=== PATIENT | male | born 1940 | race Caucasian/White ===

== ENCOUNTER 2017-04-07 23:09 | Inpatient (IN) ==
[2017-04-07 23:37] LABS: Basophils % 0.1 %; Eosinophils % 0.1 %; Hematocrit 33.8 % (37.5-50.1); Hemoglobin 11.1 g/dL (12.9-16.9); Immature Granulocytes % 0.4 % (0-4); Lymphocytes # 0.5 K/mcL (0.6-4.6); Lymphocytes % 7.5 %; Mean Corpuscular HGB Conc 32.8 g/dL (31.6-35.5); Mean Corpuscular Hemoglobin 31.5 pg (28.0-33.3); Mean Platelet Volume 9.8 fL (9.4-12.4); Monocytes # 0.3 K/mcL (0.0-1.3); Monocytes % 4.3 %; Neutrophils # 6.3 K/mcL (1.6-8.9); Platelet Count 115 K/mcL (140-400); Red Blood Count 3.52 M/mcL (4.19-5.50); Red Cell Distribution Width 14.1 % (11.5-14.5); Segmented Neutrophils % 87.6 %
[2017-04-07] MEDS: 0.9 % Sodium Chloride 1,000 ML IVC SCH ×2 (23:39→23:40)
[2017-04-07 23:40] LABS: Bilirubin,Urine Negative (Negative); Blood,Urine Negative (Negative); Clarity,Urine Cloudy (Clear); Color,Urine Yellow (Yellow); Glucose,Urine (UA) Normal (Normal); Ketones,Urine Negative (Negative); Leukocyte Esterase,Urine Negative (Negative); Nitrite,Urine Negative (Negative); PH,Urine 5.5 pH Units (5.0-8.0); Protein,Urine Negative (Neg-Trace); Specific Gravity,Urine 1.013 (1.010-1.025); Urobilinogen,Urine Normal (Normal)
[2017-04-07 23:41] LABS: INR 2.6; Prothrombin Time 28.5 Seconds (9.4-12.1)
[2017-04-07 23:42] LABS: Hyaline Casts,Urine None Seen per lpf (None-Few); RBC,Urine 0-3 per hpf (0-3); Squamous Epithelial Cell,Urine Many per lpf (None-Few); WBC,Urine 0-3 per hpf (0-3)
[2017-04-07 23:44] LABS: Activated Partial Thrombo Time 39.2 Seconds (26.0-36.0)
[2017-04-07 23:51] LABS: Albumin 3.4 g/dL (3.5-5.0); Albumin/Globulin Ratio 0.8 (1.1-2.2); Bilirubin,Direct 1.4 mg/dL (0.0-0.5); Bilirubin,Indirect 1.5 mg/dL (0.0-1.2); Bilirubin,Total 2.9 mg/dL (0.2-1.2); Calcium 9.4 mg/dL (8.6-10.8); Globulin 4.1 g/dL (2.4-3.5); Magnesium 2.2 mg/dL (1.6-2.6); Phosphorous 4.3 mg/dL (2.3-4.7); Potassium 5.6 mEq/L (3.5-4.5); Total Protein 7.5 g/dL (6.0-8.3)
[2017-04-07 23:54] LABS: Bacteria,Urine Few per hpf (None-Few)
[2017-04-08] MEDS: 0.9 % Sodium Chloride 1,000 ML IVC SCH (00:42)
--- NOTE | 2017-04-08 01:07 | Emergency Department Note ---
Disposition Clinical Impression: Delirium due to general medical condition, Sepsis Cellulitis Qualifiers: Site of cellulitis: extremity Site of cellulitis of extremity: lower extremity Laterality: left Qualified Code(s): L03.116 - Cellulitis of left lower limb Disposition: Admitted As Inpatient Condition: Fair Time of Disposition: 03:52 General Adult HPI - General Chief complaint: ED Altered Mental Status Stated complaint: AMS/fever Time Seen by Provider: 04/07/17 23:11 Source: patient, EMS Limitations: no limitations Nursing Notes Reviewed: Yes Vital Signs Reviewed: Yes - History of Present Illness HPI Narrative: Patient brought to the emergency department by EMS for altered level of consciousness. Report from was normal up until around 8:00 tonight when he became having to have Rigor's and chilling and then started having an altered level of consciousness. Pain Scale: 0 - Related Data Home Medications Medication Instructions Recorded Confirmed Ergocalciferol (VITAMIN D2) 2,000 unit PO DAILY 02/05/17 02/05/17 [Vitamin D2] Furosemide [Lasix] 40 mg PO BID 02/05/17 02/05/17 Levothyroxine [Synthroid] 88 mcg PO DAILY 02/05/17 02/05/17 Lisinopril [Zestril] 20 mg PO DAILY 02/05/17 02/05/17 Multivit-Min/FA/Lycopen/Lutein 1 each PO DAILY 02/05/17 02/05/17 [Centrum Silver Men Tablet] Warfarin [Coumadin] 1.5 tab PO DAILY 02/05/17 02/05/17 Allergies Allergy/AdvReac Type Severity Reaction Status Date / Time No Known Allergies Allergy Verified 01/03/17 12:25 Limitations: ROS unobtainable due to patients medical condition Past Medical History - Past Medical History Attestation: Yes The following information was validated with the patient. Medical history: Reports: hypertension, other Surgical history: Reports: other (cardiac ablasion) Psychiatric history: Reports: no psych history - Social History Smoking Status: Never smoker Smokeless Tobacco Status: No Alcohol use: Reports: none Drug use: Reports: none Physical Exam - General Limitations: no limitations General appearance: alert, other (Confused) - Head Head exam: atraumatic, normocephalic - Eye Eye exam: Present: normal appearance, PERRL, EOMI. Absent: scleral icterus - ENT ENT exam: normal exam, normal oropharynx, mucous membranes moist - Neck Neck exam: Present: normal inspection, full ROM, trachea midline. Absent: tenderness, meningismus, lymphadenopathy - Chest Chest inspection: Present: normal inspection, symmetric chest wall rise. Absent : tenderness - Respiratory Respiratory exam: Present: normal lung sounds bilaterally. Absent: respiratory distress - Cardiovascular Cardiovascular exam: Present: normal rhythm, tachycardia, normal heart sounds - Abdominal Exam Abdominal exam: Present: soft, Non-Tender, normal bowel sounds. Absent: tenderness, distention, guarding, rebound, rigidity, organomegaly - Extremities Exam Extremities exam: Present: other (Left lower extremity indurated from hip to foot also erythematous and warm. Right lower extremity also has some skin changes and is slightly edematous but not erythematous or warm.) - Expanded Upper Extremity Exam Shoulder exam: Present: normal inspection, full ROM Arm exam: Present: normal inspection, full ROM Elbow exam: Present: normal inspection, full ROM Forearm/Wrist exam: Present: normal inspection, full ROM Hand exam: Present: normal inspection, full ROM Vascular exam: Normal: capillary refill, radial pulse - Back Exam Back exam: Present: normal inspection - Neurological Exam Neurological exam: Present: alert, other (Very confused) - Skin Skin exam: Present: warm, dry, normal color Course Course Narrative: Male patient brought into the emergency department by EMS. called for an altered mental status. Advised that he is febrile. He is febrile at 105 here. Have an altered mental status. He ishis name and that he is at the hospital he is chilling in bed. He has several blankets on him. He denies any pain at this time. He does have erythematous lower extremities that EMS states the said were chronic. appears at bedside and states that he does have a history of amyloidosis. He is currently being treated for. There are no rashes I can appreciate on his body. Do not appreciate any outwardly signs of trauma. states that this happened last weekend one time but he did not have an altered mental status at that time. She states he started feeling better so then he was seen this week for his amyloidosis. She states today he was acting appropriately they went for ride a dinner and then went home. She states that after they were home for a while he became altered. She states he started having chills. She called 911. Patient meets sepsis criteria. He is tachycardic while here. We will give patient fluid boluses as well as begin a workup with lab work head CT a chest x-ray and urinalysis. We will treat patient's fever with Tylenol. - Reevaluation(s) Reevaluation #1: Patient's fever is coming down. He is down to 103 now. is stating that his left leg does look worse than it normally does. There is erythema and warmth and induration from his left foot up to his left thigh. It appears cellulitic. He is Complaining of left knee pain. He does not appear meningitic. He has full range of motion of his neck. He is more alert now. He is still tachycardic and almost in with his fluid bolus. I believe the tachycardia is from his fever and infection. We will begin patient on vancomycin and Rocephin and admit to the hospital. Time: 01:47 - Consultations Consultation #1: Dr Akers accepted Pt in stable condition. he was made aware that the Pt blood pressure has been in the 80-90 systolic after a fluid bolus, however the Pt mentation is normal. Time: 03:10 Vital Signs Temperature 104.5 F H 04/07/17 23:12 Pulse Rate 129 04/07/17 23:12 Respiratory Rate 21 04/07/17 23:12 Blood Pressure 130/89 04/07/17 23:12 O2 Sat by Pulse Oximetry 91 04/07/17 23:12 Temperature 0 F L 04/08/17 03:52 Pulse Rate 112 04/08/17 03:41 Respiratory Rate 0 04/08/17 03:52 Blood Pressure 0/0 04/08/17 03:52 O2 Sat by Pulse Oximetry 96 04/08/17 03:41 Oxygen Delivery Oxygen Delivery Room Air Medical Decision Making - Medical Records Medical records reviewed: Yes I reviewed the patient's medical records. - Lab Data Lab results reviewed: Yes I reviewed the patient's lab results. Result diagrams: 04/07/17 23:26 04/07/17 23:26 Lab Results 04/07/17 04/07/17 04/07/17 Range/Units 23:26 23:26 23:26 WBC 7.2 (4.3-11.1) K/mcL RBC 3.52 L (4.19-5.50) M/mcL Hgb 11.1 L (12.9-16.9) g/dL Hct 33.8 L (37.5-50.1) % MCV 96.0 (83.0-100.0) fL MCH 31.5 (28.0-33.3) pg MCHC 32.8 (31.6-35.5) g/dL RDW 14.1 (11.5-14.5) % Plt Count 115 L (140-400) K/mcL MPV 9.8 (9.4-12.4) fL Immature Gran % 0.4 (0-4) % Seg Neutrophils % 87.6 % Lymphocytes % 7.5 % Monocytes % 4.3 % Eosinophils % 0.1 % Basophils % 0.1 % Neutrophils # 6.3 (1.6-8.9) K/mcL Lymphocytes # 0.5 L (0.6-4.6) K/mcL Monocytes # 0.3 (0.0-1.3) K/mcL Eosinophils # 0.0 (0.0-0.6) K/mcL Basophils # 0.0 (0.0-0.2) K/mcL PT 28.5 H (9.4-12.1) Seconds INR 2.6 APTT 39.2 H (26.0-36.0) Seconds Sodium 135 L (136-145) mEq/L Potassium 5.6 H (3.5-4.5) mEq/L Chloride 100 (98-109) mEq/L Carbon Dioxide 21 (19-29) mEq/L BUN 91 H (8-26) mg/dL Creatinine 3.19 H (0.72-1.25) mg/dL Est GFR ( Amer) 23 L (> 60) Est GFR (Non-Af Amer) 19 L (> 60) BUN/Creatinine Ratio 29 H (6-26) Glucose 111 H (70-99) mg/dL Calculated Osmolality 309 H (280-300) Lactic Acid (0.5-2.2) mmol/L Calcium 9.4 (8.6-10.8) mg/dL Phosphorus 4.3 (2.3-4.7) mg/dL Magnesium 2.2 (1.6-2.6) mg/dL Total Bilirubin 2.9 H (0.2-1.2) mg/dL Direct Bilirubin 1.4 H (0.0-0.5) mg/dL Indirect Bilirubin 1.5 H (0.0-1.2) mg/dL AST 33 (5-34) Units/L ALT 8 (0-55) Units/L Alkaline Phosphatase 116 (38-126) Units/L Troponin I (0-0.03) ng/mL Serum Total Protein 7.5 (6.0-8.3) g/dL Albumin 3.4 L (3.5-5.0) g/dL Globulin 4.1 H (2.4-3.5) g/dL Albumin/Globulin Ratio 0.8 L (1.1-2.2) Urine Color (Yellow) Urine Clarity (Clear) Urine pH (5.0-8.0) pH Units Ur Specific [place] (1.010-1.025) Urine Protein (Neg-Trace) mg/dL Urine Glucose (UA) (Normal) mg/dL Urine Ketones (Negative) mg/dL Urine Blood (Negative) Urine Nitrite (Negative) Urine Bilirubin (Negative) Urine Urobilinogen (Normal) mg/dL Ur Leukocyte Esterase (Negative) Urine Microscopic RBC (0-3) per hpf Urine Microscopic WBC (0-3) per hpf Ur Squamous Epith Cells (None-Few) per lpf Urine Bacteria (None-Few) per hpf Hyaline Casts (None-Few) per lpf Ur Culture Indicated? (NO) 04/07/17 04/07/17 04/07/17 Range/Units 23:26 23:26 23:32 WBC (4.3-11.1) K/mcL RBC (4.19-5.50) M/mcL Hgb (12.9-16.9) g/dL Hct (37.5-50.1) % MCV (83.0-100.0) fL MCH (28.0-33.3) pg MCHC (31.6-35.5) g/dL RDW (11.5-14.5) % Plt Count (140-400) K/mcL MPV (9.4-12.4) fL Immature Gran % (0-4) % Seg Neutrophils % % Lymphocytes % % Monocytes % % Eosinophils % % Basophils % % Neutrophils # (1.6-8.9) K/mcL Lymphocytes # (0.6-4.6) K/mcL Monocytes # (0.0-1.3) K/mcL Eosinophils # (0.0-0.6) K/mcL Basophils # (0.0-0.2) K/mcL PT (9.4-12.1) Seconds INR APTT (26.0-36.0) Seconds Sodium (136-145) mEq/L Potassium (3.5-4.5) mEq/L Chloride (98-109) mEq/L Carbon Dioxide (19-29) mEq/L BUN (8-26) mg/dL Creatinine (0.72-1.25) mg/dL Est GFR ( Amer) (> 60) Est GFR (Non-Af Amer) (> 60) BUN/Creatinine Ratio (6-26) Glucose (70-99) mg/dL Calculated Osmolality (280-300) Lactic Acid 2.6 H (0.5-2.2) mmol/L Calcium (8.6-10.8) mg/dL Phosphorus (2.3-4.7) mg/dL Magnesium (1.6-2.6) mg/dL Total Bilirubin (0.2-1.2) mg/dL Direct Bilirubin (0.0-0.5) mg/dL Indirect Bilirubin (0.0-1.2) mg/dL AST (5-34) Units/L ALT (0-55) Units/L Alkaline Phosphatase (38-126) Units/L Troponin I 0.28 H* (0-0.03) ng/mL Serum Total Protein (6.0-8.3) g/dL Albumin (3.5-5.0) g/dL Globulin (2.4-3.5) g/dL Albumin/Globulin Ratio (1.1-2.2) Urine Color Yellow (Yellow) Urine Clarity Cloudy A (Clear) Urine pH 5.5 (5.0-8.0) pH Units Ur Specific [place] 1.013 (1.010-1.025) Urine Protein Negative (Neg-Trace) mg/dL Urine Glucose (UA) Normal (Normal) mg/dL Urine Ketones Negative (Negative) mg/dL Urine Blood Negative (Negative) Urine Nitrite Negative (Negative) Urine Bilirubin Negative (Negative) Urine Urobilinogen Normal (Normal) mg/dL Ur Leukocyte Esterase Negative (Negative) Urine Microscopic RBC 0-3 (0-3) per hpf Urine Microscopic WBC 0-3 (0-3) per hpf Ur Squamous Epith Cells Many H (None-Few) per lpf Urine Bacteria Few (None-Few) per hpf Hyaline Casts None Seen (None-Few) per lpf Ur Culture Indicated? NO (NO) 04/08/17 Range/Units 01:14 WBC (4.3-11.1) K/mcL RBC (4.19-5.50) M/mcL Hgb (12.9-16.9) g/dL Hct (37.5-50.1) % MCV (83.0-100.0) fL MCH (28.0-33.3) pg MCHC (31.6-35.5) g/dL RDW (11.5-14.5) % Plt Count (140-400) K/mcL MPV (9.4-12.4) fL Immature Gran % (0-4) % Seg Neutrophils % % Lymphocytes % % Monocytes % % Eosinophils % % Basophils % % Neutrophils # (1.6-8.9) K/mcL Lymphocytes # (0.6-4.6) K/mcL Monocytes # (0.0-1.3) K/mcL Eosinophils # (0.0-0.6) K/mcL Basophils # (0.0-0.2) K/mcL PT (9.4-12.1) Seconds INR APTT (26.0-36.0) Seconds Sodium (136-145) mEq/L Potassium (3.5-4.5) mEq/L Chloride (98-109) mEq/L Carbon Dioxide (19-29) mEq/L BUN (8-26) mg/dL Creatinine (0.72-1.25) mg/dL Est GFR ( Amer) (> 60) Est GFR (Non-Af Amer) (> 60) BUN/Creatinine Ratio (6-26) Glucose (70-99) mg/dL Calculated Osmolality (280-300) Lactic Acid 1.6 (0.5-2.2) mmol/L Calcium (8.6-10.8) mg/dL Phosphorus (2.3-4.7) mg/dL Magnesium (1.6-2.6) mg/dL Total Bilirubin (0.2-1.2) mg/dL Direct Bilirubin (0.0-0.5) mg/dL Indirect Bilirubin (0.0-1.2) mg/dL AST (5-34) Units/L ALT (0-55) Units/L Alkaline Phosphatase (38-126) Units/L Troponin I (0-0.03) ng/mL Serum Total Protein (6.0-8.3) g/dL Albumin (3.5-5.0) g/dL Globulin (2.4-3.5) g/dL Albumin/Globulin Ratio (1.1-2.2) Urine Color (Yellow) Urine Clarity (Clear) Urine pH (5.0-8.0) pH Units Ur Specific [place] (1.010-1.025) Urine Protein (Neg-Trace) mg/dL Urine Glucose (UA) (Normal) mg/dL Urine Ketones (Negative) mg/dL Urine Blood (Negative) Urine Nitrite (Negative) Urine Bilirubin (Negative) Urine Urobilinogen (Normal) mg/dL Ur Leukocyte Esterase (Negative) Urine Microscopic RBC (0-3) per hpf Urine Microscopic WBC (0-3) per hpf Ur Squamous Epith Cells (None-Few) per lpf Urine Bacteria (None-Few) per hpf Hyaline Casts (None-Few) per lpf Ur Culture Indicated? (NO) - Radiology Data Radiology results reviewed: Yes I reviewed the patient's radiology results. - EKG Data EKG #1 EKG attestation: Yes I reviewed and interpreted this EKG. EKG results narrative: Regular rhythm with no discernible P waves. At a rate of 122. QRS duration is 88. QT is 260. QTC is 333. No ST elevation or depression noted. Several rhythm changes from previous EKG dated 11/14/2011. Lead 1 and is now biphasic was upward deflecting lead to his now downward deflecting was upward deflecting. Lead 3 is now downward deflecting was upward deflecting. R-wave progression has become more poor from previous EKG. Critical Care Time Critical Care Time: Yes Total Critical Care Time: 50 Attestation: Critical care performed: Time is exclusive of separately billable procedures. Time includes: direct patient care, patient reassessment, coordination of patient care, interpretation of data (laboratory data, radiology data, and respiratory data), review of patient's medical records, medical consultation and documentation of patient care. Procedures included in critical care time: Procedures excluded from critical care time: Attestation Statement - Attestation Attestation: I, Antony Crocker MD, personally evaluated this patient and discussed their management with the resident physician. I reviewed the resident's note and agree with the documented findings, medical decision making, and plan of care. 77-year-old male presents to the emergency department by ambulance for fever and altered mental status. Patient was fine until about 8 PM this evening and when he had acute onset of chills and a rigor and high fever. He became confused and disoriented. He complained of some generalized body aches and especially lower back pain. Temperature was 105. On arrival here he was initially confused and disoriented. At time of my examination he was alert and answered questions appropriately. He was oriented to person and place. He denies any headache or neck pain. No cough or chest pain or shortness breath. No abdominal pain. No vomiting or diarrhea. No dysuria. Does complain of some pain in his left knee that started yesterday and got progressively worse throughout the day today. He denies any injury. On examination patient is a well-developed well-nourished elderly male in no acute distress. He is alert and oriented to person and place. There is no cyanosis or diaphoresis. Neck is supple and nontender with full range of motion. Chest is nontender to palpation. Breath sounds are clear and equal bilaterally. Heart regular rate and rhythm. Abdomen is soft and nontender with normal bowel sounds. The left lower extremity is red and warm to touch and tender up to the mid thigh. There is especially tenderness around the left knee with some swelling. Labs reviewed. Chest x-ray negative. Head CT showed no acute intracranial abnormality. EKG shows sinus tachycardia. The hospitalist, Dr. Akers, was consulted and accepted admission of the patient.
[2017-04-08] MEDS ORDERED: Vancomycin 1,250 MG in D5% in Water 250 ML IVPB ONE (01:36)
[2017-04-08] MEDS ORDERED: 0.9 % Sodium Chloride 1,000 ML IVC ONE (02:06)
[2017-04-08] MEDS ORDERED: Ondansetron 4 MG/2 ML VIAL IVP PRN ×2 (03:58→20:32)
[2017-04-08] MEDS ORDERED: Acetaminophen 325 MG TABLET PO PRN ×2 (03:58→20:32)
[2017-04-08] MEDS ORDERED: Naloxone 0.4 MG/ML INJ IVP PRN ×2 (03:58→20:32)
[2017-04-08] MEDS ORDERED: 0.9 % Sodium Chloride 1,000 ML IVC SCH ×2 (04:00→09:33)
--- NOTE | 2017-04-08 04:28 | Internal Med History&Physical ---
Date of Encounter: 04/08/17 Time of Encounter: 03:30 Assessment and Plan (1) Sepsis Current visit: Yes Status: Acute Patient has tachycardia, fever, elevated lactate, his WBC is also elevated from his baseline (baseline 3.4, now 7.2), patient has altered mental status and BP is at the lower side. His creatinine level is elevated compared with his baseline. Consider severe sepsis. - Patient was given 4 L IV fluid in emergency room. Lactate level getting down after resuscitation. - We will continue IV fluid at 150 ml/hr - Continue antibiotic treatment with Vanco and Rocephin. - CT lower extremity to rule out abscess and arthritis. - Close to monitor vital signs, renal function, and tachycardic. - Follow up blood culture. Patient is at high risk because he has altered mental status, severe sepsis, and he is on vancomycin, need close monitoring. Qualifiers: Sepsis type: sepsis due to unspecified organism Qualified Code(s): A41.9 - Sepsis, unspecified organism (2) Acute metabolic encephalopathy Current visit: Yes Status: Acute Is due to sepsis. Improved after treatment. (3) A-fib Current visit: Yes Status: Acute Tachycardia is due to sepsis and fever. Patient is on Coumadin for anticoagulation. Qualifiers: Atrial fibrillation type: chronic Qualified Code(s): I48.2 - Chronic atrial fibrillation (4) Hypertension Current visit: Yes Status: Acute Hold hypertension medication because patient's blood pressure at lower side. Qualifiers: Hypertension type: essential hypertension Qualified Code(s): I10 - Essential (primary) hypertension (5) DVT prophylaxis Current visit: Yes Status: Acute Pt is on Coumadin (6) Amyloidosis Current visit: Yes Status: Acute Patient is following up with oncology and [facility] specialist as outpatient. Qualifiers: Amyloidosis type: unspecified amyloidosis Qualified Code(s): E85.9 - Amyloidosis, unspecified (7) Cellulitis Current visit: Yes Status: Acute Continue antibiotic treatment. CT lower extremity to rule out abscess or arthritis. Qualifiers: Site of cellulitis: extremity Site of cellulitis of extremity: lower extremity Laterality: left Qualified Code(s): L03.116 - Cellulitis of left lower limb Internal Medicine - H&P: HPI Chief complaint: Altered mental status, left leg pain Admitted From: Home Plans for Post Hospital Care: Home History of present illness: Mr. Rubio is a 77 year old male with history of amyloidosis present to ER for altered mental status. Patient said since last night at 8 PM he feel confused and shivering. Patient complain left leg pain. He denies nausea, vomiting, sore throat, cough, shortness of breath, chest pain, abdominal pain, urinary symptoms. Patient was sent to ER, and was found a temperature height 105. His left leg is swelling with redness and warmth. He was also found elevated lactate and tachycardia. He was given 4 L IV fluid the emergency room and his blood pressure is still at the lower side. He was admitted as sepsis and cellulitis. He was given antibiotic in the emergency room. After treatment to his mental status has significantly improved. I discussed the CODE STATUS with the patient, he is a full code. Past Med Surg Social Fam HX - Past Medical History Medical history: hypertension, other Psychiatric history: no psych history - Past Surgical History Surgical History: other (cardiac ablasion) - Social History Smoking Status: Never smoker Smokeless Tobacco Status: No Alcohol use: none Drug use: none Internal Medicine - H&P: Meds Ergocalciferol (VITAMIN D2) [Vitamin D2] 2,000 unit PO DAILY 02/05/17 [History] Furosemide [Lasix] 40 mg PO BID 02/05/17 [History] Levothyroxine [Synthroid] 88 mcg PO DAILY 02/05/17 [History] Lisinopril [Zestril] 20 mg PO DAILY 02/05/17 [History] Multivit-Min/FA/Lycopen/Lutein [Centrum Silver Men Tablet] 1 each PO DAILY 02/05 [History] Warfarin [Coumadin] 1.5 tab PO DAILY 02/05/17 [History] Allergies No Known Allergies Allergy (Verified 01/03/17 12:25) All Systems PM: A 10-system review of systems was performed and is negative for pertinent findings except as documented above in the HPI. - Constitutional Vitals: Temp Pulse Resp BP Pulse Ox 0 F L 112 0 0/0 96 04/08/17 03:52 04/08/17 03:41 04/08/17 03:52 04/08/17 03:52 04/08/17 03:41 General appearance: Present: A&O X 3, no acute distress, answers questions appropriately - Head Head exam: Present: atraumatic, normocephalic - Eye Eye exam: Present: PERRL, conjuntiva pink, sclera anicteric Pupils: Present: PERRL - Neck Neck exam general surgery: Present: supple, trachea midline. Absent: lymphadenopathy - Respiratory Respiratory exam: Present: CTAB. Absent: accessory muscle use, rales, rhonchi, wheezes - Cardiovascular Cardiovascular exam: Present: irregular rhythm, +S1, +S2, tachycardia. Absent: diastolic murmur, gallop, rubs, systolic murmur - GI/Abdominal GI/Abdominal exam: Present: hepatomegaly, normal bowel sounds, soft, no peritoneal signs. Absent: distended, tenderness - Extremities Exam Extremities exam: Present: warm, radial pulses palpable and symetrical. Absent : calf tenderness, cyanotic, pedal edema Additional comments: Left lower extremity swelling, warmth, redness, with tenderness. Right lower extremity has mild redness. - Neurological Exam Neurological exam: Present: CN II-XII intact, oriented X3, no focal deficits. Absent: pronater drift, facial droop, speech deficit - Skin Skin exam: Present: dry, intact Internal Med - H&P Results - Labs CBC & Chem 7: 04/07/17 23:26 04/07/17 23:26
[2017-04-08 04:38] LABS: Basophils % 0.1 %; Hematocrit 27.9 % (37.5-50.1); Immature Granulocytes % 3.5 % (0-4); Lymphocytes # 0.6 K/mcL (0.6-4.6); Lymphocytes % 6.4 %; Mean Corpuscular HGB Conc 33.7 g/dL (31.6-35.5); Mean Corpuscular Hemoglobin 32.5 pg (28.0-33.3); Mean Corpuscular Volume 96.5 fL (83.0-100.0); Mean Platelet Volume 10.4 fL (9.4-12.4); Monocytes # 0.9 K/mcL (0.0-1.3); Monocytes % 8.8 %; Platelet Count 100 K/mcL (140-400); Red Blood Count 2.89 M/mcL (4.19-5.50); Red Cell Distribution Width 14.1 % (11.5-14.5); Segmented Neutrophils % 81.2 %
[2017-04-08 04:49] LABS: Hemoglobin 9.4 g/dL (12.9-16.9)
[2017-04-08 04:54] LABS: Calcium 8.4 mg/dL (8.6-10.8); Potassium 4.4 mEq/L (3.5-4.5)
[2017-04-08 05:15] LABS: Platelet Estimate Decreased (Normal); Reactive Lymphocytes Present (Not Present)
[2017-04-08] MEDS ORDERED: 0.9 % Sodium Chloride 500 ML IVC ONE (06:08)
[2017-04-08] MEDS ORDERED: Piperacillin/Tazobactam 3.375 GM in D5% in Water (Mini-Bag+) 100 ML IVPB SCH ×2 (06:19→08:00)
[2017-04-08] MEDS ORDERED: Norepinephrine 4 MG in D5% in Water 250 ML IVC SCH (07:30)
--- NOTE | 2017-04-08 08:13 | Pulmonology Consult Note ---
<SanaIrvin W - Last Filed: 04/08/17 13:01> Date of Encounter: 04/08/17 Medications and Allergies Ergocalciferol (VITAMIN D2) [Vitamin D2] 2,000 unit PO DAILY 02/05/17 [History] Levothyroxine [Synthroid] 88 mcg PO DAILY 02/05/17 [History] Lisinopril [Zestril] 10 mg PO DAILY 02/05/17 [History] Multivit-Min/FA/Lycopen/Lutein [Centrum Silver Men Tablet] 1 each PO DAILY 02/05 [History] Warfarin [Coumadin] 7.5 tab PO [id number] 02/05/17 [History] Diflunisal 250 mg PO DAILY 04/08/17 [History] Doxycycline Monohydrate [Mondoxyne Nl] 100 mg PO DAILY 04/08/17 [History] Famotidine [Pepcid] 40 mg PO DAILY 04/08/17 [History] Ursodiol [Ursodiol] 300 mg PO Q12H 04/08/17 [History] Warfarin [Coumadin] 10 mg PO ANGELES 04/08/17 [History] Allergies No Known Allergies Allergy (Verified 04/08/17 10:20) All Systems: A 10-system review of systems was performed and is negative for pertinent findings except as documented above in the HPI. Physical Examination Vital Signs: Vital Signs, Last 4 Hours Pulse Resp BP Pulse Ox 04/08/17 09:03 97 04/08/17 09:00 97 18 78/52 97 04/08/17 08:17 99 04/08/17 08:14 105 20 80/54 99 Results - Laboratory Findings CBC and BMP: 04/08/17 04:20 04/08/17 04:20 PT/INR, D-dimer PT 28.5 Seconds (9.4-12.1) H 04/07/17 23:26 Abnormal lab findings: Abnormal lab results RBC 2.89 M/mcL (4.19-5.50) L 04/08/17 04:20 Hgb 9.4 g/dL (12.9-16.9) L D 04/08/17 04:20 Hct 27.9 % (37.5-50.1) L 04/08/17 04:20 Plt Count 100 K/mcL (140-400) L 04/08/17 04:20 Reactive Lymphocytes Present (Not Present) A 04/08/17 04:20 Platelet Estimate Decreased (Normal) L 04/08/17 04:20 PT 28.5 Seconds (9.4-12.1) H 04/07/17 23:26 APTT 39.2 Seconds (26.0-36.0) H 04/07/17 23:26 Sodium 133 mEq/L (136-145) L 04/08/17 04:20 BUN 88 mg/dL (8-26) H 04/08/17 04:20 Creatinine 3.04 mg/dL (0.72-1.25) H 04/08/17 04:20 Est GFR ( Amer) 24 (> 60) L 04/08/17 04:20 Est GFR (Non-Af Amer) 20 (> 60) L 04/08/17 04:20 BUN/Creatinine Ratio 29 (6-26) H 04/08/17 04:20 Glucose 118 mg/dL (70-99) H 04/08/17 04:20 POC Glucose 101 (58-89) H 04/08/17 06:45 Calculated Osmolality 304 (280-300) H 04/08/17 04:20 Calcium 8.4 mg/dL (8.6-10.8) L 04/08/17 04:20 Total Bilirubin 2.9 mg/dL (0.2-1.2) H 04/07/17 23:26 Direct Bilirubin 1.4 mg/dL (0.0-0.5) H 04/07/17 23:26 Indirect Bilirubin 1.5 mg/dL (0.0-1.2) H 04/07/17 23:26 Troponin I 0.40 ng/mL (0-0.03) H* 04/08/17 04:20 Albumin 3.4 g/dL (3.5-5.0) L 04/07/17 23:26 Globulin 4.1 g/dL (2.4-3.5) H 04/07/17 23:26 Albumin/Globulin Ratio 0.8 (1.1-2.2) L 04/07/17 23:26 Ur Squamous Epith Cells Many per lpf (None-Few) H 04/07/17 23:32 - Clinical Findings Intake & Output: Intake & Output 04/07/17 04/08/17 04/08/17 23:59 07:59 15:59 Output Total 50 / 50 200 / 200 Balance - 1950 -200 / -200 Weight 95.3 kg Consult Discharge Plan - Plan Referrals: Daniel Garcia MD [Primary Care Provider] - - Attending Attestation I examined this patient and my medical decision-making was reviewed with the REAL ESTATE DIRECTOR/PA/Advanced Practice Nurse/Resident Physician. I agree with the documented findings, disposition and treatment plan as described except to the extent set forth below. Patient seen and examined at bedside Labs, radiology, chart personally reviewed. All lines examined without evidence of infection. Neuropsych: awake and alert now. presented with AMS likely s/t to sepsis now improved. Pulm: acceptable oxygenation on room air. cont to monitor. Cards: Distributive shock d/t Sepsis. Fluid resuscitated/ starting vaospressor to keep MAP >60. trend lactate, ECG without STEMI Trop elevated suspect type 2 MS. ECHO pending. cardiology consult based upon clinical course/results of ECHO FEN-GI:NPO for now. Renal: LURDES which is likely s/t prerenal azotemia along with use of ACEi; all meds dosed for GFR. BID renal panel with electrolyte replacement as needed ID: Sepsis suspect soft tissue infection of LLE concern for nec fasc, d/w ortho possiblility of septic joint with pirior hardrward placment. CT scan of LE performed. General surgical consult based on results. Covered with Vanc/ Ceftriaxone and also given dose of Clinday for possible Nec Fasc deescalate based upon cultures Heme/Onc: elevated INR on warfarin (therapeutic), we will reverse for high index for possible surgical procedure on urgernt/emergent basis. Endo: glucose monitored Integ/MSK: LLE swelling/erythema with w/u as above. History of hardware placement. ortho to follow, Will also provide skin care per routine ICU proocol. CODE: Full family updated at bedside. <Karyn Peterson - Last Filed: 04/08/17 15:30> Date of Encounter: 04/08/17 Time of Encounter: 08:07 Assessment and Plan (1) Septic shock Current Visit: Yes Status: Acute Patient had Tmax of 104.5, pulse 129, R 21, source of infection likely secondary to left lower leg cellulitis. Patient had altered mental status that has since resolved after receiving 3.5L fluid boluses. urinalysis showed no signs of infection. lactate now 1.6 (initially 2.6) CT head showed no acute intracranial abnormality. Plan: NPO except medications. blood cultures x2 pending continue vancomycin day 2, ceftriaxone day 2 clindamycin day 1 appreciate orthopedic surgery recommendations. 2 units FFP given in case patient needs surgery. trend lactate Q6, BMP, CBC, INR, troponin will consult general surgery if needed. (2) Cellulitis Current Visit: Yes Status: Acute left lower leg erythematous, edematous from ankle to mid thigh. no crepitus appreciated on exam. CT LLE showed diffuse subcutaneous eema along skin thickening to the visualized left lower extremity, may reflect stasis, cellulitis, or lymphedema. no focal fluid collections to suggest abscess formation. no evidence of soft tissue gas, no bony abnormalities, no evidence of osteomyelitis. Left knee prosthesis is smoothly marginated lucency, infection unlikely, small nonspecific knee joint effusion, mild to moderate degenerative changes in ankle/fot, most significant to the midfoot at level of talonaicular joint. fluid culture sent for analysis, showed few gram positive rods and many white blood cells. Plan: fluid removed from left knee, sent for analysis. continue vancomycin day 2, ceftriaxone day 2 clindamycin day 1 appreciate orthopedic surgery recommendations, they will take patient to surgery today to remove hardware. 2 units FFP given in case patient needs surgery. will consult general surgery if warranted. will consult cardiology for surgery clearance. Qualifiers: Site of cellulitis: extremity Site of cellulitis of extremity: lower extremity Laterality: left Qualified Code(s): L03.116 - Cellulitis of left lower limb (3) A-fib Current Visit: Yes Status: Acute currently HR runs 90s-105 continue to monitor. pharmacy dosing warfarin, which is currently being held for possible surgery of let lower extremity. Qualifiers: Atrial fibrillation type: chronic Qualified Code(s): I48.2 - Chronic atrial fibrillation (4) Acute kidney injury superimposed on CKD Current Visit: Yes Status: Acute LURDES on CKD, stage IIIa Cr today 3.04, baseline around 1.3 FEna: .5%: Pre-renal cause. Urine urea: 521 Plan: avoid nephrotoxins. hold lisinopril will monitor with repeat BMP. (5) CHF (congestive heart failure) Current Visit: Yes Status: Acute last echo from 01/18/17 showed LVEF 55%, sever concentric LVH, indeterminate diastolic function, Interventricular septum appeared flat throughout, abnormal appearing myocardial texture mildly dilated RV, mild RV hypokinesis, severely dilated left atrium, severely dilated RA, mild ashanti regurg, mild pulmonary HTN , RSVT 3-44, severe tricuspid regurg, peural effusion. Plan: repeat echo pending will give fluids with caution continue to monitor. does not appear to be in exacerbation. Qualifiers: Congestive heart failure type: diastolic Congestive heart failure chronicity: chronic Qualified Code(s): I50.32 - Chronic diastolic (congestive ) heart failure (6) Elevated troponin Current Visit: Yes Status: Acute tropes .28, .4, .48 will trend q6h EKG showed Afib without signs of ischemia. Echo pending (7) Hypothyroidism Current Visit: Yes Status: Acute continue home med levothyroxine Qualifiers: Hypothyroidism type: unspecified Qualified Code(s): E03.9 - Hypothyroidism , unspecified (8) Amyloidosis Current Visit: Yes Status: Acute will resume home meds once home med list is verified. Qualifiers: Amyloidosis type: unspecified amyloidosis Qualified Code(s): E85.9 - Amyloidosis, unspecified (9) DVT prophylaxis Current Visit: Yes Status: Acute foot pumps Neuro/sedation: Patient had altered mental status that had since resolved after administration of fluids. Currently A&Ox3, mentating well. Pulm: CXR showed mild cardiomegaly with no acute process. Cardiac: Hx of CHF with preserved EF. Hx of Afib on warfarin, which is being held. patient is mildly tachycardic. will monitor at this time. elevated troponin with peak troponin .48, will trend. Echo pending. Hold lisinopril due to septic shock. Have discontinued maintenance fluids. Titrate levophed to MAP above 60. Gi/Fluids: patient received about 4 fluid boluses in the ED. will monitor Renal: LURDES on CKD (IIIa). Avoid nephrotoxins. urine Cr, urine sodium, urine urea levels pending. ID: septic shock likely secondary to LLE cellulitis. blood cultures x2 pending. CT leg pending. continue vanc, clindamycin, ceftriaxone. urinalysis showed no signs of infection. Consult to orthopedic surgery Heme/onc: Hg down from baseline, chronically thrombocytopenic. will get stool occult blood. INR 2.6, hold for possible surgery. 2 units FFP given. Foot pumps for DVT prophylaxis. Endocrine: continue blood glucose measurements. Continue synthroid for hypothyroidism. Skin: routine skincare per ICU protocol. Lines: right IJ, right peripheral, Cook catheter History of Present Illness Consult date: 04/08/17 Requesting physician: Alayna Akers Reason for consult: other (septic shock) Chief complaint: altered mental status History of present illness: 77 year old male with PMHx of Amyoidosis, HTN, Afib (on coumadin), hypothyroidism. Patient initially presented to ED with CC of altered mental status. He was confused, and had chills. He also complained of severe left leg pain, had temp of 105. He received 4L fluids from ED, and his altered mental status has since resolved. Patient's left knee is very inflammed and erythematous. Patient states that had his left knee replaced about 5 years ago at [facility] with Dr. Puentes. He does not recall what kind of hardware he had placed. Patient Was initally admitted to 2N, however, he remained hypotensive and was subsequently transferred to ICU this morning. Patient remains alert and oriented x3. Past Med Surg Social Fam HX - Past Medical History Medical history: atrial fibrillation, hypertension, other Psychiatric history: no psych history - Past Surgical History Surgical History: other - Social History Smoking Status: Never smoker Smokeless Tobacco Status: No Alcohol use: none Drug use: none - Family History Father History Unknown: Yes Adopted: Yes Age: 66 Living Status: Hx Family Cardiac Disorders: Yes Mother Living Status: Age at : 95 Hx Family Cardiac Disorders: Yes (heart disease) All Systems: A 10-system review of systems was performed and is negative for pertinent findings except as documented above in the HPI. - Constitutional Constitutional: chills, fatigue, no headache(s) - EENT Eyes: no loss of vision Nose, mouth and throat: no dizziness, no headache(s) - Cardiovascular Cardiovascular: no chest pain, no palpitations, no syncope - Respiratory Respiratory: no cough, no hemoptysis - Gastrointestinal Gastrointestinal: no abdominal pain - Neurological Neurological: no dizziness, no headache(s) - Psychiatric Psychiatric: anxiety Physical Examination Vital Signs: Vital Signs, Last 4 Hours Temp Pulse Resp BP Pulse Ox 04/08/17 05:13 100 96 04/08/17 04:34 98.4 F 100 16 74/53 97 General appearance: no acute distress, alert Eyes: nonicteric ENT: oropharynx moist Neck: supple, no lymphadenopathy Effort: normal Auscultation: bilateral: clear Cardiovascular: other (tachycardia) Gastrointestinal: hypoactive bowel sounds, soft, non-tender Integumentary: cellulitis (on left lower etremity) Extremities: other (left lower leg cellulitis, erythematous, edematous from ankle to mid thigh. ) Musculoskeletal: joint inflammation (left lower extremity) normal mental status, motor strength normal and symmetric mood appropriate, affect normal Results - Laboratory Findings CBC and BMP: 04/08/17 04:20 04/08/17 04:20 PT/INR, D-dimer PT 28.5 Seconds (9.4-12.1) H 04/07/17 23:26 Abnormal lab findings: Abnormal lab results RBC 2.89 M/mcL (4.19-5.50) L 04/08/17 04:20 Hgb 9.4 g/dL (12.9-16.9) L D 04/08/17 04:20 Hct 27.9 % (37.5-50.1) L 04/08/17 04:20 Plt Count 100 K/mcL (140-400) L 04/08/17 04:20 Reactive Lymphocytes Present (Not Present) A 04/08/17 04:20 Platelet Estimate Decreased (Normal) L 04/08/17 04:20 PT 28.5 Seconds (9.4-12.1) H 04/07/17 23:26 APTT 39.2 Seconds (26.0-36.0) H 04/07/17 23:26 Sodium 133 mEq/L (136-145) L 04/08/17 04:20 BUN 88 mg/dL (8-26) H 04/08/17 04:20 Creatinine 3.04 mg/dL (0.72-1.25) H 04/08/17 04:20 Est GFR ( Amer) 24 (> 60) L 04/08/17 04:20 Est GFR (Non-Af Amer) 20 (> 60) L 04/08/17 04:20 BUN/Creatinine Ratio 29 (6-26) H 04/08/17 04:20 Glucose 118 mg/dL (70-99) H 04/08/17 04:20 POC Glucose 101 (58-89) H 04/08/17 06:45 Calculated Osmolality 304 (280-300) H 04/08/17 04:20 Calcium 8.4 mg/dL (8.6-10.8) L 04/08/17 04:20 Total Bilirubin 2.9 mg/dL (0.2-1.2) H 04/07/17 23:26 Direct Bilirubin 1.4 mg/dL (0.0-0.5) H 04/07/17 23:26 Indirect Bilirubin 1.5 mg/dL (0.0-1.2) H 04/07/17 23:26 Troponin I 0.40 ng/mL (0-0.03) H* 04/08/17 04:20 Albumin 3.4 g/dL (3.5-5.0) L 04/07/17 23:26 Globulin 4.1 g/dL (2.4-3.5) H 04/07/17 23:26 Albumin/Globulin Ratio 0.8 (1.1-2.2) L 04/07/17 23:26 Urine Clarity Cloudy (Clear) A 04/07/17 23:32 Ur Squamous Epith Cells Many per lpf (None-Few) H 04/07/17 23:32 - Clinical Findings Intake & Output: Intake & Output 04/07/17 04/08/17 04/08/17 23:59 07:59 15:59 Output Total 50 / 50 Balance -50 / 1950
--- NOTE | 2017-04-08 08:44 | Event Note ---
<Tavares Farah - Last Filed: 04/08/17 08:15> Date of Encounter: 04/08/17 Time of Encounter: 08:16 Procedure Note: Right internal jugular Central Venous Catheter Insertion Indication: Hypotension, septic shock. Attending Physician: Irvin Hood M.D. Inspector Government Property: Tavares Farah D.O. PGY 3 IM Indication: This is a 77 year-old male with septic shock. Consent: Detailed explanation of the procedure, treatment options, risks including but not limited to infection and bleeding, and benefits were explained to the patient. A written informed consent was obtained. Technique: A time out was preformed identifying the correct procedure, the correct location with the nursing staff. The right neck was prepped with 2% chlorhexidine and draped with a full length sterile sheet in the usual fashion. The right internal jugular vein was accessed under ultrasound guidance with an 18 gauge thin wall needle. A triple lumen was inserted via the seldinger technique. Placement was confirmed by visualizing the guidewire in the vein with ultrasound prior to inserting the triple-lumen catheter. Blood was withdrawn from all lumens and flushed with normal saline. The catheter was sutured in place and a sterile dressing was applied over the site prior to removal of drapes. The patient tolerated the procedure well and there were no complications. Chest x ray: I reviewed the chest x-ray. I have viewed the image myself. The right central venous catheter appears to be in the SVC. No Pneumothorax. I will follow up with the oficial report. EBL: [20 mL] Complication: None <Irvin Hood W - Last Filed: 04/08/17 17:56> Date of Encounter: 04/08/17 I am the attending physician I was present for the gage and critical portions of this procedure.
[2017-04-08 09:26] LABS: Bilirubin,Urine Negative (Negative); Blood,Urine Negative (Negative); Clarity,Urine Clear (Clear); Color,Urine Yellow (Yellow); Glucose,Urine (UA) Normal (Normal); Ketones,Urine Negative (Negative); Leukocyte Esterase,Urine Negative (Negative); Nitrite,Urine Negative (Negative); Protein,Urine Negative (Neg-Trace); Specific Gravity,Urine 1.015 (1.010-1.025); Urobilinogen,Urine Normal (Normal)
[2017-04-08] MEDS ORDERED: 0.9 % Sodium Chloride 250 ML ONE ×3 (09:59→21:11)
[2017-04-08] MEDS: Clindamycin 900 MG/50 ML 900 MG/50 ML IV.SOLN IVPB SCH ×3 (10:24→23:05)
--- NOTE | 2017-04-08 11:18 | Orthopedic Consult Note ---
Date of Encounter: 04/08/17 Time of Encounter: 08:00 Assessment and Plan (1) Infection of total right knee replacement Current Visit: Yes Status: Acute Based off patients history of knee infection, duration of pain and new onset of AMS, lactic acidosis and fever - concerned for septic left total knee joint. CT scan revealed lucency to medial component; xrays show no abnormality. After consent was obtained, left knee was aspirated using 18 gauge needle with 30 cc syringe. Approx 20 cc of purulent, turbid fluid was aspirated. Gram stain , cultures and cell count sent for STAT read. Gram stain revealed Gram + Cocci. Awaiting cell count and cultures Surgical intervention recommended. Discussed and reviewed the case with Because of patients history of infection, and suspicion this has been an ongoing issue, recommendation is to do a Left knee Removal of hardware and placement with cement spacer, with prolonged IV antibiotic treatment. Consent reviewed and discussed with family. Consent signed. Plan for surgery today. NPO, continue pain control, BP management. Cardio consult and pulmonology consult requested. Qualifiers: Encounter type: initial encounter Qualified Code(s): T84.53XA - Infection and inflammatory reaction due to internal right knee prosthesis, initial encounter; Z96.651 - Presence of right artificial knee joint (2) Sepsis Current Visit: Yes Status: Acute Qualifiers: Sepsis type: sepsis due to unspecified organism Qualified Code(s): A41.9 - Sepsis, unspecified organism (3) Cellulitis Current Visit: Yes Status: Acute Qualifiers: Site of cellulitis: extremity Site of cellulitis of extremity: lower extremity Laterality: left Qualified Code(s): L03.116 - Cellulitis of left lower limb (4) A-fib Current Visit: Yes Status: Acute Qualifiers: Atrial fibrillation type: chronic Qualified Code(s): I48.2 - Chronic atrial fibrillation (5) Hypertension Current Visit: Yes Status: Acute Qualifiers: Hypertension type: essential hypertension Qualified Code(s): I10 - Essential (primary) hypertension (6) Amyloidosis Current Visit: Yes Status: Acute Qualifiers: Amyloidosis type: unspecified amyloidosis Qualified Code(s): E85.9 - Amyloidosis, unspecified History of Present Illness Chief complaint: Left Knee Pain, AMS HPI: Mr. Rubio is a 77 year old male, presented to the ED last night due to AMS and lower leg pain. He reports he's had an increase in left knee pain for 2-3 days, progressively getting worse. His pain is diffuse in the knee, worsens with any type of motion, and he is unable to weightbear secondary to the pain. Denies N/T. Denies radiation of pain into lower leg or calf. Admits to having an increase in his lower leg erythema and swelling. He has chronic lower leg edema, history of Total knee replacement in 2010 with . During this recovery in 2010, he does report wound dehiscence and previous infection requiring IV antibiotic therapy. Prior to his total knee, he has a history of arthroscopic cyst debridement, that also resulted in an infection, requiring further irritation and debridement. He denies any new trauma, falls or injury. He reports he has been doing fairly well with the knee over the past few years, with the only complaint being lack of full motion. He does ambulate with a cane for balance and stability. He denies cough, CP or SOB. He has a history of amyloidosis, which has most recently required close monitoring due to his lower extremity edema and 3rd spacing fluid accumulation. He was recently placed on Doxycycline a few weeks ago. XRAYS reviewed. CT scan reviewed. This morning, he has improved from the hemodynamic standpoint, still has hypotension and elevated CK along with lactic acid. Past Med Surg Social Fam HX - Past Medical History Medical history: atrial fibrillation, hypertension, other Psychiatric history: no psych history - Past Surgical History Surgical History: other - Social History Smoking Status: Never smoker Smokeless Tobacco Status: No Alcohol use: none Drug use: none - Family History Father History Unknown: Yes Adopted: Yes Age: 68 Living Status: Hx Family Cardiac Disorders: Yes Mother Living Status: Age at : 95 Hx Family Cardiac Disorders: Yes (heart disease) Medications and Allergies Ergocalciferol (VITAMIN D2) [Vitamin D2] 2,000 unit PO DAILY 02/05/17 [History] Levothyroxine [Synthroid] 88 mcg PO DAILY 02/05/17 [History] Lisinopril [Zestril] 10 mg PO DAILY 02/05/17 [History] Multivit-Min/FA/Lycopen/Lutein [Centrum Silver Men Tablet] 1 each PO DAILY 02/05 [History] Warfarin [Coumadin] 7.5 tab PO MOTUWETHFRSA 02/05/17 [History] Diflunisal 250 mg PO DAILY 04/08/17 [History] Doxycycline Monohydrate [Mondoxyne Nl] 100 mg PO DAILY 04/08/17 [History] Famotidine [Pepcid] 40 mg PO DAILY 04/08/17 [History] Ursodiol [Ursodiol] 300 mg PO Q12H 04/08/17 [History] Warfarin [Coumadin] 10 mg PO ANGELES 04/08/17 [History] Allergies No Known Allergies Allergy (Verified 04/08/17 10:20) All Systems Reviewed: A 10-system review of systems was performed and is negative for pertinent findings except as documented above in the HPI. - Constitutional Constitutional: as per HPI, fever(s), weakness, no frequent falls, no weight loss - Cardiovascular Cardiovascular: edema, no chest pain, no dyspnea, no leg ulcers, no syncope - Respiratory Respiratory: no cough, no dyspnea, no dyspnea on exertion - Musculoskeletal Musculoskeletal: as per HPI Physical Exam - Constitutional Vitals: Temp Pulse Resp BP Pulse Ox 98.6 F 73 18 102/71 96 04/08/17 10:15 04/08/17 10:15 04/08/17 10:15 04/08/17 10:15 04/08/17 10:15 - Knee left Appearance: effusion Effusion grade: grade 2 Varus alignment in stance: No Valgus alignment in stance: No Tenderness with palpation knee: anterior, posterior, medial, lateral Pain: with flexion, throughout ROM, other (painful PROM with flexion and extension; ROM severely limited) Gait: other (unable to ambulate secondary to pain) ROM: extension knee: Limited ROM: flexion knee: Limited Strength: flexion: Limited Results - Labs Result Diagrams: 04/08/17 04:20 04/08/17 04:20 Labs: Abnormal lab results RBC 2.89 M/mcL (4.19-5.50) L 04/08/17 04:20 Hgb 9.4 g/dL (12.9-16.9) L D 04/08/17 04:20 Hct 27.9 % (37.5-50.1) L 04/08/17 04:20 Plt Count 100 K/mcL (140-400) L 04/08/17 04:20 Reactive Lymphocytes Present (Not Present) A 04/08/17 04:20 Platelet Estimate Decreased (Normal) L 04/08/17 04:20 PT 28.5 Seconds (9.4-12.1) H 04/07/17 23:26 APTT 39.2 Seconds (26.0-36.0) H 04/07/17 23:26 Sodium 133 mEq/L (136-145) L 04/08/17 04:20 BUN 88 mg/dL (8-26) H 04/08/17 04:20 Creatinine 3.04 mg/dL (0.72-1.25) H 04/08/17 04:20 Est GFR ( Amer) 24 (> 60) L 04/08/17 04:20 Est GFR (Non-Af Amer) 20 (> 60) L 04/08/17 04:20 BUN/Creatinine Ratio 29 (6-26) H 04/08/17 04:20 Glucose 118 mg/dL (70-99) H 04/08/17 04:20 POC Glucose 101 (58-89) H 04/08/17 06:45 Calculated Osmolality 304 (280-300) H 04/08/17 04:20 Calcium 8.4 mg/dL (8.6-10.8) L 04/08/17 04:20 Total Bilirubin 2.9 mg/dL (0.2-1.2) H 04/07/17 23:26 Direct Bilirubin 1.4 mg/dL (0.0-0.5) H 04/07/17 23:26 Indirect Bilirubin 1.5 mg/dL (0.0-1.2) H 04/07/17 23:26 Creatine Kinase 217 Units/L (30-200) H 04/08/17 10:15 Troponin I 0.48 ng/mL (0-0.03) H* 04/08/17 10:15 Albumin 3.4 g/dL (3.5-5.0) L 04/07/17 23:26 Globulin 4.1 g/dL (2.4-3.5) H 04/07/17 23:26 Albumin/Globulin Ratio 0.8 (1.1-2.2) L 04/07/17 23:26 Ur Squamous Epith Cells Many per lpf (None-Few) H 04/07/17 23:32 H & H 04/08/17 Range/Units 04:20 Hgb 9.4 L D (12.9-16.9) g/dL Hct 27.9 L (37.5-50.1) % All other labs normal. CT/CT LE LT wo con IMPRESSION: Diffuse subcutaneous edema along with skin thickening to the visualized left lower extremity may reflect cellulitis, venous stasis or lymphedema. No focal fluid collections to suggest abscess formation. No evidence for soft tissue gas. No acute bony abnormalities. No CT evidence for osteomyelitis. Left knee prosthesis. Smoothly marginated lucency with sclerotic rim at cement bone interface involving cement underlying medial flange of tibial component measuring up to 3 mm in caliber. No remote priors to assess for change. Loosening not excluded. Infection felt unlikely. Small nonspecific knee joint effusion. [id number] degenerative changes to the ankle/foot, most significant to the midfoot at the level of the talonavicular joint. D/ / 04/08/2017 11:12:51 Eduar Toney MD / [facility] [place] Interpreting Provider: Eduar Toney MD XRAY FINDINGS: There is a total knee arthroplasty with cemented components. No acute fracture or dislocation. No acute hardware failure or loosening. Grossly normal alignment. There is a joint effusion. XR/XR knee LT limited 1-2V IMPRESSION: Total knee arthropasty without acute hardware complication. CXR XR/XR chest 1V portable IMPRESSION: Cardiomegaly without acute process. - Diagnostic results Knee x-ray: report reviewed, image reviewed Knee CT: report reviewed, image reviewed Consult Discharge Plan - Plan Referrals: Daniel Garcia MD [Primary Care Provider] -
--- NOTE | 2017-04-08 11:36 | Electrocardiograph Report ---
[address] [place], [place] [address] Test Date: 2017-04-07 Pat Name: [facility] Department: 105 Room: 02 Gender: M Order Picker: GREGORY : 1940 Requested By: Candace Walden Order Number: [id number] Reading MD: Viktoria Nicole Measurements Intervals [place] Rate: 122 P: TX: 0 QRS: 268 QRSD: 88 T: 72 QT: 260 QTc: 333 Interpretive Statements ATRIAL FIBRILLATION WITH RAPID VENTRICULAR RESPONSE WITH ABERRANT CONDUCTION OR VENTRICULAR PREMATURE COMPLEXES POSSIBLE ANTERIOR MYOCARDIAL INFARCTION OF INDETERMINATE AGE Electronically Signed On 04-08-2017 11:35:26 EDT by Viktoria Nicole
--- NOTE | 2017-04-08 11:38 | Electrocardiograph Report ---
[address] [place], [place] [address] Test Date: 2017-04-08 Pat Name: [facility] Department: 105 Room: 02 Gender: M Front Office Representative: GREGORY : 1940 Requested By: Alayna Akers Order Number: [id number] Reading MD: Viktoria Nicole Measurements Intervals [place] Rate: 143 P: ND: 0 QRS: -84 QRSD: 97 T: 61 QT: 280 QTc: 363 Interpretive Statements CONSIDER ATRIAL FIBRILLATION LEFT AXIS DEVIATION POSSIBLE OLD ANTERIOR CO, AGE INDETERMINATE Electronically Signed On 04-08-2017 11:36:40 EDT by Viktoria Nicole
--- NOTE | 2017-04-08 12:51 | Cardiology Consult Note ---
Date of Encounter: 04/08/17 Time of Encounter: 12:30 Assessment and Plan (1) Pre-operative cardiovascular examination Current Visit: Yes Status: Acute Plan for removal of left artificial knee hardware/joint under general anesthesia. Presented with septic shock--patient hypotensive and has required pressors; acute kidney injury SCr 3.19 upon presentation, baseline 1.2-1.6. T max 105. Troponin 0.28, 0.40, 0.48--no ischemic ECG changes, no chest pain. No hx of CAD. Most recent ischemic eval 2010 (non-exercise nuclear stress): negative for ischemia, positive for prior infarct. He is fairly sedentary d/t chronic issues with knee. Given acute illness as described above in addition to recent diagnosis of cardiac amyloidosis, he is at least a moderate to high risk for intermediate risk surgery--will further discuss with Dr. Lao Echocardiogram pending. (2) A-fib Current Visit: Yes Status: Acute Hx of atrial fib/flutter--follows with Dr. Quinn as outpatient. Avg HR=94 afib--80's at bedside. Has been rate controlled in the outpatient setting without AV magaly blocking agents. . Qualifiers: Atrial fibrillation type: chronic Qualified Code(s): I48.2 - Chronic atrial fibrillation Discussion w patient/family: The assessment and plan as outlined above was discussed with the patient and/or family members who expressed understanding and agreement. All questions were answered. Thank you for involving us in the care of your patient. Please call with any questions. The patient will be discussed and reviewed with Dr. Lao; changes to be made accordingly. History of Present Illness Consult date: 04/08/17 Requesting physician: Karyn Peterson Consult reason: Cardiovascular pre-operative risk stratification Chief complaint: Fever, LLE cellulitis History of present illness: Mr. Rubio is a 77 year old male with PMH significant for HTN, CKD, Afib ( coumadin), valvular heart disease, and OA s/p left total knee replacement (5 years ago) who presented to the ED with sudden onset of weakness, fever, and chills. EMS was called and oral temp was reportedly 105 degrees Fahrenheit. He states he did not have an appetite on Saturday; otherwise was in normal state of health. Patient and state he has had issues with left knee since replacement 4-5 years ago including non-healing wounds. He as recently diagnosed with cardiac amylodisis (senile), confirmed with endometrial biopsy at [facility]. Upon arrival to ED, exam was significant for LLE cellulitis/large left knee effusion with concern for septic shock. LURDES on CKD noted Patient was transferred to ICU this AM due to hypotension--he temporarily required pressers (levophed). Remains hypotensive upon exam. Suspected septic joint (left artificial knee). Plan for surgical removal of joint later this afternoon--Cardiology consulted for Pre-operative risk stratification. Prior CV testing: L.TTE ([facility]) 02/25/17: EF normal with thickened LV pollack, RV enlarged with moderate reduction in function, bi atrial enlargement, moderate to severe TR, trivial pericardial effusion Endometrial biopsy 02/25/17: amyloid deposits; findings suggestive of transthyretin-related amyloidosis Cardiac MRI 02/12/17: classic findings for cardiac amyloidosis with preserved LV systolic dysfunction with moderate RV dysfunction TTE 01/18/17: LVEF 55%, severe concentric left ventricular hypertrophy, interventricular septum appeared flat throughout much of the cardiac cycle, abnormal appearing myocardial texture. Amyloidosis should be considered, mildly dilated and hypokinetic right ventricle, severely dilated left atrium, severely dilated right atrium, mild mitral regurgitation, severe tricuspid regurgitation, mild pulmonary hypertension, estimated RVSP is 39-44 mmHg, all wall segments showed normal motion. Past Med Surg Social Fam HX - Past Medical History Attestation: Yes The following information was validated with the patient. Source: patient, old records reviewed Medical history: arthritis, atrial fibrillation, hypertension, renal disease, valvular heart disease, other (cardiac amyloidosis) Psychiatric history: no psych history - Past Surgical History Surgical History: other - Social History Smoking Status: Never smoker Smokeless Tobacco Status: No Alcohol use: none Drug use: none - Family History Father History Unknown: Yes Adopted: Yes Age: 68 Living Status: Hx Family Cardiac Disorders: Yes (heart disease) Mother Living Status: Age at : 95 Hx Family Cardiac Disorders: Yes (heart disease) Medications and Allergies Ergocalciferol (VITAMIN D2) [Vitamin D2] 2,000 unit PO DAILY 02/05/17 [History] Levothyroxine [Synthroid] 88 mcg PO DAILY 02/05/17 [History] Lisinopril [Zestril] 10 mg PO DAILY 02/05/17 [History] Multivit-Min/FA/Lycopen/Lutein [Centrum Silver Men Tablet] 1 each PO DAILY 02/05 [History] Warfarin [Coumadin] 7.5 tab PO MOTUWETHFRSA 02/05/17 [History] Diflunisal 250 mg PO DAILY 04/08/17 [History] Doxycycline Monohydrate [Mondoxyne Nl] 100 mg PO DAILY 04/08/17 [History] Famotidine [Pepcid] 40 mg PO DAILY 04/08/17 [History] Ursodiol [Ursodiol] 300 mg PO Q12H 04/08/17 [History] Warfarin [Coumadin] 10 mg PO ANGELES 04/08/17 [History] Allergies No Known Allergies Allergy (Verified 04/08/17 10:20) All Systems Review: A 10-system review of systems was performed and is negative for pertinent findings except as documented above in the HPI. - Cardiovascular Cardiovascular: as per HPI Physical Examination Vital Signs, Last 4 Hours Temp Pulse Resp BP Pulse Ox 04/08/17 12:11 99 18 84/61 96 04/08/17 11:30 102 04/08/17 11:19 98.1 F 102 20 86/59 99 04/08/17 10:15 98.6 F 73 18 102/71 96 04/08/17 09:03 97 04/08/17 09:00 97 18 78/52 97 General: Conversant HEENT: Atraumatic, Normocephaly Cardiac: Other (irregularly irregular) Lungs: Normal Breath Sounds Neuro: Alert and responsive Abdomen: Soft Extremities: Other (significant BLE edema/redness. Large effusion noted to left knee with erythema. +1 DP/PT pulses bilaterally. ) Other: + Results 04/08/17 04:20 04/08/17 04:20 Lab Results 04/08/17 04/08/17 04/08/17 04:20 04:20 04:20 WBC 9.9 Hgb 9.4 L D Hct 27.9 L Plt Count 100 L Sodium 133 L Potassium 4.4 D Chloride 104 Carbon Dioxide 19 BUN 88 H Creatinine 3.04 H Glucose 118 H Calcium 8.4 L Troponin I 0.40 H* 04/08/17 10:15 WBC Hgb Hct Plt Count Sodium Potassium Chloride Carbon Dioxide BUN Creatinine Glucose Calcium Troponin I 0.48 H* Active Medications Acetaminophen (Tylenol) 650 mg PO Q6HR PRN PRN Reason: Mild Pain (1-3) Stop: 10/08/17 03:59 Clindamycin Phosphate/Dextrose (Cleocin Premix 900 Mg/50 Ml) 900 mg in 50 mls @ 50 mls/hr IVPB Q8HR JOEY Stop: 10/08/17 08:01 Last Infusion: 04/08/17 11:20 Dose: Infused Norepinephrine Bitartrate 4 mg (/ Dextrose) 250 mls @ 1.87 mls/hr IVC CONT JOEY ; 0.5 MCG/MIN PRN Reason: Protocol Stop: 10/08/17 07:31 Ceftriaxone Sodium 1,000 mg/ (Dextrose) 100 mls @ 200 mls/hr IVPB Q24H JOEY Stop: 10/08/17 10:01 Last Infusion: 04/08/17 10:55 Dose: Infused Lactated Ringer's (Lactated Ringers) 500 mls @ 1,000 mls/hr IVC .Q30M ONE Stop: 04/08/17 13:22 Last Admin: 04/08/17 13:08 Dose: 1,000 mls/hr Levothyroxine Sodium (Synthroid) 88 mcg PO DAILY [facility] Stop: 10/08/17 09:01 Last Admin: 04/08/17 10:20 Dose: Not Given Naloxone HCl (Narcan) 0.4 mg IVP Q2MIN PRN PRN Reason: Opioid Reversal Stop: 10/08/17 03:59 Ondansetron HCl (Zofran) 4 mg IVP Q8HR PRN PRN Reason: Nausea And Vomiting Stop: 10/08/17 03:59 Vancomycin HCl (Vancocin) 0 each IVPB RPHPROT PRN PRN Reason: PULSE DOSE Stop: 10/08/17 04:26 Warfarin Sodium (Coumadin Perpt) 1 each PO DAILY@1800 PRN PRN Reason: SEE COMMENTS Stop: 10/08/17 18:01 Warfarin Sodium (Coumadin) 5 mg PO MoWeFr@1800 [facility] Stop: 10/08/17 18:01 Warfarin Sodium (Coumadin) 7.5 mg PO SuTuThSa@1800 JOEY Stop: 10/09/17 18:01 Impressions Chest X-Ray 04/07/17 23:27 IMPRESSION: Cardiomegaly without acute process. D/ / 04/08/2017 06:59:33 Gurpreet Chavez MD / [facility] Head CT 04/07/17 23:34 IMPRESSION: 1. Motion degraded examination. 2. No acute intracranial abnormality. 3. Mild chronic microvascular white matter ischemic disease. D/ / 04/08/2017 07:41:22 Jacky Turner MD / [facility] Knee X-Ray 04/08/17 06:28 IMPRESSION: Total knee arthropasty without acute hardware complication. D/ / Hernan Carr MD / [facility] Carr MD Tibia/Fibula X-Ray 04/08/17 06:28 IMPRESSION: Subcutaneous induration of the fat and suspected skin thickening suggest cellulitis. No obvious subcutaneous emphysema is noted. If there is a high clinical suspicion for a necrotizing fasciitis CT or MRI could be considered to further evaluate. D/ / 04/08/2017 08:23:29 John Paul Zaragoza MD / [facility] Lower Extremity CT 04/08/17 07:30 IMPRESSION: Diffuse subcutaneous edema along with skin thickening to the visualized left lower extremity may reflect cellulitis, venous stasis or lymphedema. No focal fluid collections to suggest abscess formation. No evidence for soft tissue gas. No acute bony abnormalities. No CT evidence for osteomyelitis. Left knee prosthesis. Smoothly marginated lucency with sclerotic rim at cement bone interface involving cement underlying medial flange of tibial component measuring up to 3 mm in caliber. No remote priors to assess for change. Loosening not excluded. Infection felt unlikely. Small nonspecific knee joint effusion. Kldm-ir-lgspderc degenerative changes to the ankle/foot, most significant to the midfoot at the level of the talonavicular joint. D/ / 04/08/2017 11:12:51 Eduar Toney MD / [facility] Lower Extremity CT 04/08/17 07:30 IMPRESSION: Diffuse nonspecific subcutaneous edema and skin thickening to the right lower extremity may relate to cellulitis, lymphedema or venous stasis. No focal fluid collections to suggest abscess formation. No soft tissue gas. No acute bony abnormalities. No CT evidence for osteomyelitis. Degenerative changes to the right knee, ankle and foot. There is also chondrocalcinosis to some of these joints as above, raising the possibility for calcium pyrophosphate deposition (CPPD) disease. Superimposed small to moderate right knee joint effusion. D/ / 04/08/2017 11:14:04 Eduar Toney MD / [facility] - [facility] Cardiology Echo: report reviewed Other Results: 12 hour tele: avg HR=94 afib. - EKG Interpretation EKG results cardiology: personally reviewed Consult Discharge Plan - Plan Referrals: Daniel Garcia MD [Primary Care Provider] -
[2017-04-08] MEDS ORDERED: Ringers Solution, Lactated 500 ML IVC ONE (12:53)
[2017-04-08 13:14] LABS: INR 2.5; Prothrombin Time 27.2 Seconds (9.4-12.1)
[2017-04-08 14:16] LABS: INR 2.5; Prothrombin Time 27.7 Seconds (9.4-12.1)
--- NOTE | 2017-04-08 15:33 | ECHO - Doppler Report ---
Echocardiogram Name: Daniel Peña [facility] Date of Study: 04/08/2017 Date: 1940 Ht: 75.0 in Medical Record#: [id number] Age: 77 Wt: 210.0 lb Gender: Male BSA: 2.24 Order #: [id number] Location: [facility] Room #: ICU02 Reading Physician: Viktoria Nicole DO Geospatial Extractor Analysis: Krystian Mcdonnell RN Ordering Physician: Eduar Prieto DO Primary Physician: Daniel Garcia MD Indications: Elevated Troponin, Preoperative Examination Impressions: LVEF 50-55%. Not all LV myocardial segments were well visualized. Consider repeat Limited study with Definity. Severe concentric hypertrophy of the left ventricle. Indeterminate left ventricular diastolic function RV is mild to moderately dilated with moderate reduction in function. Flattened IVS during the cardiac cycle suggests volume overload. Mild to moderate mitral regurgitation. Severe tricuspid regurgitation. RVSP may be underestimated due to suboptimal TR doppler signal. IVC is dilated and lacks respiratory collapse, estimating elevated RA pressures. Left Ventricular Wall Motion: Rest Echo Findings The apical inferior, mid inferior and basal inferior pollack were hypokinetic. The apical septal, mid inferior septal, basal inferior septal, mid anterior septal and basal anterior septal pollack were dyskinetic. The apical anterior, mid anterior and basal anterior pollack were not visualized. All other wall segments showed normal motion. Findings: Study Quality * Technically adequate exam. ECG Findings * Normal sinus rhythm. Left Ventricle * LVEF 50-55%. * Severe concentric left ventricular hypertrophy. * D shaped IVS during systole and diastole. * Indeterminate diastolic function. Left Atrium * Severely dilated left atrium. Mitral Valve * Normal mitral valve structure. * No mitral stenosis. * Mild-moderate mitral regurgitation. Aortic Valve * No aortic regurgitation. * Trileaflet aortic valve. * Normal aortic valve structure. * No aortic stenosis. Tricuspid Valve * Poor coaptation of TV leaflets. * Severe tricuspid regurgitation. * Estimated RA pressure is 15 mmHg. * Estimated RVSP is 37 mmHg. * Mild pulmonary hypertension. Pulmonic Valve * Pulmonic valve is not well visualized. * No pulmonic stenosis. * Trace pulmonic regurgitation. Pulmonary Artery * Pulmonary artery not well visualized. Right Ventricle * Prominent moderator band. * Mild to moderately dilated with moderate reduction in function. Right Atrium * Severely dilated right atrium. Interatrial Septum * No evidence of PFO by color Doppler. Pericardium * There is no pericardial effusion present. IVC * The IVC is dilated. * < 50% respiratory change. Aorta * Normally sized aortic root. History Hypertension Family History of CAD Congential Heart Disease 01/18/2017 a Previous Echo was performed. Measurements: BP: 84/ 58 2D Normal Values RVIDd: 3.70 cm <2.7 cm IVSd: 1.80 cm 0.6 - 1.0 cm LVIDd: 4.00 cm 3.7 - 5.6 cm LVPWd: 1.80 cm 0.6 - 1.1 cm LVIDs: 3.60 cm 1.5 - 3.6 cm LA: 4.80 cm 2.0 - 4.0cm %FS: 10.00 cm >25 % LVOT Diam: 2.00 cm LA volume: 85 Mitral Valve Peak E:.53 m/sec Peak A:.40 m/sec E/A Ratio:1.3 Peak E' Lat Tomas:6.53 cm/s Peak E' Med Tomas:5.46 cm/s E/E' Lat Ratio:8 E/E' Med Ratio:9.6 Tricuspid Valve TV Regurg Peak Grad: 22.00mmHg TV Regurg Peak Tomas: 2.32m/sec Updated by Viktoria Nicole on 04/08/2017 3:26:39 PM electronically signed on 04/08/2017 3:29:09 PM with status of Final Wall Motion Vargas: 1=Normal, 2=Hypokinesis, 3=Akinesis, 4=Dyskinesis, 5=Aneurysmal, 6=Hyperkinetic, X=Not Visualized (Blank)=Missing
[2017-04-08] MEDS ORDERED: Vancomycin 1,000 MG in D5% in Water 250 ML IVPB ONE (16:00)
[2017-04-08 16:54] LABS: Calcium 8.8 mg/dL (8.6-10.8); Magnesium 1.9 mg/dL (1.6-2.6); Potassium 4.7 mEq/L (3.5-4.5)
[2017-04-08 16:57] LABS: Source,Synovial Fluid LEFT KNEE
[2017-04-08] MEDS ORDERED: Vancomycin 1,250 MG in D5% in Water 250 ML IVPB SCH (17:00)
--- NOTE | 2017-04-08 17:09 | Anesthesia Evaluation PreOp ---
Date of Encounter: 04/08/17 Time of Encounter: 17:06 - Past History Planned Operation: Left Knee Removal Hardware Cardiac History: CHF, HTN, Arrhythmia (A-Fib), Other (elevated troponin-no ischemic ECG changes) Pulmonary History: Denies Any Significant HX CODING AND REIMBURSEMENT SPECIALIST History: Denies Any Significant HX Other Medical History: Renal (acute kidney injury on CKD stage 3), Thyroid, GERD , Other (sepsis-on levophed, amyloidosis) Anesthesia History: No Prior Anesthetic Complications, Past Anesthesia Alcohol Use: none Drug use: none Medications and Allergies Ergocalciferol (VITAMIN D2) [Vitamin D2] 2,000 unit PO DAILY 02/05/17 [History] Levothyroxine [Synthroid] 88 mcg PO DAILY 02/05/17 [History] Lisinopril [Zestril] 10 mg PO DAILY 02/05/17 [History] Multivit-Min/FA/Lycopen/Lutein [Centrum Silver Men Tablet] 1 each PO DAILY 02/05 [History] Warfarin [Coumadin] 7.5 tab PO [id number] 02/05/17 [History] Diflunisal 250 mg PO DAILY 04/08/17 [History] Doxycycline Monohydrate [Mondoxyne Nl] 100 mg PO DAILY 04/08/17 [History] Famotidine [Pepcid] 40 mg PO DAILY 04/08/17 [History] Ursodiol [Ursodiol] 300 mg PO Q12H 04/08/17 [History] Warfarin [Coumadin] 10 mg PO ANGELES 04/08/17 [History] Allergies No Known Allergies Allergy (Verified 04/08/17 10:20) - Meds/Allergy Pre-op Review Medications Reviewed: Yes Allergies Reviewed: Yes Beta Blockers on Current Med List: No Anesthesia Results - Labs 04/08/17 04:20 04/08/17 16:30 - Imaging EKG: report reviewed (04/08/2017 A-Fib, LAD possible old anterior infarct) Additional studies: 04/08/2017 Echo LVEF 50-55% not all LV myocardial segments well visualized severe concentric LVH indeterminate LV diastolic function RV mild-moderately dilated with moderate reduction in function flattened IVS during cardiac cycle suggests volume overload mild-moderate MR severe TR RVSP may be underestimated due to sub-optimal TR doppler signal IVC is dilated and lacks respiratory collapse, estimating elevated RA pressures 02/25/2017 TTE ([facility]) EF normal with thickened LV pollack RV enlarged with moderate reduction in function bi-atrial enlargement moderate-severe TR trivial pericardial effusion Anesthesia Exam Vital Signs/O2 Sat, Most Current Temp Pulse Resp BP Pulse Ox 98.1 F 85 16 82/59 97 04/08/17 11:19 04/08/17 16:00 04/08/17 16:00 04/08/17 16:00 04/08/17 16:00 Height: 6'3''/1.91 m Weight: 210 lbs/95.3 kg NPO (# of Hours): 8 Pain Scale: 0 Pain Scale Used: Numeric (1 - 10) - HEENT Pupil (Motor): EOMI Mallampati: II Teeth: Normal Denture Type: Upper: Complete Oral Opening: Greater than 3 - CODING AND REIMBURSEMENT SPECIALIST LOC: Oriented CODING AND REIMBURSEMENT SPECIALIST Motor: Normal RUE, Normal LUE, Normal RLE, Normal LLE, Normal Face CODING AND REIMBURSEMENT SPECIALIST Sensory: Normal: RUE, LUE, RLE, LLE, Face - Cardiac Rhythm: Irregular Murmur: None - Pulmonary Breath Sounds: bilateral Clear Anesthesia Assess/Plan ASA Score: 4 Modified [place] Scale for Level of Consciousness: Cooperative, oriented, and tranquil Anesthetic Plan: General, Precautions ( Patient and family understand that he is at increased risk for perioperative complications including myocardial infarct, arrhythmias, CVA, post op vent support/ICU stay, and . Patient and family wish to proceed) Monitoring Plan: Standard Monitors Recovery Plan: ICU
[2017-04-08 17:36] LABS: Hemoglobin 9.9 g/dL (12.9-16.9)
[2017-04-08 17:38] LABS: Hematocrit 29.8 % (37.5-50.1); Immature Platelets 5.4 % (1.1-6.1); Mean Corpuscular HGB Conc 33.2 g/dL (31.6-35.5); Mean Corpuscular Hemoglobin 31.9 pg (28.0-33.3); Mean Corpuscular Volume 96.1 fL (83.0-100.0); Mean Platelet Volume 10.5 fL (9.4-12.4); Platelet Count 104 K/mcL (140-400); Red Cell Distribution Width 14.4 % (11.5-14.5)
[2017-04-08] MEDS ORDERED: Warfarin perPT PO PRN ×2 (18:00→20:32)
[2017-04-08] MEDS ORDERED: *HR* Warfarin 5 MG TABLET PO SCH (18:00)
[2017-04-08 18:19] LABS: Basophils # 0.2 K/mcL (0.0-0.2); Lymphocytes # 1.6 K/mcL (0.6-4.6); Monocytes # 0.7 K/mcL (0.0-1.3); Neutrophils # 8.9 K/mcL (1.6-8.9)
[2017-04-08 18:20] LABS: Platelet Estimate Decreased (Normal)
[2017-04-08] MEDS ORDERED: Lidocaine -MPF 2% 2 ML VIAL ONE (18:30)
[2017-04-08] MEDS ORDERED: *HR* Etomidate 40 MG/20 ML VIAL IVP ONE (18:30)
[2017-04-08] MEDS ORDERED: *HR* Succinylcholine 200 MG/10 ML VIAL IVP ONE (18:30)
[2017-04-08] MEDS ORDERED: Heparin 1,000 UNITS/500 mL NS 500 ML ONE (18:32)
[2017-04-08] MEDS ORDERED: *HR* FentaNYL (PF) 100 MCG/2 ML VIAL ONE ×2 (18:33→19:27)
[2017-04-08 18:36] LABS: Appearance,Synovial Fluid Cloudy (Clear-Hazy); Color,Synovial Fluid Straw (Straw)
[2017-04-08 19:57] LABS: ABG Base Excess -6.5 mEq/L (-2.0 to 3.0); ABG HCO3 17.9 mEQ/L (21-27); ABG Oxygen Saturation 100 % (95-98); ABG PCO2 31 mmHg (35-45); ABG PH 7.37 pH Units (7.32-7.45); ABG PO2 374 mmHg (85-104); ABG TCO2 18.9 mEq/L (20-26)
[2017-04-08 19:59] LABS: Blood Gas FiO2 100 %
--- NOTE | 2017-04-08 20:01 | Orthopedic Operative Note ---
Date of procedure: 04/08/17 Pre-op diagnosis: Infected left total knee Post-op diagnosis: same Procedure: Procedure: Removal of infected total knee placement of articulating spacer, patellectomy Estimated blood loss: 500 mL Hardware: Metal and polyethylene articulating spacer Arthrex size 7 femur left and a 7+20 PS Carol Indications: Patient with a long history of problems with the left leg. History of previous infections history of wound healing problems. Patient had an aspiration which was positive for gram-positive cocci was in the ICU and sepsis. Patient was indicated for surgical intervention. Discussed resection arthroplasty and placement of articulating spacer with the family also discussed the possibility of a 1 time procedure with a above-knee amputation. This is not a procedure I performed but has any indication in this situation. Family was not interested in this option. Exam under anesthesia poor quality tense skin 10 degrees loss. Flexion to 30 degrees. Dictation of surgery: Patient brought to the operating placed on the operative table. After general anesthesia was administered by the anesthesia team left leg was examined The patient significant loss of motion or quality skin swelling and no erythema. The left lower extremity was prepped and draped in sterile surgical fashion patient received IV antibiotics prior skin incision. A midline incision was made through the old incision through the skin and subcutaneous tissue, hemostasis was obtained Bovie cautery. Soft tissue envelopes were developed both medially and laterally a poor quality and the need for extra excursion for closure. A medial parapatellar approach was performed upon performing the arthrotomy pus was identified and cultured and evacuated. Once extensive synovectomy was performed. This did not help improve the patient's flexion. It was decided at this point that the only way flexion would be achieved if the patella was removed. This was discussed with the family prior to the surgery to also help with closure at the end of the case. A subperiosteal removal of the patella was performed. The extensor mechanism even prior to this was of poor quality. The knee was then brought into flexion the Carol was removed, osteotomes were used to disrupt the interface between the patient's distal femur femoral component. Patient had a lot of excess cement which was used of his previous surgery to make a full loss bone. The femoral component was removed the bone loss appear to be related to his previous surgery and was significant. Patient had a medial wedge on the tibial component the bone was transected below the interface between the patient's tibial component and the patient's host bone. Tibial component was removed without bone loss. An extensive debridement was performed. The patient's knee sat for 2 minutes with a Betadine saline solution this was then irrigated out with 2 L of pulse irrigation. This was repeated 2 more times. The distal femur sized to 7 as well as the tibia. A 7 Arthrex femur was cemented to the distal femur was articulated to a cemented all Carol +20 PS Carol. This allowed the patient to achieve full extension. The extensor mechanism was then closed with running #2 PDS suture. Subcutaneous tissues closed with an antibiotic 1 PDS suture. The superficial subcutaneous tissue was closed with a 0 antibiotic Monocryl suture. The skin was closed with skin jewel. The patient was placed in a well-padded dressing and a postoperative brace locked in extension. The patient will be extubated and transferred back to the ICU. Anesthesia: [place] Surgeon: Fredi Casper Event Decorator: Bel Rodríguez Condition: other (gaurded) Disposition: ICU
[2017-04-08] MEDS ORDERED: *HR* HYDROmorphone (PF) 1 MG/ML SYRINGE IVP PRN (20:29)
[2017-04-08] MEDS ORDERED: Temazepam 15 MG CAPSULE PO PRN (20:32)
[2017-04-08] MEDS ORDERED: Sennosides 8.6 MG TABLET PO PRN (20:32)
[2017-04-08] MEDS ORDERED: MOM Conc 10 ML UD.LIQ PO PRN (20:32)
[2017-04-08] MEDS ORDERED: *HR* HYDROmorphone (PF) 1 MG/ML SYRINGE ONE (20:39)
[2017-04-08] MEDS: *HR* HYDROmorphone (PF) 1 MG/ML SYRINGE IVP PRN (20:42)
[2017-04-08] MEDS: Norepinephrine 4 MG in D5% in Water 250 ML IVC SCH (21:12)
[2017-04-08] MEDS: *HR* OxyCODONE Immed Rel 5 MG TABLET PO PRN (23:05)
[2017-04-09] MEDS: *HR* HYDROmorphone (PF) 1 MG/ML SYRINGE IVP PRN (03:30)
[2017-04-09 04:02] LABS: Basophils % 0.2 %; Eosinophils % 0.1 %; Hemoglobin 9.8 g/dL (12.9-16.9); Immature Granulocytes % 0.8 % (0-4); Lymphocytes # 1.1 K/mcL (0.6-4.6); Lymphocytes % 10.5 %; Mean Corpuscular HGB Conc 32.7 g/dL (31.6-35.5); Mean Corpuscular Hemoglobin 31.9 pg (28.0-33.3); Mean Corpuscular Volume 97.7 fL (83.0-100.0); Mean Platelet Volume 10.5 fL (9.4-12.4); Monocytes # 0.7 K/mcL (0.0-1.3); Monocytes % 6.9 %; Neutrophils # 8.6 K/mcL (1.6-8.9); Platelet Count 111 K/mcL (140-400); Red Blood Count 3.07 M/mcL (4.19-5.50); Red Cell Distribution Width 14.6 % (11.5-14.5); Segmented Neutrophils % 81.5 %
[2017-04-09 04:07] LABS: Prothrombin Time 33.7 Seconds (9.4-12.1)
[2017-04-09 04:09] LABS: Ionized Calcium 1.24 mmol/L (1.15-1.35)
[2017-04-09 04:13] LABS: Magnesium 1.8 mg/dL (1.6-2.6); Phosphorous 5.3 mg/dL (2.3-4.7)
[2017-04-09 04:30] LABS: Platelet Estimate Decreased (Normal)
[2017-04-09 05:14] LABS: Calcium 8.9 mg/dL (8.6-10.8); Potassium 4.8 mEq/L (3.5-4.5)
[2017-04-09 05:23] LABS: Vancomycin,Trough 17.7 mcg/mL (10-20)
--- NOTE | 2017-04-09 06:18 | Pulmonology Progress Note ---
<SanaIrvin W - Last Filed: 04/09/17 10:15> Date of Encounter: 04/09/17 Objective PUL Vital signs: Last Vital Signs Temp 99.3 F 04/09/17 08:10 Pulse 134 04/09/17 08:58 Resp 16 04/09/17 08:58 BP 92/65 04/09/17 08:58 Pulse Ox 96 04/09/17 08:58 Results - Laboratory Findings CBC and BMP: 04/09/17 03:37 04/09/17 03:37 ABG ABG pH 7.37 pH Units (7.32-7.45) 04/08/17 19:47 ABG pCO2 31 mmHg (35-45) L 04/08/17 19:47 ABG pO2 374 mmHg (85-104) H 04/08/17 19:47 ABG O2 Saturation 100 % (95-98) H 04/08/17 19:47 PT/INR, D-dimer PT 33.7 Seconds (9.4-12.1) H 04/09/17 03:37 Abnormal lab findings: Abnormal lab results RBC 3.07 M/mcL (4.19-5.50) L 04/09/17 03:37 Hgb 9.8 g/dL (12.9-16.9) L 04/09/17 03:37 Hct 30.0 % (37.5-50.1) L 04/09/17 03:37 RDW 14.6 % (11.5-14.5) H 04/09/17 03:37 Plt Count 111 K/mcL (140-400) L 04/09/17 03:37 Band Neutrophils % 6.0 % (0-4) H 04/08/17 16:30 Reactive Lymphocytes Present (Not Present) A 04/08/17 04:20 Platelet Estimate Decreased (Normal) L 04/09/17 03:37 PT 33.7 Seconds (9.4-12.1) H 04/09/17 03:37 APTT 39.2 Seconds (26.0-36.0) H 04/07/17 23:26 ABG pCO2 31 mmHg (35-45) L 04/08/17 19:47 ABG pO2 374 mmHg (85-104) H 04/08/17 19:47 ABG HCO3 17.9 mEQ/L (21-27) L 04/08/17 19:47 ABG Total CO2 18.9 mEq/L (20-26) L 04/08/17 19:47 ABG O2 Saturation 100 % (95-98) H 04/08/17 19:47 ABG Base Excess -6.5 mEq/L (-2.0 to 3.0) L 04/08/17 19:47 Sodium 133 mEq/L (136-145) L 04/09/17 03:37 Potassium 4.8 mEq/L (3.5-4.5) H 04/09/17 03:37 Carbon Dioxide 18 mEq/L (19-29) L 04/09/17 03:37 BUN 90 mg/dL (8-26) H 04/09/17 03:37 Creatinine 3.07 mg/dL (0.72-1.25) H 04/09/17 03:37 Est GFR ( Amer) 24 (> 60) L 04/09/17 03:37 Est GFR (Non-Af Amer) 20 (> 60) L 04/09/17 03:37 BUN/Creatinine Ratio 29 (6-26) H 04/09/17 03:37 POC Glucose 101 (58-89) H 04/08/17 06:45 Calculated Osmolality 303 (280-300) H 04/09/17 03:37 Phosphorus 5.3 mg/dL (2.3-4.7) H 04/09/17 03:37 Total Bilirubin 2.9 mg/dL (0.2-1.2) H 04/07/17 23:26 Direct Bilirubin 1.4 mg/dL (0.0-0.5) H 04/07/17 23:26 Indirect Bilirubin 1.5 mg/dL (0.0-1.2) H 04/07/17 23:26 Creatine Kinase 217 Units/L (30-200) H 04/08/17 10:15 Troponin I 0.37 ng/mL (0-0.03) H* 04/08/17 23:00 Albumin 3.4 g/dL (3.5-5.0) L 04/07/17 23:26 Globulin 4.1 g/dL (2.4-3.5) H 04/07/17 23:26 Albumin/Globulin Ratio 0.8 (1.1-2.2) L 04/07/17 23:26 Ur Squamous Epith Cells Many per lpf (None-Few) H 04/07/17 23:32 Synovial RBC 0.055 M/mcl (0.000-0.002) H 04/08/17 11:34 Synovial Tot Nuc Cell > 896111 TNC/mcL (0-200) H 04/08/17 11:34 - Microbiology Findings Microbiology Findings: Microbiology, Last 48 Hours 04/08/17 11:34 Body Fluid Culture - Preliminary Synovial Fluid - Clinical Findings Intake & Output: Intake & Output 04/08/17 04/09/17 04/09/17 23:59 07:59 15:59 Intake Total 460 / 460 498 / 498 30 / 30 Output Total 750 / 750 250 / 250 100 / 100 Balance -290 / -290 248 / 248 -70 / -70 Weight 97.704 kg Consult Discharge Plan - Plan Referrals: Daniel Garcia MD [Primary Care Provider] - - Attending Attestation I examined this patient and my medical decision-making was reviewed with the TUGGER OPERATOR/PA/Advanced Practice Nurse/Resident Physician. I agree with the documented findings, disposition and treatment plan as described except to the extent set forth below. Patient seen and examined at bedside Labs, radiology, chart personally reviewed. All lines examined without evidence of infection. Neuropsych: awake and alert focus on maint of sleep wake cycle Pulm: acceptable oxygenation on room air. cont to monitor. Cards: Distributive shock d/t Sepsis on low dose levophed.. Lactate has normalized. Appropirate UOP. Goal MAP 60.. Type 2 demand ischmia seen by Cards. ECHO notable for restrictive cardiomyopathy with Right heart pressure overload. Holding further fluid administration. FEN-GI ADAT. when off pressor. Renal: Non oliguric LURDES which is likely s/t prerenal azotemia along with use of ACEi; all meds dosed for GFR. BID renal panel with electrolyte replacement as needed ID: Left septic knee joint with shock. s/p hardware removal and washout. Cultures pending. Cont Vanc/Ceftriaxone deescalate based on cultures. Heme/Onc: elevated INR on warfarin holding presently no evidence of active bleeding. Endo: glucose monitored Integ/MSK: LLE swelling/erythema with w/u as above. History of hardware placement. ortho to follow, Will also provide skin care per routine ICU proocol. CODE: Full <Karyn Peterson - Last Filed: 04/09/17 14:49> Date of Encounter: 04/09/17 Time of Encounter: 09:00 Assessment and Plan (1) Septic shock Current Visit: Yes Status: Acute Patient had Tmax of 104.5, pulse 129, R 21, source of infection likely secondary to left lower leg cellulitis. Patient had altered mental status that has since resolved after receiving fluid boluses. urinalysis showed no signs of infection. lactate now .9, trending down CT head showed no acute intracranial abnormality. Plan: s/p removal of left knee hardware, cultures pending. prelim blood cultures showed no growth. synovial fluid culture showed strep agalectiae. continue vancomycin day 3, ceftriaxone day 3, discontinued clindamycin appreciate orthopedic surgery recommendations. trend lactate, BMP, CBC, INR, Patient still requiring Levophed. will get random cortisol. (2) Cellulitis Current Visit: Yes Status: Acute left lower leg erythematous, edematous from ankle to mid thigh. no crepitus appreciated on exam. CT LLE showed diffuse subcutaneous eema along skin thickening to the visualized left lower extremity, may reflect stasis, cellulitis, or lymphedema. no focal fluid collections to suggest abscess formation. no evidence of soft tissue gas, no bony abnormalities, no evidence of osteomyelitis. Left knee prosthesis is smoothly marginated lucency, infection unlikely, small nonspecific knee joint effusion, mild to moderate degenerative changes in ankle/fot, most significant to the midfoot at level of talonaicular joint. fluid culture sent for analysis, showed few gram positive rods and many white blood cells, grew step agalectiae. Plan: continue vancomycin, ceftriaxone appreciate orthopedic surgery recommendations Qualifiers: Site of cellulitis: extremity Site of cellulitis of extremity: lower extremity Laterality: left Qualified Code(s): L03.116 - Cellulitis of left lower limb (3) A-fib Current Visit: Yes Status: Acute currently HR runs 90s-105 continue to monitor. pharmacy dosing warfarin, which is currently being held for supratherapeutic INR Qualifiers: Atrial fibrillation type: chronic Qualified Code(s): I48.2 - Chronic atrial fibrillation (4) Acute kidney injury superimposed on CKD Current Visit: Yes Status: Acute LURDES on CKD, stage IIIa Cr today 3.07, baseline around 1.3 FEna: .5%: Pre-renal cause. Urine urea: 521 Plan: avoid nephrotoxins. hold lisinopril will monitor with repeat BMP. (5) CHF (congestive heart failure) Current Visit: Yes Status: Acute last echo from 04/09 showed LVEF 50-55%, not all myocardial segments were well visualized, severe concentric LV hypertrophy, indeterminate left ventricular diastolic function, RV mild to moderately dilated with moderate reduction in function. mild to moderate mitral regurg, severe tricuspid regurg, IVC dilated. Plan: continue to monitor. does not appear to be in exacerbation. Qualifiers: Congestive heart failure type: diastolic Congestive heart failure chronicity: chronic Qualified Code(s): I50.32 - Chronic diastolic (congestive ) heart failure (6) Elevated troponin Current Visit: Yes Status: Acute peak .48, trending down. EKG showed Afib without signs of ischemia (7) Hypothyroidism Current Visit: Yes Status: Acute continue home med synthroid. Qualifiers: Hypothyroidism type: unspecified Qualified Code(s): E03.9 - Hypothyroidism , unspecified (8) Amyloidosis Current Visit: Yes Status: Acute hold hoome meds for now. Qualifiers: Amyloidosis type: unspecified amyloidosis Qualified Code(s): E85.9 - Amyloidosis, unspecified (9) DVT prophylaxis Current Visit: Yes Status: Acute foot pumps Neuro/sedation: Currently A&Ox3, mentating well. Pulm: CXR showed mild cardiomegaly with no acute process. Cardiac: Hx of CHF with preserved EF. Hx of Afib on warfarin, which is being held. patient tachycardic with rate in 140s, non sustained. will monitor at this time. elevated troponin with peak troponin .48, trending down. repeat Echo did not show significant changes from prior echo. Hold lisinopril due to septic shock. Have discontinued maintenance fluids. Titrate levophed to MAP above 60. Gi/Fluids: patient received about 5.5 fluid boluses upon admission. will monitor. No further maintenance fluids. Renal: LURDES on CKD (IIIa). Avoid nephrotoxins. ID: septic shock likely secondary to LLE cellulitis. blood cultures x2 pending. CT leg showed significant subcutaneous edema, no gas. continue vanc, ceftriaxone. cultures from knee during surgery pending. will likely result tomorrow morning. urinalysis showed no signs of infection. Orthopedic surgery following. Heme/onc: Hg down from baseline but stable, chronically thrombocytopenic. will get stool occult blood. INR 3, continue to hold coumadin for today. 2 units FFP given. Foot pumps for DVT prophylaxis. Endocrine: continue blood glucose measurements. Continue synthroid for hypothyroidism. Skin: routine skincare per ICU protocol. Lines: right IJ, right peripheral, Cook catheter Subjective Principal diagnosis: septic shock Interval history: 77 year old male evaluated at bedside. Patient is alert and oriented x3, no acute distress. OVernight he had a Tmax of 100.8. He tolerated surgery well, and was successfully extubated. Objective PUL Vital signs: Last Vital Signs Temp 100.8 F H 04/09/17 04:45 Pulse 117 04/09/17 06:00 Resp 20 04/09/17 06:00 BP 82/54 04/09/17 06:00 Pulse Ox 98 04/09/17 06:00 General appearance: no acute distress, alert, lethargic Eyes: nonicteric ENT: oropharynx moist Neck: supple, no lymphadenopathy Effort: normal Auscultation: bilateral: clear Cardiovascular: other (tachycardia) Gastrointestinal: hypoactive bowel sounds, soft, non-tender (firm abdomen ) Extremities: no cyanosis (left lower extremity wrapped, s/p removal of knee hardware, mildly edematous) Musculoskeletal: joint inflammation, joint tenderness non-focal exam mood appropriate Results - Laboratory Findings CBC and BMP: 04/09/17 03:37 04/09/17 03:37 ABG ABG pH 7.37 pH Units (7.32-7.45) 04/08/17 19:47 ABG pCO2 31 mmHg (35-45) L 04/08/17 19:47 ABG pO2 374 mmHg (85-104) H 04/08/17 19:47 ABG O2 Saturation 100 % (95-98) H 04/08/17 19:47 PT/INR, D-dimer PT 33.7 Seconds (9.4-12.1) H 04/09/17 03:37 Abnormal lab findings: Abnormal lab results RBC 3.07 M/mcL (4.19-5.50) L 04/09/17 03:37 Hgb 9.8 g/dL (12.9-16.9) L 04/09/17 03:37 Hct 30.0 % (37.5-50.1) L 04/09/17 03:37 RDW 14.6 % (11.5-14.5) H 04/09/17 03:37 Plt Count 111 K/mcL (140-400) L 04/09/17 03:37 Band Neutrophils % 6.0 % (0-4) H 04/08/17 16:30 Reactive Lymphocytes Present (Not Present) A 04/08/17 04:20 Platelet Estimate Decreased (Normal) L 04/09/17 03:37 PT 33.7 Seconds (9.4-12.1) H 04/09/17 03:37 APTT 39.2 Seconds (26.0-36.0) H 04/07/17 23:26 ABG pCO2 31 mmHg (35-45) L 04/08/17 19:47 ABG pO2 374 mmHg (85-104) H 04/08/17 19:47 ABG HCO3 17.9 mEQ/L (21-27) L 04/08/17 19:47 ABG Total CO2 18.9 mEq/L (20-26) L 04/08/17 19:47 ABG O2 Saturation 100 % (95-98) H 04/08/17 19:47 ABG Base Excess -6.5 mEq/L (-2.0 to 3.0) L 04/08/17 19:47 Sodium 133 mEq/L (136-145) L 04/09/17 03:37 Potassium 4.8 mEq/L (3.5-4.5) H 04/09/17 03:37 Carbon Dioxide 18 mEq/L (19-29) L 04/09/17 03:37 BUN 90 mg/dL (8-26) H 04/09/17 03:37 Creatinine 3.07 mg/dL (0.72-1.25) H 04/09/17 03:37 Est GFR ( Amer) 24 (> 60) L 04/09/17 03:37 Est GFR (Non-Af Amer) 20 (> 60) L 04/09/17 03:37 BUN/Creatinine Ratio 29 (6-26) H 04/09/17 03:37 POC Glucose 101 (58-89) H 04/08/17 06:45 Calculated Osmolality 303 (280-300) H 04/09/17 03:37 Phosphorus 5.3 mg/dL (2.3-4.7) H 04/09/17 03:37 Total Bilirubin 2.9 mg/dL (0.2-1.2) H 04/07/17 23:26 Direct Bilirubin 1.4 mg/dL (0.0-0.5) H 04/07/17 23:26 Indirect Bilirubin 1.5 mg/dL (0.0-1.2) H 04/07/17 23:26 Creatine Kinase 217 Units/L (30-200) H 04/08/17 10:15 Troponin I 0.37 ng/mL (0-0.03) H* 04/08/17 23:00 Albumin 3.4 g/dL (3.5-5.0) L 04/07/17 23:26 Globulin 4.1 g/dL (2.4-3.5) H 04/07/17 23:26 Albumin/Globulin Ratio 0.8 (1.1-2.2) L 04/07/17 23:26 Ur Squamous Epith Cells Many per lpf (None-Few) H 04/07/17 23:32 Synovial RBC 0.055 M/mcl (0.000-0.002) H 04/08/17 11:34 Synovial Tot Nuc Cell > 515122 TNC/mcL (0-200) H 04/08/17 11:34 - Microbiology Findings Microbiology Findings: Microbiology, Last 48 Hours 04/08/17 11:34 Body Fluid Culture - Preliminary Synovial Fluid - Clinical Findings Intake & Output: Intake & Output 04/08/17 04/08/17 04/09/17 15:59 23:59 07:59 Intake Total 1800 / 1800 460 / 460 498 / 498 Output Total 500 / 500 750 / 750 250 / 250 Balance 1300 / 1300 -290 / -290 248 / 248 Weight 95.3 kg 97.704 kg - VTE Documentation of Mechanical Device: Venous foot pump, device
--- NOTE | 2017-04-09 06:50 | Orthopedics Progress Note ---
Date of Encounter: 04/09/17 Time of Encounter: 06:50 Subjective Interval history: Patient was seen this morning doing well without complaints. Afebrile vital signs stable. Operative extremity: Neurovascularly intact Dressing clean dry and intact Calves nontender Assessment and plan: Continue with postoperative care Gram stain positive for gram-positive cocci from the aspirate, we will require PICC line for IV antibiotics 6 weeks. Objective Vital signs: Vital Signs Temp Pulse Resp BP Pulse Ox 04/09/17 06:00 117 20 82/54 98 04/09/17 05:00 119 16 91/58 98 04/09/17 04:45 100.8 F H 04/09/17 04:00 119 16 88/54 93 04/09/17 03:00 119 16 88/5 93 04/09/17 02:00 117 14 108/65 92 04/09/17 01:00 106 14 96/61 94 04/09/17 00:34 98 F 102 15 99/62 92 04/09/17 00:13 99.4 F 04/09/17 00:00 89 16 85/54 90 04/08/17 23:00 89 22 104/60 96 04/08/17 22:00 88 15 86/50 96 04/08/17 21:36 98.7 F 99 18 85/50 98 04/08/17 21:21 98.5 F 93 14 83/50 97 04/08/17 21:08 93 14 85/51 97 04/08/17 21:00 109 15 84/49 99 04/08/17 20:56 113 04/08/17 20:53 109 15 82/58 99 04/08/17 20:38 106 14 86/52 100 04/08/17 20:23 100.4 F H 129 16 111/76 100 04/08/17 18:00 82 16 101/50 94 04/08/17 17:00 97 16 96/60 95 04/08/17 16:00 85 16 82/59 97 04/08/17 15:09 81 04/08/17 15:00 90 18 77/61 96 04/08/17 14:00 81 16 84/58 95 04/08/17 13:00 92 18 78/58 95 04/08/17 12:11 99 18 84/61 96 04/08/17 11:30 102 04/08/17 11:19 98.1 F 102 20 86/59 99 04/08/17 11:17 98.5 F 84 16 83/57 97 04/08/17 10:15 98.6 F 73 18 102/71 96 04/08/17 09:03 97 04/08/17 09:00 97 18 78/52 97 04/08/17 08:17 99 04/08/17 08:14 105 20 80/54 99 Intake and Output 04/08/17 04/08/17 04/09/17 15:59 23:59 07:59 Intake Total 1800 / 1800 460 / 460 498 / 498 Output Total 500 / 500 750 / 750 250 / 250 Balance 1300 / 1300 -290 / -290 248 / 248 Intake: IV Fluids 750 / 750 160 / 160 78 / 78 Levophed 4 MG In Dextrose 60 / 60 78 / 78 5% 250 ML @ 0.5 MCG/MIN 1.87 mls/hr IVC CONT JOEY Rx#:[id number] Lactated Ringers 500 ML @ 500 / 500 1000 mls/hr IVC .Q30M ONE Rx#:[id number] Cleocin Premix 900 MG/50 50 / 50 100 / 100 ML 900 mg In 50 ml @ 50 mls/hr IVPB Q8HR ON LICENSE OF [facility] Rx#: [id number] Zosyn 3.375 GM In 100 / 100 Dextrose 5% (Minibag+) 100 ML 100 ML @ 25 mls/hr IVPB Q12H JOEY Rx#: [id number] Rocephin 1,000 MG In 100 / 100 Dextrose 5% (Minibag+) 100 ML 100 ML @ 200 mls/ hr IVPB Q24H ON LICENSE OF [facility] Rx#: [id number] Oral 0 / 0 100 / 100 Blood Product 1050 / 1050 300 / 300 320 / 320 Plasma Unit 300 / 300 300 / 300 [id number] Plasma Unit 500 / 500 [id number] Plasma Unit 250 / 250 [id number] Plasma Unit 0 / 0 320 / 320 [id number] Output: Urine 200 / 200 Urethral (Cook) 200 / 200 Estimated Blood Loss 500 / 500 Urine Amount (Catheter) 50 / 50 Catheter 300 / 300 200 / 200 250 / 250 Other: Stool Size Moderate Moderate Smear Stool Consistency soft soft Stool Characteristics Normal for Patient Normal for Patient Stool Color Brown Brown Brown # Bowel Movements 1 1 Weight 95.3 kg 97.704 kg Patient Weight 04/09/17 23:59 Weight 97.704 kg - Labs CBC & BMP: 04/09/17 03:37 04/09/17 03:37 Labs: Abnormal lab results RBC 3.07 M/mcL (4.19-5.50) L 04/09/17 03:37 Hgb 9.8 g/dL (12.9-16.9) L 04/09/17 03:37 Hct 30.0 % (37.5-50.1) L 04/09/17 03:37 RDW 14.6 % (11.5-14.5) H 04/09/17 03:37 Plt Count 111 K/mcL (140-400) L 04/09/17 03:37 Band Neutrophils % 6.0 % (0-4) H 04/08/17 16:30 Reactive Lymphocytes Present (Not Present) A 04/08/17 04:20 Platelet Estimate Decreased (Normal) L 04/09/17 03:37 PT 33.7 Seconds (9.4-12.1) H 04/09/17 03:37 APTT 39.2 Seconds (26.0-36.0) H 04/07/17 23:26 ABG pCO2 31 mmHg (35-45) L 04/08/17 19:47 ABG pO2 374 mmHg (85-104) H 04/08/17 19:47 ABG HCO3 17.9 mEQ/L (21-27) L 04/08/17 19:47 ABG Total CO2 18.9 mEq/L (20-26) L 04/08/17 19:47 ABG O2 Saturation 100 % (95-98) H 04/08/17 19:47 ABG Base Excess -6.5 mEq/L (-2.0 to 3.0) L 04/08/17 19:47 Sodium 133 mEq/L (136-145) L 04/09/17 03:37 Potassium 4.8 mEq/L (3.5-4.5) H 04/09/17 03:37 Carbon Dioxide 18 mEq/L (19-29) L 04/09/17 03:37 BUN 90 mg/dL (8-26) H 04/09/17 03:37 Creatinine 3.07 mg/dL (0.72-1.25) H 04/09/17 03:37 Est GFR ( Amer) 24 (> 60) L 04/09/17 03:37 Est GFR (Non-Af Amer) 20 (> 60) L 04/09/17 03:37 BUN/Creatinine Ratio 29 (6-26) H 04/09/17 03:37 POC Glucose 101 (58-89) H 04/08/17 06:45 Calculated Osmolality 303 (280-300) H 04/09/17 03:37 Phosphorus 5.3 mg/dL (2.3-4.7) H 04/09/17 03:37 Total Bilirubin 2.9 mg/dL (0.2-1.2) H 04/07/17 23:26 Direct Bilirubin 1.4 mg/dL (0.0-0.5) H 04/07/17 23:26 Indirect Bilirubin 1.5 mg/dL (0.0-1.2) H 04/07/17 23:26 Creatine Kinase 217 Units/L (30-200) H 04/08/17 10:15 Troponin I 0.37 ng/mL (0-0.03) H* 04/08/17 23:00 Albumin 3.4 g/dL (3.5-5.0) L 04/07/17 23:26 Globulin 4.1 g/dL (2.4-3.5) H 04/07/17 23:26 Albumin/Globulin Ratio 0.8 (1.1-2.2) L 04/07/17 23:26 Ur Squamous Epith Cells Many per lpf (None-Few) H 04/07/17 23:32 Synovial RBC 0.055 M/mcl (0.000-0.002) H 04/08/17 11:34 Synovial Tot Nuc Cell > [id number] TNC/mcL (0-200) H 04/08/17 11:34 - VTE Documentation of Mechanical Device: Venous foot pump, device Consult Discharge Plan - Plan Referrals: Daniel Garcia MD [Primary Care Provider] -
[2017-04-09] MEDS ORDERED: Lidocaine -MPF 1% 5 ML AMPUL INFILT ONE (08:28)
[2017-04-09] MEDS: Clindamycin 900 MG/50 ML 900 MG/50 ML IV.SOLN IVPB SCH (08:35)
[2017-04-09] MEDS: Famotidine 20 MG TABLET PO SCH (08:35)
[2017-04-09] MEDS ORDERED: Famotidine 20 MG TABLET PO SCH (09:00)
[2017-04-09] MEDS: *HR* OxyCODONE Immed Rel 5 MG TABLET PO PRN (09:40)
[2017-04-09] MEDS ORDERED: 0.9 % Sodium Chloride 500 ML ONE (10:28)
[2017-04-09] MEDS ORDERED: Vancomycin 750 MG in D5% in Water 250 ML IVPB ONE (11:00)
[2017-04-09] MEDS: Norepinephrine 4 MG in D5% in Water 250 ML IVC SCH ×2 (12:41→21:35)
--- NOTE | 2017-04-09 13:13 | Electrocardiograph Report ---
[address] [place], [place] [address] Test Date: 2017-04-09 Pat Name: [facility] Department: 109 Room: 02 Gender: M Newspaper Deliverer: DARREL : 1940 Requested By: Karyn Peterson Order Number: [id number] Reading MD: Bill Varma MD Measurements Intervals [place] Rate: 132 P: 240 TX: 166 QRS: -68 QRSD: 103 T: 48 QT: 299 QTc: 377 Interpretive Statements ATRIAL FIBRILLATION WITH RAPID V-RATE MARKED LEFT AXIS DEVIATION LOW QRS VOLTAGE INCOMPLETE RIGHT BUNDLE BRANCH BLOCK Electronically Signed On 04-09-2017 13:12:03 EDT by Bill Varma MD
[2017-04-09 15:57] LABS: Hematocrit 27.7 % (37.5-50.1); Hemoglobin 9.3 g/dL (12.9-16.9)
[2017-04-09 16:04] LABS: Red Blood Count 2.94 M/mcL (4.19-5.50)
[2017-04-09 16:05] LABS: Mean Corpuscular Volume 95.9 fL (83.0-100.0)
[2017-04-09 16:06] LABS: Mean Corpuscular Hemoglobin 31.6 pg (28.0-33.3); Mean Platelet Volume 10.4 fL (9.4-12.4); Platelet Count 134 K/mcL (140-400); Red Cell Distribution Width 14.6 % (11.5-14.5)
[2017-04-09 16:17] LABS: Calcium 8.8 mg/dL (8.6-10.8); Potassium 4.8 mEq/L (3.5-4.5)
[2017-04-09] MEDS ORDERED: Perflutren Lipid Microsphere 1.3 ML in 0.9 % Sodium Chloride 8.7 ML IVP ONE (16:17)
[2017-04-09 16:20] LABS: Lymphocytes # 0.4 K/mcL (0.6-4.6); Monocytes # 0.2 K/mcL (0.0-1.3); Neutrophils # 10.1 K/mcL (1.6-8.9); Platelet Estimate Slight Decrease (Normal)
[2017-04-09] MEDS ORDERED: Furosemide 20 MG/2 ML VIAL IVP ONE (16:23)
[2017-04-09] MEDS ORDERED: *HR* Warfarin 7.5 MG TABLET PO SCH ×2 (18:00)
[2017-04-10] MEDS: *HR* OxyCODONE Immed Rel 5 MG TABLET PO PRN ×2 (00:02→22:11)
[2017-04-10 04:45] LABS: Eosinophils # 0.1 K/mcL (0.0-0.6); Hematocrit 27.3 % (37.5-50.1); Hemoglobin 9.2 g/dL (12.9-16.9); Mean Corpuscular HGB Conc 33.7 g/dL (31.6-35.5); Mean Corpuscular Hemoglobin 32.2 pg (28.0-33.3); Mean Corpuscular Volume 95.5 fL (83.0-100.0); Mean Platelet Volume 10.4 fL (9.4-12.4); Platelet Count 131 K/mcL (140-400); Red Blood Count 2.86 M/mcL (4.19-5.50); Red Cell Distribution Width 14.5 % (11.5-14.5)
[2017-04-10 04:52] LABS: INR 4.9; Prothrombin Time 55.9 Seconds (9.4-12.1)
[2017-04-10] MEDS ORDERED: 0.9 % Sodium Chloride 500 ML IVC ONE (04:56)
[2017-04-10 04:57] LABS: Magnesium 1.9 mg/dL (1.6-2.6); Phosphorous 5.5 mg/dL (2.3-4.7)
[2017-04-10 04:58] LABS: Ionized Calcium 1.19 mmol/L (1.15-1.35)
[2017-04-10 05:00] LABS: Calcium 8.7 mg/dL (8.6-10.8); Potassium 4.5 mEq/L (3.5-4.5)
[2017-04-10 05:12] LABS: INR 5.1
[2017-04-10 05:13] LABS: Prothrombin Time 57.5 Seconds (9.4-12.1)
[2017-04-10] MEDS ORDERED: *HR* Phytonadione 5 MG TABLET PO ONE ×3 (05:15→08:53)
[2017-04-10] MEDS: Norepinephrine 4 MG in D5% in Water 250 ML IVC SCH ×2 (05:15→13:55)
[2017-04-10 05:17] LABS: Lymphocytes # 0.9 K/mcL (0.6-4.6); Monocytes # 0.3 K/mcL (0.0-1.3); Neutrophils # 9.6 K/mcL (1.6-8.9)
[2017-04-10 05:18] LABS: Platelet Estimate Slight Decrease (Normal)
[2017-04-10 05:51] LABS: Albumin/Globulin Ratio 0.7 (1.1-2.2); Bilirubin,Direct 1.4 mg/dL (0.0-0.5); Bilirubin,Indirect 0.9 mg/dL (0.0-1.2); Bilirubin,Total 2.3 mg/dL (0.2-1.2); Globulin 3.6 g/dL (2.4-3.5); Total Protein 6.1 g/dL (6.0-8.3)
[2017-04-10 05:53] LABS: Albumin 2.5 g/dL (3.5-5.0)
--- NOTE | 2017-04-10 06:20 | Pulmonology Progress Note ---
<SanaIrvin W - Last Filed: 04/10/17 10:14> Date of Encounter: 04/10/17 Objective PUL Vital signs: Last Vital Signs Temp 98.5 F 04/10/17 07:21 Pulse 89 04/10/17 08:00 Resp 20 04/10/17 08:00 BP 91/58 04/10/17 08:00 Pulse Ox 98 04/10/17 08:00 Results - Laboratory Findings CBC and BMP: 04/10/17 04:24 04/10/17 04:24 ABG ABG pH 7.37 pH Units (7.32-7.45) 04/08/17 19:47 ABG pCO2 31 mmHg (35-45) L 04/08/17 19:47 ABG pO2 374 mmHg (85-104) H 04/08/17 19:47 ABG O2 Saturation 100 % (95-98) H 04/08/17 19:47 PT/INR, D-dimer PT 57.5 Seconds (9.4-12.1) H* 04/10/17 04:55 Abnormal lab findings: Abnormal lab results RBC 2.86 M/mcL (4.19-5.50) L 04/10/17 04:24 Hgb 9.2 g/dL (12.9-16.9) L 04/10/17 04:24 Hct 27.3 % (37.5-50.1) L 04/10/17 04:24 Plt Count 131 K/mcL (140-400) L 04/10/17 04:24 Band Neutrophils % 6.0 % (0-4) H 04/10/17 04:24 Neutrophils # 9.6 K/mcL (1.6-8.9) H 04/10/17 04:24 Reactive Lymphocytes Present (Not Present) A 04/08/17 04:20 Platelet Estimate Slight Decrease (Normal) L 04/10/17 04:24 PT 57.5 Seconds (9.4-12.1) H* 04/10/17 04:55 INR 5.1 H* 04/10/17 04:55 APTT 39.2 Seconds (26.0-36.0) H 04/07/17 23:26 ABG pCO2 31 mmHg (35-45) L 04/08/17 19:47 ABG pO2 374 mmHg (85-104) H 04/08/17 19:47 ABG HCO3 17.9 mEQ/L (21-27) L 04/08/17 19:47 ABG Total CO2 18.9 mEq/L (20-26) L 04/08/17 19:47 ABG O2 Saturation 100 % (95-98) H 04/08/17 19:47 ABG Base Excess -6.5 mEq/L (-2.0 to 3.0) L 04/08/17 19:47 Sodium 131 mEq/L (136-145) L 04/10/17 04:24 BUN 97 mg/dL (8-26) H 04/10/17 04:24 Creatinine 3.09 mg/dL (0.72-1.25) H 04/10/17 04:24 Est GFR ( Amer) 24 (> 60) L 04/10/17 04:24 Est GFR (Non-Af Amer) 20 (> 60) L 04/10/17 04:24 BUN/Creatinine Ratio 31 (6-26) H 04/10/17 04:24 POC Glucose 101 (58-89) H 04/08/17 06:45 Calculated Osmolality 302 (280-300) H 04/10/17 04:24 Phosphorus 5.5 mg/dL (2.3-4.7) H 04/10/17 04:24 Total Bilirubin 2.3 mg/dL (0.2-1.2) H 04/10/17 04:24 Direct Bilirubin 1.4 mg/dL (0.0-0.5) H 04/10/17 04:24 AST 39 Units/L (5-34) H 04/10/17 04:24 Creatine Kinase 217 Units/L (30-200) H 04/08/17 10:15 Troponin I 0.37 ng/mL (0-0.03) H* 04/08/17 23:00 Albumin 2.5 g/dL (3.5-5.0) L D 04/10/17 04:24 Globulin 3.6 g/dL (2.4-3.5) H 04/10/17 04:24 Albumin/Globulin Ratio 0.7 (1.1-2.2) L 04/10/17 04:24 Ur Squamous Epith Cells Many per lpf (None-Few) H 04/07/17 23:32 Synovial RBC 0.055 M/mcl (0.000-0.002) H 04/08/17 11:34 Synovial Tot Nuc Cell > [id number] TNC/mcL (0-200) H 04/08/17 11:34 - Microbiology Findings Microbiology Findings: Microbiology, Last 48 Hours 04/08/17 19:10 Wound Culture - Preliminary Left Knee Strep agalactiae - (Group B) 04/08/17 11:34 Body Fluid Culture - Final Synovial Fluid Strep agalactiae - (Group B) - Clinical Findings Intake & Output: Intake & Output 04/09/17 04/10/17 04/10/17 23:59 07:59 15:59 Intake Total 720 / 720 284 / 284 107 / 107 Output Total 300 / 300 650 / 650 Balance 420 / 420 -366 / -366 107 / 107 Weight 97.613 kg Consult Discharge Plan - Plan Referrals: Daniel Garcia MD [Primary Care Provider] - - Attending Attestation I examined this patient and my medical decision-making was reviewed with the [employer]/PA/Advanced Practice Nurse/Resident Physician. I agree with the documented findings, disposition and treatment plan as described except to the extent set forth below. Patient seen and examined at bedside Labs, radiology, chart personally reviewed. All lines examined without evidence of infection. Neuropsych: awake and alert focus on maint of sleep wake cycle Pulm: acceptable oxygenation 2LNC cont to monitor. Cards: Distributive shock d/t Sepsis on low dose levophed.. Lactate has normalized. borderline UOP. Goal MAP 60.. possible component of adrenal insuff. ECHO still c/w volume overload. trial of diuresis yesterday dropped MAP futher. FEN-GI ADAT. Renal: Non oliguric LURDES which is likely s/t prerenal azotemia along with use of ACEi; all meds dosed for GFR. BID renal panel with electrolyte replacement as needed ID: Left septic knee joint with shock. s/p hardware removal and washout. Cultures + GBS Cont Vanc/Ceftriaxone deescalate based on sensitivities Heme/Onc: elevated INR on warfarin holding presently no evidence of active bleeding.. Vitamin K given. Endo: glucose monitored/ suspect adrenal insuff cosyntropin stim test done yesterday. start stress dose hydrocortisone today Integ/MSK: POD# 2 for left knee hardware removal/washout for septic joint ortho to follow, Will also provide skin care per routine ICU protocol. CODE: Full <Karyn Peterson - Last Filed: 04/10/17 11:26> Date of Encounter: 04/10/17 Time of Encounter: 08:25 Assessment and Plan (1) Septic shock Current Visit: Yes Status: Acute Patient had Tmax of 104.5, pulse 129, R 21, source of infection likely secondary to left lower leg cellulitis. Patient had altered mental status that has since resolved after receiving fluid boluses. urinalysis showed no signs of infection. lactate now .7, trending down CT head showed no acute intracranial abnormality. Plan: s/p removal of left knee hardware, cultures grew strep agalectiae. prelim blood cultures showed no growth. synovial fluid culture showed strep agalectiae. continue vancomycin, ceftriaxone. appreciate orthopedic surgery recommendations. INR 5.1 today, gave 7.5mg vitamin K, will repeat INR. started solu cortef today for decreasing MAP titrate off levophed as tolerated, and start diet. will give lasix if tolerated by BP. (2) Cellulitis Current Visit: Yes Status: Acute left lower leg erythematous, edematous from ankle to mid thigh. no crepitus appreciated on exam. CT LLE showed diffuse subcutaneous eema along skin thickening to the visualized left lower extremity, may reflect stasis, cellulitis, or lymphedema. no focal fluid collections to suggest abscess formation. no evidence of soft tissue gas, no bony abnormalities, no evidence of osteomyelitis. Left knee prosthesis is smoothly marginated lucency, infection unlikely, small nonspecific knee joint effusion, mild to moderate degenerative changes in ankle/fot, most significant to the midfoot at level of talonaicular joint. fluid culture sent for analysis, grew strep agalectiae Plan: continue vancomycin, ceftriaxone appreciate orthopedic surgery recommendations Qualifiers: Site of cellulitis: extremity Site of cellulitis of extremity: lower extremity Laterality: left Qualified Code(s): L03.116 - Cellulitis of left lower limb (3) A-fib Current Visit: Yes Status: Acute currently HR runs 80s continue to monitor. pharmacy dosing warfarin, which is currently being held for supratherapeutic INR Qualifiers: Atrial fibrillation type: chronic Qualified Code(s): I48.2 - Chronic atrial fibrillation (4) Acute kidney injury superimposed on CKD Current Visit: Yes Status: Acute LURDES on CKD, stage IIIa FEna: .5%: Pre-renal cause. Urine urea: 521 Plan: Cr stable avoid nephrotoxins. hold lisinopril will monitor with repeat BMP. (5) CHF (congestive heart failure) Current Visit: Yes Status: Acute last echo from 04/09 showed LVEF 50-55%, not all myocardial segments were well visualized, severe concentric LV hypertrophy, indeterminate left ventricular diastolic function, RV mild to moderately dilated with moderate reduction in function. mild to moderate mitral regurg, severe tricuspid regurg, IVC dilated. repeat echo with definity from yesterday showed low-normal LV systolic function , LVEF 50%, small pericardial effusion present. Plan: continue to monitor. will give one time dose IV lasix if tolerated by blood pressure. Qualifiers: Congestive heart failure type: diastolic Congestive heart failure chronicity: chronic Qualified Code(s): I50.32 - Chronic diastolic (congestive ) heart failure (6) Elevated troponin Current Visit: Yes Status: Acute peak .48, trending down. EKG showed Afib without signs of ischemia (7) Hypothyroidism Current Visit: Yes Status: Acute continue home med synthroid. Qualifiers: Hypothyroidism type: unspecified Qualified Code(s): E03.9 - Hypothyroidism , unspecified (8) Amyloidosis Current Visit: Yes Status: Acute hold hoome meds for now. Qualifiers: Amyloidosis type: unspecified amyloidosis Qualified Code(s): E85.9 - Amyloidosis, unspecified (9) DVT prophylaxis Current Visit: Yes Status: Acute foot pumps Neuro/sedation: Currently A&Ox3, mentating well. Pulm: CXR showed mild cardiomegaly with no acute process. Cardiac: Hx of CHF with preserved EF. Hx of Afib on warfarin, which is being held. patient currently NSR. will monitor at this time. elevated troponin with peak troponin .48, trending down. repeat Echo with definity showed low-normal LV systolic function, LVEF 50%, small pericardial effusion. Hold lisinopril due to septic shock. Have discontinued maintenance fluids. Titrate levophed to MAP above 60. started solucortef. will wean off levophed. give lasix if BP can tolerate. Gi/Fluids: patient received about 5.5 fluid boluses upon admission. will monitor. No further maintenance fluids. started solu cortef today, will wean off levophed. Renal: LURDES on CKD (IIIa). Avoid nephrotoxins. ID: septic shock likely secondary to LLE cellulitis. prelim blood cultures showed no growth. CT leg showed significant subcutaneous edema, no gas. continue vanc, ceftriaxone. cultures from knee during surgery showed strep agalectiae, will wait for sensitivity and de-escalate antibiotics accordingly. urinalysis showed no signs of infection. Orthopedic surgery following. Heme/onc: Hg down from baseline but stable, chronically thrombocytopenic. will get stool occult blood. INR 5.1 today, continue to hold coumadin, total 7.5mg vitamin K given. Foot pumps for DVT prophylaxis. Endocrine: continue blood glucose measurements. Continue synthroid for hypothyroidism. Skin: routine skincare per ICU protocol. Lines: right IJ, right peripheral, Cook catheter Subjective Principal diagnosis: septic shock Interval history: 77 year old male evaluated at bedside. Patient is alert and oriented x3, no acute distress. OVernight he had a Tmax of 100.8. He tolerated surgery well, and was successfully extubated. Objective PUL Vital signs: Last Vital Signs Temp 98.9 F 04/10/17 04:37 Pulse 88 04/10/17 05:00 Resp 14 04/10/17 05:00 BP 93/60 04/10/17 05:00 Pulse Ox 98 04/10/17 05:00 General appearance: no acute distress, alert Eyes: nonicteric ENT: oropharynx moist Neck: supple Auscultation: bilateral: clear Cardiovascular: other (tachycardia) Gastrointestinal: normoactive bowel sounds Extremities: no clubbing, other (s/p removal of left knee hardware. left leg bandaged and in cast. appears mildly swollen. ) Gait: normal posture normal mental status anxious Results - Laboratory Findings CBC and BMP: 04/10/17 04:24 04/10/17 04:24 ABG ABG pH 7.37 pH Units (7.32-7.45) 04/08/17 19:47 ABG pCO2 31 mmHg (35-45) L 04/08/17 19:47 ABG pO2 374 mmHg (85-104) H 04/08/17 19:47 ABG O2 Saturation 100 % (95-98) H 04/08/17 19:47 PT/INR, D-dimer PT 57.5 Seconds (9.4-12.1) H* 04/10/17 04:55 Abnormal lab findings: Abnormal lab results RBC 2.86 M/mcL (4.19-5.50) L 04/10/17 04:24 Hgb 9.2 g/dL (12.9-16.9) L 04/10/17 04:24 Hct 27.3 % (37.5-50.1) L 04/10/17 04:24 Plt Count 131 K/mcL (140-400) L 04/10/17 04:24 Band Neutrophils % 6.0 % (0-4) H 04/10/17 04:24 Neutrophils # 9.6 K/mcL (1.6-8.9) H 04/10/17 04:24 Reactive Lymphocytes Present (Not Present) A 04/08/17 04:20 Platelet Estimate Slight Decrease (Normal) L 04/10/17 04:24 PT 57.5 Seconds (9.4-12.1) H* 04/10/17 04:55 INR 5.1 H* 04/10/17 04:55 APTT 39.2 Seconds (26.0-36.0) H 04/07/17 23:26 ABG pCO2 31 mmHg (35-45) L 04/08/17 19:47 ABG pO2 374 mmHg (85-104) H 04/08/17 19:47 ABG HCO3 17.9 mEQ/L (21-27) L 04/08/17 19:47 ABG Total CO2 18.9 mEq/L (20-26) L 04/08/17 19:47 ABG O2 Saturation 100 % (95-98) H 04/08/17 19:47 ABG Base Excess -6.5 mEq/L (-2.0 to 3.0) L 04/08/17 19:47 Sodium 131 mEq/L (136-145) L 04/10/17 04:24 BUN 97 mg/dL (8-26) H 04/10/17 04:24 Creatinine 3.09 mg/dL (0.72-1.25) H 04/10/17 04:24 Est GFR ( Amer) 24 (> 60) L 04/10/17 04:24 Est GFR (Non-Af Amer) 20 (> 60) L 04/10/17 04:24 BUN/Creatinine Ratio 31 (6-26) H 04/10/17 04:24 POC Glucose 101 (58-89) H 04/08/17 06:45 Calculated Osmolality 302 (280-300) H 04/10/17 04:24 Phosphorus 5.5 mg/dL (2.3-4.7) H 04/10/17 04:24 Total Bilirubin 2.3 mg/dL (0.2-1.2) H 04/10/17 04:24 Direct Bilirubin 1.4 mg/dL (0.0-0.5) H 04/10/17 04:24 AST 39 Units/L (5-34) H 04/10/17 04:24 Creatine Kinase 217 Units/L (30-200) H 04/08/17 10:15 Troponin I 0.37 ng/mL (0-0.03) H* 04/08/17 23:00 Albumin 2.5 g/dL (3.5-5.0) L D 04/10/17 04:24 Globulin 3.6 g/dL (2.4-3.5) H 04/10/17 04:24 Albumin/Globulin Ratio 0.7 (1.1-2.2) L 04/10/17 04:24 Ur Squamous Epith Cells Many per lpf (None-Few) H 04/07/17 23:32 Synovial RBC 0.055 M/mcl (0.000-0.002) H 04/08/17 11:34 Synovial Tot Nuc Cell > [id number] TNC/mcL (0-200) H 04/08/17 11:34 - Microbiology Findings Microbiology Findings: Microbiology, Last 48 Hours 04/08/17 19:10 Wound Culture - Preliminary Left Knee Strep agalactiae - (Group B) 04/08/17 11:34 Body Fluid Culture - Final Synovial Fluid Strep agalactiae - (Group B) - Clinical Findings Intake & Output: Intake & Output 04/09/17 04/09/17 04/10/17 15:59 23:59 07:59 Intake Total 765 / 765 720 / 720 284 / 284 Output Total 200 / 200 300 / 300 500 / 500 Balance 565 / 565 420 / 420 -216 / -216 Weight 97.613 kg - VTE Documentation of Mechanical Device: Venous foot pump, device
--- NOTE | 2017-04-10 07:53 | ECHO - Doppler Report ---
Limited Echo with Imaging Enhancement Agent Name: Daniel Peña [facility] Date of Study: 04/09/2017 Date: 1940 Ht: 75.0 in Medical Record#: [id number] Age: 77 Wt: 215.0 lb Gender: Male BSA: 2.26 Order #: [id number] Location: [facility] Room #: IC2 Reading Physician: Connor Kaur MD, [facility] Leadership Development Manager: Ysabel Archer Ordering Physician: Irvin Hood MD Primary Physician: Daniel Garcia MD Indications: Worsening shock Impressions: Limited echocardiogram performed with echo contrast. Complete echocardiogram was performed on 04/08/16. Low-normal LV systolic function, LVEF 50%. Severe concentric left ventricular hypertrophy. Dilated right ventricle with moderate-severe RV systolic dysfunction. There is flattening of the IV septum consistent with RV pressure/volume overload. There is a small pericardial effusion present. Valvular function was not assessed on this limited study. Findings: Study Quality * Limited echocardiogram performed with echo contrast. Complete echocardiogram was performed on 04/08/16. ECG Findings * Atrial fibrillation. Left Ventricle * Low-normal LV systolic function, LVEF 50%. * Severe concentric left ventricular hypertrophy. Right Ventricle * Dilated right ventricle with moderate-severe RV systolic dysfunction. * There is flattening of the IV septum consistent with RV pressure/volume overload. Aorta * Normally sized aortic root. Pericardium * There is a small pericardial effusion present. Interatrial Septum * Agitated saline contrast study was attempted, but was inadequate in quality. History Hypertension Family History of CAD Congestive Heart Failure Congential Heart Disease 04/08/2017 a Previous Echo was performed. Contrast: Definity 1.3 ml in 8.7 ml of saline 2 ml. Measurements: BP: 86/ 51 2D Normal Values RVIDd: 4.90 cm IVSd: 2.30 cm 0.6 - 1.0 cm LVIDd: 4.10 cm 3.7 - 5.6 cm LVPWd: 2.30 cm 0.6 - 1.1 cm LVIDs: 3.00 cm 1.5 - 3.6 cm AO: 3.40 cm < 4.0 cm Updated by Connor Kaur MD, [facility] on 04/10/2017 7:47:06 AM electronically signed on 04/10/2017 7:48:19 AM with status of Final
[2017-04-10] MEDS: Famotidine 20 MG TABLET PO SCH (08:54)
[2017-04-10] MEDS ORDERED: Vancomycin 500 MG in D5% in Water (Mini-Bag+) 100 ML IVPB ONE (09:00)
[2017-04-10] MEDS ORDERED: Aminoglycoside Consult 1 EACH MC ONE (10:50)
--- NOTE | 2017-04-10 12:51 | Orthopedics Progress Note ---
Date of Encounter: 04/10/17 Time of Encounter: 12:48 - Assessment and Plan (1) Infection of total right knee replacement Current Visit: Yes Status: Acute POD#2 - Dressings taken down; incision C/D/I. No calf tenderness INR 5 today Group B Streptococcus + on Culture from aspiration - Infectious disease consulted New dressings to be placed, 4x4, ABD, Kerlix with DONG wrap and brace specialist to adjust brace. Continue with DVT prophylaxis. Continue with foot and ankle ROM. WBAT. Keep leg locked in extension, no knee flexion. Qualifiers: Encounter type: initial encounter Qualified Code(s): T84.53XA - Infection and inflammatory reaction due to internal right knee prosthesis, initial encounter; Z96.651 - Presence of right artificial knee joint (2) Sepsis Current Visit: Yes Status: Acute Qualifiers: Sepsis type: sepsis due to unspecified organism Qualified Code(s): A41.9 - Sepsis, unspecified organism (3) Cellulitis Current Visit: Yes Status: Acute Qualifiers: Site of cellulitis: extremity Site of cellulitis of extremity: lower extremity Laterality: left Qualified Code(s): L03.116 - Cellulitis of left lower limb (4) A-fib Current Visit: Yes Status: Acute Qualifiers: Atrial fibrillation type: chronic Qualified Code(s): I48.2 - Chronic atrial fibrillation (5) Hypertension Current Visit: Yes Status: Acute Qualifiers: Hypertension type: essential hypertension Qualified Code(s): I10 - Essential (primary) hypertension (6) Amyloidosis Current Visit: Yes Status: Acute Qualifiers: Amyloidosis type: unspecified amyloidosis Qualified Code(s): E85.9 - Amyloidosis, unspecified Subjective Principal diagnosis: septic shock Interval history: POD#2 - Left Septic Total knee; removal of hardware with cement and total knee replacement. Patient A&O x 3, afebrile. BP improving. Vitals stable. INR increased today. LLE: Dressings were c/d/i; Dressings were removed; Opsite examined - c/d/i - 30% saturation - blood tinged serusanginous Erythematous, ecchymotic lower leg, swelling has minimized, less tense. No evidence of wound breakdown or skin breakdown. No calf tenderness. NV intact distally. Objective Vital signs: Vital Signs Temp Pulse Resp BP Pulse Ox 04/10/17 11:25 98.1 F 04/10/17 11:00 88 14 100/68 93 04/10/17 10:00 78 14 94/62 100 04/10/17 09:00 16 104/65 99 04/10/17 08:00 89 20 91/58 98 04/10/17 07:21 98.5 F 04/10/17 07:00 82 16 101/62 98 04/10/17 06:00 86 14 96/50 100 04/10/17 05:00 88 14 93/60 98 04/10/17 04:37 98.9 F 04/10/17 04:00 83 14 86/46 100 04/10/17 03:57 91 04/10/17 03:00 81 12 94/55 100 04/10/17 02:00 82 12 90/60 100 04/10/17 01:00 91 12 78/45 99 04/10/17 00:30 97.8 F 04/10/17 00:04 90 04/10/17 00:00 100 17 104/55 99 04/09/17 23:00 90 12 90/50 100 04/09/17 22:00 93 16 81/44 99 04/09/17 21:00 102 14 87/57 100 04/09/17 20:26 98.1 F 04/09/17 20:00 97 14 90/56 97 04/09/17 19:50 97 04/09/17 19:00 101 14 84/54 95 04/09/17 18:00 98 20 95/53 97 04/09/17 17:00 98.3 F 96 16 89/51 99 04/09/17 16:00 98.1 F 99 14 86/51 97 04/09/17 15:00 104 16 86/53 98 04/09/17 14:00 110 14 83/51 96 04/09/17 13:00 103 12 80/53 96 Intake and Output 04/09/17 04/10/17 04/10/17 23:59 07:59 15:59 Intake Total 720 / 720 284 / 284 327 / 327 Output Total 300 / 300 650 / 650 350 / 350 Balance 420 / 420 -366 / -366 -23 / -23 Intake: IV Fluids 240 / 240 284 / 284 207 / 207 Levophed 4 MG In Dextrose 237 / 237 284 / 284 107 / 107 5% 250 ML @ 0.5 MCG/MIN 1.87 mls/hr IVC CONT JOEY Rx#:[id number] Definity 1.3 ML In Normal 3 / 3 Saline Flush 8.7 ML @ 1200 mls/hr IVP ONCE ONE Rx#:[id number] Vancocin 500 MG In 100 / 100 Dextrose 5% (Minibag+) 100 ML 100 ML @ 100 mls/ hr IVPB ONCE ONE Rx#: [id number] Oral 480 / 480 120 / 120 Output: Catheter 300 / 300 650 / 650 350 / 350 Other: Weight 97.613 kg Patient Weight 04/10/17 23:59 Weight 97.613 kg Incision: clean and dry - Labs CBC & BMP: 04/10/17 04:24 04/10/17 04:24 Labs: Abnormal lab results RBC 2.86 M/mcL (4.19-5.50) L 04/10/17 04:24 Hgb 9.2 g/dL (12.9-16.9) L 04/10/17 04:24 Hct 27.3 % (37.5-50.1) L 04/10/17 04:24 Plt Count 131 K/mcL (140-400) L 04/10/17 04:24 Band Neutrophils % 6.0 % (0-4) H 04/10/17 04:24 Neutrophils # 9.6 K/mcL (1.6-8.9) H 04/10/17 04:24 Reactive Lymphocytes Present (Not Present) A 04/08/17 04:20 Platelet Estimate Slight Decrease (Normal) L 04/10/17 04:24 PT 57.5 Seconds (9.4-12.1) H* 04/10/17 04:55 INR 5.1 H* 04/10/17 04:55 APTT 39.2 Seconds (26.0-36.0) H 04/07/17 23:26 ABG pCO2 31 mmHg (35-45) L 04/08/17 19:47 ABG pO2 374 mmHg (85-104) H 04/08/17 19:47 ABG HCO3 17.9 mEQ/L (21-27) L 04/08/17 19:47 ABG Total CO2 18.9 mEq/L (20-26) L 04/08/17 19:47 ABG O2 Saturation 100 % (95-98) H 04/08/17 19:47 ABG Base Excess -6.5 mEq/L (-2.0 to 3.0) L 04/08/17 19:47 Sodium 131 mEq/L (136-145) L 04/10/17 04:24 BUN 97 mg/dL (8-26) H 04/10/17 04:24 Creatinine 3.09 mg/dL (0.72-1.25) H 04/10/17 04:24 Est GFR ( Amer) 24 (> 60) L 04/10/17 04:24 Est GFR (Non-Af Amer) 20 (> 60) L 04/10/17 04:24 BUN/Creatinine Ratio 31 (6-26) H 04/10/17 04:24 POC Glucose 101 (58-89) H 04/08/17 06:45 Calculated Osmolality 302 (280-300) H 04/10/17 04:24 Phosphorus 5.5 mg/dL (2.3-4.7) H 04/10/17 04:24 Total Bilirubin 2.3 mg/dL (0.2-1.2) H 04/10/17 04:24 Direct Bilirubin 1.4 mg/dL (0.0-0.5) H 04/10/17 04:24 AST 39 Units/L (5-34) H 04/10/17 04:24 Creatine Kinase 217 Units/L (30-200) H 04/08/17 10:15 Troponin I 0.37 ng/mL (0-0.03) H* 04/08/17 23:00 Albumin 2.5 g/dL (3.5-5.0) L D 04/10/17 04:24 Globulin 3.6 g/dL (2.4-3.5) H 04/10/17 04:24 Albumin/Globulin Ratio 0.7 (1.1-2.2) L 04/10/17 04:24 Ur Squamous Epith Cells Many per lpf (None-Few) H 04/07/17 23:32 Synovial RBC 0.055 M/mcl (0.000-0.002) H 04/08/17 11:34 Synovial Tot Nuc Cell > [id number] TNC/mcL (0-200) H 04/08/17 11:34 - VTE Documentation of Mechanical Device: Venous foot pump, device Consult Discharge Plan - Plan Referrals: Daniel Garcia MD [Primary Care Provider] -
[2017-04-10 13:27] LABS: INR 5.2; Prothrombin Time 59.6 Seconds (9.4-12.1)
--- NOTE | 2017-04-10 15:43 | Infectious Disease Consult ---
Date of Encounter: 04/10/17 Time of Encounter: 15:40 Assessment and Plan (1) Septic shock Status: Acute Assessment and plan: The patient had three SIRS criteria on admission plus altered mental status and lactic acidosis. He developed hypotension requiring vasopressors. Currently on 8mcg of levophed. Likely secondary to left total knee prosthetic joint infection. Improved. WBC remains normal, but he has 6% bands today. Lactic acidosis and AMS have resolved. Blood cultures drawn 04/07/17 x 1 and 04/08/17 x1 are NGTD. (2) Infection of prosthetic left knee joint Status: Acute Assessment and plan: Location: Left knee. Status post left total knee replacement [address] Puentes. Patient reports he had an infection requiring IV antibiotics after the surgery. Review of the medical record reveals the CO at that time was MSSA. Causative organism GBS per synovial fluid and intra-operative cultures. Orthopedics consulted and following. Joint aspiration 04/08/17 revealed 20cc of bridgette pus that grew GBS. Status post removal of infected total knee hardware with placement of articulating spacer and patellectomy 04/08/[address] Casper. Get baseline ESR and CRP now. Continue Rocephin, but increase dose to 2 grams IV daily. Given an additional 1 gram now to total 2 grams today and then start 2 gram dose in the AM. Discontinue Vancomycin. Duration of treatment depends on the clinical picture, but likely 6 weeks of IV antibiotics will be required. No dose-adjustment of the Rocephin required. Wound care and activity restrictions per the ortho team. Qualifiers: Encounter type: initial encounter Qualified Code(s): T84.54XA - Infection and inflammatory reaction due to internal left knee prosthesis, initial encounter (3) Acute metabolic encephalopathy Status: Resolved Assessment and plan: Likely secondary to sepsis. Resolved. (4) Acute kidney injury superimposed on CKD Status: Acute Assessment and plan: Serum creatinine up to 3.09 today, which appears above the patient's baseline. Likely secondary to sepsis, but would recommend consulting nephrology for their input. Discontinue Vancomycin in order to avoid nephrotoxins. Dose-adjust medications based on creatinine clearance. Strict I/s and Os. (5) Lactic acidosis Status: Acute Assessment and plan: Likely secondary to sepsis. Resolved. (6) Elevated troponin Status: Acute Assessment and plan: Likely secondary to demand ischemia. Management per the primary team. 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 Follows with Dr. Small at the [facility]. I have placed a call to her to discuss continuance of the patient's treatment while being treated for this acute infection. Qualifiers: Amyloidosis type: unspecified amyloidosis Qualified Code(s): E85.9 - Amyloidosis, unspecified (8) Hypothyroidism Status: Chronic Qualifiers: Hypothyroidism type: unspecified Qualified Code(s): E03.9 - Hypothyroidism , unspecified (9) CHF (congestive heart failure) Status: Chronic Qualifiers: Congestive heart failure type: diastolic Congestive heart failure chronicity: chronic Qualified Code(s): I50.32 - Chronic diastolic (congestive ) heart failure (10) A-fib Status: Chronic Qualifiers: Atrial fibrillation type: chronic Qualified Code(s): I48.2 - Chronic atrial fibrillation Infectious Disease HPI - Data of Consult Patient: new to practice Consult date: 04/10/17 Requesting Physician: Ami Martinez Primary Care Provider: Daniel Garcia MD - Consult Narrative Reason for consult: Left Knee PJI History of present illness: Mr. Rubio is a 77 year old male with a past medical history of hypertension , hypothyroidism, A. fib, cardiac amyloidosis, CHF, status post left total knee replacement in 2010 followed by wound dehiscence and infection requiring IV antibiotics. The patient was admitted to the hospital April 07 for sepsis, altered mental status, and cellulitis of the left lower extremity. We are consulted April 10 for further evaluation and treatment recommendations regarding left knee prosthetic joint infection. The patient is a 77-year-old male with past medical history as stated above. The patient had sudden onset of high fever, chills, and altered mental status on the day of presentation to the ER, upon arrival, the patient had a fever 104.5 and he was tachycardic. Her studies revealed a normal white blood cell count, but his platelets were 1:15 additionally, the patient was noted have an acute kidney injury and lactic acidosis. Chest x-ray was obtained that showed cardiomegaly, but no infectious process. CT of the head was negative. Blood cultures were obtained 1 set, which are currently no growth to date. The patient was admitted to the hospital underwent a left knee and left tib-fib x- rays that were essentially negative. A left lower extremity CT showed possible loosening of the left knee hardware and a small knee effusion. Orthopedics was consulted and performed a left knee aspiration that revealed 20 mL of purulent fluid that was positive for gram-positive cocci. Cell count revealed grossly infected synovial fluid. The patient was taken to the operating room and underwent removal of infected total knee with placement of articulating spacer and left patellectomies by Dr. Casper on April 08. Intraoperative cultures were positive for group B strep. Since surgery, the patient has remained hypotensive requiring vasopressors. His white blood cell count has remained normal, but he does have bandemia. His acute kidney injury has worsened slightly. He did have a fever with a MAXIMUM TEMPERATURE of 100.8 yesterday. Currently, the patient is on Rocephin 1 g IV every 24 hours and vancomycin. We've been asked to evaluate and make further recommendations. During my exam today, the patient endorses a history as stated above. He again reports sudden onset of fevers, chills, rigors, and altered mental status on the day of admission. He denies any headache or neck pain. He denies any congestion, earache, or sore throat. He denies any chest pain, shortness of breath, or cough. He denies any nausea, vomiting, diarrhea, or constipation. He states that up until admission, his appetite was okay and he denied any abdominal pain. He does report a 2-3 day history prior to admission of left knee pain localized to the knee. He denies any calf or thigh pain. He does report chronic venous stasis dermatitis and chronic bilateral lower extremity swelling. He denies any recent trauma to the knee. He denies any scrapes or cuts. He denies any oral thrush or any other new skin lesions. CC: Ami Martinez Past Med Surg Social Fam HX - Past Medical History Attestation: Yes The following information was validated with the patient. 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) Current living situation: Home - Independent Activity Level: Independent ambulation Recent Out of Country Travel Within the Last 8 Weeks: No Exposure or Possible Exposure to Illness During Travel: No - Family History Father History Unknown: Yes Adopted: Yes Age: 68 Living Status: Hx Family Cardiac Disorders: Yes Mother Living Status: Age at : 95 Hx Family Cardiac Disorders: Yes (heart disease) Infectious Disease-CN:Meds Ergocalciferol (VITAMIN D2) [Vitamin D2] 2,000 unit PO DAILY 02/05/17 [History] Levothyroxine [Synthroid] 88 mcg PO DAILY 02/05/17 [History] Lisinopril [Zestril] 10 mg PO DAILY 02/05/17 [History] Multivit-Min/FA/Lycopen/Lutein [Centrum Silver Men Tablet] 1 each PO DAILY 02/05 [History] Warfarin [Coumadin] 7.5 tab PO [id number] 02/05/17 [History] Diflunisal 250 mg PO DAILY 04/08/17 [History] Doxycycline Monohydrate [Mondoxyne Nl] 100 mg PO DAILY 04/08/17 [History] Famotidine [Pepcid] 40 mg PO DAILY 04/08/17 [History] Ursodiol [Ursodiol] 300 mg PO Q12H 04/08/17 [History] Warfarin [Coumadin] 10 mg PO ANGELES 04/08/17 [History] Allergies No Known Allergies Allergy (Verified 04/08/17 10:20) All systems: reviewed and no additional remarkable complaints except as stated Exam - Constitutional Vitals: Temp Pulse Resp BP Pulse Ox 98.1 F 83 12 105/62 100 04/10/17 11:25 04/10/17 14:00 04/10/17 14:00 04/10/17 14:00 04/10/17 14:00 General appearance: average body habitus, cooperative, no acute distress - Head Head exam: Present: atraumatic, normal inspection, normocephalic - Eye Eye exam: Present: EOMI, normal appearance, PERRL Pupils: Present: normal accommodation - ENT ENT exam: Present: mucous membranes moist - Neck Neck exam: Present: normal inspection Additional comments: Triple lumen CVC noted to the right neck with transparent dressing C/D/I. - Respiratory Respiratory exam: Present: CTAB. Absent: rales, respiratory distress, rhonchi, wheezes - Cardiovascular Cardiovascular exam: Present: irregular rhythm. Absent: tachycardia - GI/Abdominal GI/Abdominal exam: Present: normal bowel sounds, soft. Absent: distended, tenderness Additional comments: Cook catheter noted to be draining clear yellow urine. - Extremities Exam Additional comments: Post-op dressing noted to the left LE with hinge-brace noted to the left knee. Unable to assess the surgical site. Distal ankle with 1+ edema and venous stasis dermatitis noted to the BLE. + PMS to the distal extremity. - Neurological Exam Neurological exam: Present: alert, oriented X3, no focal deficits - Psychiatric Psychiatric exam: Present: normal affect, normal mood - Skin Skin exam: Present: dry, intact, normal color, warm Infectious Disease CN: Results - Labs CBC & Chem 7: 04/11/17 03:00 04/11/17 03:12 Cultures: Cultures 04/08/17 11:34 Body Fluid Culture - Preliminary Synovial Fluid Strep agalactiae - (Group B) 04/08/17 19:10 Wound Culture - Preliminary Left Knee Strep agalactiae - (Group B) Serology: Serology 04/08/17 04/08/17 04/08/17 Range/Units 11:34 09:11 09:11 Urine Color Yellow (Yellow) Urine Clarity Clear (Clear) Urine pH 5.0 (5.0-8.0) pH Units Ur Specific [place] 1.015 (1.010-1.025) Urine Protein Negative (Neg-Trace) mg/dL Urine Glucose (UA) Normal (Normal) mg/dL Urine Ketones Negative (Negative) mg/dL Urine Blood Negative (Negative) Urine Nitrite Negative (Negative) Urine Bilirubin Negative (Negative) Urine Urobilinogen Normal (Normal) mg/dL Ur Leukocyte Esterase Negative (Negative) Ur Culture Indicated? NO (NO) Urine Creatinine 96 mg/dL Urine Sodium 23.0 mEq/L Urine Urea Nitrogen 521 mg/dL Synovial Source LEFT KNEE Synovial Color Straw (Straw) Synovial Appearance Cloudy (Clear-Hazy) Synovial Volume Test Not Performed Synovial RBC 0.055 H (0.000 - 0.002) M/mcl Synovial Tot Nuc Cell > [id number] H (0-200) TNC/mcL Synovial Seg Neuts % 98.0 % Synovial Lymphocytes % 1.0 % Synovial Monocytes % 1.0 % - VTE Documentation of Mechanical Device: Venous foot pump, device Consult Discharge Plan - Plan Referrals: Daniel Garcia MD [Primary Care Provider] - - Attending Attestation I examined this patient and my medical decision-making was reviewed with the NON CATEGORICAL PRESCHOOL TEACHER/PA/Advanced Practice Nurse/Resident Physician. I agree with the documented findings, disposition and treatment plan as described except to the extent set forth below. Is an addendum to original report dictated by Britt Archer CNP. Please refer to Coral pereira for full detail. Patient is 77-year-old gentleman who underwent a left total knee arthroplasty [place] [address] Puentes. Apparently had complications and had an infection with MSSA. Patient was treated appropriately. Patient came in with septic shocklike picture. Patient was noted to have prosthetic joint infection left knee. Patient was taken to surgery by Dr. Casper where he underwent a 2-stage exchange. Old prosthetic joint was removed and spacer was placed. Intra-Op cultures are growing group B strep. Patient has been on Rocephin and vancomycin. Patient also has been hypertensive and on pressors. Patient also has amyloidosis of the heart. That was diagnosed about a month ago at [facility] with a heart biopsy. Currently patient at [place] comfortable laying in bed At Bedside. No Acute Distress. Awake Alert Oriented Answers Questions. Recommend. At This Time We Will Continue with Rocephin but Will Increase the Dose to 2 G IV Every 24 Hours. DC Vancomycin Will Need a PICC Line Placement or Power [place] to Treat for 6 Weeks with IV Antibiotics. While on Rocephin Will Need to Monitor Labs and for Drug Toxicity. Patient Is to Follow-Up with Us in Clinic 2 Weeks from Now.
[2017-04-10] MEDS ORDERED: *HR* Warfarin 5 MG TABLET PO SCH (18:00)
[2017-04-10] MEDS: Hydrocortisone Sodium Succ 100 MG/2 ML VIAL IVP SCH ×2 (18:39→23:27)
[2017-04-10 19:11] LABS: Hematocrit 26.2 % (37.5-50.1); Hemoglobin 8.8 g/dL (12.9-16.9); Mean Corpuscular HGB Conc 33.6 g/dL (31.6-35.5); Mean Corpuscular Hemoglobin 31.8 pg (28.0-33.3); Mean Corpuscular Volume 94.6 fL (83.0-100.0); Mean Platelet Volume 10.1 fL (9.4-12.4); Platelet Count 104 K/mcL (140-400); Red Blood Count 2.77 M/mcL (4.19-5.50); Red Cell Distribution Width 14.4 % (11.5-14.5)
[2017-04-10 19:44] LABS: Lymphocytes # 0.8 K/mcL (0.6-4.6); Monocytes # 0.2 K/mcL (0.0-1.3); Neutrophils # 4.8 K/mcL (1.6-8.9)
[2017-04-10 19:46] LABS: Platelet Estimate Slight Decrease (Normal)
[2017-04-10] MEDS: *HR* HYDROmorphone (PF) 1 MG/ML SYRINGE IVP PRN (23:27)
[2017-04-11 03:22] LABS: Hematocrit 25.1 % (37.5-50.1); Hemoglobin 8.4 g/dL (12.9-16.9); Immature Granulocytes % 0.6 % (0-4); Immature Platelets 3.7 % (1.1-6.1); Lymphocytes # 0.4 K/mcL (0.6-4.6); Lymphocytes % 7.5 %; Mean Corpuscular HGB Conc 33.5 g/dL (31.6-35.5); Mean Corpuscular Hemoglobin 31.9 pg (28.0-33.3); Mean Corpuscular Volume 95.4 fL (83.0-100.0); Monocytes # 0.2 K/mcL (0.0-1.3); Monocytes % 3.4 %; Platelet Count 113 K/mcL (140-400); Red Blood Count 2.63 M/mcL (4.19-5.50); Red Cell Distribution Width 14.3 % (11.5-14.5); Segmented Neutrophils % 88.5 %
[2017-04-11 03:26] LABS: INR 3.3; Prothrombin Time 37.3 Seconds (9.4-12.1)
[2017-04-11 04:00] LABS: Neutrophils # 4.2 K/mcL (1.6-8.9)
[2017-04-11 05:30] LABS: Magnesium 1.9 mg/dL (1.6-2.6); Phosphorous 5.2 mg/dL (2.3-4.7)
[2017-04-11 05:32] LABS: Calcium 8.7 mg/dL (8.6-10.8); Potassium 4.7 mEq/L (3.5-4.5)
[2017-04-11 05:52] LABS: Platelet Estimate Normal (Normal)
[2017-04-11 06:30] LABS: Ionized Calcium 1.18 mmol/L (1.15-1.35)
--- NOTE | 2017-04-11 06:44 | Pulmonology Progress Note ---
<Karyn Peterson - Last Filed: 04/11/17 08:04> Date of Encounter: 04/11/17 Time of Encounter: 06:36 Assessment and Plan (1) Septic shock Current Visit: Yes Status: Acute Patient had Tmax of 104.5, pulse 129, R 21, source of infection likely secondary to left lower leg cellulitis. Patient had altered mental status that has since resolved after receiving fluid boluses. urinalysis showed no signs of infection. lactate now .7, trending down CT head showed no acute intracranial abnormality. Plan: s/p removal of left knee hardware, cultures grew strep agalectiae, POD#3 blood cultures showed no growth. synovial fluid culture showed strep agalectiae, sensitive to ceftraixone- will continue. appreciate orthopedic surgery recommendations. INR 3.3 today, continue to hold warfarin continue solu cortef discontinue levophed, start bowel regimen and diet. re start home meds doxycycline and ursodiol. (2) Cellulitis Current Visit: Yes Status: Acute left lower leg erythematous, edematous from ankle to mid thigh. no crepitus appreciated on exam. CT LLE showed diffuse subcutaneous edema along skin thickening to the visualized left lower extremity, may reflect stasis, cellulitis, or lymphedema. no focal fluid collections to suggest abscess formation. no evidence of soft tissue gas, no bony abnormalities, no evidence of osteomyelitis. Left knee prosthesis is smoothly marginated lucency, infection unlikely, small nonspecific knee joint effusion, mild to moderate degenerative changes in ankle/ fot, most significant to the midfoot at level of talonaicular joint. fluid culture sent for analysis, grew strep agalectiae Plan: continue ceftriaxone appreciate orthopedic surgery recommendations Qualifiers: Site of cellulitis: extremity Site of cellulitis of extremity: lower extremity Laterality: left Qualified Code(s): L03.116 - Cellulitis of left lower limb (3) A-fib Current Visit: Yes Status: Chronic currently rate controlled continue to monitor. pharmacy dosing warfarin, which is currently being held for supratherapeutic INR Qualifiers: Atrial fibrillation type: chronic Qualified Code(s): I48.2 - Chronic atrial fibrillation (4) Acute kidney injury superimposed on CKD Current Visit: Yes Status: Acute LURDES on CKD, stage IIIa FEna: .5%: Pre-renal cause. Urine urea: 521 Plan: Cr stable, trending down. avoid nephrotoxins. hold lisinopril (5) CHF (congestive heart failure) Current Visit: Yes Status: Chronic echo from 04/09 showed LVEF 50-55%, not all myocardial segments were well visualized, severe concentric LV hypertrophy, indeterminate left ventricular diastolic function, RV mild to moderately dilated with moderate reduction in function. mild to moderate mitral regurg, severe tricuspid regurg, IVC dilated. repeat echo with definity from yesterday showed low-normal LV systolic function , LVEF 50%, small pericardial effusion present. Plan: continue to monitor. Qualifiers: Congestive heart failure type: diastolic Congestive heart failure chronicity: chronic Qualified Code(s): I50.32 - Chronic diastolic (congestive ) heart failure (6) Elevated troponin Current Visit: Yes Status: Acute peak .48, trending down. EKG showed Afib without signs of ischemia (7) Hypothyroidism Current Visit: Yes Status: Chronic continue home med synthroid. check TSH Qualifiers: Hypothyroidism type: unspecified Qualified Code(s): E03.9 - Hypothyroidism , unspecified (8) Amyloidosis Current Visit: Yes Status: Chronic hold home meds for now. re started doxycycline and ursodiol. Qualifiers: Amyloidosis type: unspecified amyloidosis Qualified Code(s): E85.9 - Amyloidosis, unspecified (9) DVT prophylaxis Current Visit: Yes Status: Acute foot pumps Neuro/sedation: Currently A&Ox3, mentating well. Pulm: CXR showed mild cardiomegaly with no acute process. Cardiac: Hx of CHF with preserved EF. Hx of Afib on warfarin, which is being held. patient currently NSR. will monitor at this time. elevated troponin with peak troponin .48, trending down. repeat Echo with definity showed low-normal LV systolic function, LVEF 50%, small pericardial effusion. Hold lisinopril due to septic shock. will stop levophed and monitor. continue solucortef. Gi/Fluids: stop levophed, start bowel regimen, start cardiac diet today. Renal: LURDES on CKD (IIIa). Creatinine decreasing appropriately. Avoid nephrotoxins. ID: septic shock likely secondary to LLE cellulitis. prelim blood cultures showed no growth. CT leg showed significant subcutaneous edema, no gas. continue ceftriaxone, antibiotics de-escalated. cultures from knee during surgery showed strep agalectiae, will wait for sensitivity. urinalysis showed no signs of infection. Orthopedic surgery following. Heme/onc: Hg down from baseline but stable, chronically thrombocytopenic. will get stool occult blood. INR 3.3 today, continue to hold coumadin. Foot pumps for DVT prophylaxis. Endocrine: continue blood glucose measurements. Continue synthroid for hypothyroidism, check TSH Skin: routine skincare per ICU protocol. Lines: right IJ, right peripheral, Cook catheter. Subjective Principal diagnosis: septic shock Interval history: 77 year old male evaluated at bedside. per nursing staff, he had no acute events overnight. Patient denies nausea, vomiting. He states that his pain is well controlled at this time. He has no further complaints today. Objective PUL Vital signs: Last Vital Signs Temp 98.5 F 04/11/17 05:28 Pulse 65 04/11/17 06:00 Resp 14 04/11/17 06:00 BP 86/54 04/11/17 06:00 Pulse Ox 96 04/11/17 06:00 General appearance: no acute distress, alert, lethargic Eyes: nonicteric ENT: oropharynx moist Neck: no lymphadenopathy, no JVD Auscultation: bilateral: clear Cardiovascular: regular rate and rhythm Gastrointestinal: hypoactive bowel sounds (adomen firm), non-tender Extremities: no cyanosis, no edema, other (left lower extremity wrapped and in cast. ) Musculoskeletal: joint tenderness normal mental status, non-focal exam anxious Results - Laboratory Findings CBC and BMP: 04/11/17 03:00 04/11/17 03:12 ABG ABG pH 7.37 pH Units (7.32-7.45) 04/08/17 19:47 ABG pCO2 31 mmHg (35-45) L 04/08/17 19:47 ABG pO2 374 mmHg (85-104) H 04/08/17 19:47 ABG O2 Saturation 100 % (95-98) H 04/08/17 19:47 PT/INR, D-dimer PT 37.3 Seconds (9.4-12.1) H 04/11/17 03:12 Abnormal lab findings: Abnormal lab results RBC 2.63 M/mcL (4.19-5.50) L 04/11/17 03:00 Hgb 8.4 g/dL (12.9-16.9) L 04/11/17 03:00 Hct 25.1 % (37.5-50.1) L 04/11/17 03:00 Plt Count 113 K/mcL (140-400) L 04/11/17 03:00 Lymphocytes # 0.4 K/mcL (0.6-4.6) L 04/11/17 03:00 Reactive Lymphocytes Present (Not Present) A 04/08/17 04:20 PT 37.3 Seconds (9.4-12.1) H 04/11/17 03:12 APTT 39.2 Seconds (26.0-36.0) H 04/07/17 23:26 ABG pCO2 31 mmHg (35-45) L 04/08/17 19:47 ABG pO2 374 mmHg (85-104) H 04/08/17 19:47 ABG HCO3 17.9 mEQ/L (21-27) L 04/08/17 19:47 ABG Total CO2 18.9 mEq/L (20-26) L 04/08/17 19:47 ABG O2 Saturation 100 % (95-98) H 04/08/17 19:47 ABG Base Excess -6.5 mEq/L (-2.0 to 3.0) L 04/08/17 19:47 Sodium 132 mEq/L (136-145) L 04/11/17 03:12 Potassium 4.7 mEq/L (3.5-4.5) H 04/11/17 03:12 BUN 91 mg/dL (8-26) H 04/11/17 03:12 Creatinine 2.59 mg/dL (0.72-1.25) H 04/11/17 03:12 Est GFR ( Amer) 29 (> 60) L 04/11/17 03:12 Est GFR (Non-Af Amer) 24 (> 60) L 04/11/17 03:12 BUN/Creatinine Ratio 35 (6-26) H 04/11/17 03:12 Glucose 107 mg/dL (70-99) H 04/11/17 03:12 POC Glucose 101 (58-89) H 04/08/17 06:45 Calculated Osmolality 302 (280-300) H 04/11/17 03:12 Phosphorus 5.2 mg/dL (2.3-4.7) H 04/11/17 03:12 Total Bilirubin 2.3 mg/dL (0.2-1.2) H 04/10/17 04:24 Direct Bilirubin 1.4 mg/dL (0.0-0.5) H 04/10/17 04:24 AST 39 Units/L (5-34) H 04/10/17 04:24 Creatine Kinase 217 Units/L (30-200) H 04/08/17 10:15 Troponin I 0.37 ng/mL (0-0.03) H* 04/08/17 23:00 Albumin 2.5 g/dL (3.5-5.0) L D 04/10/17 04:24 Globulin 3.6 g/dL (2.4-3.5) H 04/10/17 04:24 Albumin/Globulin Ratio 0.7 (1.1-2.2) L 04/10/17 04:24 Ur Squamous Epith Cells Many per lpf (None-Few) H 04/07/17 23:32 Synovial RBC 0.055 M/mcl (0.000-0.002) H 04/08/17 11:34 Synovial Tot Nuc Cell > 428255 TNC/mcL (0-200) H 04/08/17 11:34 - Microbiology Findings Microbiology Findings: Microbiology, Last 48 Hours 04/08/17 11:34 Body Fluid Culture - Preliminary Synovial Fluid Strep agalactiae - (Group B) 04/08/17 19:10 Wound Culture - Preliminary Left Knee Strep agalactiae - (Group B) - Clinical Findings Intake & Output: Intake & Output 04/10/17 04/10/17 04/11/17 15:59 23:59 07:59 Intake Total 436 / 436 800 / 800 Output Total 350 / 350 900 / 900 250 / 250 Balance 86 / 86 -100 / -100 -250 / -250 Weight 100.5 kg - VTE Documentation of Mechanical Device: Venous foot pump, device Consult Discharge Plan - Plan Referrals: Daniel Garcia MD [Primary Care Provider] - <Irvin Hood - Last Filed: 04/11/17 11:00> Date of Encounter: 04/11/17 Objective PUL Vital signs: Last Vital Signs Temp 96.8 F L 04/11/17 07:51 Pulse 75 04/11/17 08:00 Resp 14 04/11/17 08:00 BP 88/60 04/11/17 08:00 Pulse Ox 97 04/11/17 08:00 Results - Laboratory Findings CBC and BMP: 04/11/17 03:00 04/11/17 03:12 ABG ABG pH 7.37 pH Units (7.32-7.45) 04/08/17 19:47 ABG pCO2 31 mmHg (35-45) L 04/08/17 19:47 ABG pO2 374 mmHg (85-104) H 04/08/17 19:47 ABG O2 Saturation 100 % (95-98) H 04/08/17 19:47 PT/INR, D-dimer PT 37.3 Seconds (9.4-12.1) H 04/11/17 03:12 Abnormal lab findings: Abnormal lab results RBC 2.63 M/mcL (4.19-5.50) L 04/11/17 03:00 Hgb 8.4 g/dL (12.9-16.9) L 04/11/17 03:00 Hct 25.1 % (37.5-50.1) L 04/11/17 03:00 Plt Count 113 K/mcL (140-400) L 04/11/17 03:00 Lymphocytes # 0.4 K/mcL (0.6-4.6) L 04/11/17 03:00 Reactive Lymphocytes Present (Not Present) A 04/08/17 04:20 PT 37.3 Seconds (9.4-12.1) H 04/11/17 03:12 APTT 39.2 Seconds (26.0-36.0) H 04/07/17 23:26 ABG pCO2 31 mmHg (35-45) L 04/08/17 19:47 ABG pO2 374 mmHg (85-104) H 04/08/17 19:47 ABG HCO3 17.9 mEQ/L (21-27) L 04/08/17 19:47 ABG Total CO2 18.9 mEq/L (20-26) L 04/08/17 19:47 ABG O2 Saturation 100 % (95-98) H 04/08/17 19:47 ABG Base Excess -6.5 mEq/L (-2.0 to 3.0) L 04/08/17 19:47 Sodium 132 mEq/L (136-145) L 04/11/17 03:12 Potassium 4.7 mEq/L (3.5-4.5) H 04/11/17 03:12 BUN 91 mg/dL (8-26) H 04/11/17 03:12 Creatinine 2.59 mg/dL (0.72-1.25) H 04/11/17 03:12 Est GFR ( Amer) 29 (> 60) L 04/11/17 03:12 Est GFR (Non-Af Amer) 24 (> 60) L 04/11/17 03:12 BUN/Creatinine Ratio 35 (6-26) H 04/11/17 03:12 Glucose 107 mg/dL (70-99) H 04/11/17 03:12 POC Glucose 101 (58-89) H 04/08/17 06:45 Calculated Osmolality 302 (280-300) H 04/11/17 03:12 Phosphorus 5.2 mg/dL (2.3-4.7) H 04/11/17 03:12 Total Bilirubin 2.3 mg/dL (0.2-1.2) H 04/10/17 04:24 Direct Bilirubin 1.4 mg/dL (0.0-0.5) H 04/10/17 04:24 AST 39 Units/L (5-34) H 04/10/17 04:24 Creatine Kinase 217 Units/L (30-200) H 04/08/17 10:15 Troponin I 0.37 ng/mL (0-0.03) H* 04/08/17 23:00 Albumin 2.5 g/dL (3.5-5.0) L D 04/10/17 04:24 Globulin 3.6 g/dL (2.4-3.5) H 04/10/17 04:24 Albumin/Globulin Ratio 0.7 (1.1-2.2) L 04/10/17 04:24 Ur Squamous Epith Cells Many per lpf (None-Few) H 04/07/17 23:32 Synovial RBC 0.055 M/mcl (0.000-0.002) H 04/08/17 11:34 Synovial Tot Nuc Cell > 275638 TNC/mcL (0-200) H 04/08/17 11:34 - Microbiology Findings Microbiology Findings: Microbiology, Last 48 Hours 04/08/17 11:34 Body Fluid Culture - Preliminary Synovial Fluid Strep agalactiae - (Group B) 04/08/17 19:10 Wound Culture - Final Left Knee Strep agalactiae - (Group B) 04/08/17 11:34 Anaerobic Culture - Preliminary Synovial Fluid At this time, no anaerobic growth is present. The culture will be finalized after 5 days of incubation. 04/08/17 19:10 Anaerobic Culture - Preliminary Left Knee At this time, no anaerobic growth is present. The culture will be finalized after 5 days of incubation. - Clinical Findings Intake & Output: Intake & Output 04/10/17 04/11/17 04/11/17 23:59 07:59 15:59 Intake Total 800 / 800 125 / 125 Output Total 900 / 900 400 / 400 Balance -100 / -100 -400 / -400 125 / 125 Weight 100.5 kg - Attending Attestation I examined this patient and my medical decision-making was reviewed with the ANIMAL CONTROL OFFICER/PA/Advanced Practice Nurse/Resident Physician. I agree with the documented findings, disposition and treatment plan as described except to the extent set forth below. Patient seen and examined at bedside Labs, radiology, chart personally reviewed. All lines examined without evidence of infection. Neuropsych: awake and alert focus on maint of sleep wake cycle Pulm: acceptable oxygenation 2LNC cont to monitor. Cards: Distributive shock d/t Sepsis complicated by adrenal insuff. Weaned off pressors. improved UOP. Goal MAP 60. FEN-GI ADAT. Renal: Non oliguric LURDES which is likely s/t prerenal azotemia along with use of ACEi; all meds dosed for GFR. daily electrolyte panel ID: Left septic knee joint with shock. s/p hardware removal and washout. Cultures + GBS Cont Ceftriaxone. Will need PICC line after removal of CVC Heme/Onc: elevated INR on warfarin holding presently no evidence of active bleeding.. Vitamin K given. H/H stable. Chronic stable thrombocytopenia Endo: glucose monitored; Stress dose hydrocortisone given for Adrenal Insuff. Will wean as tolerated Integ/MSK: POD# 3 for left knee hardware removal/washout for septic joint Ortho to follow, Will also provide skin care per routine ICU protocol. CODE: Full
[2017-04-11] MEDS ORDERED: Sennosides/Docusate Sodium TABLET PO PRN (08:40)
[2017-04-11] MEDS: Famotidine 20 MG TABLET PO SCH (08:57)
[2017-04-11] MEDS: Hydrocortisone Sodium Succ 100 MG/2 ML VIAL IVP SCH ×3 (08:58→23:48)
[2017-04-11] MEDS: Doxycycline 100 MG CAPSULE PO SCH (10:54)
[2017-04-11 11:08] LABS: Thyroid Stimulating Hormone 0.832 mcIU/mL (0.350-4.840)
--- NOTE | 2017-04-11 11:18 | Infectious Disease Progress No ---
Date of Encounter: 04/11/17 Time of Encounter: 11:16 - Assessment and Plan (1) Septic shock Current Visit: Yes Status: Acute The patient had three SIRS criteria on admission plus altered mental status and lactic acidosis. He developed hypotension requiring vasopressors. Levophed was turned off at 0800 this morning. Likely secondary to left total knee prosthetic joint infection. Improved. WBC remains normal. Bandemia has resolved. Lactic acidosis and AMS have resolved. Blood cultures drawn 04/07/17 x 1 and 04/08/17 x1 are NGTD. (2) Infection of prosthetic left knee joint Current Visit: Yes Status: Acute Location: Left knee. Status post left total knee replacement [address] Puentes. Patient reports he had an infection requiring IV antibiotics after the surgery. Review of the medical record reveals the CO at that time was MSSA. Causative organism GBS per synovial fluid and intra-operative cultures. Orthopedics consulted and following. Joint aspiration 04/08/17 revealed 20cc of bridgette pus that grew GBS. Status post removal of infected total knee hardware with placement of articulating spacer and patellectomy 04/08/[address] Casper. Get baseline ESR and CRP now --> pending. Continue Rocephin 2 grams IV daily. Duration of treatment depends on the clinical picture, but likely 6 weeks of IV antibiotics will be required. Okay to place long-term vascular access. It appears the patient has CKD, so will likely not be able to place PICC line and will have to do an EPIV. If this is the case, will plan on switching IV out at 4 weeks. No dose-adjustment of the Rocephin required for the patient's LURDES. Wound care and activity restrictions per the ortho team. Qualifiers: Encounter type: initial encounter Qualified Code(s): T84.54XA - Infection and inflammatory reaction due to internal left knee prosthesis, initial encounter (3) Acute metabolic encephalopathy Current Visit: Yes Status: Resolved Likely secondary to sepsis. Resolved. (4) Acute kidney injury superimposed on CKD Current Visit: Yes Status: Acute Serum creatinine improved to 2.59 today. Likely secondary to sepsis, but would recommend consulting nephrology for their input. Dose-adjust medications based on creatinine clearance. Strict I/s and Os. (5) Lactic acidosis Current Visit: Yes Status: Acute Likely secondary to sepsis. Resolved. (6) Elevated troponin Current Visit: Yes Status: Acute Likely secondary to demand ischemia. Management per the primary team. 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 Follows with Dr. Small at the [facility]. I have placed a call to her to discuss continuance of the patient's treatment while being treated for this acute infection. Qualifiers: Amyloidosis type: unspecified amyloidosis Qualified Code(s): E85.9 - Amyloidosis, unspecified (8) Hypothyroidism Current Visit: Yes Status: Chronic Qualifiers: Hypothyroidism type: unspecified Qualified Code(s): E03.9 - Hypothyroidism , unspecified (9) CHF (congestive heart failure) Current Visit: Yes Status: Chronic Qualifiers: Congestive heart failure type: diastolic Congestive heart failure chronicity: chronic Qualified Code(s): I50.32 - Chronic diastolic (congestive ) heart failure (10) A-fib Current Visit: Yes Status: Chronic Qualifiers: Atrial fibrillation type: chronic Qualified Code(s): I48.2 - Chronic atrial fibrillation - Subjective Interval history: Patient seen and examined. No acute events noted overnight. Patient resting in bed with nursing at the bedside. Denies complaints at this time. Denies chest pain, shortness of breath, or cough. Denies fevers or chills overnight. Denies nausea, vomiting, diarrhea, or constipation. States he has not had a BM since surgery, but he hasn't really had anything to eat since then. States he did eat breakfast and his appetite is good. He denies abdominal pain and schaeffer catheter remains in place, draining clear yellow urine. He denies pain at the surgical site or his other extremities. He denies oral thrush or new skin lesions. Infect Dis PN-Objective Data - Labs CBC & Chem 7: 04/11/17 03:00 04/11/17 03:12 Labs: Laboratory Results - last 24 hr 04/10/17 04/10/17 04/11/17 11:50 18:55 03:00 WBC 5.9 4.7 RBC 2.77 L 2.63 L Hgb 8.8 L 8.4 L Hct 26.2 L 25.1 L MCV 94.6 95.4 MCH 31.8 31.9 MCHC 33.6 33.5 RDW 14.4 14.3 Plt Count 104 L 113 L MPV 10.1 10.0 Immature Gran % 0.6 Seg Neutrophils % 80.0 88.5 Band Neutrophils % 2.0 Lymphocytes % 14.0 7.5 Monocytes % 4.0 3.4 Eosinophils % 0.0 Basophils % 0.0 Neutrophils # 4.8 4.2 Lymphocytes # 0.8 0.4 L Monocytes # 0.2 0.2 Eosinophils # 0.0 Basophils # 0.0 Platelet Estimate Slight Decrease L Normal Immature Plt Fraction 3.7 PT 59.6 H* INR 5.2 H* Sodium Potassium Chloride Carbon Dioxide BUN Creatinine Est GFR ( Amer) Est GFR (Non-Af Amer) BUN/Creatinine Ratio Glucose Calculated Osmolality Lactic Acid Calcium Ionized Calcium Phosphorus Magnesium TSH Vancomycin Trough 04/11/17 04/11/17 04/11/17 03:12 03:12 03:12 WBC RBC Hgb Hct MCV MCH MCHC RDW Plt Count MPV Immature Gran % Seg Neutrophils % Band Neutrophils % Lymphocytes % Monocytes % Eosinophils % Basophils % Neutrophils # Lymphocytes # Monocytes # Eosinophils # Basophils # Platelet Estimate Immature Plt Fraction PT 37.3 H INR 3.3 Sodium Potassium Chloride Carbon Dioxide BUN Creatinine Est GFR ( Amer) Est GFR (Non-Af Amer) BUN/Creatinine Ratio Glucose Calculated Osmolality Lactic Acid 0.7 Calcium Ionized Calcium 1.18 Phosphorus 5.2 H Magnesium 1.9 TSH Vancomycin Trough 04/11/17 04/11/17 04/11/17 03:12 03:12 08:29 WBC RBC Hgb Hct MCV MCH MCHC RDW Plt Count MPV Immature Gran % Seg Neutrophils % Band Neutrophils % Lymphocytes % Monocytes % Eosinophils % Basophils % Neutrophils # Lymphocytes # Monocytes # Eosinophils # Basophils # Platelet Estimate Immature Plt Fraction PT INR Sodium 132 L Potassium 4.7 H Chloride 101 Carbon Dioxide 19 BUN 91 H Creatinine 2.59 H Est GFR ( Amer) 29 L Est GFR (Non-Af Amer) 24 L BUN/Creatinine Ratio 35 H Glucose 107 H Calculated Osmolality 302 H Lactic Acid Calcium 8.7 Ionized Calcium Phosphorus Magnesium TSH 0.832 Vancomycin Trough 15.8 Cultures: Cultures 04/08/17 11:34 Body Fluid Culture - Preliminary Synovial Fluid Strep agalactiae - (Group B) 04/08/17 19:10 Wound Culture - Final Left Knee Strep agalactiae - (Group B) 04/08/17 11:34 Anaerobic Culture - Preliminary Synovial Fluid At this time, no anaerobic growth is present. The culture will be finalized after 5 days of incubation. 04/08/17 19:10 Anaerobic Culture - Preliminary Left Knee At this time, no anaerobic growth is present. The culture will be finalized after 5 days of incubation. Serology 04/08/17 04/08/17 04/08/17 Range/Units 11:34 09:11 09:11 Urine Color Yellow (Yellow) Urine Clarity Clear (Clear) Urine pH 5.0 (5.0-8.0) pH Units Ur Specific [place] 1.015 (1.010-1.025) Urine Protein Negative (Neg-Trace) mg/dL Urine Glucose (UA) Normal (Normal) mg/dL Urine Ketones Negative (Negative) mg/dL Urine Blood Negative (Negative) Urine Nitrite Negative (Negative) Urine Bilirubin Negative (Negative) Urine Urobilinogen Normal (Normal) mg/dL Ur Leukocyte Esterase Negative (Negative) Ur Culture Indicated? NO (NO) Urine Creatinine 96 mg/dL Urine Sodium 23.0 mEq/L Urine Urea Nitrogen 521 mg/dL Synovial Source LEFT KNEE Synovial Color Straw (Straw) Synovial Appearance Cloudy (Clear-Hazy) Synovial Volume Test Not Performed Synovial RBC 0.055 H (0.000 - 0.002) M/mcl Synovial Tot Nuc Cell > 937400 H (0-200) TNC/mcL Synovial Seg Neuts % 98.0 % Synovial Lymphocytes % 1.0 % Synovial Monocytes % 1.0 % Exam - Constitutional Vitals: Temp Pulse Resp BP Pulse Ox 96.8 F L 89 16 95/63 98 04/11/17 07:51 04/11/17 10:30 04/11/17 10:30 04/11/17 10:30 04/11/17 09:00 General appearance: average body habitus, cooperative, no acute distress - Head Head exam: Present: atraumatic, normal inspection, normocephalic - Eye Eye exam: Present: EOMI, normal appearance, PERRL Pupils: Present: normal accommodation - ENT ENT exam: Present: mucous membranes moist - Neck Neck exam: Present: normal inspection - Respiratory Respiratory exam: Present: CTAB. Absent: rales, respiratory distress, rhonchi, wheezes - Cardiovascular Cardiovascular exam: Present: irregular rhythm. Absent: tachycardia - GI/Abdominal GI/Abdominal exam: Present: normal bowel sounds, soft. Absent: distended, tenderness - Extremities Exam Extremities exam: Present: pedal edema (1+ BLE), tenderness (left knee). Absent : normal inspection (BLE venous stasis dermatitis noted.) Additional comments: Left knee dressing with hinge brace noted. Dressing remains C/D/I. Left DP 1+, PT 1+ Right DP 2+, PT 1+. +PMS to distal LE. - Neurological Exam Neurological exam: Present: alert, oriented X3, no focal deficits - Psychiatric Psychiatric exam: Present: normal affect, normal mood - Skin Skin exam: Present: dry, intact, normal color, warm - VTE Documentation of Mechanical Device: Venous foot pump, device Consult Discharge Plan - Plan Referrals: Daniel Garcia MD [Primary Care Provider] - - Attending Attestation I examined this patient and my medical decision-making was reviewed with the LEHR CUTTER/PA/Advanced Practice Nurse/Resident Physician. I agree with the documented findings, disposition and treatment plan as described except to the extent set forth below.
[2017-04-11] MEDS: Norepinephrine 4 MG in D5% in Water 250 ML IVC SCH (19:29)
[2017-04-11] MEDS: *HR* OxyCODONE Immed Rel 5 MG TABLET PO PRN (21:24)
[2017-04-12] MEDS: *HR* HYDROmorphone (PF) 1 MG/ML SYRINGE IVP PRN (00:44)
[2017-04-12 04:48] LABS: Prothrombin Time 33.8 Seconds (9.4-12.1)
[2017-04-12 04:54] LABS: Hematocrit 26.5 % (37.5-50.1); Hemoglobin 8.9 g/dL (12.9-16.9); Lymphocytes # 0.4 K/mcL (0.6-4.6); Lymphocytes % 7.8 %; Mean Corpuscular HGB Conc 33.6 g/dL (31.6-35.5); Mean Corpuscular Hemoglobin 31.8 pg (28.0-33.3); Mean Corpuscular Volume 94.6 fL (83.0-100.0); Mean Platelet Volume 10.3 fL (9.4-12.4); Monocytes # 0.2 K/mcL (0.0-1.3); Monocytes % 4.6 %; Neutrophils # 4.5 K/mcL (1.6-8.9); Platelet Count 124 K/mcL (140-400); Segmented Neutrophils % 86.6 %
[2017-04-12 05:03] LABS: Potassium 4.7 mEq/L (3.5-4.5)
[2017-04-12 05:43] LABS: Platelet Estimate Slight Decrease (Normal); Polychromasia 1+ (Not Present)
--- NOTE | 2017-04-12 08:16 | Pulmonology Progress Note ---
<MaryclaudeIrvin kang W - Last Filed: 04/12/17 10:10> Date of Encounter: 04/12/17 Objective PUL Vital signs: Last Vital Signs Temp 96.5 F L 04/12/17 08:44 Pulse 70 04/12/17 06:00 Resp 10 04/12/17 06:00 BP 100/64 04/12/17 06:00 Pulse Ox 98 04/12/17 06:00 Results - Laboratory Findings CBC and BMP: 04/12/17 04:15 04/12/17 04:15 ABG ABG pH 7.37 pH Units (7.32-7.45) 04/08/17 19:47 ABG pCO2 31 mmHg (35-45) L 04/08/17 19:47 ABG pO2 374 mmHg (85-104) H 04/08/17 19:47 ABG O2 Saturation 100 % (95-98) H 04/08/17 19:47 PT/INR, D-dimer PT 33.8 Seconds (9.4-12.1) H 04/12/17 04:15 Abnormal lab findings: Abnormal lab results RBC 2.80 M/mcL (4.19-5.50) L 04/12/17 04:15 Hgb 8.9 g/dL (12.9-16.9) L 04/12/17 04:15 Hct 26.5 % (37.5-50.1) L 04/12/17 04:15 Plt Count 124 K/mcL (140-400) L 04/12/17 04:15 Lymphocytes # 0.4 K/mcL (0.6-4.6) L 04/12/17 04:15 Reactive Lymphocytes Present (Not Present) A 04/08/17 04:20 Platelet Estimate Slight Decrease (Normal) L 04/12/17 04:15 Polychromasia 1+ (Not Present) A 04/12/17 04:15 ESR 89 mm/hr (0-10) H 04/11/17 03:12 PT 33.8 Seconds (9.4-12.1) H 04/12/17 04:15 APTT 39.2 Seconds (26.0-36.0) H 04/07/17 23:26 ABG pCO2 31 mmHg (35-45) L 04/08/17 19:47 ABG pO2 374 mmHg (85-104) H 04/08/17 19:47 ABG HCO3 17.9 mEQ/L (21-27) L 04/08/17 19:47 ABG Total CO2 18.9 mEq/L (20-26) L 04/08/17 19:47 ABG O2 Saturation 100 % (95-98) H 04/08/17 19:47 ABG Base Excess -6.5 mEq/L (-2.0 to 3.0) L 04/08/17 19:47 Sodium 133 mEq/L (136-145) L 04/12/17 04:15 Potassium 4.7 mEq/L (3.5-4.5) H 04/12/17 04:15 BUN 99 mg/dL (8-26) H 04/12/17 04:15 Creatinine 2.37 mg/dL (0.72-1.25) H 04/12/17 04:15 Est GFR ( Amer) 32 (> 60) L 04/12/17 04:15 Est GFR (Non-Af Amer) 27 (> 60) L 04/12/17 04:15 BUN/Creatinine Ratio 42 (6-26) H 04/12/17 04:15 Glucose 127 mg/dL (70-99) H 04/12/17 04:15 POC Glucose 101 (58-89) H 04/08/17 06:45 Calculated Osmolality 308 (280-300) H 04/12/17 04:15 Phosphorus 5.2 mg/dL (2.3-4.7) H 04/11/17 03:12 Total Bilirubin 2.3 mg/dL (0.2-1.2) H 04/10/17 04:24 Direct Bilirubin 1.4 mg/dL (0.0-0.5) H 04/10/17 04:24 AST 39 Units/L (5-34) H 04/10/17 04:24 Creatine Kinase 217 Units/L (30-200) H 04/08/17 10:15 Troponin I 0.37 ng/mL (0-0.03) H* 04/08/17 23:00 C-Reactive Protein 257 mg/L (Less than 5) H 04/11/17 08:29 Albumin 2.5 g/dL (3.5-5.0) L D 04/10/17 04:24 Globulin 3.6 g/dL (2.4-3.5) H 04/10/17 04:24 Albumin/Globulin Ratio 0.7 (1.1-2.2) L 04/10/17 04:24 Ur Squamous Epith Cells Many per lpf (None-Few) H 04/07/17 23:32 Synovial RBC 0.055 M/mcl (0.000-0.002) H 04/08/17 11:34 Synovial Tot Nuc Cell > [id number] TNC/mcL (0-200) H 04/08/17 11:34 - Microbiology Findings Microbiology Findings: Microbiology, Last 48 Hours 04/08/17 11:34 Body Fluid Culture - Preliminary Synovial Fluid Strep agalactiae - (Group B) 04/08/17 19:10 Wound Culture - Final Left Knee Strep agalactiae - (Group B) 04/08/17 11:34 Anaerobic Culture - Preliminary Synovial Fluid At this time, no anaerobic growth is present. The culture will be finalized after 5 days of incubation. 04/08/17 19:10 Anaerobic Culture - Preliminary Left Knee At this time, no anaerobic growth is present. The culture will be finalized after 5 days of incubation. - Clinical Findings Intake & Output: Intake & Output 04/11/17 04/12/17 04/12/17 23:59 07:59 15:59 Intake Total 240 / 240 Output Total 425 / 425 100 / 100 200 / 200 Balance -185 / -185 -100 / -100 -200 / -200 Weight 99.6 kg Consult Discharge Plan - Plan Referrals: Daniel Garcia MD [Primary Care Provider] - Prescriptions: cefTRIAXone [Rocephin] 2,000 mg IVPB DAILY 38 Days - Attending Attestation I examined this patient and my medical decision-making was reviewed with the SHELL COREMAKER/PA/Advanced Practice Nurse/Resident Physician. I agree with the documented findings, disposition and treatment plan as described except to the extent set forth below. Patient seen and examined at bedside Labs, radiology, chart personally reviewed. All lines examined without evidence of infection. Neuropsych: awake and alert focus on maint of sleep wake cycle Pulm: acceptable oxygenation 2LNC cont to monitor. Cards: Distributive shock d/t Sepsis complicated by adrenal insuff. Weaned off pressors. improved UOP. Goal MAP 60. restartoral diuretic. FEN-GI ADAT. Renal: Non oliguric LURDES which is likely resolving; all meds dosed for GFR. daily electrolyte panel ID: Left septic knee joint with shock. s/p hardware removal and washout. Cultures + GBS Cont Ceftriaxone. remove CVC place midline today for Heme/Onc: elevated INR on warfarin holding presently no evidence of active bleeding..3.0 today monitor. Chronic stable thrombocytopenia Endo: glucose monitored; Stress dose hydrocortisone given for Adrenal Insuff . Will wean as tolerated to day down to 50mg tid. Cont thyroxine. Integ/MSK: POD# 4 for left knee hardware removal/washout for septic joint Ortho to follow, Will also provide skin care per routine ICU protocol. CODE: Full Stable for transfer to med/tele for ongoing care. <Karyn Peterson - Last Filed: 04/12/17 11:29> Date of Encounter: 04/12/17 Time of Encounter: 09:30 Assessment and Plan (1) Septic shock Current Visit: Yes Status: Acute Patient had Tmax of 104.5, pulse 129, R 21, source of infection likely secondary to left lower leg cellulitis. Patient had altered mental status that has since resolved after receiving fluid boluses. urinalysis showed no signs of infection. lactate now .7, trending down CT head showed no acute intracranial abnormality. Plan: s/p removal of left knee hardware, cultures grew strep agalectiae, POD#4 blood cultures showed no growth. synovial fluid culture showed strep agalectiae, sensitive to ceftraixone- will continue. appreciate orthopedic surgery recommendations. INR 3 today, dosing per pharmacy solu cortef dose decreased to 50mg TID- this will need to be weaned down. Patient will get ceftriaxone for 4-6 weeks. He will have power glide placed today, and it will be replaced outpatient in ID Office. gave one time dose of lasix 20mg IV today. started PO lasix 20mg daily PRN. elevate scrotum on towels for scrotal swelling. (2) Cellulitis Current Visit: Yes Status: Acute left lower leg erythematous, edematous from ankle to mid thigh. no crepitus appreciated on exam. CT LLE showed diffuse subcutaneous edema along skin thickening to the visualized left lower extremity, may reflect stasis, cellulitis, or lymphedema. no focal fluid collections to suggest abscess formation. no evidence of soft tissue gas, no bony abnormalities, no evidence of osteomyelitis. Left knee prosthesis is smoothly marginated lucency, infection unlikely, small nonspecific knee joint effusion, mild to moderate degenerative changes in ankle/ fot, most significant to the midfoot at level of talonaicular joint. fluid culture sent for analysis, grew strep agalectiae Plan: continue ceftriaxone appreciate orthopedic surgery recommendations Qualifiers: Site of cellulitis: extremity Site of cellulitis of extremity: lower extremity Laterality: left Qualified Code(s): L03.116 - Cellulitis of left lower limb (3) A-fib Current Visit: Yes Status: Chronic currently rate controlled continue to monitor. pharmacy dosing warfarin, which is currently being held for supratherapeutic INR Qualifiers: Atrial fibrillation type: chronic Qualified Code(s): I48.2 - Chronic atrial fibrillation (4) Acute kidney injury superimposed on CKD Current Visit: Yes Status: Acute LURDES on CKD, stage IIIa FEna: .5%: Pre-renal cause. Urine urea: 521 Plan: Cr stable, trending down. avoid nephrotoxins. hold lisinopril (5) CHF (congestive heart failure) Current Visit: Yes Status: Chronic echo from 04/09 showed LVEF 50-55%, not all myocardial segments were well visualized, severe concentric LV hypertrophy, indeterminate left ventricular diastolic function, RV mild to moderately dilated with moderate reduction in function. mild to moderate mitral regurg, severe tricuspid regurg, IVC dilated. repeat echo with definity from showed low-normal LV systolic function, LVEF 50% , small pericardial effusion present. Plan: continue to monitor. Qualifiers: Congestive heart failure type: diastolic Congestive heart failure chronicity: chronic Qualified Code(s): I50.32 - Chronic diastolic (congestive ) heart failure (6) Elevated troponin Current Visit: Yes Status: Acute peak .48, trending down. EKG showed Afib without signs of ischemia (7) Hypothyroidism Current Visit: Yes Status: Chronic continue home med synthroid. TSH in normal range Qualifiers: Hypothyroidism type: unspecified Qualified Code(s): E03.9 - Hypothyroidism , unspecified (8) Amyloidosis Current Visit: Yes Status: Chronic hold home meds for now. re started doxycycline and ursodiol. Qualifiers: Amyloidosis type: unspecified amyloidosis Qualified Code(s): E85.9 - Amyloidosis, unspecified (9) DVT prophylaxis Current Visit: Yes Status: Acute foot pumps Neuro/sedation: Currently A&Ox3, mentating well. Pulm: CXR showed mild cardiomegaly with no acute process. Cardiac: Hx of CHF with preserved EF. Hx of Afib on warfarin, which is being held. patient currently NSR. will monitor at this time. elevated troponin with peak troponin .48, trending down. repeat Echo with definity showed low-normal LV systolic function, LVEF 50%, small pericardial effusion. Hold lisinopril due to septic shock. will stop levophed and monitor. continue solucortef. Gi/Fluids: patient continuing to do well off levophed. continue bowel regimen, continue cardiac diet. patient is edematous on exam and has scrotal swelling. one time dose 20mg IV lasix now. will do 20mg PO lasix daily PRN after that to help with fluid overload. Renal: LURDES on CKD (IIIa). Creatinine decreasing appropriately. Avoid nephrotoxins. ID: septic shock likely secondary to LLE cellulitis. prelim blood cultures showed no growth. CT leg showed significant subcutaneous edema, no gas. continue ceftriaxone, antibiotics de-escalated. cultures from knee during surgery showed strep agalectiae, sensitive to ceftriaxone. urinalysis showed no signs of infection. Orthopedic surgery following. will have power want placed today and continue antibiotics for 4-6 weeks. will have power wand switched out during outpatient visit with ID. Heme/onc: Hg down from baseline but stable, chronically thrombocytopenic. will get stool occult blood. INR 3 today, dosing per pharmacy. will have power wand placed today, and this will be switched out in 3-4 weeks at ID office. Foot pumps for DVT prophylaxis. Endocrine: continue blood glucose measurements. Continue synthroid for hypothyroidism Skin: routine skincare per ICU protocol. Subjective Principal diagnosis: septic shock Interval history: 77 year old male evaluated at bedside. per nursing staff, he had not acute events overnight. Patient continues to do well off levophed. His only complaint today is his scrotal swelling. Objective PUL Vital signs: Last Vital Signs Temp 97.4 F L 04/12/17 04:00 Pulse 70 04/12/17 06:00 Resp 10 04/12/17 06:00 BP 100/64 04/12/17 06:00 Pulse Ox 98 04/12/17 06:00 General appearance: no acute distress, alert Eyes: nonicteric ENT: oropharynx moist Neck: supple, no lymphadenopathy Auscultation: bilateral: clear Cardiovascular: regular rate and rhythm Gastrointestinal: normoactive bowel sounds, soft, non-tender Integumentary: normal Extremities: no cyanosis, other (mild lower extremity edema. left lower extremity wrapped and in cast. ) normal mental status, non-focal exam mood appropriate scrotum is severely swollen, edematous. Results - Laboratory Findings CBC and BMP: 04/12/17 04:15 04/12/17 04:15 ABG ABG pH 7.37 pH Units (7.32-7.45) 04/08/17 19:47 ABG pCO2 31 mmHg (35-45) L 04/08/17 19:47 ABG pO2 374 mmHg (85-104) H 04/08/17 19:47 ABG O2 Saturation 100 % (95-98) H 04/08/17 19:47 PT/INR, D-dimer PT 33.8 Seconds (9.4-12.1) H 04/12/17 04:15 Abnormal lab findings: Abnormal lab results RBC 2.80 M/mcL (4.19-5.50) L 04/12/17 04:15 Hgb 8.9 g/dL (12.9-16.9) L 04/12/17 04:15 Hct 26.5 % (37.5-50.1) L 04/12/17 04:15 Plt Count 124 K/mcL (140-400) L 04/12/17 04:15 Lymphocytes # 0.4 K/mcL (0.6-4.6) L 04/12/17 04:15 Reactive Lymphocytes Present (Not Present) A 04/08/17 04:20 Platelet Estimate Slight Decrease (Normal) L 04/12/17 04:15 Polychromasia 1+ (Not Present) A 04/12/17 04:15 ESR 89 mm/hr (0-10) H 04/11/17 03:12 PT 33.8 Seconds (9.4-12.1) H 04/12/17 04:15 APTT 39.2 Seconds (26.0-36.0) H 04/07/17 23:26 ABG pCO2 31 mmHg (35-45) L 04/08/17 19:47 ABG pO2 374 mmHg (85-104) H 04/08/17 19:47 ABG HCO3 17.9 mEQ/L (21-27) L 04/08/17 19:47 ABG Total CO2 18.9 mEq/L (20-26) L 04/08/17 19:47 ABG O2 Saturation 100 % (95-98) H 04/08/17 19:47 ABG Base Excess -6.5 mEq/L (-2.0 to 3.0) L 04/08/17 19:47 Sodium 133 mEq/L (136-145) L 04/12/17 04:15 Potassium 4.7 mEq/L (3.5-4.5) H 04/12/17 04:15 BUN 99 mg/dL (8-26) H 04/12/17 04:15 Creatinine 2.37 mg/dL (0.72-1.25) H 04/12/17 04:15 Est GFR ( Amer) 32 (> 60) L 04/12/17 04:15 Est GFR (Non-Af Amer) 27 (> 60) L 04/12/17 04:15 BUN/Creatinine Ratio 42 (6-26) H 04/12/17 04:15 Glucose 127 mg/dL (70-99) H 04/12/17 04:15 POC Glucose 101 (58-89) H 04/08/17 06:45 Calculated Osmolality 308 (280-300) H 04/12/17 04:15 Phosphorus 5.2 mg/dL (2.3-4.7) H 04/11/17 03:12 Total Bilirubin 2.3 mg/dL (0.2-1.2) H 04/10/17 04:24 Direct Bilirubin 1.4 mg/dL (0.0-0.5) H 04/10/17 04:24 AST 39 Units/L (5-34) H 04/10/17 04:24 Creatine Kinase 217 Units/L (30-200) H 04/08/17 10:15 Troponin I 0.37 ng/mL (0-0.03) H* 04/08/17 23:00 C-Reactive Protein 257 mg/L (Less than 5) H 04/11/17 08:29 Albumin 2.5 g/dL (3.5-5.0) L D 04/10/17 04:24 Globulin 3.6 g/dL (2.4-3.5) H 04/10/17 04:24 Albumin/Globulin Ratio 0.7 (1.1-2.2) L 04/10/17 04:24 Ur Squamous Epith Cells Many per lpf (None-Few) H 04/07/17 23:32 Synovial RBC 0.055 M/mcl (0.000-0.002) H 04/08/17 11:34 Synovial Tot Nuc Cell > [id number] TNC/mcL (0-200) H 04/08/17 11:34 - Microbiology Findings Microbiology Findings: Microbiology, Last 48 Hours 04/08/17 11:34 Body Fluid Culture - Preliminary Synovial Fluid Strep agalactiae - (Group B) 04/08/17 19:10 Wound Culture - Final Left Knee Strep agalactiae - (Group B) 04/08/17 11:34 Anaerobic Culture - Preliminary Synovial Fluid At this time, no anaerobic growth is present. The culture will be finalized after 5 days of incubation. 04/08/17 19:10 Anaerobic Culture - Preliminary Left Knee At this time, no anaerobic growth is present. The culture will be finalized after 5 days of incubation. - Clinical Findings Intake & Output: Intake & Output 04/11/17 04/12/17 04/12/17 23:59 07:59 15:59 Intake Total 240 / 240 Output Total 425 / 425 100 / 100 Balance -185 / -185 -100 / -100 Weight 99.6 kg - VTE Documentation of Mechanical Device: Venous foot pump, device
[2017-04-12] MEDS: Doxycycline 100 MG CAPSULE PO SCH (09:21)
[2017-04-12] MEDS: Famotidine 20 MG TABLET PO SCH (09:22)
[2017-04-12] MEDS: Hydrocortisone Sodium Succ 100 MG/2 ML VIAL IVP SCH ×3 (09:22→20:06)
[2017-04-12] MEDS ORDERED: Furosemide 20 MG/2 ML VIAL IVP ONE (10:07)
--- NOTE | 2017-04-12 12:33 | Orthopedics Progress Note ---
Date of Encounter: 04/12/17 Time of Encounter: 11:58 - Assessment and Plan (1) Infection of total right knee replacement Current Visit: Yes Status: Acute POD#4 - Dressings taken down; incision C/D/I. No calf tenderness Group B Streptococcus + on Culture from aspiration - Infectious disease consulted, plan to follow their recommendations for IV treatment. New dressings to be placed, Opsite, 4x4, ABD, Kerlix with DONG wrap and brace specialist to adjust brace. Continue with DVT prophylaxis. Continue with foot and ankle ROM. WBAT. Keep leg locked in extension, no knee flexion. Keep Opsite in place until follow up next week. OK to remove bulky dressings every 2-3 days and replace to protect underlying skin. Orthopedics signing off. F/up 1 week Qualifiers: Encounter type: initial encounter Qualified Code(s): T84.53XA - Infection and inflammatory reaction due to internal right knee prosthesis, initial encounter; Z96.651 - Presence of right artificial knee joint (2) Sepsis Current Visit: Yes Status: Acute Qualifiers: Sepsis type: sepsis due to unspecified organism Qualified Code(s): A41.9 - Sepsis, unspecified organism (3) Cellulitis Current Visit: Yes Status: Acute Qualifiers: Site of cellulitis: extremity Site of cellulitis of extremity: lower extremity Laterality: left Qualified Code(s): L03.116 - Cellulitis of left lower limb (4) A-fib Current Visit: Yes Status: Chronic Qualifiers: Atrial fibrillation type: chronic Qualified Code(s): I48.2 - Chronic atrial fibrillation (5) Hypertension Current Visit: Yes Status: Acute Qualifiers: Hypertension type: essential hypertension Qualified Code(s): I10 - Essential (primary) hypertension (6) Amyloidosis Current Visit: Yes Status: Chronic Qualifiers: Amyloidosis type: unspecified amyloidosis Qualified Code(s): E85.9 - Amyloidosis, unspecified Subjective Principal diagnosis: septic shock Interval history: POD#2 - Left Septic Total knee; removal of hardware with cement and total knee replacement. Patient A&O x 3, afebrile. BP improved. Vitals stable. Plan for transfer to [facility] today. LLE: Dressings were c/d/i; Dressings were removed; Opsite examined - c/d/i - 40% saturation - blood tinged serusanginous Soft, ecchymotic lower leg, swelling has minimized, less tense. No evidence of wound breakdown or skin breakdown. No calf tenderness. NV intact distally. Objective Vital signs: Vital Signs Temp Pulse Resp BP Pulse Ox 04/12/17 11:42 96.6 F L 04/12/17 09:00 72 12 90/63 100 04/12/17 08:44 96.5 F L 04/12/17 08:00 71 12 102/80 99 04/12/17 07:00 70 14 97/59 100 04/12/17 06:00 70 10 100/64 98 04/12/17 05:00 72 12 92/57 96 04/12/17 04:20 71 04/12/17 04:00 97.4 F L 71 12 92/61 98 04/12/17 03:00 75 10 104/65 96 04/12/17 02:00 71 10 101/68 97 04/12/17 01:00 76 12 102/68 95 04/12/17 00:00 97.9 F 79 11 112/79 97 04/11/17 23:57 84 04/11/17 23:00 82 12 102/62 96 04/11/17 22:00 84 11 111/75 96 04/11/17 21:00 80 20 114/60 96 04/11/17 20:04 97.6 F 04/11/17 20:00 80 14 113/73 97 04/11/17 19:50 80 04/11/17 19:00 87 16 107/77 100 04/11/17 18:00 82 18 104/74 98 04/11/17 17:00 97.4 F L 76 16 90/60 100 04/11/17 16:00 74 14 85/57 96 04/11/17 15:00 68 16 90/61 97 04/11/17 14:30 70 12 84/55 100 04/11/17 13:00 84 16 112/61 98 04/11/17 12:00 76 18 90/61 99 04/11/17 11:59 96.1 F L Intake and Output 04/11/17 04/12/17 04/12/17 23:59 07:59 15:59 Intake Total 240 / 240 Output Total 425 / 425 100 / 100 400 / 400 Balance -185 / -185 -100 / -100 -400 / -400 Intake: Oral 240 / 240 Output: Urine 425 / 425 100 / 100 200 / 200 Urethral (Cook) 200 / 200 Catheter 200 / 200 Other: Meal Dinner Percent of Meal Consumed 50% Stool Size Small Weight 99.6 kg Patient Weight 04/12/17 23:59 Weight 99.6 kg Incision: clean and dry - Labs CBC & BMP: 04/12/17 04:15 04/12/17 04:15 Labs: Abnormal lab results RBC 2.80 M/mcL (4.19-5.50) L 04/12/17 04:15 Hgb 8.9 g/dL (12.9-16.9) L 04/12/17 04:15 Hct 26.5 % (37.5-50.1) L 04/12/17 04:15 Plt Count 124 K/mcL (140-400) L 04/12/17 04:15 Lymphocytes # 0.4 K/mcL (0.6-4.6) L 04/12/17 04:15 Reactive Lymphocytes Present (Not Present) A 04/08/17 04:20 Platelet Estimate Slight Decrease (Normal) L 04/12/17 04:15 Polychromasia 1+ (Not Present) A 04/12/17 04:15 ESR 89 mm/hr (0-10) H 04/11/17 03:12 PT 33.8 Seconds (9.4-12.1) H 04/12/17 04:15 APTT 39.2 Seconds (26.0-36.0) H 04/07/17 23:26 ABG pCO2 31 mmHg (35-45) L 04/08/17 19:47 ABG pO2 374 mmHg (85-104) H 04/08/17 19:47 ABG HCO3 17.9 mEQ/L (21-27) L 04/08/17 19:47 ABG Total CO2 18.9 mEq/L (20-26) L 04/08/17 19:47 ABG O2 Saturation 100 % (95-98) H 04/08/17 19:47 ABG Base Excess -6.5 mEq/L (-2.0 to 3.0) L 04/08/17 19:47 Sodium 133 mEq/L (136-145) L 04/12/17 04:15 Potassium 4.7 mEq/L (3.5-4.5) H 04/12/17 04:15 BUN 99 mg/dL (8-26) H 04/12/17 04:15 Creatinine 2.37 mg/dL (0.72-1.25) H 04/12/17 04:15 Est GFR ( Amer) 32 (> 60) L 04/12/17 04:15 Est GFR (Non-Af Amer) 27 (> 60) L 04/12/17 04:15 BUN/Creatinine Ratio 42 (6-26) H 04/12/17 04:15 Glucose 127 mg/dL (70-99) H 04/12/17 04:15 POC Glucose 101 (58-89) H 04/08/17 06:45 Calculated Osmolality 308 (280-300) H 04/12/17 04:15 Phosphorus 5.2 mg/dL (2.3-4.7) H 04/11/17 03:12 Total Bilirubin 2.3 mg/dL (0.2-1.2) H 04/10/17 04:24 Direct Bilirubin 1.4 mg/dL (0.0-0.5) H 04/10/17 04:24 AST 39 Units/L (5-34) H 04/10/17 04:24 Creatine Kinase 217 Units/L (30-200) H 04/08/17 10:15 Troponin I 0.37 ng/mL (0-0.03) H* 04/08/17 23:00 C-Reactive Protein 257 mg/L (Less than 5) H 04/11/17 08:29 Albumin 2.5 g/dL (3.5-5.0) L D 04/10/17 04:24 Globulin 3.6 g/dL (2.4-3.5) H 04/10/17 04:24 Albumin/Globulin Ratio 0.7 (1.1-2.2) L 04/10/17 04:24 Ur Squamous Epith Cells Many per lpf (None-Few) H 04/07/17 23:32 Synovial RBC 0.055 M/mcl (0.000-0.002) H 04/08/17 11:34 Synovial Tot Nuc Cell > [id number] TNC/mcL (0-200) H 04/08/17 11:34 - VTE Documentation of Mechanical Device: Venous foot pump, device Consult Discharge Plan - Plan Referrals: Daniel Garcia MD [Primary Care Provider] - Prescriptions: cefTRIAXone [Rocephin] 2,000 mg IVPB DAILY 38 Days
--- NOTE | 2017-04-12 15:23 | Event Note ---
Date of Encounter: 04/12/17 Time of Encounter: 15:23 Patient's received call from Dr. Small, senior manager mergers & acquisitions from [employer]. She is aware of the IV ceftriaxone being administered to patient for 4-6 weeks. she recommended stopping patient's home med doxycycline and Diflunisol (which he takes for his amyloidosis) as long as he is on IV antibiotics. Meds have been discontinued.
[2017-04-12] MEDS ORDERED: Norepinephrine 4 MG in D5% in Water 250 ML IVC SCH (16:48)
[2017-04-12] MEDS ORDERED: Temazepam 15 MG CAPSULE PO PRN (16:48)
[2017-04-12] MEDS ORDERED: Acetaminophen 325 MG TABLET PO PRN (16:48)
[2017-04-12] MEDS ORDERED: Warfarin perPT PO PRN (16:48)
[2017-04-12] MEDS ORDERED: Sennosides/Docusate Sodium TABLET PO PRN (16:48)
[2017-04-12] MEDS ORDERED: *HR* OxyCODONE Immed Rel 5 MG TABLET PO PRN ×2 (16:48)
[2017-04-12] MEDS ORDERED: *HR* HYDROmorphone (PF) 1 MG/ML SYRINGE IVP PRN (16:48)
[2017-04-12] MEDS ORDERED: Naloxone 0.4 MG/ML INJ IVP PRN (16:48)
[2017-04-12] MEDS ORDERED: Ondansetron 4 MG/2 ML VIAL IVP PRN (16:48)
[2017-04-13 05:40] LABS: Basophils % 0.2 %; Hematocrit 26.6 % (37.5-50.1); Hemoglobin 8.8 g/dL (12.9-16.9); Immature Granulocytes % 1.8 % (0-4); Lymphocytes # 0.4 K/mcL (0.6-4.6); Lymphocytes % 8.6 %; Mean Corpuscular HGB Conc 33.1 g/dL (31.6-35.5); Mean Corpuscular Hemoglobin 31.7 pg (28.0-33.3); Mean Corpuscular Volume 95.7 fL (83.0-100.0); Mean Platelet Volume 10.6 fL (9.4-12.4); Monocytes # 0.3 K/mcL (0.0-1.3); Monocytes % 6.4 %; Platelet Count 136 K/mcL (140-400); Red Blood Count 2.78 M/mcL (4.19-5.50); Red Cell Distribution Width 14.1 % (11.5-14.5)
[2017-04-13 05:42] LABS: Ionized Calcium 1.28 mmol/L (1.15-1.35)
[2017-04-13 05:46] LABS: Neutrophils # 3.7 K/mcL (1.6-8.9)
[2017-04-13 05:55] LABS: Calcium 9.1 mg/dL (8.6-10.8); Magnesium 2.1 mg/dL (1.6-2.6); Phosphorous 4.8 mg/dL (2.3-4.7); Potassium 4.6 mEq/L (3.5-4.5)
[2017-04-13 06:03] LABS: Platelet Estimate Normal (Normal); Toxic Granulation Present (Not Present)
[2017-04-13] MEDS ORDERED: Famotidine 20 MG TABLET PO SCH (09:00)
[2017-04-13] MEDS ORDERED: Furosemide 20 MG TABLET PO PRN (09:00)
[2017-04-13 10:26] LABS: INR 2.2; Prothrombin Time 24.4 Seconds (9.4-12.1)
[2017-04-13] MEDS: Hydrocortisone Sodium Succ 100 MG/2 ML VIAL IVP SCH ×2 (10:38→14:00)
[2017-04-13 11:32] VITALS: BP 105/68
--- NOTE | 2017-04-13 12:22 | Discharge Summary ---
Date of Encounter: 04/13/17 Time of Encounter: 12:22 - Discharge Diagnosis (1) Acute kidney injury superimposed on CKD Priority: Primary Status: Acute (2) Infection of prosthetic left knee joint Priority: Primary Status: Acute Qualifiers: Encounter type: initial encounter Qualified Code(s): T84.54XA - Infection and inflammatory reaction due to internal left knee prosthesis, initial encounter (3) A-fib Priority: Secondary Status: Chronic Qualifiers: Atrial fibrillation type: chronic Qualified Code(s): I48.2 - Chronic atrial fibrillation (4) Amyloidosis Priority: Secondary Status: Chronic Qualifiers: Amyloidosis type: unspecified amyloidosis Qualified Code(s): E85.9 - Amyloidosis, unspecified (5) CHF (congestive heart failure) Priority: Secondary Status: Chronic Qualifiers: Congestive heart failure type: diastolic Congestive heart failure chronicity: chronic Qualified Code(s): I50.32 - Chronic diastolic (congestive ) heart failure (6) Hypertension Priority: Secondary Status: Chronic Qualifiers: Hypertension type: essential hypertension Qualified Code(s): I10 - Essential (primary) hypertension (7) Hypothyroidism Priority: Secondary Status: Chronic Qualifiers: Hypothyroidism type: unspecified Qualified Code(s): E03.9 - Hypothyroidism , unspecified (8) Acute metabolic encephalopathy Priority: Primary Status: Resolved (9) Lactic acidosis Priority: Primary Status: Resolved (10) Sepsis Priority: Primary Status: Resolved Qualifiers: Sepsis type: sepsis due to unspecified organism Qualified Code(s): A41.9 - Sepsis, unspecified organism (11) Septic shock Priority: Primary Status: Resolved - Discharge Medications Prescriptions: OxyCODONE Immed Rel [Roxicodone 5 MG] 10 mg PO Q4HR PRN #15 tablet PRN Reason: Severe Pain OxyCODONE Immed Rel [Roxicodone 5 MG] 5 mg PO Q4HR PRN #15 tablet PRN Reason: Moderate Pain cefTRIAXone [Rocephin] 2,000 mg IVPB DAILY 38 Days Hydrocortisone Sodium Succ [Solu-Cortef] 25 mg IVP TID 1 Days Hydrocortisone Sodium Succ [Solu-Cortef] 25 mg IV BID 2 Days Hydrocortisone Sodium Succ [Solu-Cortef] 25 mg IV DAILY 2 Days Warfarin [Coumadin] 4 mg PO 1800 #15 tablet Home Medications: Ergocalciferol (VITAMIN D2) [Vitamin D2] 2,000 unit PO DAILY 02/05/17 [History] Levothyroxine [Synthroid] 88 mcg PO DAILY 02/05/17 [History] Multivit-Min/FA/Lycopen/Lutein [Centrum Silver Men Tablet] 1 each PO DAILY 02/05 [History] Ursodiol 300 mg PO Q12H 04/08/17 [History] cefTRIAXone [Rocephin] 2,000 mg IVPB DAILY 38 Days 04/12/17 [Rx] Acetaminophen [Tylenol] 650 mg PO Q6HR PRN #0 tablet 04/13/17 [Rx] Famotidine [Pepcid] 20 mg PO DAILY tablet 04/13/17 [Rx] Furosemide [Lasix] 20 mg PO DAILY PRN #0 tablet 04/13/17 [Rx] Hydrocortisone Sodium Succ [Solu-Cortef] 25 mg IV BID 2 Days 04/13/17 [Rx] Hydrocortisone Sodium Succ [Solu-Cortef] 25 mg IV DAILY 2 Days 04/13/17 [Rx] Hydrocortisone Sodium Succ [Solu-Cortef] 25 mg IVP TID 1 Days 04/13/17 [Rx] OxyCODONE Immed Rel [Roxicodone 5 MG] 5 mg PO Q4HR PRN #15 tablet 04/13/17 [Rx] OxyCODONE Immed Rel [Roxicodone 5 MG] 10 mg PO Q4HR PRN #15 tablet 04/13/17 [Rx] Sennosides/Docusate Sodium [Senna Plus] 2 each PO BID PRN #0 tablet 04/13/17 [Rx ] Temazepam [Restoril] 15 mg PO HS PRN #0 capsule 04/13/17 [Rx] Warfarin [Coumadin] 4 mg PO 1800 #15 tablet 04/13/17 [Rx] chlorproMAZINE [Thorazine] 25 mg PO BID tablet 04/13/17 [Rx] Allergies/Adverse Reactions: Allergies No Known Allergies Allergy (Verified 04/08/17 10:20) Date of admission: 04/08/17 04:07 Primary care physician: Daniel Garcia MD Consults: 04/08/17 20:32 Consult to Occupational Therapy [CONS] Routine Comment: Evaluate, develop and implement POC Reason for Consult: post knee surgery Consult to Orthopedic Navigator [CONS] [CONS] Routine Consult to Physical Therapy [CONS] Routine Comment: Evaluate, develop and impliment POC Reason for Consult: post knee surgery Consult to Meter Setter [CONS] Routine Reason for SW Consult: post op joint replacement RT Post Op Consult [CONS] Routine 04/09/17 08:27 Consult to PICC team [Consult to Invasive Line Access Team] [CONS] Stat Reason for Consult: patient needs termite control technician antibiotics Line Type: PICC PICC line indications: half-way Med/Antibiotic Call Completed: No 04/09/17 08:28 Consult to Invasive Line Access Team [CONS] Routine Reason for Consult: Picc Line Insertion Line Type: PICC 04/10/17 09:00 Consult to Infectious Diseases [CONS] Routine Consulting Provider: Infectious Disease Glo Reason for Consult: Septic knee, sepsis Time Notified: 09:00 Call Completed: Yes Discharging clinician: Oneal Cuevas Anticipated date of discharge: 04/13/17 - Patient Status Disposition: Transfer Inpatient Rehab Fac Condition: Fair Functional capacity at discharge: bed bound Overall status at discharge: patient is progressing back to baseline - Discharge Instructions Follow Up With: Daniel Garcia MD [Primary Care Provider] - - Diet and Activity Activity: as per physical therapy Diet: low fat, low cholesterol, low salt diet Interval History: 77-year-old male with past medical history of CHF with preserved ejection fraction, atrial fibrillation on warfarin, chronic kidney disease stage III, cardiac amyloidosis, hypothyroidism and hypertension status post left total knee replacement in 2010 followed by wound dehiscence and infection requiring IV antibiotics. Patient was admitted on April 07 this facility in the intensive care unit for management of septic shock secondary to left lower extremity cellulitis, left knee septic arthritis, sepsis, lactic acidosis, non-oliguric pre-renal acute kidney injury on chronic kidney disease, and acute metabolic encephalopathy. Patient has also a history of chronic thrombocytopenia. The patient had sudden onset of high fever, chills, and altered mental status on the day of presentation to the ER, upon arrival, the patient had a fever 104.5 and he was tachycardic. Work up revealed a normal white blood cell count, but his platelets were 115, additionally, the patient was noted have an acute kidney injury and lactic acidosis. Chest x-ray was obtained that showed cardiomegaly, but no infectious process. CT of the head was negative. left knee and left tib-fib x-rays that were essentially negative. Blood cultures drawn 04/07/17 x 1 and 04/08/17 x1 are Negative to date Echo from 04/09 showed LVEF 50-55%, not all myocardial segments were well visualized, severe concentric LV hypertrophy, indeterminate left ventricular diastolic function, RV mild to moderately dilated with moderate reduction in function. mild to moderate mitral regurgitation, severe tricuspid regurg, IVC dilated. repeat echo with definity from showed low-normal LV systolic function, LVEF 50%, small pericardial effusion present. EKG showed Afib without signs of ischemia CT LLE showed diffuse subcutaneous edema along skin thickening to the visualized left lower extremity, may reflect stasis, cellulitis, or lymphedema. no focal fluid collections to suggest abscess formation. no evidence of soft tissue gas, no bony abnormalities, no evidence of osteomyelitis. Left knee prosthesis is smoothly marginated lucency, infection unlikely, small nonspecific knee joint effusion, mild to moderate degenerative changes in ankle/ fot, most significant to the midfoot at level of talonaicular joint. Patient was admitted and started o Intravenous IVF hydration, Intravenous antibiotics, ICU care. Orthopedics was consulted and performed a left knee aspiration that revealed 20 mL of purulent fluid that was Streptococcus agalactiae. Cell count revealed grossly infected synovial fluid. The patient was taken to the operating room and underwent removal of infected total knee with placement of articulating spacer and left patellectomies by Dr. Casper on April 08. Intraoperative cultures were positive for Strep. agalactiae. Post-op the patient remained hypotensive requiring vasopressors. His white blood cell count has remained normal, but he does have bandemia. His kidney function worsened initially but improved with IVF hydration and pressors Levophed was turned off 04/11, patient required stress dose steroids Hospital course: Patient is seen at bedside this morning. He has been transferred from the ICU on April 12 to the [facility]. He seen at the bedside with family members, he denied any new complaints, he continues to have refractory hiccups which patient and his family N dose he has been having for about a week. His bandemia has resolved, his lactic acidosis has resolved, his thrombocytopenia has improved, his vital signs have remained stable on stress steroids. The patient has a powerglide intravenous access for prolonged IV antibiotic therapy. The patient is clinically stable for discharge to [facility]. The following recommendations made. #1 the patient needs his hydrocortisone tapered down as follows. 25 mg 3 times a day for 1 more day, 25 mg 2 times a day for 2 days, 25 mg daily for 2 days. And then discontinuation. #2 From infectious disease standpoint, patient requires 4-6 weeks of intravenous antibiotic therapy with ceftriaxone. #3 patient has a history of atrial fibrillation and is currently therapeutic on warfarin. It is recommended that following his continued at 4mg daily for now, INR should be monitored routinely, and coumadin adjusted with INR. #4 Patient with CKD III complicated by acute kidney injury secondary to sepsis, and hypotension. The patient's kidney function continues to improve but is not yet at his baseline. Patient's kidney failure was prerenal, and nonoliguric he is able to make urine. His DONG inhibitor is lisinopril, has been discontinued since his admission. He was on Lasix at home, he is on Lasix at the recommend to 20 mg daily orally needed for edema. It is recommended to have at least chemistry monitored routinely. #5 patient will require follow-up with orthopedics at that do not benign joint within 1 week after discharge. #6 patient will require follow-up at the cancer center, for his cardiac amyloidosis after discharge from rehabilitation. His amyloidosis medications have been discontinued based on recommendation from his health counselor. #7 the patient has been started on chlorpromazine 25 mg by mouth twice daily for his refractory he coughs. This may be titrated up as necessary. Plan of care is discussed with patient and his family members , they verbalizes understanding. - Time Spent with Patient Total time spent providing and/or coordinating discharge services: Greater than 30 minutes (50 minutes spent on chart review, patient encounter, medication review and reconciliation, prescription, documentation) - Constitutional Vitals: Temp Pulse Resp BP Pulse Ox 97.4 F L 74 16 105/68 100 04/13/17 11:31 04/13/17 11:31 04/13/17 11:31 04/13/17 11:31 04/13/17 11:31 General appearance: Present: A&O X 3, no acute distress, answers questions appropriately Exam: Patient is seen,, laying flat in bed, in no form of respiratory distress, chronically ill-looking, Patient is able to participate in interview and examination, speaks full sentences, no neurologic deficits, alert and oriented 3. Pupils are equal and reactive bilaterally, sclerae is anicteric. Oral mucosa is moist he is not cyanotic. Chest is clear to auscultation bilaterally. Heart sounds are S1 and S2. regular, no murmurs, there is no JVD. Abdomen is obese and soft non-tender. Bowel sounds are present in all quadrants and in no palpable enlarged organs. Lower extremity exam reveals chronic venostasis changes with trace pitting bilateral pedal edema. Left knee in brace, dressing clean and dry. patient has scrotal edema. - VTE Documentation of Mechanical Device: Venous foot pump, device
--- NOTE | 2017-04-13 12:22 | Physician Discharge Referral ---
ExtendedCare Referral Info Transfer To: [facility] Provider in Charge: Dr. Cuevas Provider in Charge after Transfer: PCP Institutional Level of Care: Skilled - Diagnosis (1) Sepsis Priority: Primary Status: Resolved (2) Acute metabolic encephalopathy Priority: Primary Status: Resolved (3) A-fib Priority: Secondary Status: Chronic (4) Hypertension Priority: Secondary Status: Chronic (5) Amyloidosis Priority: Secondary Status: Chronic (6) Septic shock Priority: Primary Status: Resolved (7) Hypothyroidism Priority: Secondary Status: Chronic (8) CHF (congestive heart failure) Priority: Secondary Status: Chronic (9) Acute kidney injury superimposed on CKD Priority: Primary Status: Acute (10) Infection of prosthetic left knee joint Priority: Primary Status: Acute (11) Lactic acidosis Priority: Primary Status: Resolved Prognosis: Fair Aware of Diagnosis: Patient, Family Aware of Prognosis: Patient, Family - Transfer Medications Prescriptions: OxyCODONE Immed Rel [Roxicodone 5 MG] 10 mg PO Q4HR PRN #15 tablet PRN Reason: Severe Pain OxyCODONE Immed Rel [Roxicodone 5 MG] 5 mg PO Q4HR PRN #15 tablet PRN Reason: Moderate Pain cefTRIAXone [Rocephin] 2,000 mg IVPB DAILY 38 Days Hydrocortisone Sodium Succ [Solu-Cortef] 25 mg IVP TID 1 Days Hydrocortisone Sodium Succ [Solu-Cortef] 25 mg IV BID 2 Days Hydrocortisone Sodium Succ [Solu-Cortef] 25 mg IV DAILY 2 Days Warfarin [Coumadin] 4 mg PO 1800 #15 tablet Home Medications: Ergocalciferol (VITAMIN D2) [Vitamin D2] 2,000 unit PO DAILY 02/05/17 [History] Levothyroxine [Synthroid] 88 mcg PO DAILY 02/05/17 [History] Multivit-Min/FA/Lycopen/Lutein [Centrum Silver Men Tablet] 1 each PO DAILY 02/05 [History] Ursodiol 300 mg PO Q12H 04/08/17 [History] cefTRIAXone [Rocephin] 2,000 mg IVPB DAILY 38 Days 04/12/17 [Rx] Acetaminophen [Tylenol] 650 mg PO Q6HR PRN #0 tablet 04/13/17 [Rx] Famotidine [Pepcid] 20 mg PO DAILY tablet 04/13/17 [Rx] Furosemide [Lasix] 20 mg PO DAILY PRN #0 tablet 04/13/17 [Rx] Hydrocortisone Sodium Succ [Solu-Cortef] 25 mg IV BID 2 Days 04/13/17 [Rx] Hydrocortisone Sodium Succ [Solu-Cortef] 25 mg IV DAILY 2 Days 04/13/17 [Rx] Hydrocortisone Sodium Succ [Solu-Cortef] 25 mg IVP TID 1 Days 04/13/17 [Rx] OxyCODONE Immed Rel [Roxicodone 5 MG] 5 mg PO Q4HR PRN #15 tablet 04/13/17 [Rx] OxyCODONE Immed Rel [Roxicodone 5 MG] 10 mg PO Q4HR PRN #15 tablet 04/13/17 [Rx] Sennosides/Docusate Sodium [Senna Plus] 2 each PO BID PRN #0 tablet 04/13/17 [Rx ] Temazepam [Restoril] 15 mg PO HS PRN #0 capsule 04/13/17 [Rx] Warfarin [Coumadin] 4 mg PO 1800 #15 tablet 04/13/17 [Rx] chlorproMAZINE [Thorazine] 25 mg PO BID tablet 04/13/17 [Rx] Allergies/Adverse Reactions: Allergies No Known Allergies Allergy (Verified 04/08/17 10:20) - Respiratory Orders Oxygen / L per min (2-3 L per minute prn for O2 sat at least 92%) Smoking Cessation: Smoking cessation has been advised. For more information, call the [place] Tobacco Quit Line at 0-326-SIYD-NOW. - Lab Orders Lab Orders: Other (include drug levels w/frequency) (INR check per protocol. Chemistry check q48h till stable) - Advance Directives Code Status: Full Code - Mobility Orders Other (Per PT) - Treatments List/Other: New dressings to be placed, Opsite, 4x4, ABD, Kerlix with DONG wrap and brace specialist to adjust brace. Continue with DVT prophylaxis. Continue with foot and ankle ROM. WBAT. Keep leg locked in extension, no knee flexion. Keep Opsite in place until follow up next week. OK to remove bulky dressings every 2-3 days and replace to protect underlying skin. - Diet Orders Cardiac CERTIFICATION: I certify that the transfer of the above named patient to an Extended Care Facility is necessary for the continuing treatment of the diagnosis listed. The above information is true and accurate reflection of patient's current condition. Confidential - Redisclosure prohibited without a patient's written consent.
[2017-04-13] MEDS ORDERED: chlorproMAZINE 25 MG TABLET PO SCH (13:00)
[2017-04-13] MEDS ORDERED: *HR* Warfarin 5 MG TABLET PO ONE (18:00)
[2017-04-13] MEDS ORDERED: *HR* Warfarin 5 MG TABLET PO SCH (18:00)
== END 2017-04-13 16:15 | DRG 463 ==
LOC: EMEROO 23:09 → 2NNU 23:09 → ICNU 04-08 07:28 → 3NENU 04-12 16:46
PROVIDERS: ADMIT Internal Medicine; ATTEND Internal Medicine

== ENCOUNTER 2017-08-02 23:10 | Inpatient (IN) ==
--- NOTE | 2017-08-03 00:05 | Emergency Department Note ---
Disposition Clinical Impression: Tachycardia Fever Qualifiers: Fever type: unspecified Qualified Code(s): R50.9 - Fever, unspecified Nonhealing surgical wound Qualifiers: Encounter type: subsequent encounter Qualified Code(s): T81.89XD - Other complications of procedures, not elsewhere classified, subsequent encounter Disposition: Admitted As Inpatient Condition: Good Time of Disposition: 03:24 Fever HPI - General Chief Complaint: ED Fever Stated Complaint: fever, tachycardia, septic knee Time Seen by Provider: 08/02/17 23:16 Source: patient, family, EMS Limitations: no limitations Nursing Notes Reviewed: Yes Vital Signs Reviewed: Yes - History of Present Illness HPI Narrative: 77-year-old Male Complains of Fever. He Mentions He Was at His Extended Care Facility, and Was Told He Had a Fever Which Prompted His Visit to the Emergency Department. He Describes His Hardware from His Left Knee Replacement Infected Earlier in the Year. He Mentions Dr. Casper Had to Remove the Hardware. Since That Time He Has Had a Chronic Wound to Her the Area of the Skin. He Mentions He Was Seen at the Wound Clinic Today, and Was Told That There Was No Knee Infection. He Describes Having a Chronic Pain over His Left Knee after What He Describes As an Infected. Patient states that he has felt chills, and also has a cough which she describes as a "hack". Denies any diarrhea, urinary symptoms , shortness of breath, chest pain, confusion. - Related Data Home Medications Medication Instructions Recorded Confirmed Ergocalciferol (VITAMIN D2) 2,000 unit PO DAILY 02/05/17 08/02/17 [Vitamin D2] Levothyroxine [Synthroid] 88 mcg PO DAILY 02/05/17 08/02/17 Ursodiol 300 mg PO Q12H 04/08/17 08/02/17 Acetaminophen/Diphenhydramine 1 each PO HS 07/19/17 08/02/17 [Acetaminophen Pm Caplet] Lisinopril [Zestril] 5 mg PO DAILY 07/19/17 08/02/17 Melatonin [Melatin] 3 mg PO DAILY 07/19/17 08/02/17 Multivitamin [Multivitamins] 1 each PO DAILY 07/19/17 08/02/17 Warfarin [Coumadin] 5 mg PO 1800 07/19/17 08/02/17 Cephalexin [Keflex] 500 mg PO Q12H 08/02/17 08/02/17 Doxycycline Monohydrate [Mondoxyne 100 mg PO DAILY 08/02/17 08/02/17 Nl] Mirtazapine [Remeron] 15 mg PO DAILY 08/02/17 08/02/17 Previous Rx's Medication Instructions Recorded Famotidine [Pepcid] 20 mg PO DAILY tablet 04/13/17 Cefotaxime [Claforan] 1 g IVPB Q8HR #10 vial 07/25/17 Bumetanide [Bumex] 0.5 mg PO BIDDIURETIC tab 07/28/17 Zolpidem [Ambien] 10 mg PO HS PRN tab 07/28/17 Allergies Allergy/AdvReac Type Severity Reaction Status Date / Time No Known Allergies Allergy Verified 04/08/17 10:20 All systems ED: reviewed and negative except as stated. Constitutional: Denies: fever, chills Eyes: Denies: eye discharge ENT ED: Denies: throat pain Cardiovascular: Denies: palpitations Respiratory: Denies: other Gastrointestinal: Denies: abdominal pain Genitourinary: Denies: dysuria Musculoskeletal: Denies: back pain Integumentary: Denies: rash Neurological: Denies: headache, weakness Endocrine: Denies: fatigue Hematological/Lymphatic: Denies: easy bleeding Allergic/Immunologic: Denies: facial swelling Fever PMH - Past Medical History Medical history: Reports: arthritis, atrial fibrillation, CHF, hyperlipidemia, hypertension, osteoporosis, renal disease, thyroid disease, other Surgical history: Reports: orthopedic, other, other Psychiatric history: Reports: no psych history - Social History Smoking Status: Former smoker Alcohol use: Reports: none Drug use: Reports: none Physical Exam HEAD: atraumatic, normocephalic EYE: EOM intact, no conjunctival injection ENT: mucous membranes moist, voice normal in character, nose normal in appearance, no rhinorrhea NECK: supple, normal ROM without stiffness CHEST: symmetric chest wall rise RESPIRATORY: Present: normal lung sounds bilaterally, no respiratory distress CARDIOVASCULAR: Tachycardic, with regular rhythm ABDOMINAL EXAM: No evidence of abdominal discomfort or peritoneal signs; Absent : guarding, rebound, distention EXTREMITIES: Patient has knee immobilizer and dressing over left knee, dressing clean and dry and place. Otherwise Grossly unremarkable on simple inspection; no deformities or decreased ROM; Absent: BLE edema BACK: Absent: CVA tenderness (R), CVA tenderness (L) NEURO: Present: alert and oriented 3, reflexes normal PSYCH: Normal mood and affect; no evidence of disorganized thoughts or confusion SKIN: warm, dry, intact, normal color for age and race; no concerning rashes or lesions - General Limitations: no limitations General appearance: alert, in no apparent distress Course Course Narrative: 77-year-old male with known history of chronic wound. Presents with fever and tachycardia. Denies any pain. Patient is alert and oriented 3. Had seen his wound clinic earlier today. Patient febrile, tachycardic. Sepsis workup initiated. Fluids ordered. - Reevaluation(s) Reevaluation #1: Patient's lab work appears to be at baseline. He is alert and oriented 3. Denies any pain. He continues to be tachycardic after fluids. Did discuss patient with Dr. Burris who also at this time with patient. Patient's left knee is swollen and erythematous and warm. IV antibiotics ordered, will contact hospitalist for admission for tachycardia and fever. Time: 02:43 Reevaluation #2: Patient was discussed with and accepted by hospitalist Dr. Currie, who also advised only clindamyacin at this time Time: 02:55 Vital Signs Temperature 100.2 F H 08/02/17 23:12 Pulse Rate 128 08/02/17 23:12 Respiratory Rate 20 08/02/17 23:12 Blood Pressure 108/84 08/02/17 23:12 O2 Sat by Pulse Oximetry 98 08/02/17 23:12 Temperature 0 F L 08/03/17 04:41 Pulse Rate 110 08/03/17 02:52 Respiratory Rate 18 08/03/17 04:41 Blood Pressure 108/74 08/03/17 04:41 O2 Sat by Pulse Oximetry 98 08/03/17 02:52 Oxygen Delivery Oxygen Delivery Room Air Fever - MDM Narrative Medical decision making narrative: Patient presented from [facility] with tachycardia, and reported fever. Patient describes chronic wound, for which he sees wound management, and orthopedics. His dressings clean and dry and in place, however, his knee appeared Erythematous, warm. His workup showed no other sources of infection. Patient denied any chest pain, confusion. His vitals are stable here. I have discussed patient with Dr. Burris who also had FaceTime patient and agreed with workup and evaluation and admission. Patient is accepted by hospitalist. He was started on IV clindamycin here and also received fluids. All Lab Results (24 Hours) 08/03/17 08/03/17 08/03/17 Range/Units 00:25 01:35 01:35 WBC 5.4 (4.3-11.1) K/mcL RBC 3.21 L (4.19-5.50) M/mcL Hgb 9.6 L (12.9-16.9) g/dL Hct 29.7 L (37.5-50.1) % MCV 92.5 (83.0-100.0) fL MCH 29.9 (28.0-33.3) pg MCHC 32.3 (31.6-35.5) g/dL RDW 14.1 (11.5-14.5) % Plt Count 212 (140-400) K/mcL MPV 9.1 L (9.4-12.4) fL Immature Gran % 0.4 (0-4) % Seg Neutrophils % 74.0 % Lymphocytes % 15.5 % Monocytes % 6.2 % Eosinophils % 3.2 % Basophils % 0.7 % Neutrophils # 4.0 (1.6-8.9) K/mcL Lymphocytes # 0.8 (0.6-4.6) K/mcL Monocytes # 0.3 (0.0-1.3) K/mcL Eosinophils # 0.2 (0.0-0.6) K/mcL Basophils # 0.0 (0.0-0.2) K/mcL Immature Plt Fraction 1.1 (1.1-6.1) % ESR (0-10) mm/hr Sodium 139 (136-145) mEq/L Potassium 4.7 H (3.5-4.5) mEq/L Chloride 107 (98-109) mEq/L Carbon Dioxide 21 (19-29) mEq/L BUN 73 H (8-26) mg/dL Creatinine 2.05 H (0.72-1.25) mg/dL Est GFR ( Amer) 38 L (> 60) Est GFR (Non-Af Amer) 31 L (> 60) BUN/Creatinine Ratio 36 H (6-26) Glucose 89 (70-99) mg/dL Calculated Osmolality 309 H (280-300) Lactic Acid (0.5-2.2) mmol/L Calcium 9.2 (8.6-10.8) mg/dL C-Reactive Protein (Less than 5) mg/L Urine Color Yellow (Yellow) Urine Clarity Clear (Clear) Urine pH 6.0 (5.0-8.0) pH Units Ur Specific [place] 1.012 (1.010-1.025) Urine Protein Negative (Neg-Trace) mg/dL Urine Glucose (UA) Normal (Normal) mg/dL Urine Ketones Negative (Negative) mg/dL Urine Blood Negative (Negative) Urine Nitrite Negative (Negative) Urine Bilirubin Negative (Negative) Urine Urobilinogen Normal (Normal) mg/dL Ur Leukocyte Esterase Negative (Negative) Ur Culture Indicated? NO (NO) 08/03/17 08/03/17 08/03/17 Range/Units 01:35 01:35 01:35 WBC (4.3-11.1) K/mcL RBC (4.19-5.50) M/mcL Hgb (12.9-16.9) g/dL Hct (37.5-50.1) % MCV (83.0-100.0) fL MCH (28.0-33.3) pg MCHC (31.6-35.5) g/dL RDW (11.5-14.5) % Plt Count (140-400) K/mcL MPV (9.4-12.4) fL Immature Gran % (0-4) % Seg Neutrophils % % Lymphocytes % % Monocytes % % Eosinophils % % Basophils % % Neutrophils # (1.6-8.9) K/mcL Lymphocytes # (0.6-4.6) K/mcL Monocytes # (0.0-1.3) K/mcL Eosinophils # (0.0-0.6) K/mcL Basophils # (0.0-0.2) K/mcL Immature Plt Fraction (1.1-6.1) % ESR 67 H (0-10) mm/hr Sodium (136-145) mEq/L Potassium (3.5-4.5) mEq/L Chloride (98-109) mEq/L Carbon Dioxide (19-29) mEq/L BUN (8-26) mg/dL Creatinine (0.72-1.25) mg/dL Est GFR ( Amer) (> 60) Est GFR (Non-Af Amer) (> 60) BUN/Creatinine Ratio (6-26) Glucose (70-99) mg/dL Calculated Osmolality (280-300) Lactic Acid 0.8 (0.5-2.2) mmol/L Calcium (8.6-10.8) mg/dL C-Reactive Protein 88 H (Less than 5) mg/L Urine Color (Yellow) Urine Clarity (Clear) Urine pH (5.0-8.0) pH Units Ur Specific [place] (1.010-1.025) Urine Protein (Neg-Trace) mg/dL Urine Glucose (UA) (Normal) mg/dL Urine Ketones (Negative) mg/dL Urine Blood (Negative) Urine Nitrite (Negative) Urine Bilirubin (Negative) Urine Urobilinogen (Normal) mg/dL Ur Leukocyte Esterase (Negative) Ur Culture Indicated? (NO) 08/03/17 Range/Units 03:32 WBC (4.3-11.1) K/mcL RBC (4.19-5.50) M/mcL Hgb (12.9-16.9) g/dL Hct (37.5-50.1) % MCV (83.0-100.0) fL MCH (28.0-33.3) pg MCHC (31.6-35.5) g/dL RDW (11.5-14.5) % Plt Count (140-400) K/mcL MPV (9.4-12.4) fL Immature Gran % (0-4) % Seg Neutrophils % % Lymphocytes % % Monocytes % % Eosinophils % % Basophils % % Neutrophils # (1.6-8.9) K/mcL Lymphocytes # (0.6-4.6) K/mcL Monocytes # (0.0-1.3) K/mcL Eosinophils # (0.0-0.6) K/mcL Basophils # (0.0-0.2) K/mcL Immature Plt Fraction (1.1-6.1) % ESR (0-10) mm/hr Sodium (136-145) mEq/L Potassium (3.5-4.5) mEq/L Chloride (98-109) mEq/L Carbon Dioxide (19-29) mEq/L BUN (8-26) mg/dL Creatinine (0.72-1.25) mg/dL Est GFR ( Amer) (> 60) Est GFR (Non-Af Amer) (> 60) BUN/Creatinine Ratio (6-26) Glucose (70-99) mg/dL Calculated Osmolality (280-300) Lactic Acid 0.7 (0.5-2.2) mmol/L Calcium (8.6-10.8) mg/dL C-Reactive Protein (Less than 5) mg/L Urine Color (Yellow) Urine Clarity (Clear) Urine pH (5.0-8.0) pH Units Ur Specific [place] (1.010-1.025) Urine Protein (Neg-Trace) mg/dL Urine Glucose (UA) (Normal) mg/dL Urine Ketones (Negative) mg/dL Urine Blood (Negative) Urine Nitrite (Negative) Urine Bilirubin (Negative) Urine Urobilinogen (Normal) mg/dL Ur Leukocyte Esterase (Negative) Ur Culture Indicated? (NO) Chest X-Ray 08/03/17 00:00 IMPRESSION: Mild diffuse interstitial prominence without focal lung opacity or consolidation. Stable cardiomegaly. D/ / Deangelo Chan MD / Deangelo Chan MD Interpreting Provider: Deangelo Chan MD - Medical Records Medical records reviewed: Yes I reviewed the patient's medical records. - Lab Data Lab results reviewed: Yes I reviewed the patient's lab results. Result diagrams: 08/03/17 01:35 08/03/17 01:35 Lab Results 08/03/17 08/03/17 08/03/17 Range/Units 00:25 01:35 01:35 WBC 5.4 (4.3-11.1) K/mcL RBC 3.21 L (4.19-5.50) M/mcL Hgb 9.6 L (12.9-16.9) g/dL Hct 29.7 L (37.5-50.1) % MCV 92.5 (83.0-100.0) fL MCH 29.9 (28.0-33.3) pg MCHC 32.3 (31.6-35.5) g/dL RDW 14.1 (11.5-14.5) % Plt Count 212 (140-400) K/mcL MPV 9.1 L (9.4-12.4) fL Immature Gran % 0.4 (0-4) % Seg Neutrophils % 74.0 % Lymphocytes % 15.5 % Monocytes % 6.2 % Eosinophils % 3.2 % Basophils % 0.7 % Neutrophils # 4.0 (1.6-8.9) K/mcL Lymphocytes # 0.8 (0.6-4.6) K/mcL Monocytes # 0.3 (0.0-1.3) K/mcL Eosinophils # 0.2 (0.0-0.6) K/mcL Basophils # 0.0 (0.0-0.2) K/mcL Immature Plt Fraction 1.1 (1.1-6.1) % ESR (0-10) mm/hr Sodium 139 (136-145) mEq/L Potassium 4.7 H (3.5-4.5) mEq/L Chloride 107 (98-109) mEq/L Carbon Dioxide 21 (19-29) mEq/L BUN 73 H (8-26) mg/dL Creatinine 2.05 H (0.72-1.25) mg/dL Est GFR ( Amer) 38 L (> 60) Est GFR (Non-Af Amer) 31 L (> 60) BUN/Creatinine Ratio 36 H (6-26) Glucose 89 (70-99) mg/dL Calculated Osmolality 309 H (280-300) Lactic Acid (0.5-2.2) mmol/L Calcium 9.2 (8.6-10.8) mg/dL C-Reactive Protein (Less than 5) mg/L Urine Color Yellow (Yellow) Urine Clarity Clear (Clear) Urine pH 6.0 (5.0-8.0) pH Units Ur Specific [place] 1.012 (1.010-1.025) Urine Protein Negative (Neg-Trace) mg/dL Urine Glucose (UA) Normal (Normal) mg/dL Urine Ketones Negative (Negative) mg/dL Urine Blood Negative (Negative) Urine Nitrite Negative (Negative) Urine Bilirubin Negative (Negative) Urine Urobilinogen Normal (Normal) mg/dL Ur Leukocyte Esterase Negative (Negative) Ur Culture Indicated? NO (NO) 08/03/17 08/03/17 08/03/17 Range/Units 01:35 01:35 01:35 WBC (4.3-11.1) K/mcL RBC (4.19-5.50) M/mcL Hgb (12.9-16.9) g/dL Hct (37.5-50.1) % MCV (83.0-100.0) fL MCH (28.0-33.3) pg MCHC (31.6-35.5) g/dL RDW (11.5-14.5) % Plt Count (140-400) K/mcL MPV (9.4-12.4) fL Immature Gran % (0-4) % Seg Neutrophils % % Lymphocytes % % Monocytes % % Eosinophils % % Basophils % % Neutrophils # (1.6-8.9) K/mcL Lymphocytes # (0.6-4.6) K/mcL Monocytes # (0.0-1.3) K/mcL Eosinophils # (0.0-0.6) K/mcL Basophils # (0.0-0.2) K/mcL Immature Plt Fraction (1.1-6.1) % ESR 67 H (0-10) mm/hr Sodium (136-145) mEq/L Potassium (3.5-4.5) mEq/L Chloride (98-109) mEq/L Carbon Dioxide (19-29) mEq/L BUN (8-26) mg/dL Creatinine (0.72-1.25) mg/dL Est GFR ( Amer) (> 60) Est GFR (Non-Af Amer) (> 60) BUN/Creatinine Ratio (6-26) Glucose (70-99) mg/dL Calculated Osmolality (280-300) Lactic Acid 0.8 (0.5-2.2) mmol/L Calcium (8.6-10.8) mg/dL C-Reactive Protein 88 H (Less than 5) mg/L Urine Color (Yellow) Urine Clarity (Clear) Urine pH (5.0-8.0) pH Units Ur Specific [place] (1.010-1.025) Urine Protein (Neg-Trace) mg/dL Urine Glucose (UA) (Normal) mg/dL Urine Ketones (Negative) mg/dL Urine Blood (Negative) Urine Nitrite (Negative) Urine Bilirubin (Negative) Urine Urobilinogen (Normal) mg/dL Ur Leukocyte Esterase (Negative) Ur Culture Indicated? (NO) 08/03/17 Range/Units 03:32 WBC (4.3-11.1) K/mcL RBC (4.19-5.50) M/mcL Hgb (12.9-16.9) g/dL Hct (37.5-50.1) % MCV (83.0-100.0) fL MCH (28.0-33.3) pg MCHC (31.6-35.5) g/dL RDW (11.5-14.5) % Plt Count (140-400) K/mcL MPV (9.4-12.4) fL Immature Gran % (0-4) % Seg Neutrophils % % Lymphocytes % % Monocytes % % Eosinophils % % Basophils % % Neutrophils # (1.6-8.9) K/mcL Lymphocytes # (0.6-4.6) K/mcL Monocytes # (0.0-1.3) K/mcL Eosinophils # (0.0-0.6) K/mcL Basophils # (0.0-0.2) K/mcL Immature Plt Fraction (1.1-6.1) % ESR (0-10) mm/hr Sodium (136-145) mEq/L Potassium (3.5-4.5) mEq/L Chloride (98-109) mEq/L Carbon Dioxide (19-29) mEq/L BUN (8-26) mg/dL Creatinine (0.72-1.25) mg/dL Est GFR ( Amer) (> 60) Est GFR (Non-Af Amer) (> 60) BUN/Creatinine Ratio (6-26) Glucose (70-99) mg/dL Calculated Osmolality (280-300) Lactic Acid 0.7 (0.5-2.2) mmol/L Calcium (8.6-10.8) mg/dL C-Reactive Protein (Less than 5) mg/L Urine Color (Yellow) Urine Clarity (Clear) Urine pH (5.0-8.0) pH Units Ur Specific [place] (1.010-1.025) Urine Protein (Neg-Trace) mg/dL Urine Glucose (UA) (Normal) mg/dL Urine Ketones (Negative) mg/dL Urine Blood (Negative) Urine Nitrite (Negative) Urine Bilirubin (Negative) Urine Urobilinogen (Normal) mg/dL Ur Leukocyte Esterase (Negative) Ur Culture Indicated? (NO) - EKG Data EKG attestation: Yes I reviewed and interpreted this EKG. EKG results narrative: Afib with RVR, consistent with previous EKG; Attestation Statement - Attestation Attestation: I examined this patient and my medical decision-making was reviewed with the Resident Physician. I agree with the documented findings, disposition and treatment plan as described except to the extent set forth below. Patient in the ED with a chief complaint fever. [facility] in from [facility]. Patient recently seen a couple weeks ago and diagnosed with SBP. Unclear what the source is this time. On examination the patient was noted to have a brace to his left knee. He has a wound VAC in place. On further examination the knee it is red swollen and warm. It appears infected. Plan. The patient appears to have an infected knee. He currently has a spacer in place. We will start him on broad-spectrum antibiotic. Admit to medicine.
[2017-08-03] MEDS: 0.9 % Sodium Chloride 1,000 ML IVC SCH ×2 (00:13→01:28)
[2017-08-03 00:57] LABS: Bilirubin,Urine Negative (Negative); Blood,Urine Negative (Negative); Clarity,Urine Clear (Clear); Color,Urine Yellow (Yellow); Glucose,Urine (UA) Normal (Normal); Ketones,Urine Negative (Negative); Specific Gravity,Urine 1.012 (1.010-1.025)
[2017-08-03 00:58] LABS: Leukocyte Esterase,Urine Negative (Negative); Nitrite,Urine Negative (Negative); Protein,Urine Negative (Neg-Trace); Urobilinogen,Urine Normal (Normal)
[2017-08-03 01:42] LABS: Basophils % 0.7 %; Eosinophils # 0.2 K/mcL (0.0-0.6); Eosinophils % 3.2 %; Hematocrit 29.7 % (37.5-50.1); Hemoglobin 9.6 g/dL (12.9-16.9); Immature Granulocytes % 0.4 % (0-4); Immature Platelets 1.1 % (1.1-6.1); Lymphocytes # 0.8 K/mcL (0.6-4.6); Lymphocytes % 15.5 %; Mean Corpuscular HGB Conc 32.3 g/dL (31.6-35.5); Mean Corpuscular Hemoglobin 29.9 pg (28.0-33.3); Mean Corpuscular Volume 92.5 fL (83.0-100.0); Mean Platelet Volume 9.1 fL (9.4-12.4); Monocytes # 0.3 K/mcL (0.0-1.3); Monocytes % 6.2 %; Platelet Count 212 K/mcL (140-400); Red Blood Count 3.21 M/mcL (4.19-5.50); Red Cell Distribution Width 14.1 % (11.5-14.5)
[2017-08-03 01:56] LABS: Calcium 9.2 mg/dL (8.6-10.8); Potassium 4.7 mEq/L (3.5-4.5)
[2017-08-03] MEDS ORDERED: Clindamycin 600 MG/50 ML 600 MG/50 ML IV.SOLN IVPB STA (02:08)
[2017-08-03] MEDS ORDERED: 0.9 % Sodium Chloride 1,000 ML IVC ONE (02:08)
[2017-08-03] MEDS ORDERED: Naloxone 0.4 MG/ML INJ IVP PRN (03:29)
[2017-08-03] MEDS ORDERED: 0.9 % Sodium Chloride 1,000 ML IVC SCH ×2 (03:30→10:45)
--- NOTE | 2017-08-03 03:39 | Internal Med History&Physical ---
Date of Encounter: 08/03/17 Time of Encounter: 03:34 Assessment and Plan (1) Fever Current visit: Yes Status: Acute SIRS presentation. There is a concern for his left knee being a source of infection. Gentle IV fluids, IV vancomycin pharmacy to dose, but cultures pending. 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 Poor long-term prognosis Qualifiers: Amyloidosis type: unspecified amyloidosis Qualified Code(s): E85.9 - Amyloidosis, unspecified (4) CKD (chronic kidney disease) Current visit: No Status: Chronic Monitor on IV vancomycin Qualifiers: Chronic kidney disease stage: stage 4 (severe) Qualified Code(s): N18.4 - Chronic kidney disease, stage 4 (severe) (5) Hypothyroidism Current visit: No Status: Chronic Qualifiers: Hypothyroidism type: acquired Qualified Code(s): E03.9 - Hypothyroidism, unspecified (6) Liver cirrhosis Current visit: No Status: Chronic Qualifiers: Hepatic cirrhosis type: unspecified hepatic cirrhosis Ascites presence: with ascites Qualified Code(s): K74.60 - Unspecified cirrhosis of liver Internal Medicine - H&P: HPI Chief complaint: Fever 102.4 History of present illness: Mr. Rubio is a 77 year old male with a complex medical history who presents with a fever of 102.4 at the long-term. He is admitted for concerns of sepsis from a septic knee joint He is currently residing at an [facility] and has a complex medical course to include cardiac amyloidosis on doxycycline managed at [facility], chronic left knee joint infection managed by Dr Casper and Dr Cantrlel on suppressive Keflex. Recent diagnosis of ascites status post paracentesis. He also has appears to be an permanent A. fib on chronic Coumadin anticoagulation In regards to his left knee, he had a knee replacement in 2010 - during the care of Dr Casper. His postoperative course was complicated by an infection and had hardware taken out on March 2017. He subsequently developed what was reported to be wound healing difficulties has been seeing Dr. Cantrell as well. His mentions that he would frequently develops her sepsis-like episodes with his knee debridement. Most recently he had a wound VAC placement approximately a week and a half ago. Past Med Surg Social Fam HX - Past Medical History Medical history: arthritis, atrial fibrillation, CHF, hyperlipidemia, hypertension, osteoporosis, renal disease, thyroid disease, other Psychiatric history: no psych history - Past Surgical History Surgical History: orthopedic, other, other - Social History Smoking Status: Former smoker Smokeless Tobacco Status: No Alcohol use: none Drug use: none - Family History Father Adopted: Yes Living Status: Hx Family Cardiac Disorders: Yes Mother Living Status: Hx Family Cardiac Disorders: Yes (heart disease) Internal Medicine - H&P: Meds Ergocalciferol (VITAMIN D2) [Vitamin D2] 2,000 unit PO DAILY 02/05/17 [History] Levothyroxine [Synthroid] 88 mcg PO DAILY 02/05/17 [History] Ursodiol 300 mg PO Q12H 04/08/17 [History] Famotidine [Pepcid] 20 mg PO DAILY tablet 04/13/17 [Rx] Acetaminophen/Diphenhydramine [Acetaminophen Pm Caplet] 1 each PO HS 07/19/17 [ History] Lisinopril [Zestril] 5 mg PO DAILY 07/19/17 [History] Melatonin [Melatin] 3 mg PO DAILY 07/19/17 [History] Multivitamin [Multivitamins] 1 each PO DAILY 07/19/17 [History] Warfarin [Coumadin] 5 mg PO 1800 07/19/17 [History] Cefotaxime [Claforan] 1 g IVPB Q8HR #10 vial 07/25/17 [Rx] Bumetanide [Bumex] 0.5 mg PO BIDDIURETIC tab 07/28/17 [Rx] Zolpidem [Ambien] 10 mg PO HS PRN tab 07/28/17 [Rx] Cephalexin [Keflex] 500 mg PO Q12H 08/02/17 [History] Doxycycline Monohydrate [Mondoxyne Nl] 100 mg PO DAILY 08/02/17 [History] Mirtazapine [Remeron] 15 mg PO DAILY 08/02/17 [History] 3 Allergy/AdvReac Type Severity Reaction Status Date / Time No Known Allergies Allergy Verified 04/08/17 10:20 All Systems PM: A 10-system review of systems was performed and is negative for pertinent findings except as documented above in the HPI. Review of systems: ROS 14 point review of systems reviewed as best as possible given presentation. Pertinent positive or negative as per HPI or otherwise reviewed as negative - Constitutional Vitals: Temp Pulse Resp BP Pulse Ox 100.2 F H 110 18 106/72 98 08/02/17 23:12 08/03/17 02:52 08/03/17 02:52 08/03/17 02:52 08/03/17 02:52 Exam: General - AAO x 3 Psych - Appropriate affect/speech. No agitation Eyes - KATH. Eye lids intact. No scleral icterus Neuro - No gross peripheral or central neuro deficits Heart - Sinus. RRR. S1 and S2 present. No added HS/murmurs appreciated. No elevated JVD appreciated. Lung - Adequate air entry b/l, No crackles/wheezes appreciated GI - Soft, non-tender. Distended but no guarding or rigidity - No CVA/suprapubic tenderness or palpable bladder distension MSK -Left knee swelling, erythema, in a brace , with wound vac Internal Med - H&P Results - Labs CBC & Chem 7: 08/03/17 01:35 08/03/17 01:35 Labs: Short CBC 08/03/17 Range/Units 01:35 WBC 5.4 (4.3-11.1) K/mcL Hgb 9.6 L (12.9-16.9) g/dL Hct 29.7 L (37.5-50.1) % Plt Count 212 (140-400) K/mcL Neutrophils # 4.0 (1.6-8.9) K/mcL BMP 08/03/17 01:35 Sodium 139 Potassium 4.7 H Chloride 107 Carbon Dioxide 21 BUN 73 H Creatinine 2.05 H Glucose 89 Calcium 9.2 Urine 08/03/17 Range/Units 00:25 Urine Color Yellow (Yellow) Urine Clarity Clear (Clear) Urine pH 6.0 (5.0-8.0) pH Units Ur Specific [place] 1.012 (1.010-1.025) Urine Protein Negative (Neg-Trace) mg/dL Urine Glucose (UA) Normal (Normal) mg/dL - Impressions ITS Impressions Chest X-Ray 08/03/17 00:00 IMPRESSION: Mild diffuse interstitial prominence without focal lung opacity or consolidation. Stable cardiomegaly. D/ / Deangelo Chan MD / Deangelo Chan MD Interpreting Provider: Deangelo Chan MD
[2017-08-03] MEDS ORDERED: Vancomycin 0 MG in D5% in Water 250 ML IVPB SCH (04:00)
[2017-08-03] MEDS ORDERED: Vancomycin 1,500 MG in D5% in Water 250 ML IVPB SCH (05:00)
--- NOTE | 2017-08-03 07:48 | Orthopedic Consult Note ---
Date of Encounter: 08/03/17 Time of Encounter: 07:46 History of Present Illness HPI: Mr. Rubio is a 77 year old male Well-known to me history of infected knee multiple times surgery done elsewhere.The patient recently underwent resection arthroplasty with articulating spacer a few months ago having issues with anterior wound healing patient with a history of wound VAC prior to this one. On physical exam leg is more swollen and erythematous than normal. Patient has wound VAC. There is potential that the knee is the source unfortunately further knee surgery is not possible due to significant loss of soft tissue. Options are to control infection with antibiotics or consider above-knee amputation. This was not discussed with the patient at this visit although it has been discussed in the past. General surgery would need to be consult did or vascular if the decision is made to move forward with amputation. Past Med Surg Social Fam HX - Past Medical History Medical history: arthritis, atrial fibrillation, CHF, hyperlipidemia, hypertension, osteoporosis, renal disease, thyroid disease, other Psychiatric history: no psych history - Past Surgical History Surgical History: orthopedic, other, other - Social History Smoking Status: Former smoker Smokeless Tobacco Status: No Alcohol use: none Drug use: none - Family History Father History Unknown: Yes Adopted: Yes Living Status: Hx Family Cardiac Disorders: Yes Mother History Unknown: Yes Living Status: Hx Family Cardiac Disorders: Yes (heart disease) Medications and Allergies Ergocalciferol (VITAMIN D2) [Vitamin D2] 2,000 unit PO DAILY 02/05/17 [History] Levothyroxine [Synthroid] 88 mcg PO DAILY 02/05/17 [History] Ursodiol 300 mg PO Q12H 04/08/17 [History] Famotidine [Pepcid] 20 mg PO DAILY tablet 04/13/17 [Rx] Acetaminophen/Diphenhydramine [Acetaminophen Pm Caplet] 1 each PO HS 07/19/17 [ History] Lisinopril [Zestril] 5 mg PO DAILY 07/19/17 [History] Melatonin [Melatin] 3 mg PO DAILY 07/19/17 [History] Multivitamin [Multivitamins] 1 each PO DAILY 07/19/17 [History] Warfarin [Coumadin] 5 mg PO 1800 07/19/17 [History] Cefotaxime [Claforan] 1 g IVPB Q8HR #10 vial 07/25/17 [Rx] Bumetanide [Bumex] 0.5 mg PO BIDDIURETIC tab 07/28/17 [Rx] Zolpidem [Ambien] 10 mg PO HS PRN tab 07/28/17 [Rx] Cephalexin [Keflex] 500 mg PO Q12H 08/02/17 [History] Doxycycline Monohydrate [Mondoxyne Nl] 100 mg PO DAILY 08/02/17 [History] Mirtazapine [Remeron] 15 mg PO DAILY 08/02/17 [History] 3 Allergy/AdvReac Type Severity Reaction Status Date / Time No Known Allergies Allergy Verified 04/08/17 10:20 All Systems Reviewed: A 10-system review of systems was performed and is negative for pertinent findings except as documented above in the HPI. Physical Exam - Constitutional Vitals: Temp Pulse Resp BP Pulse Ox 98.0 F 97 18 92/60 98 08/03/17 07:34 08/03/17 07:34 08/03/17 07:34 08/03/17 07:34 08/03/17 07:34 Results - Labs Result Diagrams: 08/03/17 01:35 08/03/17 01:35 Labs: Abnormal lab results RBC 3.21 M/mcL (4.19-5.50) L 08/03/17 01:35 Hgb 9.6 g/dL (12.9-16.9) L 08/03/17 01:35 Hct 29.7 % (37.5-50.1) L 08/03/17 01:35 MPV 9.1 fL (9.4-12.4) L 08/03/17 01:35 ESR 67 mm/hr (0-10) H 08/03/17 01:35 Potassium 4.7 mEq/L (3.5-4.5) H 08/03/17 01:35 BUN 73 mg/dL (8-26) H 08/03/17 01:35 Creatinine 2.05 mg/dL (0.72-1.25) H 08/03/17 01:35 Est GFR ( Amer) 38 (> 60) L 08/03/17 01:35 Est GFR (Non-Af Amer) 31 (> 60) L 08/03/17 01:35 BUN/Creatinine Ratio 36 (6-26) H 08/03/17 01:35 Calculated Osmolality 309 (280-300) H 08/03/17 01:35 C-Reactive Protein 88 mg/L (Less than 5) H 08/03/17 01:35 All other labs normal. Consult Discharge Plan - Plan Referrals: Daniel Garcia MD [Primary Care Provider] -
[2017-08-03 09:21] LABS: Basophils % 0.8 %; Eosinophils # 0.2 K/mcL (0.0-0.6); Eosinophils % 4.3 %; Hematocrit 28.3 % (37.5-50.1); Hemoglobin 9.1 g/dL (12.9-16.9); Immature Granulocytes % 0.3 % (0-4); Lymphocytes # 0.7 K/mcL (0.6-4.6); Lymphocytes % 19.3 %; Mean Corpuscular HGB Conc 32.2 g/dL (31.6-35.5); Mean Corpuscular Volume 93.4 fL (83.0-100.0); Mean Platelet Volume 9.1 fL (9.4-12.4); Monocytes # 0.5 K/mcL (0.0-1.3); Monocytes % 12.3 %; Neutrophils # 2.4 K/mcL (1.6-8.9); Platelet Count 175 K/mcL (140-400); Red Blood Count 3.03 M/mcL (4.19-5.50); Red Cell Distribution Width 14.3 % (11.5-14.5)
[2017-08-03 09:24] LABS: INR 2.7; Prothrombin Time 30.2 Seconds (9.4-12.1)
[2017-08-03 09:36] LABS: Albumin 2.6 g/dL (3.5-5.0); Albumin/Globulin Ratio 0.7 (1.1-2.2); Alkaline Phosphatase 106 Units/L (38-126); Aspartate Amino Transferase 23 Units/L (5-34); BUN/Creatinine Ratio 39 (6-26); Bilirubin,Direct 0.7 mg/dL (0.0-0.5); Bilirubin,Indirect 0.7 mg/dL (0.0-1.2); Bilirubin,Total 1.4 mg/dL (0.2-1.2); Blood Urea Nitrogen 73 mg/dL (8-26); Calcium 8.7 mg/dL (8.6-10.8); Carbon Dioxide 21 mEq/L (19-29); Chloride 107 mEq/L (98-109); Glucose 81 mg/dL (70-99); Osmolality,Calculated 305 (280-300); Potassium 4.4 mEq/L (3.5-4.5); Sodium 137 mEq/L (136-145); Total Protein 6.6 g/dL (6.0-8.3); eGFR For African Americans 42 (> 60); eGFR For Non-African Americans 35 (> 60)
[2017-08-03 09:37] LABS: Alanine Aminotransferase < 6 Units/L (0-55)
--- NOTE | 2017-08-03 10:43 | Internal Med Progress Note ---
Date of Encounter: 08/03/17 Time of Encounter: 10:39 - Assessment and plan (1) Sepsis Current Visit: No Status: Acute Assessment and plan: Pt did meet sepsis criteria with Fever and source of inf as Left knee. elevated ESR and CRP His source of infection mostly from Left Knee Reviewed Dr. Bravo's notes, suggesting of IV abx and Possible AKA Consulted surgery for further eval talked to pt and his at bed side and explained to them about current care..as well as possible AKA if his Knee inf does not get better, or he he became bacteremic Pt does not wanted to go for AKA.. Will treat with IV abx for now.. Since he was growing Group B Strep agalactea in the past, changed abx to Zosyn He never had MRSA infection .. Will talk to ID on Saturday f/u on ESR and CRP Noticed his BP is in 90's..cont IV fluids Hold all home BP meds Qualifiers: Sepsis type: sepsis due to unspecified organism Qualified Code(s): A41.9 - Sepsis, unspecified organism (2) Infection of prosthetic left knee joint Current Visit: No Status: Acute Assessment and plan: see above Ortho and Surgery on board Qualifiers: Encounter type: initial encounter Qualified Code(s): T84.54XA - Infection and inflammatory reaction due to internal left knee prosthesis, initial encounter (3) Nonhealing surgical wound Current Visit: Yes Status: Chronic Qualifiers: Encounter type: subsequent encounter Qualified Code(s): T81.89XD - Other complications of procedures, not elsewhere classified, subsequent encounter (4) SBP (spontaneous bacterial peritonitis) Current Visit: No Status: Acute Assessment and plan: Fluid cx - did not grow any bacteria Was treated with full course of abx Currently no abdominal pain..no signs of peritonitis (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 Resumed prophylactic abx dose Doxycyclin Qualifiers: Amyloidosis type: unspecified amyloidosis Qualified Code(s): E85.9 - Amyloidosis, unspecified (6) A-fib Current Visit: No Status: Chronic Assessment and plan: Rate controlled Cont Coumadin for anticoag Consulted Pharmacy for dosing Qualifiers: Atrial fibrillation type: chronic Qualified Code(s): I48.2 - Chronic atrial fibrillation (7) CKD (chronic kidney disease) Current Visit: No Status: Chronic Qualifiers: Chronic kidney disease stage: stage 4 (severe) Qualified Code(s): N18.4 - Chronic kidney disease, stage 4 (severe) (8) Liver cirrhosis Current Visit: No Status: Chronic Assessment and plan: mostly due to Amyloidosis Qualifiers: Hepatic cirrhosis type: unspecified hepatic cirrhosis Ascites presence: with ascites Qualified Code(s): K74.60 - Unspecified cirrhosis of liver (9) DVT prophylaxis Current Visit: No Status: Acute Assessment and plan: on Coumadin - Subjective Interval history: Mr. 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 Casper. He was recently admitted in the hospital for Severe sepsis posisble due to Left knee infection and ?? SBP peritonitis. He was treated with Cefotaxime IV abx 10 days course. Now he was brought back to ER last night with fever t max 102and worsening swelling and erythema in Left knee. Pt is alert, awake and O x 3, denied any CP / SOB. Still has swelling and redness in Left nee. Denied any pain. - Constitutional Vitals: Temp Pulse Resp BP Pulse Ox 98.2 F 91 20 81/53 97 08/03/17 10:18 08/03/17 10:18 08/03/17 10:18 08/03/17 10:18 08/03/17 10:18 General appearance: Present: A&O X 3, pleasant, no acute distress, answers questions appropriately - Head Head exam: Present: atraumatic, normal inspection - Respiratory Respiratory exam: Present: decreased breath sounds, wheezes. Absent: rales, respiratory distress, rhonchi - Cardiovascular Cardiovascular exam: Present: irregular rhythm, +S1, +S2. Absent: systolic murmur - GI/Abdominal GI/Abdominal exam: Present: distended, normal bowel sounds, soft. Absent: rebound, tenderness - Extremities Exam Extremities exam: Present: pedal edema Additional comments: Swollen and erythematous left knee. Wound vac + - Neurological Exam Neurological exam: Present: alert, oriented X3 - Psychiatric Psychiatric exam: Present: normal affect, normal mood Internal Medicine: Result - Labs CBC & Chem 7: 08/03/17 09:05 08/03/17 09:05 Labs: Short CBC 08/03/17 Range/Units 09:05 WBC 3.7 L (4.3-11.1) K/mcL Hgb 9.1 L (12.9-16.9) g/dL Hct 28.3 L (37.5-50.1) % Plt Count 175 (140-400) K/mcL Neutrophils # 2.4 (1.6-8.9) K/mcL BMP 08/03/17 09:05 Sodium 137 Potassium 4.4 Chloride 107 Carbon Dioxide 21 BUN 73 H Creatinine 1.89 H Glucose 81 Calcium 8.7 Liver Function 08/03/17 Range/Units 09:05 Total Bilirubin 1.4 H (0.2-1.2) mg/dL Direct Bilirubin 0.7 H (0.0-0.5) mg/dL AST 23 (5-34) Units/L ALT < 6 (0-55) Units/L Alkaline Phosphatase 106 (38-126) Units/L Albumin 2.6 L (3.5-5.0) g/dL - ABG Interpretation ABG results: PT/INR, D-dimer PT 30.2 Seconds (9.4-12.1) H 08/03/17 09:05 Consult Discharge Plan - Plan Referrals: Daniel Garcia MD [Primary Care Provider] -
[2017-08-03] MEDS: Bumetanide 1 MG TABLET PO SCH ×2 (11:19→18:16)
[2017-08-03] MEDS: Piperacillin/Tazobactam 3.375 GM in D5% in Water (Mini-Bag+) 100 ML IVPB SCH ×2 (11:42→18:21)
[2017-08-03] MEDS: Famotidine 20 MG TABLET PO SCH (11:48)
[2017-08-03] MEDS: Cholecalciferol (D-3) 1,000 UNIT TABLET PO SCH (11:48)
[2017-08-03] MEDS: Mirtazapine 15 MG TABLET PO SCH (11:48)
[2017-08-03] MEDS: Doxycycline 100 MG CAPSULE PO SCH (11:48)
[2017-08-03] MEDS ORDERED: Aminoglycoside Consult 1 EACH MC ONE (13:05)
[2017-08-03] MEDS ORDERED: Warfarin perPT PO PRN (18:00)
[2017-08-03] MEDS ORDERED: *HR* Warfarin 2.5 MG TABLET PO ONE (18:00)
[2017-08-03] MEDS ORDERED: 0.9 % Sodium Chloride 500 ML IVC ONE (18:01)
[2017-08-03] MEDS ORDERED: 0.9 % Sodium Chloride 500 ML ONE (18:14)
[2017-08-04 00:52] LABS: Basophils % 0.7 %; Eosinophils # 0.2 K/mcL (0.0-0.6); Eosinophils % 4.8 %; Hematocrit 30.5 % (37.5-50.1); Hemoglobin 9.7 g/dL (12.9-16.9); Immature Granulocytes % 0.5 % (0-4); Lymphocytes # 0.6 K/mcL (0.6-4.6); Mean Corpuscular HGB Conc 31.8 g/dL (31.6-35.5); Mean Corpuscular Hemoglobin 29.8 pg (28.0-33.3); Mean Corpuscular Volume 93.8 fL (83.0-100.0); Mean Platelet Volume 9.2 fL (9.4-12.4); Monocytes # 0.4 K/mcL (0.0-1.3); Monocytes % 8.9 %; Neutrophils # 3.1 K/mcL (1.6-8.9); Platelet Count 181 K/mcL (140-400); Red Blood Count 3.25 M/mcL (4.19-5.50); Red Cell Distribution Width 14.5 % (11.5-14.5); Segmented Neutrophils % 71.1 %
[2017-08-04 00:58] LABS: INR 3.1; Prothrombin Time 34.3 Seconds (9.4-12.1)
[2017-08-04] MEDS ORDERED: *HR* Digoxin 0.5 MG/2 ML AMPUL IVP ONE ×2 (00:59→05:31)
[2017-08-04 01:06] LABS: Blood Urea Nitrogen 71 mg/dL (8-26); Carbon Dioxide 21 mEq/L (19-29); Chloride 107 mEq/L (98-109); Potassium 4.8 mEq/L (3.5-4.5); Sodium 138 mEq/L (136-145)
[2017-08-04 01:07] LABS: Albumin 2.7 g/dL (3.5-5.0); Albumin/Globulin Ratio 0.6 (1.1-2.2); Alkaline Phosphatase 112 Units/L (38-126); Aspartate Amino Transferase 24 Units/L (5-34); BUN/Creatinine Ratio 34 (6-26); Bilirubin,Total 1.1 mg/dL (0.2-1.2); C-Reactive Protein 89 mg/L (Less than 5); Globulin 4.4 g/dL (2.4-3.5); Glucose 90 mg/dL (70-99); Magnesium 1.7 mg/dL (1.6-2.6); Osmolality,Calculated 306 (280-300); Total Protein 7.1 g/dL (6.0-8.3); eGFR For African Americans 38 (> 60); eGFR For Non-African Americans 31 (> 60)
[2017-08-04 01:08] LABS: Albumin 2.7 g/dL (3.5-5.0); Albumin/Globulin Ratio 0.6 (1.1-2.2); Alkaline Phosphatase 113 Units/L (38-126); Aspartate Amino Transferase 24 Units/L (5-34); BUN/Creatinine Ratio 35 (6-26); Bilirubin,Direct 0.7 mg/dL (0.0-0.5); Bilirubin,Indirect 0.3 mg/dL (0.0-1.2); Blood Urea Nitrogen 71 mg/dL (8-26); Calcium 8.8 mg/dL (8.6-10.8); Carbon Dioxide 21 mEq/L (19-29); Chloride 107 mEq/L (98-109); Globulin 4.4 g/dL (2.4-3.5); Glucose 90 mg/dL (70-99); Osmolality,Calculated 304 (280-300); Potassium 4.7 mEq/L (3.5-4.5); Sodium 137 mEq/L (136-145); Total Protein 7.1 g/dL (6.0-8.3); eGFR For African Americans 38 (> 60); eGFR For Non-African Americans 31 (> 60)
[2017-08-04 01:09] LABS: Alanine Aminotransferase < 6 Units/L (0-55)
[2017-08-04] MEDS: Piperacillin/Tazobactam 3.375 GM in D5% in Water (Mini-Bag+) 100 ML IVPB SCH ×3 (03:22→18:56)
--- NOTE | 2017-08-04 09:27 | Internal Med Progress Note ---
Date of Encounter: 08/04/17 Time of Encounter: 09:24 - Assessment and plan (1) Sepsis Current Visit: No Status: Acute Assessment and plan: Pt did meet sepsis criteria with Fever and source of inf as Left knee. elevated ESR and CRP His source of infection mostly from Left Knee Reviewed Dr. Casper's notes, suggesting of IV abx and Possible AKA Consulted surgery for further eval talked to pt and his at bed side and explained to them about current care..as well as possible AKA if his Knee inf does not get better, or he became bacteremic so far his blood cx x 2 negative Pt does not wanted to go for AKA.. Will treat with IV abx for now.. Since he was growing Group B Strep agalactea in the past, changed abx to Zosyn He never had MRSA infection .. Will talk to ID on Saturday Stable and chronically elevated ESR and CRP will obtain arterial doppler study of both legs Family also requested for palliative care team consult.. Qualifiers: Sepsis type: sepsis due to unspecified organism Qualified Code(s): A41.9 - Sepsis, unspecified organism (2) Infection of prosthetic left knee joint Current Visit: No Status: Acute Assessment and plan: see above Ortho and Surgery on board Qualifiers: Encounter type: initial encounter Qualified Code(s): T84.54XA - Infection and inflammatory reaction due to internal left knee prosthesis, initial encounter (3) Nonhealing surgical wound Current Visit: Yes Status: Chronic Qualifiers: Encounter type: subsequent encounter Qualified Code(s): T81.89XD - Other complications of procedures, not elsewhere classified, subsequent encounter (4) SBP (spontaneous bacterial peritonitis) Current Visit: No Status: Acute Assessment and plan: Fluid cx - did not grow any bacteria Was treated with full course of abx Currently no abdominal pain..no signs of peritonitis (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 Resumed prophylactic abx dose Doxycyclin Qualifiers: Amyloidosis type: unspecified amyloidosis Qualified Code(s): E85.9 - Amyloidosis, unspecified (6) A-fib Current Visit: No Status: Acute Assessment and plan: Rate fairly controlled will start him on low dose of metoprolol 12.5mg BID ..aware of his Amyloidosis Cont Coumadin for anticoag Consulted Pharmacy for dosing Qualifiers: Atrial fibrillation type: chronic Qualified Code(s): I48.2 - Chronic atrial fibrillation (7) CKD (chronic kidney disease) Current Visit: No Status: Chronic Qualifiers: Chronic kidney disease stage: stage 4 (severe) Qualified Code(s): N18.4 - Chronic kidney disease, stage 4 (severe) (8) Liver cirrhosis Current Visit: No Status: Chronic Assessment and plan: mostly due to Amyloidosis Qualifiers: Hepatic cirrhosis type: unspecified hepatic cirrhosis Ascites presence: with ascites Qualified Code(s): K74.60 - Unspecified cirrhosis of liver (9) DVT prophylaxis Current Visit: No Status: Acute Assessment and plan: on Coumadin - Subjective Interval history: Mr. 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 Casper. He was recently admitted in the hospital for Severe sepsis posisble due to Left knee infection and ?? SBP peritonitis. He was treated with Cefotaxime IV abx 10 days course. Now he was brought back to ER last night with fever t max 102and worsening swelling and erythema in Left knee. Pt is alert, awake and O x 3, denied any CP / SOB. Still has swelling and redness in Left nee. Denied any pain. Denied any palpitations. He went into A fib with RVR last night..currently his HR in [id number]'s - Constitutional Vitals: Temp Pulse Resp BP Pulse Ox 98.1 F 99 16 103/71 96 08/04/17 07:28 08/04/17 07:28 08/04/17 07:28 08/04/17 07:28 08/04/17 07:28 General appearance: Present: A&O X 3, pleasant, no acute distress, answers questions appropriately - Head Head exam: Present: atraumatic, normal inspection - Neck Neck exam general surgery: Present: supple - Respiratory Respiratory exam: Present: decreased breath sounds, wheezes. Absent: rales, respiratory distress, rhonchi - Cardiovascular Cardiovascular exam: Present: irregular rhythm, +S1, +S2. Absent: systolic murmur - GI/Abdominal GI/Abdominal exam: Present: normal bowel sounds, soft. Absent: rebound, rigid, tenderness - Extremities Exam Extremities exam: Present: pedal edema. Absent: calf tenderness, tenderness Additional comments: Slightly improved erythema and swelling in left knee noticed - Neurological Exam Neurological exam: Present: alert, oriented X3 - Psychiatric Psychiatric exam: Present: normal affect, normal mood Internal Medicine: Result - Labs CBC & Chem 7: 08/04/17 00:45 08/04/17 00:45 Labs: Short CBC 08/04/17 Range/Units 00:45 WBC 4.4 (4.3-11.1) K/mcL Hgb 9.7 L (12.9-16.9) g/dL Hct 30.5 L (37.5-50.1) % Plt Count 181 (140-400) K/mcL Neutrophils # 3.1 (1.6-8.9) K/mcL BMP 08/03/17 08/04/17 08/04/17 09:05 00:45 00:45 Sodium 137 137 138 Potassium 4.4 4.7 H 4.8 H Chloride 107 107 107 Carbon Dioxide 21 21 21 BUN 73 H 71 H 71 H Creatinine 1.89 H 2.05 H 2.06 H Glucose 81 90 90 Calcium 8.7 8.8 9.0 Liver Function 08/03/17 08/04/17 08/04/17 Range/Units 09:05 00:45 00:45 Total Bilirubin 1.4 H 1.0 1.1 (0.2-1.2) mg/dL Direct Bilirubin 0.7 H 0.7 H (0.0-0.5) mg/dL AST 23 24 24 (5-34) Units/L ALT < 6 < 6 < 6 (0-55) Units/L Alkaline Phosphatase 106 113 112 (38-126) Units/L Albumin 2.6 L 2.7 L 2.7 L (3.5-5.0) g/dL - ABG Interpretation ABG results: PT/INR, D-dimer PT 34.3 Seconds (9.4-12.1) H 08/04/17 00:45 Consult Discharge Plan - Plan Referrals: Daniel Garcia MD [Primary Care Provider] -
[2017-08-04] MEDS: Famotidine 20 MG TABLET PO SCH (09:31)
[2017-08-04] MEDS: Cholecalciferol (D-3) 1,000 UNIT TABLET PO SCH (09:31)
[2017-08-04] MEDS: Doxycycline 100 MG CAPSULE PO SCH (09:31)
[2017-08-04] MEDS: Bumetanide 1 MG TABLET PO SCH ×2 (09:33→16:16)
[2017-08-04] MEDS: Mirtazapine 15 MG TABLET PO SCH ×2 (09:49→20:33)
--- NOTE | 2017-08-04 17:07 | General Surgery Consult Note ---
Date of Encounter: 08/04/17 Time of Encounter: 16:45 Assessment and Plan (1) Nonhealing surgical wound Current Visit: Yes Status: Chronic Continue IV antibiotics- currently on Zosyn Continue wound vac therapy- changed today (wound measures 3 X 5 X 0.2cm) Will conference with Dr. Cantrell and Dr. Espinoza in the am 08/05/17 and develop a plan moving forward Will continue to follow, assess progress and make recommendations moving forward Supportive care Qualifiers: Encounter type: subsequent encounter Qualified Code(s): T81.89XD - Other complications of procedures, not elsewhere classified, subsequent encounter History of Present Illness Consult date: 08/04/17 Reason for consult: other (Left knee wound) Requesting physician: Joy Currie History of present illness: Mr. Rubio is a 77 year old male with a history of multiple surgery to his left knee. His coarse has been complicated by infection of hardware. His most recent surgery involved Removal of infected total knee placement of articulating spacer, patellectomy on 04/08/17. The patient has been followed in the wound care center for a non-healing surgical wound. He was last seen on by Dr. Cantrell. The patient reports that he developed fevers following debridement of his wound. He was transported to the ED for further evaluation. He does reports increased swelling in the left knee over the past couple of weeks. Denies any tenderness. He reports that the knee remaind red and this is unchanged over the past several weeks. He has been admitted to the hospital and treated for sepsis which is presumed to be related to his left knee. Dr. Casper has seen and evaluated the patient and has recommended IV antibiotics vs. left AKA. We have been asked to see and evaluate the patient for further recommendations. Past Med Surg Social Fam HX - Past Medical History Source: patient, old records reviewed Medical history: arthritis, atrial fibrillation, CHF, hyperlipidemia, hypertension, osteoporosis, renal disease, thyroid disease, other Psychiatric history: no psych history - Past Surgical History Surgical History: orthopedic, other (most recent removal of hardware on 04/08/17) , other - Social History Smoking Status: Former smoker Smokeless Tobacco Status: No Alcohol use: none Drug use: none - Family History Father History Unknown: Yes Adopted: Yes Living Status: Hx Family Cardiac Disorders: Yes Mother History Unknown: Yes Living Status: Hx Family Cardiac Disorders: Yes (heart disease) Medications and Allergies Ergocalciferol (VITAMIN D2) [Vitamin D2] 2,000 unit PO DAILY 02/05/17 [History] Levothyroxine [Synthroid] 88 mcg PO DAILY 02/05/17 [History] Ursodiol 300 mg PO Q12H 04/08/17 [History] Famotidine [Pepcid] 20 mg PO DAILY tablet 04/13/17 [Rx] Acetaminophen/Diphenhydramine [Acetaminophen Pm Caplet] 1 tab PO HS 07/19/17 [ History] Lisinopril [Zestril] 5 mg PO DAILY 07/19/17 [History] Melatonin [Melatin] 3 mg PO HS 07/19/17 [History] Multivitamin [Multivitamins] 1 cap PO DAILY 07/19/17 [History] Warfarin [Coumadin] 5 mg PO DAILY 07/19/17 [History] Cefotaxime [Claforan] 1 g IVPB Q8HR #10 vial 07/25/17 [Rx] Bumetanide [Bumex] 0.5 mg PO BIDDIURETIC tab 07/28/17 [Rx] Zolpidem [Ambien] 10 mg PO HS PRN tab 07/28/17 [Rx] Cephalexin [Keflex] 500 mg PO Q12H 08/02/17 [History] Doxycycline Monohydrate [Mondoxyne Nl] 100 mg PO DAILY 08/02/17 [History] Mirtazapine [Remeron] 15 mg PO DAILY 08/02/17 [History] 3 Allergy/AdvReac Type Severity Reaction Status Date / Time No Known Allergies Allergy Verified 04/08/17 10:20 Review of Systems All systems PM: reviewed and no additional remarkable complaints except as stated (limited ROS as listed in the HPI) All systems PM: A 10-system review of systems was performed and is negative for pertinent findings except as documented above in the HPI. General Surgery Exam Initial Vital Signs Temp Pulse Resp BP Pulse Ox 100.2 F H 128 20 108/84 98 08/02/17 23:12 08/02/17 23:12 08/02/17 23:12 08/02/17 23:12 08/02/17 23:12 - General physical appearance well developed, well nourished, no distress - Eyes normal ocular movement - ENT normal mucosa, atraumatic, normocephalic - Neck trachea midline - Respiratory normal respiratory effort - Cardiovascular Cardiovascular exam: Present: RRR - Abdomen Abdomen general surgery: Present: bowel sounds present, soft, non tender - Incision Incision: Present: open (left knee wound open with 90% fibrous tissue/tendon exposure, mild surrounding erythema, minimal amount of serous drainage without odor, no tunnelling or undermining noted, nontender to examination, generalized edema noted) - Integumentary Integumentary general surgery: Present: warm and dry, other (See integumentary exam above) - Neurologic Present: CN 2-12 grossly intact - Psychiatric Psychiatric general surgery: Present: A&Ox3 Exam Initial Vital Signs Temp Pulse Resp BP Pulse Ox 100.2 F H 128 20 108/84 98 08/02/17 23:12 08/02/17 23:12 08/02/17 23:12 08/02/17 23:12 08/02/17 23:12 Results - Labs 08/04/17 00:45 08/04/17 00:45 Abnormal lab results RBC 3.25 M/mcL (4.19-5.50) L 08/04/17 00:45 Hgb 9.7 g/dL (12.9-16.9) L 08/04/17 00:45 Hct 30.5 % (37.5-50.1) L 08/04/17 00:45 MPV 9.2 fL (9.4-12.4) L 08/04/17 00:45 ESR 66 mm/hr (0-10) H 08/04/17 00:45 PT 34.3 Seconds (9.4-12.1) H 08/04/17 00:45 Potassium 4.8 mEq/L (3.5-4.5) H 08/04/17 00:45 BUN 71 mg/dL (8-26) H 08/04/17 00:45 Creatinine 2.06 mg/dL (0.72-1.25) H 08/04/17 00:45 Est GFR ( Amer) 38 (> 60) L 08/04/17 00:45 Est GFR (Non-Af Amer) 31 (> 60) L 08/04/17 00:45 BUN/Creatinine Ratio 34 (6-26) H 08/04/17 00:45 Calculated Osmolality 306 (280-300) H 08/04/17 00:45 Direct Bilirubin 0.7 mg/dL (0.0-0.5) H 08/04/17 00:45 C-Reactive Protein 89 mg/L (Less than 5) H 08/04/17 00:45 Albumin 2.7 g/dL (3.5-5.0) L 08/04/17 00:45 Globulin 4.4 g/dL (2.4-3.5) H 08/04/17 00:45 Albumin/Globulin Ratio 0.6 (1.1-2.2) L 08/04/17 00:45 Diabetes panel 08/04/17 08/04/17 Range/Units 00:45 00:45 Sodium 137 138 (136-145) mEq/L Potassium 4.7 H 4.8 H (3.5-4.5) mEq/L Chloride 107 107 (98-109) mEq/L Carbon Dioxide 21 21 (19-29) mEq/L BUN 71 H 71 H (8-26) mg/dL Creatinine 2.05 H 2.06 H (0.72-1.25) mg/dL Glucose 90 90 (70-99) mg/dL Calcium 8.8 9.0 (8.6-10.8) mg/dL AST 24 24 (5-34) Units/L ALT < 6 < 6 (0-55) Units/L Alkaline Phosphatase 113 112 (38-126) Units/L Albumin 2.7 L 2.7 L (3.5-5.0) g/dL Calcium panel 08/04/17 08/04/17 Range/Units 00:45 00:45 Calcium 8.8 9.0 (8.6-10.8) mg/dL Albumin 2.7 L 2.7 L (3.5-5.0) g/dL Pituitary panel 08/04/17 08/04/17 Range/Units 00:45 00:45 Sodium 137 138 (136-145) mEq/L Potassium 4.7 H 4.8 H (3.5-4.5) mEq/L Chloride 107 107 (98-109) mEq/L Carbon Dioxide 21 21 (19-29) mEq/L BUN 71 H 71 H (8-26) mg/dL Creatinine 2.05 H 2.06 H (0.72-1.25) mg/dL Glucose 90 90 (70-99) mg/dL Calcium 8.8 9.0 (8.6-10.8) mg/dL Adrenal panel 08/04/17 08/04/17 Range/Units 00:45 00:45 Sodium 137 138 (136-145) mEq/L Potassium 4.7 H 4.8 H (3.5-4.5) mEq/L Chloride 107 107 (98-109) mEq/L Carbon Dioxide 21 21 (19-29) mEq/L BUN 71 H 71 H (8-26) mg/dL Creatinine 2.05 H 2.06 H (0.72-1.25) mg/dL Glucose 90 90 (70-99) mg/dL Calcium 8.8 9.0 (8.6-10.8) mg/dL Total Bilirubin 1.0 1.1 (0.2-1.2) mg/dL AST 24 24 (5-34) Units/L ALT < 6 < 6 (0-55) Units/L Alkaline Phosphatase 113 112 (38-126) Units/L Albumin 2.7 L 2.7 L (3.5-5.0) g/dL All other labs normal. - Imaging Additional studies: Chest X-Ray 08/03/17 00:00 IMPRESSION: Mild diffuse interstitial prominence without focal lung opacity or consolidation. Stable cardiomegaly. D/ / 08/03/2017 08:17:17 Deangelo Chan MD / madelin Interpreting Provider: Deangelo Chan MD Consult Discharge Plan - Plan Referrals: Daniel Garcia MD [Primary Care Provider] - - Attending Attestation For this encounter, I have reviewed the FLIGHT RADIO OPERATOR or PA documentation, treatment plan, and medical decision making; and I have had face to face time with this patient.
[2017-08-05 03:30] LABS: Basophils % 0.9 %; Eosinophils # 0.2 K/mcL (0.0-0.6); Eosinophils % 4.5 %; Hematocrit 30.1 % (37.5-50.1); Immature Granulocytes % 0.4 % (0-4); Lymphocytes # 0.7 K/mcL (0.6-4.6); Lymphocytes % 16.3 %; Mean Corpuscular HGB Conc 33.2 g/dL (31.6-35.5); Mean Corpuscular Hemoglobin 30.7 pg (28.0-33.3); Mean Corpuscular Volume 92.3 fL (83.0-100.0); Mean Platelet Volume 9.2 fL (9.4-12.4); Monocytes # 0.4 K/mcL (0.0-1.3); Monocytes % 9.8 %; Neutrophils # 3.1 K/mcL (1.6-8.9); Platelet Count 174 K/mcL (140-400); Red Blood Count 3.26 M/mcL (4.19-5.50); Red Cell Distribution Width 14.4 % (11.5-14.5); Segmented Neutrophils % 68.1 %
[2017-08-05 03:36] LABS: INR 3.1
[2017-08-05] MEDS: Piperacillin/Tazobactam 3.375 GM in D5% in Water (Mini-Bag+) 100 ML IVPB SCH ×3 (03:36→19:59)
[2017-08-05 03:46] LABS: Albumin 2.6 g/dL (3.5-5.0); Albumin/Globulin Ratio 0.6 (1.1-2.2); Alkaline Phosphatase 105 Units/L (38-126); Aspartate Amino Transferase 20 Units/L (5-34); BUN/Creatinine Ratio 32 (6-26); Bilirubin,Direct 0.7 mg/dL (0.0-0.5); Bilirubin,Indirect 0.5 mg/dL (0.0-1.2); Bilirubin,Total 1.2 mg/dL (0.2-1.2); Blood Urea Nitrogen 72 mg/dL (8-26); Calcium 8.9 mg/dL (8.6-10.8); Carbon Dioxide 19 mEq/L (19-29); Chloride 108 mEq/L (98-109); Globulin 4.2 g/dL (2.4-3.5); Glucose 90 mg/dL (70-99); Osmolality,Calculated 305 (280-300); Potassium 4.7 mEq/L (3.5-4.5); Sodium 137 mEq/L (136-145); Total Protein 6.8 g/dL (6.0-8.3); eGFR For African Americans 34 (> 60); eGFR For Non-African Americans 28 (> 60)
[2017-08-05 03:49] LABS: Alanine Aminotransferase < 6 Units/L (0-55)
[2017-08-05] MEDS: Cholecalciferol (D-3) 1,000 UNIT TABLET PO SCH (08:26)
[2017-08-05] MEDS: Famotidine 20 MG TABLET PO SCH (08:26)
[2017-08-05] MEDS: Bumetanide 1 MG TABLET PO SCH ×2 (08:26→17:21)
[2017-08-05] MEDS: Doxycycline 100 MG CAPSULE PO SCH (08:26)
--- NOTE | 2017-08-05 11:39 | Arterial Study Report ---
LE Arterial Physiologic Study Patient Name:Daniel Rubio Order Number:[id number] Procedure Date:08/04/2017 Date:1940ge:77 yrs Gender:Male Lt BP:85 / mmHg Rt.BP:87 / mmHgHeart Rate: Location:[facility] Room #: Clinical Exercise Physiologist:Seng Orr, [facility] Referring MD:Starla Dye MD telecommunications clerk:Daniel Garcia MD Reading MD:Tavares Seaman MD Primary Indications:Severe PVD Risk Factors Yes/No Hypertension Yes Anticoagulants Yes Recent Surgery Yes Impressions: The bilateral lower extremities are hemodynamically well maintained. The right KEVIN and waveforms are normal. Right KEVIN 1.46. The left KEVIN and waveforms are normal. Left KEVIN: 1.46. Recommendations: After imaging the patient returned to their room. Findings LE Arterial Physiologic Exam: Segmental Pressures: Right: The right posterior tibial pressure is 127 mmHg with an index of 1.46. The right dorsalis pedis pressure is 118 mmHg with an index of 1.36. Left: The left posterior tibial pressure is 127 mmHg with an index of 1.46. The left dorsalis pedis pressure is 107 mmHg with an index of 1.23. PVR: Right: The PVR waveforms are normal in the right ankle. Left: The PVR waveforms are normal in the left ankle. Prior Study: No prior study available for comparison. Segmental Pressures Side Location Pressure Index Result Right Posterior Tibial 127 1.46 Normal Right Dorsalis Pedis 118 1.36 Normal Left Posterior Tibial 127 1.46 Normal Left Dorsalis Pedis 107 1.23 Normal Ankle Brachial Index Right Systolic Diastolic KEVIN Brachial 87 1.46 Dorsalis Pedis 118 1.36 Posterior Tibial 127 1.46 Left Systolic Diastolic KEVIN Brachial 85 1.46 Dorsalis Pedis 107 1.23 Posterior Tibial 127 1.46 Updated by Tavares Seaman MD on 08/05/2017 11:32:23 AM with Status of Final electronically signed on 08/05/2017 11:34:34 AM with status of Final
--- NOTE | 2017-08-05 11:42 | Palliative - Consult Note ---
<Rolo Buck - Last Filed: 08/05/17 12:53> Date of Encounter: 08/05/17 Time of Encounter: 11:38 - Assessment and Plan (1) Goals of care, counseling/discussion Current Visit: Yes Status: Acute Assessment and plan: Patient wishes to have code status changed to DNR/CCA, but is ok with short term intubation. Patient's is PoA. After discussion with family, patient desires to attempt antibiotics treatment, if treatment fails will then consider amputation. Patient would like to continue treatment of antibiotics at home as soon as possible. Patient is currently comfortable and denies pain. (2) Cellulitis Current Visit: Yes Status: Acute Assessment and plan: Chronic Left knee Cellulitis, with multiple previous surgeries. Patient wishes to continue antibiotic treatment, and will consider amputation if antibiotics treatment fails. Qualifiers: Site of cellulitis: extremity Site of cellulitis of extremity: lower extremity Laterality: left Qualified Code(s): L03.116 - Cellulitis of left lower limb (3) Amyloidosis Current Visit: No Status: Chronic Assessment and plan: Amyloidosis of Heart, Liver, and Kidneys. currently stable Qualifiers: Amyloidosis type: unspecified amyloidosis Qualified Code(s): E85.9 - Amyloidosis, unspecified Palliative-CN HPI - Data of Consult Patient: new to practice Consult date: 08/05/17 Requesting Physician: Starla Dye MD Primary Care Provider: Daniel Garcia MD - Consult Narrative Palliative Care/Comfort Measures: Palliative care Reason for consult: patient's family requested consult, and goals of therapy History of present illness: Mr. Rubio is a 77 year old male with a left knee non-healing infected wound w/ hx of left knee surgery in 2010, and hardware removal in 2014. Patient is seen with . Currently the patient does not report discomfort or pain. Patient desires to have code status changed to DNR/CCA but is ok with short term intubation. CC: Starla Dye MD Past Med Surg Social Fam HX - Past Medical History Medical history: arthritis, atrial fibrillation, CHF, hyperlipidemia, hypertension, osteoporosis, renal disease, thyroid disease, other Psychiatric history: no psych history - Past Surgical History Surgical History: orthopedic, other (most recent removal of hardware on 04/08/17) , other - Social History Smoking Status: Former smoker Smokeless Tobacco Status: No Alcohol use: none Drug use: none - Family History Father History Unknown: Yes Adopted: Yes Living Status: Hx Family Cardiac Disorders: Yes Mother History Unknown: Yes Living Status: Hx Family Cardiac Disorders: Yes (heart disease) Medications and Allergies Ergocalciferol (VITAMIN D2) [Vitamin D2] 2,000 unit PO DAILY 02/05/17 [History] Levothyroxine [Synthroid] 88 mcg PO DAILY 02/05/17 [History] Ursodiol 300 mg PO Q12H 04/08/17 [History] Famotidine [Pepcid] 20 mg PO DAILY tablet 04/13/17 [Rx] Acetaminophen/Diphenhydramine [Acetaminophen Pm Caplet] 1 tab PO HS 07/19/17 [ History] Lisinopril [Zestril] 5 mg PO DAILY 07/19/17 [History] Melatonin [Melatin] 3 mg PO HS 07/19/17 [History] Multivitamin [Multivitamins] 1 cap PO DAILY 07/19/17 [History] Warfarin [Coumadin] 5 mg PO DAILY 07/19/17 [History] Cefotaxime [Claforan] 1 g IVPB Q8HR #10 vial 07/25/17 [Rx] Bumetanide [Bumex] 0.5 mg PO BIDDIURETIC tab 07/28/17 [Rx] Zolpidem [Ambien] 10 mg PO HS PRN tab 07/28/17 [Rx] Cephalexin [Keflex] 500 mg PO Q12H 08/02/17 [History] Doxycycline Monohydrate [Mondoxyne Nl] 100 mg PO DAILY 08/02/17 [History] Mirtazapine [Remeron] 15 mg PO DAILY 08/02/17 [History] 3 Allergy/AdvReac Type Severity Reaction Status Date / Time No Known Allergies Allergy Verified 04/08/17 10:20 Palliative Care-Exam - Constitutional Vitals: Temp Pulse Resp BP Pulse Ox 98.2 F 88 18 98/65 96 08/05/17 07:26 08/05/17 07:26 08/05/17 07:26 08/05/17 07:26 08/05/17 07:26 General appearance: Present: cooperative - Respiratory Respiratory exam: Present: CTAB - Cardiovascular Cardiovascular exam: Present: RRR - Expanded Lower Extremities Exam Lower Leg exam: Present: erythema (Left knee erythema and swelling.), swelling Internal Medicine - CN: Reslt - Labs CBC & Chem 7: 08/05/17 03:23 08/05/17 03:23 Labs: Short CBC 08/05/17 Range/Units 03:23 WBC 4.5 (4.3-11.1) K/mcL Hgb 10.0 L (12.9-16.9) g/dL Hct 30.1 L (37.5-50.1) % Plt Count 174 (140-400) K/mcL Neutrophils # 3.1 (1.6-8.9) K/mcL BMP 08/05/17 03:23 Sodium 137 Potassium 4.7 H Chloride 108 Carbon Dioxide 19 BUN 72 H Creatinine 2.28 H Glucose 90 Calcium 8.9 Liver Function 08/05/17 Range/Units 03:23 Total Bilirubin 1.2 (0.2-1.2) mg/dL Direct Bilirubin 0.7 H (0.0-0.5) mg/dL AST 20 (5-34) Units/L ALT < 6 (0-55) Units/L Alkaline Phosphatase 105 (38-126) Units/L Albumin 2.6 L (3.5-5.0) g/dL - ABG Interpretation ABG results: PT/INR, D-dimer PT 34.0 Seconds (9.4-12.1) H 08/05/17 03:23 Consult Discharge Plan - Plan Referrals: Daniel Garcia MD [Primary Care Provider] - Palliative Quality Palliative Quality: Screen for Code Status: Yes, Screen for Goals of Care: Yes, Screen for Pain: Yes, If Pain Regimen Started, Initiate Bowel Regimen: NA, Screen for Nausea/Vomitting: Yes Code Status: 08/03/17 03:29 Resuscitation Status: Active [RES] Routine Comment: short term intubation ok no thrach no peg Resuscitation Status: DNR-Comfort Care-Arrest <Orlando Balderas Karan - Last Filed: 08/05/17 13:12> Date of Encounter: 08/05/17 Palliative-CN HPI - Data of Consult Requesting Physician: Starla Dye MD Primary Care Provider: Daniel Garcia MD - Consult Narrative History of present illness: Mr. Rubio is a 77 year old male CC: Starla Dye MD Palliative Care-Exam - Constitutional Vitals: Temp Pulse Resp BP Pulse Ox 97.8 F 91 18 107/68 96 08/05/17 11:41 08/05/17 11:41 08/05/17 11:41 08/05/17 11:41 08/05/17 07:26 Internal Medicine - CN: Reslt - Labs CBC & Chem 7: 08/05/17 03:23 08/05/17 03:23 Labs: Short CBC 08/05/17 Range/Units 03:23 WBC 4.5 (4.3-11.1) K/mcL Hgb 10.0 L (12.9-16.9) g/dL Hct 30.1 L (37.5-50.1) % Plt Count 174 (140-400) K/mcL Neutrophils # 3.1 (1.6-8.9) K/mcL BMP 08/05/17 03:23 Sodium 137 Potassium 4.7 H Chloride 108 Carbon Dioxide 19 BUN 72 H Creatinine 2.28 H Glucose 90 Calcium 8.9 Liver Function 08/05/17 Range/Units 03:23 Total Bilirubin 1.2 (0.2-1.2) mg/dL Direct Bilirubin 0.7 H (0.0-0.5) mg/dL AST 20 (5-34) Units/L ALT < 6 (0-55) Units/L Alkaline Phosphatase 105 (38-126) Units/L Albumin 2.6 L (3.5-5.0) g/dL - ABG Interpretation ABG results: PT/INR, D-dimer PT 34.0 Seconds (9.4-12.1) H 08/05/17 03:23 - Attending Attestation I examined this patient and my medical decision-making was reviewed with the Resident Physician. I agree with the documented findings, disposition and treatment plan as described except to the extent set forth below. Palliative Quality Code Status: 08/03/17 03:29 Resuscitation Status: Active [RES] Routine Comment: short term intubation ok no thrach no peg Resuscitation Status: DNR-Comfort Care-Arrest
--- NOTE | 2017-08-05 15:22 | General Surgery Progress Note ---
Date of Encounter: 08/05/17 Time of Encounter: 15:16 - Assessment and Plan (1) Nonhealing surgical wound Current Visit: Yes Status: Chronic Continue IV antibiotics- currently on Zosyn and doxycycline Continue wound vac therapy- changed today (wound measures 3 X 5 X 0.2cm) CT complete today Will continue to follow, assess progress and make recommendations moving forward Supportive care Qualifiers: Encounter type: subsequent encounter Qualified Code(s): T81.89XD - Other complications of procedures, not elsewhere classified, subsequent encounter Subjective Patient reports: afebrile Objective Vital Signs - Last 8 Hours Temp Pulse Resp BP Pulse Ox 08/05/17 11:41 97.8 F 91 18 107/68 08/05/17 07:26 98.2 F 88 18 98/65 96 Intake and Output 08/04/17 08/05/17 08/05/17 23:59 07:59 15:59 Intake Total 400 / 400 500 / 500 570 / 570 Output Total 225 / 225 100 / 100 80 / 80 Balance 175 / 175 400 / 400 490 / 490 Intake: IV Fluids 100 / 100 100 / 100 Zosyn 3.375 GM In 100 / 100 100 / 100 Dextrose 5% (Minibag+) 100 ML 100 ML @ 25 mls/hr IVPB Q8H [facility] Rx#: [id number] Oral 300 / 300 400 / 400 320 / 320 Free Water 250 / 250 Output: Urine 225 / 225 100 / 100 50 / 50 Wound Drainage 30 / 30 Left Knee 30 / 30 Other: Meal Breakfast Percent of Meal Consumed 0% Stool Size Moderate Stool Consistency soft formed Stool Characteristics Normal for Patient Stool Color Brown # Voids 1 1 # Bowel Movements 1 Weight 93.4 kg Patient Weight 08/05/17 23:59 Weight 93.4 kg - General physical appearance well developed, well nourished, no distress, no pain - Eyes normal ocular movement - ENT normal mucosa, atraumatic, normocephalic - Neck Neck exam: trachea midline - Respiratory normal respiratory effort, clear to auscultation - Cardiovascular Cardiovascular exam: Present: RRR - Abdomen Abdomen: Present: bowel sounds present, soft, non tender - Incision Incision: Present: open (Wound vac intact; small amount of serous drainage noted ) - Labs 08/05/17 03:23 08/05/17 03:23 Diabetes panel 08/05/17 Range/Units 03:23 Sodium 137 (136-145) mEq/L Potassium 4.7 H (3.5-4.5) mEq/L Chloride 108 (98-109) mEq/L Carbon Dioxide 19 (19-29) mEq/L BUN 72 H (8-26) mg/dL Creatinine 2.28 H (0.72-1.25) mg/dL Glucose 90 (70-99) mg/dL Calcium 8.9 (8.6-10.8) mg/dL AST 20 (5-34) Units/L ALT < 6 (0-55) Units/L Alkaline Phosphatase 105 (38-126) Units/L Albumin 2.6 L (3.5-5.0) g/dL Calcium panel 08/05/17 Range/Units 03:23 Calcium 8.9 (8.6-10.8) mg/dL Albumin 2.6 L (3.5-5.0) g/dL Pituitary panel 08/05/17 Range/Units 03:23 Sodium 137 (136-145) mEq/L Potassium 4.7 H (3.5-4.5) mEq/L Chloride 108 (98-109) mEq/L Carbon Dioxide 19 (19-29) mEq/L BUN 72 H (8-26) mg/dL Creatinine 2.28 H (0.72-1.25) mg/dL Glucose 90 (70-99) mg/dL Calcium 8.9 (8.6-10.8) mg/dL Adrenal panel 08/05/17 Range/Units 03:23 Sodium 137 (136-145) mEq/L Potassium 4.7 H (3.5-4.5) mEq/L Chloride 108 (98-109) mEq/L Carbon Dioxide 19 (19-29) mEq/L BUN 72 H (8-26) mg/dL Creatinine 2.28 H (0.72-1.25) mg/dL Glucose 90 (70-99) mg/dL Calcium 8.9 (8.6-10.8) mg/dL Total Bilirubin 1.2 (0.2-1.2) mg/dL AST 20 (5-34) Units/L ALT < 6 (0-55) Units/L Alkaline Phosphatase 105 (38-126) Units/L Albumin 2.6 L (3.5-5.0) g/dL Consult Discharge Plan - Plan Referrals: Daniel Garcia MD [Primary Care Provider] -
--- NOTE | 2017-08-05 17:16 | Electrocardiograph Report ---
[address] [place] [address] Test Date: 2017-08-03 Pat Name: [facility] Department: 102 Room: 3A33 Gender: M [employer]: [place] : 1940 Requested By: Leon Heredia Order Number: [id number] Reading MD: Bill Varma MD Measurements Intervals [place] Rate: 123 P: NE: 0 QRS: -75 QRSD: 98 T: 57 QT: 314 QTc: 387 Interpretive Statements ATRIAL FIBRILLATION WITH RAPID VENTRICULAR RESPONSE WITH ABERRANT CONDUCTION OR VENTRICULAR PREMATURE COMPLEXES INDETERMINATE AXIS LOW QRS VOLTAGE IN EXTREMITY LEADS Electronically Signed On 08-05-2017 17:14:42 EDT by Bill Varma MD
--- NOTE | 2017-08-05 17:36 | Internal Med Progress Note ---
Date of Encounter: 08/05/17 Time of Encounter: 17:33 - Assessment and plan (1) Sepsis Current Visit: No Status: Acute Assessment and plan: Pt did meet sepsis criteria with Fever and source of inf as Left knee. elevated ESR and CRP His source of infection mostly from Left Knee Reviewed Dr. Casper's notes, suggesting of IV abx and Possible AKA Consulted surgery for further eval..Spoke to Dr. Cantrell.. Recommend CT of Left knee for further evaluation CT of Knee showing possible abscess.. Since he was growing Group B Strep agalactea in the past, will cont empirical abx Zosyn for now so far his blood cx x 2 negative talked to pt and his at bed side and explained to them about current care..as well as possible AKA if his Knee inf does not get better, or he became bacteremic Pt does not wanted to go for AKA.. Stable and chronically elevated ESR and CRP Arterial doppler - normal and hemodynamically well maintained KEVIN 1.46 in each leg Palliative care team consulted as per family request Qualifiers: Sepsis type: sepsis due to unspecified organism Qualified Code(s): A41.9 - Sepsis, unspecified organism (2) Infection of prosthetic left knee joint Current Visit: No Status: Acute Assessment and plan: see above Ortho and Surgery on board Qualifiers: Encounter type: initial encounter Qualified Code(s): T84.54XA - Infection and inflammatory reaction due to internal left knee prosthesis, initial encounter (3) Nonhealing surgical wound Current Visit: Yes Status: Chronic Qualifiers: Encounter type: subsequent encounter Qualified Code(s): T81.89XD - Other complications of procedures, not elsewhere classified, subsequent encounter (4) SBP (spontaneous bacterial peritonitis) Current Visit: No Status: Acute Assessment and plan: Fluid cx - did not grow any bacteria Was treated with full course of abx Currently no abdominal pain..no signs of peritonitis (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 Resumed prophylactic abx dose Doxycyclin Qualifiers: Amyloidosis type: unspecified amyloidosis Qualified Code(s): E85.9 - Amyloidosis, unspecified (6) A-fib Current Visit: No Status: Acute Assessment and plan: Rate well controlled with low dose of metoprolol 12.5mg BID ..aware of his Amyloidosis Cont Coumadin for anticoag Consulted Pharmacy for dosing Qualifiers: Atrial fibrillation type: chronic Qualified Code(s): I48.2 - Chronic atrial fibrillation (7) CKD (chronic kidney disease) Current Visit: No Status: Chronic Qualifiers: Chronic kidney disease stage: stage 4 (severe) Qualified Code(s): N18.4 - Chronic kidney disease, stage 4 (severe) (8) Liver cirrhosis Current Visit: No Status: Chronic Assessment and plan: mostly due to Amyloidosis Qualifiers: Hepatic cirrhosis type: unspecified hepatic cirrhosis Ascites presence: with ascites Qualified Code(s): K74.60 - Unspecified cirrhosis of liver (9) DVT prophylaxis Current Visit: No Status: Acute Assessment and plan: on Coumadin - Subjective Interval history: Mr. 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 Casper. He was recently admitted in the hospital for Severe sepsis possible due to Left knee infection and ?? SBP peritonitis. He was treated with Cefotaxime IV abx 10 days course. Now he was brought back to ER last night with fever t max 102and worsening swelling and erythema in Left knee. Pt is alert, awake and O x 3, denied any CP / SOB. Still has swelling and redness in Left nee. Denied any pain. Denied any palpitations. He went into A fib with RVR on 08/03/17..currently his HR in 90's with PO Meds. No events over night - Constitutional Vitals: Temp Pulse Resp BP Pulse Ox 98.3 F 102 18 117/80 97 08/05/17 15:47 08/05/17 15:47 08/05/17 15:47 08/05/17 15:47 08/05/17 15:47 General appearance: Present: A&O X 3, pleasant, no acute distress, answers questions appropriately - Head Head exam: Present: atraumatic, normal inspection - Respiratory Respiratory exam: Present: decreased breath sounds, wheezes. Absent: rales, respiratory distress, rhonchi - Cardiovascular Cardiovascular exam: Present: irregular rhythm, +S1, +S2. Absent: systolic murmur - GI/Abdominal GI/Abdominal exam: Present: soft. Absent: normal bowel sounds, tenderness - Extremities Exam Extremities exam: Present: pedal edema, warm (left leg). Absent: calf tenderness, tenderness Additional comments: more warm to touch over Left knee and left leg, still has erythema and diffuse swelling over Left knee.. Wound vac + - Neurological Exam Neurological exam: Present: alert, oriented X3 Internal Medicine: Result - Labs CBC & Chem 7: 08/05/17 03:23 08/05/17 03:23 Labs: Short CBC 08/05/17 Range/Units 03:23 WBC 4.5 (4.3-11.1) K/mcL Hgb 10.0 L (12.9-16.9) g/dL Hct 30.1 L (37.5-50.1) % Plt Count 174 (140-400) K/mcL Neutrophils # 3.1 (1.6-8.9) K/mcL BMP 08/05/17 03:23 Sodium 137 Potassium 4.7 H Chloride 108 Carbon Dioxide 19 BUN 72 H Creatinine 2.28 H Glucose 90 Calcium 8.9 Liver Function 08/05/17 Range/Units 03:23 Total Bilirubin 1.2 (0.2-1.2) mg/dL Direct Bilirubin 0.7 H (0.0-0.5) mg/dL AST 20 (5-34) Units/L ALT < 6 (0-55) Units/L Alkaline Phosphatase 105 (38-126) Units/L Albumin 2.6 L (3.5-5.0) g/dL - ABG Interpretation ABG results: PT/INR, D-dimer PT 34.0 Seconds (9.4-12.1) H 08/05/17 03:23 - Impressions Impressions Knee CT 08/05/17 11:30 IMPRESSION: 1. Large anterior soft tissue defect at the level of the patellar tendon with surrounding phlegmonous change. Evaluation for abscess is limited without contrast. There may be a small linear abscess along the medial aspect of the distal patellar tendon. 2. Status post patellar resection and removal of the tibial component of the knee arthroplasty. A spacer is in place. D/ / 08/05/2017 13:49:10 Cliff Hill MD / bebeto Interpreting Provider: Cliff Hill MD Consult Discharge Plan - Plan Referrals: Daniel Garcia MD [Primary Care Provider] -
[2017-08-06] MEDS: Mirtazapine 15 MG TABLET PO SCH ×2 (00:08→20:00)
[2017-08-06] MEDS: Piperacillin/Tazobactam 3.375 GM in D5% in Water (Mini-Bag+) 100 ML IVPB SCH ×3 (03:22→19:58)
[2017-08-06 05:32] LABS: Eosinophils # 0.2 K/mcL (0.0-0.6); Eosinophils % 5.5 %; Hematocrit 32.1 % (37.5-50.1); Hemoglobin 10.5 g/dL (12.9-16.9); Immature Granulocytes % 0.5 % (0-4); Lymphocytes # 0.7 K/mcL (0.6-4.6); Lymphocytes % 17.5 %; Mean Corpuscular HGB Conc 32.7 g/dL (31.6-35.5); Mean Corpuscular Hemoglobin 30.4 pg (28.0-33.3); Mean Platelet Volume 9.7 fL (9.4-12.4); Monocytes # 0.4 K/mcL (0.0-1.3); Neutrophils # 2.7 K/mcL (1.6-8.9); Platelet Count 175 K/mcL (140-400); Red Blood Count 3.45 M/mcL (4.19-5.50); Red Cell Distribution Width 14.3 % (11.5-14.5); Segmented Neutrophils % 65.5 %
[2017-08-06 05:44] LABS: INR 2.8
[2017-08-06 05:48] LABS: Calcium 9.2 mg/dL (8.6-10.8); Potassium 4.6 mEq/L (3.5-4.5)
[2017-08-06] MEDS: Doxycycline 100 MG CAPSULE PO SCH (08:23)
[2017-08-06] MEDS: Bumetanide 1 MG TABLET PO SCH ×2 (08:23→16:23)
[2017-08-06] MEDS: Cholecalciferol (D-3) 1,000 UNIT TABLET PO SCH (08:23)
[2017-08-06] MEDS: Famotidine 20 MG TABLET PO SCH (08:23)
--- NOTE | 2017-08-06 09:42 | Palliative Progress Note ---
<Rolo Buck - Last Filed: 08/06/17 09:45> Date of Encounter: 08/06/17 Time of Encounter: 09:38 - Assessment and plan (1) Goals of care, counseling/discussion Current Visit: Yes Status: Acute Assessment and plan: code status is DNR/CCA, but is ok with short term intubation. Patient's is PoA. After discussion with family, patient desires to attempt antibiotics treatment, if treatment fails will then consider amputation. Patient is currently comfortable and denies pain. Patient and prefer to be discharged home but have concerns about the frequency of IV zosyn, and the stress it will cause on his . Patient and are open to returning to [facility] if not able to have Abx changed to PO. (2) Cellulitis Current Visit: Yes Status: Acute Assessment and plan: Chronic Left knee Cellulitis, with multiple previous surgeries. Patient wishes to continue antibiotic treatment, and will consider amputation if antibiotics treatment fails. Qualifiers: Site of cellulitis: extremity Site of cellulitis of extremity: lower extremity Laterality: left Qualified Code(s): L03.116 - Cellulitis of left lower limb (3) Amyloidosis Current Visit: No Status: Chronic Assessment and plan: Amyloidosis of Heart, Liver, and Kidneys. currently stable Qualifiers: Amyloidosis type: unspecified amyloidosis Qualified Code(s): E85.9 - Amyloidosis, unspecified - Time Spent With Patient Total time spent is greater than 50% in coordination of care (as documented) at patient's floor/unit and/or counseling patient: - Subjective Interval history: Patient currently denies any discomfort or pain. Patient does report anxiety and depression associated with his hospitalization, and the stress that his health issues has caused his . Patient prefers to not be discharge pip/ tazo due to the "every 4 hour dosing", and prefers PO abx for convenience for his . fanily and patient's preference is to be discharged home. - Constitutional Vitals: Abnormal lab results WBC 4.2 K/mcL (4.3-11.1) L 08/06/17 05:02 RBC 3.45 M/mcL (4.19-5.50) L 08/06/17 05:02 Hgb 10.5 g/dL (12.9-16.9) L 08/06/17 05:02 Hct 32.1 % (37.5-50.1) L 08/06/17 05:02 ESR 66 mm/hr (0-10) H 08/04/17 00:45 PT 31.0 Seconds (9.4-12.1) H 08/06/17 05:02 Potassium 4.6 mEq/L (3.5-4.5) H 08/06/17 05:02 BUN 77 mg/dL (8-26) H 08/06/17 05:02 Creatinine 2.39 mg/dL (0.72-1.25) H 08/06/17 05:02 Est GFR ( Amer) 32 (> 60) L 08/06/17 05:02 Est GFR (Non-Af Amer) 26 (> 60) L 08/06/17 05:02 BUN/Creatinine Ratio 32 (6-26) H 08/06/17 05:02 Calculated Osmolality 307 (280-300) H 08/06/17 05:02 Direct Bilirubin 0.7 mg/dL (0.0-0.5) H 08/05/17 03:23 C-Reactive Protein 89 mg/L (Less than 5) H 08/04/17 00:45 Albumin 2.6 g/dL (3.5-5.0) L 08/05/17 03:23 Globulin 4.2 g/dL (2.4-3.5) H 08/05/17 03:23 Albumin/Globulin Ratio 0.6 (1.1-2.2) L 08/05/17 03:23 - Respiratory Respiratory exam: Present: CTAB - Cardiovascular Cardiovascular exam: Present: RRR - Extremities Exam Extremities exam: Present: joint swelling Additional comments: Left knee joint swelling, and erythema with wound vac - Psychiatric Psychiatric exam: Present: anxious, depressed Additional comments: patient express anxiety about non-healing left leg, and the amount of stress that it causes his . Palliative Quality Palliative Quality: Screen for Code Status: Yes, Screen for Goals of Care: Yes, Screen for Pain: Yes, If Pain Regimen Started, Initiate Bowel Regimen: NA, Screen for Nausea/Vomitting: Yes Code Status: 08/03/17 03:29 Resuscitation Status: Active [RES] Routine Comment: short term intubation ok no thrach no peg Resuscitation Status: DNR-Comfort Care-Arrest - Labs CBC & Chem 7: 08/06/17 05:02 08/06/17 05:02 Labs: Laboratory Results - last 24 hr 08/06/17 08/06/17 08/06/17 05:02 05:02 05:02 WBC 4.2 L RBC 3.45 L Hgb 10.5 L Hct 32.1 L MCV 93.0 MCH 30.4 MCHC 32.7 RDW 14.3 Plt Count 175 MPV 9.7 Immature Gran % 0.5 Seg Neutrophils % 65.5 Lymphocytes % 17.5 Monocytes % 10.0 Eosinophils % 5.5 Basophils % 1.0 Neutrophils # 2.7 Lymphocytes # 0.7 Monocytes # 0.4 Eosinophils # 0.2 Basophils # 0.0 PT 31.0 H INR 2.8 Sodium 137 Potassium 4.6 H Chloride 106 Carbon Dioxide 20 BUN 77 H Creatinine 2.39 H Est GFR ( Amer) 32 L Est GFR (Non-Af Amer) 26 L BUN/Creatinine Ratio 32 H Glucose 91 Calculated Osmolality 307 H Calcium 9.2 - Impressions Impressions Knee CT 08/05/17 11:30 IMPRESSION: 1. Large anterior soft tissue defect at the level of the patellar tendon with surrounding phlegmonous change. Evaluation for abscess is limited without contrast. There may be a small linear abscess along the medial aspect of the distal patellar tendon. 2. Status post patellar resection and removal of the tibial component of the knee arthroplasty. A spacer is in place. D/ / 08/05/2017 13:49:10 Cliff Hill MD / [email or web address] Interpreting Provider: Cliff Hill MD - ABG Interpretation ABG results: PT/INR, D-dimer PT 31.0 Seconds (9.4-12.1) H 08/06/17 05:02 Consult Discharge Plan - Plan Referrals: Daniel Garcia MD [Primary Care Provider] - <Orlando Balderas - Last Filed: 08/06/17 10:14> Date of Encounter: 08/06/17 - Time Spent With Patient Total time spent is greater than 50% in coordination of care (as documented) at patient's floor/unit and/or counseling patient: - Constitutional Vitals: Abnormal lab results WBC 4.2 K/mcL (4.3-11.1) L 08/06/17 05:02 RBC 3.45 M/mcL (4.19-5.50) L 08/06/17 05:02 Hgb 10.5 g/dL (12.9-16.9) L 08/06/17 05:02 Hct 32.1 % (37.5-50.1) L 08/06/17 05:02 ESR 66 mm/hr (0-10) H 08/04/17 00:45 PT 31.0 Seconds (9.4-12.1) H 08/06/17 05:02 Potassium 4.6 mEq/L (3.5-4.5) H 08/06/17 05:02 BUN 77 mg/dL (8-26) H 08/06/17 05:02 Creatinine 2.39 mg/dL (0.72-1.25) H 08/06/17 05:02 Est GFR ( Amer) 32 (> 60) L 08/06/17 05:02 Est GFR (Non-Af Amer) 26 (> 60) L 08/06/17 05:02 BUN/Creatinine Ratio 32 (6-26) H 08/06/17 05:02 Calculated Osmolality 307 (280-300) H 08/06/17 05:02 Direct Bilirubin 0.7 mg/dL (0.0-0.5) H 08/05/17 03:23 C-Reactive Protein 89 mg/L (Less than 5) H 08/04/17 00:45 Albumin 2.6 g/dL (3.5-5.0) L 08/05/17 03:23 Globulin 4.2 g/dL (2.4-3.5) H 08/05/17 03:23 Albumin/Globulin Ratio 0.6 (1.1-2.2) L 08/05/17 03:23 - Attending Attestation I examined this patient and my medical decision-making was reviewed with the Resident Physician. I agree with the documented findings, disposition and treatment plan as described except to the extent set forth below. Palliative Quality Code Status: 08/03/17 03:29 Resuscitation Status: Active [RES] Routine Comment: short term intubation ok no thrach no peg Resuscitation Status: DNR-Comfort Care-Arrest - Labs CBC & Chem 7: 08/06/17 05:02 08/06/17 05:02 Labs: Laboratory Results - last 24 hr 08/06/17 08/06/17 08/06/17 05:02 05:02 05:02 WBC 4.2 L RBC 3.45 L Hgb 10.5 L Hct 32.1 L MCV 93.0 MCH 30.4 MCHC 32.7 RDW 14.3 Plt Count 175 MPV 9.7 Immature Gran % 0.5 Seg Neutrophils % 65.5 Lymphocytes % 17.5 Monocytes % 10.0 Eosinophils % 5.5 Basophils % 1.0 Neutrophils # 2.7 Lymphocytes # 0.7 Monocytes # 0.4 Eosinophils # 0.2 Basophils # 0.0 PT 31.0 H INR 2.8 Sodium 137 Potassium 4.6 H Chloride 106 Carbon Dioxide 20 BUN 77 H Creatinine 2.39 H Est GFR ( Amer) 32 L Est GFR (Non-Af Amer) 26 L BUN/Creatinine Ratio 32 H Glucose 91 Calculated Osmolality 307 H Calcium 9.2 - Impressions Impressions Knee CT 08/05/17 11:30
--- NOTE | 2017-08-06 10:43 | General Surgery Progress Note ---
Date of Encounter: 08/06/17 Time of Encounter: 10:30 - Assessment and Plan (1) Nonhealing surgical wound Current Visit: Yes Status: Chronic Continue antibiotics- currently on Zosyn and doxycycline Continue wound vac therapy- changed today (wound measures 3 X 5 X 0.2cm) CT complete 08/06/17- Dr. Espinoza to review and assume care of patient Arterial studies of LLE complete- Dr. Espinoza to review and assume care of patient Will continue to follow, assess progress and make recommendations moving forward Supportive care Qualifiers: Encounter type: subsequent encounter Qualified Code(s): T81.89XD - Other complications of procedures, not elsewhere classified, subsequent encounter Subjective Patient reports: no new complaints, afebrile Objective Vital Signs - Last 8 Hours Temp Pulse Resp BP Pulse Ox 08/06/17 08:08 93 08/06/17 07:38 98.7 F 82 18 105/66 93 08/06/17 03:42 98.9 F 92 17 101/68 94 Intake and Output 08/05/17 08/06/17 08/06/17 23:59 07:59 15:59 Intake Total 340 / 340 200 / 200 Output Total 0 / 0 285 / 285 Balance 340 / 340 -85 / -85 Intake: IV Fluids 100 / 100 200 / 200 Zosyn 3.375 GM In 100 / 100 200 / 200 Dextrose 5% (Minibag+) 100 ML 100 ML @ 25 mls/hr IVPB Q8H [facility] Rx#: [id number] Oral 240 / 240 0 / 0 Output: Urine 0 / 0 275 / 275 Wound Drainage Left Knee Other: Weight 105.4 kg Patient Weight 08/06/17 23:59 Weight 105.4 kg - General physical appearance well developed, well nourished, no distress, other (Out of bed to chair) - Eyes normal ocular movement - ENT normal mucosa, atraumatic, normocephalic - Neck Neck exam: trachea midline - Respiratory normal respiratory effort, clear to auscultation - Abdomen Abdomen: Present: bowel sounds present, soft, non tender - Incision Incision: Present: open (left knee open with wound vac intact, small amount of serous drainage noted; knee is edematous with mild erythema and warm to touch ( unchanged)) - Neurologic CN 2-12 grossly intact - Musculoskeletal other (Limited ROM of LLE (knee immobilizer in place)) - Psychiatric oriented to time, oriented to person, oriented to place, speech is normal, memory intact - Labs 08/06/17 05:02 08/06/17 05:02 Diabetes panel 08/06/17 Range/Units 05:02 Sodium 137 (136-145) mEq/L Potassium 4.6 H (3.5-4.5) mEq/L Chloride 106 (98-109) mEq/L Carbon Dioxide 20 (19-29) mEq/L BUN 77 H (8-26) mg/dL Creatinine 2.39 H (0.72-1.25) mg/dL Glucose 91 (70-99) mg/dL Calcium 9.2 (8.6-10.8) mg/dL Calcium panel 08/06/17 Range/Units 05:02 Calcium 9.2 (8.6-10.8) mg/dL Pituitary panel 08/06/17 Range/Units 05:02 Sodium 137 (136-145) mEq/L Potassium 4.6 H (3.5-4.5) mEq/L Chloride 106 (98-109) mEq/L Carbon Dioxide 20 (19-29) mEq/L BUN 77 H (8-26) mg/dL Creatinine 2.39 H (0.72-1.25) mg/dL Glucose 91 (70-99) mg/dL Calcium 9.2 (8.6-10.8) mg/dL Adrenal panel 08/06/17 Range/Units 05:02 Sodium 137 (136-145) mEq/L Potassium 4.6 H (3.5-4.5) mEq/L Chloride 106 (98-109) mEq/L Carbon Dioxide 20 (19-29) mEq/L BUN 77 H (8-26) mg/dL Creatinine 2.39 H (0.72-1.25) mg/dL Glucose 91 (70-99) mg/dL Calcium 9.2 (8.6-10.8) mg/dL Consult Discharge Plan - Plan Referrals: Daniel Garcia MD [Primary Care Provider] -
--- NOTE | 2017-08-06 16:04 | Internal Med Progress Note ---
Date of Encounter: 08/06/17 Time of Encounter: 16:01 - Assessment and plan (1) Sepsis Current Visit: No Status: Acute Assessment and plan: Pt did meet sepsis criteria with Fever and source of inf as Left knee. elevated ESR and CRP His source of infection mostly from Left Knee Reviewed Dr. Casper's notes, suggesting of IV abx and Possible AKA Consulted surgery for further eval..Spoke to Dr. Cantrell.. Recommend CT of Left knee for further evaluation CT of Knee showing possible abscess.. Since he was growing Group B Strep agalactea in the past, will cont empirical abx Zosyn for now so far his blood cx x 2 negative At this time patient and family wish to try IV abx therapy and only use AKA as a last resort Infectious diseas consultation appreciated Arterial doppler - normal and hemodynamically well maintained KEVIN 1.46 in each leg Palliative care team consultation appreciated Code status: [id number] Qualifiers: Sepsis type: sepsis due to unspecified organism Qualified Code(s): A41.9 - Sepsis, unspecified organism (2) Infection of prosthetic left knee joint Current Visit: No Status: Acute Assessment and plan: see above Ortho and Surgery on board Qualifiers: Encounter type: initial encounter Qualified Code(s): T84.54XA - Infection and inflammatory reaction due to internal left knee prosthesis, initial encounter (3) A-fib Current Visit: No Status: Acute Assessment and plan: Rate well controlled with low dose of metoprolol 12.5mg BID Cont Coumadin for anticoag Consulted Pharmacy for dosing monitor INR, goal INR: 2-3 Qualifiers: Atrial fibrillation type: chronic Qualified Code(s): I48.2 - Chronic atrial fibrillation (4) 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 continue prophylactic abx dose Doxycyclin Qualifiers: Amyloidosis type: unspecified amyloidosis Qualified Code(s): E85.9 - Amyloidosis, unspecified (5) Ascites Current Visit: No Status: Chronic Assessment and plan: worsening ascites however clinically asymptomatic will obtain abd US and closely monitor Qualifiers: Ascites type: other type Qualified Code(s): R18.8 - Other ascites (6) CHF (congestive heart failure) Current Visit: No Status: Chronic Assessment and plan: not in acute exacerbation continue home meds Qualifiers: Congestive heart failure type: diastolic Congestive heart failure chronicity: chronic Qualified Code(s): I50.32 - Chronic diastolic (congestive ) heart failure (7) CKD (chronic kidney disease) Current Visit: No Status: Chronic Qualifiers: Chronic kidney disease stage: stage 4 (severe) Qualified Code(s): N18.4 - Chronic kidney disease, stage 4 (severe) (8) DVT prophylaxis Current Visit: No Status: Acute Assessment and plan: anticoagulated with Coumadin (9) Hypertension Current Visit: No Status: Chronic Assessment and plan: BP within acceptable range continue home meds Qualifiers: Hypertension type: essential hypertension Qualified Code(s): I10 - Essential (primary) hypertension (10) Liver cirrhosis Current Visit: No Status: Chronic Assessment and plan: mostly due to Amyloidosis Qualifiers: Hepatic cirrhosis type: unspecified hepatic cirrhosis Ascites presence: with ascites Qualified Code(s): K74.60 - Unspecified cirrhosis of liver (11) SBP (spontaneous bacterial peritonitis) Current Visit: No Status: Acute Assessment and plan: Fluid cx - did not grow any bacteria Was treated with full course of abx Currently no abdominal pain..no signs of peritonitis - Subjective Interval history: Mr. 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 Casper. He was recently admitted in the hospital for Severe sepsis possible due to Left knee infection and ?? SBP peritonitis. He was treated with Cefotaxime IV abx 10 days course. Now he was brought back to ER with fever t max 102and worsening swelling and erythema in Left knee. Patient seen and examined with present at bedside. Patient is frail appearing but states his pain is under control. He does report of worsening abd distention. Has history of ascites secondary to liver cirrhosis and has had paracentesis in the past. At this time he is resting comfortably in bed. - Constitutional Vitals: Temp Pulse Resp BP Pulse Ox 98.4 F 96 16 103/70 95 08/06/17 15:14 08/06/17 15:14 08/06/17 15:14 08/06/17 15:14 08/06/17 15:14 General appearance: Present: A&O X 3 (frail appearing elderly male), pleasant, no acute distress, answers questions appropriately - Head Head exam: Present: atraumatic - Eye Eye exam: Present: conjuntiva pink, sclera anicteric - Respiratory Respiratory exam: Absent: respiratory distress, wheezes - Cardiovascular Cardiovascular exam: Present: RRR, +S1, +S2. Absent: diastolic murmur, gallop, rubs, systolic murmur - GI/Abdominal GI/Abdominal exam: Present: distended (ascites, no fluid shift), normal bowel sounds, soft, no peritoneal signs. Absent: tenderness - Extremities Exam Extremities exam: Present: warm, radial pulses palpable and symmetrical (LLE wound vac intact, RLE edema) - Neurological Exam Neurological exam: Present: alert, oriented X3 Internal Medicine: Result - Labs CBC & Chem 7: 08/06/17 05:02 08/06/17 05:02 Labs: Short CBC 08/06/17 Range/Units 05:02 WBC 4.2 L (4.3-11.1) K/mcL Hgb 10.5 L (12.9-16.9) g/dL Hct 32.1 L (37.5-50.1) % Plt Count 175 (140-400) K/mcL Neutrophils # 2.7 (1.6-8.9) K/mcL BMP 08/06/17 05:02 Sodium 137 Potassium 4.6 H Chloride 106 Carbon Dioxide 20 BUN 77 H Creatinine 2.39 H Glucose 91 Calcium 9.2 - ABG Interpretation ABG results: PT/INR, D-dimer PT 31.0 Seconds (9.4-12.1) H 08/06/17 05:02 - Impressions Impressions Knee CT 08/05/17 11:30 IMPRESSION: 1. Large anterior soft tissue defect at the level of the patellar tendon with surrounding phlegmonous change. Evaluation for abscess is limited without contrast. There may be a small linear abscess along the medial aspect of the distal patellar tendon. 2. Status post patellar resection and removal of the tibial component of the knee arthroplasty. A spacer is in place. D/ / 08/05/2017 13:49:10 Cliff Hill [facility] / [facility] Interpreting Provider: Cliff Hill MD Consult Discharge Plan - Plan Referrals: Daniel Garcia MD [Primary Care Provider] -
[2017-08-06] MEDS ORDERED: *HR* Warfarin 3 MG TABLET PO ONE (18:00)
[2017-08-07] MEDS: Piperacillin/Tazobactam 3.375 GM in D5% in Water (Mini-Bag+) 100 ML IVPB SCH ×3 (03:39→19:26)
[2017-08-07 06:28] LABS: Eosinophils # 0.2 K/mcL (0.0-0.6); Eosinophils % 5.8 %; Hematocrit 31.7 % (37.5-50.1); Immature Granulocytes % 0.3 % (0-4); Lymphocytes # 0.8 K/mcL (0.6-4.6); Lymphocytes % 19.1 %; Mean Corpuscular HGB Conc 31.5 g/dL (31.6-35.5); Mean Corpuscular Hemoglobin 29.1 pg (28.0-33.3); Mean Corpuscular Volume 92.2 fL (83.0-100.0); Mean Platelet Volume 9.8 fL (9.4-12.4); Monocytes # 0.5 K/mcL (0.0-1.3); Monocytes % 11.6 %; Neutrophils # 2.5 K/mcL (1.6-8.9); Platelet Count 186 K/mcL (140-400); Red Blood Count 3.44 M/mcL (4.19-5.50); Red Cell Distribution Width 14.4 % (11.5-14.5); Segmented Neutrophils % 62.2 %
[2017-08-07 06:29] LABS: INR 2.5
[2017-08-07 06:48] LABS: Calcium 9.1 mg/dL (8.6-10.8); Magnesium 1.7 mg/dL (1.6-2.6); Phosphorous 3.8 mg/dL (2.3-4.7); Potassium 4.3 mEq/L (3.5-4.5)
--- NOTE | 2017-08-07 07:40 | Arterial Study Report ---
LE Arterial Duplex Patient Name:Daniel Rubio Order Number:[id number] Procedure Date:08/05/2017 Date:8Age:77 yrs Gender:Male Location:[facility] Room #: 3A33 Database Report Writer:Ysabel Archer RDCS Referring MD:Carolyn Arce [employer]IC MECH[employer]IC artificial marble worker:Daniel Garcia MD Reading MD:Carlitos Thomas MD , FACS Primary Indications:Evaluation of LLE PTFE graft Risk Factors Yes/No Hypertension Hypercholesterolemia Smoker Previous Family History Impressions: Findings: Left lower extremity has nonstenotic plaque. Findings Prior Study: No prior study available for comparison. LE Duplex Side Vessel PSV EDV Assessment Left Distal External Iliac 89 17 Left Common Femoral 89 7 Left Prox Superficial Femoral 79 7 Left Mid Superficial Femoral 71 8 Left Popliteal 87 7 Left Distal Superficial Femoral 75 11 Left Mid Posterior Tibial 35 0 Left Mid Peroneal 92 12 KEVIN Updated by Carlitos Thomas MD, FACS on 08/06/2017 10:22:53 PM Carlitos Thomas MD electronically signed on 08/06/2017 10:23:17 PM with status of Final
--- NOTE | 2017-08-07 08:33 | Palliative Progress Note ---
<Rolo Buck - Last Filed: 08/07/17 08:25> Date of Encounter: 08/07/17 Time of Encounter: 08:25 - Assessment and plan (1) Goals of care, counseling/discussion Current Visit: Yes Status: Acute Assessment and plan: code status is DNR/CCA, but is ok with short term intubation. Patient's is PoA. After discussion with family, patient desires to attempt antibiotics treatment, if treatment fails will then consider amputation. Patient is currently comfortable and denies pain. Patient and prefer to be discharged home but have concerns about the frequency of IV zosyn, and the stress it will cause on his . Patient and are open to returning to [facility] if not able to have Abx changed to PO. Patient expressed his interest in infectious disease team. (2) Cellulitis Current Visit: Yes Status: Acute Assessment and plan: Chronic Left knee Cellulitis, with multiple previous surgeries. Patient wishes to continue antibiotic treatment, and will consider amputation if antibiotics treatment fails. Qualifiers: Site of cellulitis: extremity Site of cellulitis of extremity: lower extremity Laterality: left Qualified Code(s): L03.116 - Cellulitis of left lower limb (3) Amyloidosis Current Visit: No Status: Chronic Assessment and plan: Amyloidosis of Heart, Liver, and Kidneys. currently stable Qualifiers: Amyloidosis type: unspecified amyloidosis Qualified Code(s): E85.9 - Amyloidosis, unspecified - Time Spent With Patient Total time spent is greater than 50% in coordination of care (as documented) at patient's floor/unit and/or counseling patient: - Subjective Interval history: Patient currently denies any discomfort or pain. Patient does report anxiety and depression associated with his hospitalization, and the stress that his health issues has caused his . Patient prefers to not be discharge pip/ tazo due to the "every 4 hour dosing", and prefers PO abx for convenience for his . family and patient's preference is to be discharged home. Today patient is feeling better this morning, but he continues to express concerns about his illness. - Constitutional Vitals: Abnormal lab results WBC 4.0 K/mcL (4.3-11.1) L 08/07/17 06:08 RBC 3.44 M/mcL (4.19-5.50) L 08/07/17 06:08 Hgb 10.0 g/dL (12.9-16.9) L 08/07/17 06:08 Hct 31.7 % (37.5-50.1) L 08/07/17 06:08 MCHC 31.5 g/dL (31.6-35.5) L 08/07/17 06:08 ESR 66 mm/hr (0-10) H 08/04/17 00:45 PT 28.0 Seconds (9.4-12.1) H 08/07/17 06:08 BUN 79 mg/dL (8-26) H 08/07/17 06:08 Creatinine 2.49 mg/dL (0.72-1.25) H 08/07/17 06:08 Est GFR ( Amer) 30 (> 60) L 08/07/17 06:08 Est GFR (Non-Af Amer) 25 (> 60) L 08/07/17 06:08 BUN/Creatinine Ratio 32 (6-26) H 08/07/17 06:08 Calculated Osmolality 305 (280-300) H 08/07/17 06:08 Direct Bilirubin 0.7 mg/dL (0.0-0.5) H 08/05/17 03:23 C-Reactive Protein 89 mg/L (Less than 5) H 08/04/17 00:45 Albumin 2.6 g/dL (3.5-5.0) L 08/05/17 03:23 Globulin 4.2 g/dL (2.4-3.5) H 08/05/17 03:23 Albumin/Globulin Ratio 0.6 (1.1-2.2) L 08/05/17 03:23 General appearance: Present: cooperative, no acute distress - Respiratory Respiratory exam: Present: CTAB - Cardiovascular Cardiovascular exam: Present: RRR - Extremities Exam Extremities exam: Present: joint swelling (left knee swelling and erythema) Palliative Quality Palliative Quality: Screen for Code Status: Yes, Screen for Goals of Care: Yes, Screen for Pain: Yes, If Pain Regimen Started, Initiate Bowel Regimen: NA, Screen for Nausea/Vomitting: Yes Code Status: 08/03/17 03:29 Resuscitation Status: Active [RES] Routine Comment: short term intubation ok no thrach no peg Resuscitation Status: DNR-Comfort Care-Arrest - Labs CBC & Chem 7: 08/07/17 06:08 08/07/17 06:08 Labs: Laboratory Results - last 24 hr 08/07/17 08/07/17 08/07/17 06:08 06:08 06:08 WBC 4.0 L RBC 3.44 L Hgb 10.0 L Hct 31.7 L MCV 92.2 MCH 29.1 MCHC 31.5 L RDW 14.4 Plt Count 186 MPV 9.8 Immature Gran % 0.3 Seg Neutrophils % 62.2 Lymphocytes % 19.1 Monocytes % 11.6 Eosinophils % 5.8 Basophils % 1.0 Neutrophils # 2.5 Lymphocytes # 0.8 Monocytes # 0.5 Eosinophils # 0.2 Basophils # 0.0 PT 28.0 H INR 2.5 Sodium 136 Potassium 4.3 Chloride 106 Carbon Dioxide 22 BUN 79 H Creatinine 2.49 H Est GFR ( Amer) 30 L Est GFR (Non-Af Amer) 25 L BUN/Creatinine Ratio 32 H Glucose 87 Calculated Osmolality 305 H Calcium 9.1 Phosphorus 3.8 Magnesium 1.7 - Impressions Impressions Knee CT 08/05/17 11:30 IMPRESSION: 1. Large anterior soft tissue defect at the level of the patellar tendon with surrounding phlegmonous change. Evaluation for abscess is limited without contrast. There may be a small linear abscess along the medial aspect of the distal patellar tendon. 2. Status post patellar resection and removal of the tibial component of the knee arthroplasty. A spacer is in place. D/ / 08/05/2017 13:49:10 Cliff Hill MD / [facility] Interpreting Provider: Cliff Hill MD Abdomen Ultrasound 08/06/17 19:00 IMPRESSION: Moderate amount of ascites. D/ / Eduar Kenney MD / Eduar Kenney MD Interpreting Provider: Eduar Kenney MD - ABG Interpretation ABG results: PT/INR, D-dimer PT 28.0 Seconds (9.4-12.1) H 08/07/17 06:08 Consult Discharge Plan - Plan Referrals: Daniel Garcia MD [Primary Care Provider] - <SherrieOrlando L - Last Filed: 08/07/17 09:16> Date of Encounter: 08/07/17 - Time Spent With Patient Total time spent is greater than 50% in coordination of care (as documented) at patient's floor/unit and/or counseling patient: - Constitutional Vitals: Abnormal lab results WBC 4.0 K/mcL (4.3-11.1) L 08/07/17 06:08 RBC 3.44 M/mcL (4.19-5.50) L 08/07/17 06:08 Hgb 10.0 g/dL (12.9-16.9) L 08/07/17 06:08 Hct 31.7 % (37.5-50.1) L 08/07/17 06:08 MCHC 31.5 g/dL (31.6-35.5) L 08/07/17 06:08 ESR 66 mm/hr (0-10) H 08/04/17 00:45 PT 28.0 Seconds (9.4-12.1) H 08/07/17 06:08 BUN 79 mg/dL (8-26) H 08/07/17 06:08 Creatinine 2.49 mg/dL (0.72-1.25) H 08/07/17 06:08 Est GFR ( Amer) 30 (> 60) L 08/07/17 06:08 Est GFR (Non-Af Amer) 25 (> 60) L 08/07/17 06:08 BUN/Creatinine Ratio 32 (6-26) H 08/07/17 06:08 Calculated Osmolality 305 (280-300) H 08/07/17 06:08 Direct Bilirubin 0.7 mg/dL (0.0-0.5) H 08/05/17 03:23 C-Reactive Protein 89 mg/L (Less than 5) H 08/04/17 00:45 Albumin 2.6 g/dL (3.5-5.0) L 08/05/17 03:23 Globulin 4.2 g/dL (2.4-3.5) H 08/05/17 03:23 Albumin/Globulin Ratio 0.6 (1.1-2.2) L 08/05/17 03:23 - Attending Attestation I examined this patient and my medical decision-making was reviewed with the Resident Physician. I agree with the documented findings, disposition and treatment plan as described except to the extent set forth below. Palliative Quality Code Status: 08/03/17 03:29 Resuscitation Status: Active [RES] Routine Comment: short term intubation ok no thrach no peg Resuscitation Status: DNR-Comfort Care-Arrest - Labs CBC & Chem 7: 08/07/17 06:08 08/07/17 06:08 Labs: Laboratory Results - last 24 hr 08/07/17 08/07/17 08/07/17 06:08 06:08 06:08 WBC 4.0 L RBC 3.44 L Hgb 10.0 L Hct 31.7 L MCV 92.2 MCH 29.1 MCHC 31.5 L RDW 14.4 Plt Count 186 MPV 9.8 Immature Gran % 0.3 Seg Neutrophils % 62.2 Lymphocytes % 19.1 Monocytes % 11.6 Eosinophils % 5.8 Basophils % 1.0 Neutrophils # 2.5 Lymphocytes # 0.8 Monocytes # 0.5 Eosinophils # 0.2 Basophils # 0.0 PT 28.0 H INR 2.5 Sodium 136 Potassium 4.3 Chloride 106 Carbon Dioxide 22 BUN 79 H Creatinine 2.49 H Est GFR ( Amer) 30 L Est GFR (Non-Af Amer) 25 L BUN/Creatinine Ratio 32 H Glucose 87 Calculated Osmolality 305 H Calcium 9.1 Phosphorus 3.8 Magnesium 1.7 - Impressions Impressions Knee CT 08/05/17 11:30 IMPRESSION: 1. Large anterior soft tissue defect at the level of the patellar tendon with surrounding phlegmonous change. Evaluation for abscess is limited without contrast. There may be a small linear abscess along the medial aspect of the distal patellar tendon. 2. Status post patellar resection and removal of the tibial component of the knee arthroplasty. A spacer is in place. D/ / 08/05/2017 13:49:10 Cliff Hill MD / [facility] Interpreting Provider: Cliff Hill MD Abdomen Ultrasound 08/06/17 19:00
[2017-08-07] MEDS: Bumetanide 1 MG TABLET PO SCH ×2 (09:47→17:33)
[2017-08-07] MEDS: Doxycycline 100 MG CAPSULE PO SCH (09:48)
[2017-08-07] MEDS: Famotidine 20 MG TABLET PO SCH (09:48)
[2017-08-07] MEDS: Cholecalciferol (D-3) 1,000 UNIT TABLET PO SCH (09:48)
--- NOTE | 2017-08-07 14:21 | Infectious Disease Consult ---
Date of Encounter: 08/07/17 Time of Encounter: 14:18 Assessment and Plan (1) Sepsis Status: Acute Assessment and plan: The patient had two SIRS criteria on admission. Likely secondary to left knee infection. Improved. The patient has been afebrile and tachycardia has resolved. His WBC remains at baseline. Blood cultures drawn 08/03/17 are NGTD x 2 sets. Qualifiers: Sepsis type: sepsis due to unspecified organism Qualified Code(s): A41.9 - Sepsis, unspecified organism (2) Cellulitis Status: Acute Assessment and plan: Location: Left knee. Causative organism unclear. The patient has been afebrile and has responded well to IV Zosyn, so unlikely MRSA. Etiology unclear: new infection secondary to non-healing wound vs. recurrence of previous infection. ESR 67, CRP 88. CT scan of the left LE showed a soft tissue defect with phlegmonous changes and a possible small linear abscess, but the findings are limited due to the lack of IV contrast. Ortho consulted. Recommends left AKA, which the patient/his refuses at this time. The patient has failed IV antibiotic therapy followed by chronic oral suppressive therapy. I had a long discussion with the patient and his about the options at this point. We discussed the possibility of attempting to re-treat with IV antibiotics for another six weeks vs. AKA. The patient and his express concern about the patient's quality of life if he has the AKA as they feel he will not be a good candidate for prosthesis and he will have impaired wound healing and his quality of life will be severely impaired. I have expressed to them that I am concerned that despite repeating IV antibiotic therapy that he may have recurrence of infection again given that he has failed antibiotic therapy thus far. After a long discussion with the patient and his family, they request to repeat IV antibiotic therapy one more time with the understanding that we cannot continually have the patient on IV antibiotics and at some point there has to be an end. They verbalize understanding of this and are agreeable. Continue Zosyn 3.375 grams IV Q8H. The patient has done well on Zosyn, so I don't think we need to add Vanc at this time. Duration of treatment depends on the clinical picture, but likely 6 weeks of IV antibiotics. Consult VAT for EPIV placement. Monitor renal function and dose-adjust antibiotics. Qualifiers: Site of cellulitis: extremity Site of cellulitis of extremity: lower extremity Laterality: left Qualified Code(s): L03.116 - Cellulitis of left lower limb (3) Nonhealing surgical wound Status: Chronic Assessment and plan: Location: Left anterior knee. Follows with [facility]. Continue wound VAC per the wound care team recommendations. Qualifiers: Encounter type: subsequent encounter Qualified Code(s): T81.89XD - Other complications of procedures, not elsewhere classified, subsequent encounter (4) History of infection of total joint prosthesis of knee Status: Acute Assessment and plan: Status post left total knee replacement in 2010 followed by post-op infection. Had recurrence of infection 03/2017 and underwent removal of infected knee hardware with placement of an articulating spacer and patellectomy 04/08/[address] Casper. The patient's post-op course has been long and complicated due to impaired wound healing. He was treated with six weeks of IV antibiotics before being transitioned to chronic oral suppressive therapy. Ortho consulted and following. (5) Ascites Status: Chronic Assessment and plan: Likely secondary to liver cirrhosis. Abdominal UTS reveals moderate ascites. Scheduled to follow up with GI on 08/09/17. Qualifiers: Ascites type: other type Qualified Code(s): R18.8 - Other ascites (6) CKD (chronic kidney disease) Status: Chronic Qualifiers: Chronic kidney disease stage: stage 4 (severe) Qualified Code(s): N18.4 - Chronic kidney disease, stage 4 (severe) (7) Liver cirrhosis Status: Chronic Qualifiers: Hepatic cirrhosis type: unspecified hepatic cirrhosis Ascites presence: with ascites Qualified Code(s): K74.60 - Unspecified cirrhosis of liver (8) Amyloidosis Status: Chronic Assessment and plan: Follows with Dr. Gastelum at [facility]. Currently on doxycycline 100mg PO daily and Ursodiol. Qualifiers: Amyloidosis type: unspecified amyloidosis Qualified Code(s): E85.9 - Amyloidosis, unspecified (9) CHF (congestive heart failure) Status: Chronic Qualifiers: Congestive heart failure type: diastolic Congestive heart failure chronicity: chronic Qualified Code(s): I50.32 - Chronic diastolic (congestive ) heart failure Infectious Disease HPI - Data of Consult Patient: known to practice within the last 3 years Consult date: 08/07/17 Requesting Physician: Shraddha Morelos MD Primary Care Provider: Daniel Garcia MD - Consult Narrative Reason for consult: Left knee infection History of present illness: Mr. Rubio is a 77 year old male with a past medical history of hypertension , hypothyroidism, A. 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 The patient was admitted to the hospital August 03 for sepsis and left knee infection. We are consulted August 07 for further evaluation and treatment recommendations regarding left knee infection. Patient is a 77-year-old male, well-known to the infectious disease service as we've been consulted on his case in the past and have been continuing to follow with him as an outpatient for a left knee prosthetic joint infection diagnosed earlier this year. He completed his 6 week course of IV antibiotics and was switched to oral Keflex for chronic oral suppressive therapy as he is not a candidate go back to surgery in the event of a reinfection. He was referred to wound care for a non-healing left knee surgical wound. He was seen by wound care on Saturday due to the nonhealing wound to the left anterior knee. He states he had a bedside debridement and went back to the F and was feeling well until later that evening when he started developing fevers, chills, and rigors. The knee also became more erythematous, warm, and swollen. Upon arrival to the ER, he was febrile with a temperature of 100.2. He was also tachycardic. Laboratory studies revealed a normal white blood cell count. His ESR and CRP were elevated. Chest x-ray was negative. Urinalysis was obtained and was normal. Blood cultures were obtained x 2 sets. The patient was started empirically on IV Zosyn and he was admitted to the hospital for further evaluation and treatment. Since admission, the patient has been evaluated by the orthopedics team and they do not feel that the patient is a good candidate for further surgery on the left knee and recommend either further IV antibiotics or AKA. The patient's blood cultures are NGTD. The patient has been afebrile since admission and his WBC has remained at baseline. His knee appears to be back to baseline. Wound care team has been following. The patient has refused AKA. CT scan of the knee revealed a soft tissue defect with surrounding phlegmonous changes and a possible small linear abscess adjacent to the wound. Bilateral KEVIN studies were normal. During my exam today, the patient states that he feels 100% better. He does report chronic fatigue and malaise, but states that he has not had any fevers or chills or rigor since admission. He still denies any recent illness. He denies any headache or neck pain. He denies any congestion, earache, or sore throat. He denies any chest pain, shortness of breath, or cough. He denies any nausea, vomiting, diarrhea, or constipation. He denies back pain or urinary complaints. He denies pain in any of his extremities or back at this time. He denies the oral thrush or new skin lesions. He was in his usual state of health until all of this started on Saturday. He states his appetite has been good and denies any abdominal pain. He denies abdominal bloating. He denies any pain in the left knee. CC: Shraddha Morelos MD Past Med Surg Social Fam HX - Past Medical History Attestation: Yes The following information was validated with the patient. Source: patient, old records reviewed, obtained from family, nursing notes reviewed Medical history: arthritis, atrial fibrillation, cirrhosis, CHF, hyperlipidemia , hypertension, osteoporosis, renal disease, thyroid disease, other (Cardiac amyloidosis) Psychiatric history: no psych history - Past Surgical History Surgical History: orthopedic, other (most recent removal of hardware on 04/08/17) , other - Social History Smoking Status: Former smoker Smokeless Tobacco Status: No Alcohol use: none Drug use: none Occupational status: retired Current living situation: Home - Independent Activity Level: Uses cane/walker Recent Out of Country Travel Within the Last 8 Weeks: No Exposure or Possible Exposure to Illness During Travel: No - Family History Father History Unknown: Yes Adopted: Yes Living Status: Hx Family Cardiac Disorders: Yes Mother History Unknown: Yes Living Status: Hx Family Cardiac Disorders: Yes (heart disease) Infectious Disease-CN:Meds Ergocalciferol (VITAMIN D2) [Vitamin D2] 2,000 unit PO DAILY 02/05/17 [History] Levothyroxine [Synthroid] 88 mcg PO DAILY 02/05/17 [History] Ursodiol 300 mg PO Q12H 04/08/17 [History] Famotidine [Pepcid] 20 mg PO DAILY tablet 04/13/17 [Rx] Acetaminophen/Diphenhydramine [Acetaminophen Pm Caplet] 1 tab PO HS 07/19/17 [ History] Lisinopril [Zestril] 5 mg PO DAILY 07/19/17 [History] Melatonin [Melatin] 3 mg PO HS 07/19/17 [History] Multivitamin [Multivitamins] 1 cap PO DAILY 07/19/17 [History] Warfarin [Coumadin] 5 mg PO DAILY 07/19/17 [History] Cefotaxime [Claforan] 1 g IVPB Q8HR #10 vial 07/25/17 [Rx] Bumetanide [Bumex] 0.5 mg PO BIDDIURETIC tab 07/28/17 [Rx] Zolpidem [Ambien] 10 mg PO HS PRN tab 07/28/17 [Rx] Cephalexin [Keflex] 500 mg PO Q12H 08/02/17 [History] Doxycycline Monohydrate [Mondoxyne Nl] 100 mg PO DAILY 08/02/17 [History] Mirtazapine [Remeron] 15 mg PO DAILY 08/02/17 [History] 3 Allergy/AdvReac Type Severity Reaction Status Date / Time No Known Allergies Allergy Verified 04/08/17 10:20 All systems: reviewed and no additional remarkable complaints except as stated Exam - Constitutional Vitals: Temp Pulse Resp BP Pulse Ox 97.6 F 84 16 106/69 99 08/07/17 11:21 08/07/17 11:21 08/07/17 11:21 08/07/17 11:21 08/07/17 11:21 General appearance: average body habitus, cooperative, no acute distress - Head Head exam: Present: atraumatic, normal inspection, normocephalic - Eye Eye exam: Present: EOMI, normal appearance, PERRL Pupils: Present: normal accommodation - ENT ENT exam: Present: mucous membranes moist - Neck Neck exam: Present: normal inspection - Respiratory Respiratory exam: Present: CTAB. Absent: rales, respiratory distress, rhonchi, wheezes - Cardiovascular Cardiovascular exam: Present: irregular rhythm. Absent: tachycardia - GI/Abdominal GI/Abdominal exam: Present: distended, normal bowel sounds, soft. Absent: tenderness - Expanded Lower Extremity Exam 1 - Edema, chronic discoloration of skin. No warmth or tenderness noted. Unable to assess ROM. 2 - Non-healing surgical wound. Wound VAC dressing intact with sponge well- compressed. No drainage noted. - Neurological Exam Neurological exam: Present: alert, oriented X3, no focal deficits - Psychiatric Psychiatric exam: Present: normal affect, normal mood - Skin Skin exam: Present: dry, intact, normal color, warm Infectious Disease CN: Results - Labs CBC & Chem 7: 08/07/17 06:08 08/07/17 06:08 Cultures: Cultures 08/03/17 01:35 Blood Culture - Preliminary Peripheral Venipuncture No growth. 08/03/17 01:35 Blood Culture - Preliminary Peripheral Venipuncture No growth. Consult Discharge Plan - Plan Referrals: Daniel Garcia MD [Primary Care Provider] -
--- NOTE | 2017-08-07 14:29 | Internal Med Progress Note ---
Date of Encounter: 08/07/17 Time of Encounter: 14:26 - Assessment and plan (1) Sepsis Current Visit: No Status: Acute Assessment and plan: Pt did meet sepsis criteria with Fever and source of inf as Left knee. elevated ESR and CRP His source of infection mostly from Left Knee Reviewed Dr. Casper's notes, suggesting of IV abx and Possible AKA Consulted surgery for further eval..Spoke to Dr. Cantrell.. Recommend CT of Left knee for further evaluation CT of Knee showing possible abscess.. Since he was growing Group B Strep agalactea in the past, will cont empirical abx Zosyn for now so far his blood cx x 2 negative At this time patient and family wish to try IV abx therapy and only use AKA as a last resort Infectious disease on board and awaiting recommendations Arterial doppler - normal and hemodynamically well maintained KEVIN 1.46 in each leg Palliative care team consultation appreciated Code status: [id number] Qualifiers: Qualified Code(s): A41.9 - Sepsis, unspecified organism (2) Infection of prosthetic left knee joint Current Visit: No Status: Acute Assessment and plan: see above Ortho and Surgery on board Qualifiers: Qualified Code(s): T84.54XA - Infection and inflammatory reaction due to internal left knee prosthesis, initial encounter (3) A-fib Current Visit: No Status: Acute Assessment and plan: Rate well controlled with low dose of metoprolol 12.5mg BID Cont Coumadin for anticoag Consulted Pharmacy for dosing monitor INR, goal INR: 2-3 Qualifiers: Qualified Code(s): I48.2 - Chronic atrial fibrillation (4) 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 continue prophylactic abx dose Doxycycline Qualifiers: Qualified Code(s): E85.9 - Amyloidosis, unspecified (5) Ascites Current Visit: No Status: Chronic Assessment and plan: worsening ascites however clinically asymptomatic Abd US: moderate fluid, will closely monitor GI consultation requested for underlying cirrhosis of the liver Qualifiers: Qualified Code(s): R18.8 - Other ascites (6) CHF (congestive heart failure) Current Visit: No Status: Chronic Assessment and plan: not in acute exacerbation continue home meds Qualifiers: Qualified Code(s): I50.32 - Chronic diastolic (congestive) heart failure (7) CKD (chronic kidney disease) Current Visit: No Status: Chronic Qualifiers: Qualified Code(s): N18.4 - Chronic kidney disease, stage 4 (severe) (8) DVT prophylaxis Current Visit: No Status: Acute Assessment and plan: anticoagulated with Coumadin (9) Hypertension Current Visit: No Status: Chronic Assessment and plan: BP within acceptable range continue home meds Qualifiers: Qualified Code(s): I10 - Essential (primary) hypertension (10) Liver cirrhosis Current Visit: No Status: Chronic Assessment and plan: mostly due to Amyloidosis Qualifiers: Qualified Code(s): K74.60 - Unspecified cirrhosis of liver (11) SBP (spontaneous bacterial peritonitis) Current Visit: No Status: Acute Assessment and plan: Fluid cx - did not grow any bacteria Was treated with full course of abx Currently no abdominal pain..no signs of peritonitis - Subjective Interval history: Mr. 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 Casper. He was recently admitted in the hospital for Severe sepsis possible due to Left knee infection and ?? SBP peritonitis. He was treated with Cefotaxime IV abx 10 days course. Now he was brought back to ER with fever t max 102and worsening swelling and erythema in Left knee. Patient seen and examined with present at bedside. Pt is sitting in chair and denies any discomfort at this time. Him and his are adamant about doing a trial of IV abx and are against AKA. Patient's states that she received a call from Dr. Lozoya's office yesterday in regards to patient's appointment on Saturday. As per the , the nurse from Dr. Lozoya's office asked to get GI on board while the patient is hospitalized. Patient's is hostile and demanding that the patient be seen by GI. - Constitutional Vitals: Temp Pulse Resp BP Pulse Ox 97.6 F 84 16 106/69 99 08/07/17 11:21 08/07/17 11:21 08/07/17 11:21 08/07/17 11:21 08/07/17 11:21 General appearance: Present: A&O X 3 (frail appearing elderly male), pleasant, no acute distress, answers questions appropriately - Head Head exam: Present: atraumatic, normocephalic - Eye Eye exam: Present: conjuntiva pink, sclera anicteric - Respiratory Respiratory exam: Present: CTAB. Absent: respiratory distress, wheezes - Cardiovascular Cardiovascular exam: Present: RRR, +S1, +S2. Absent: diastolic murmur, gallop, rubs, systolic murmur - GI/Abdominal GI/Abdominal exam: Present: distended (diffuse ascites), normal bowel sounds, soft. Absent: tenderness - Extremities Exam Extremities exam: Present: warm, radial pulses palpable and symmetrical (left knee wound vac intact). Absent: calf tenderness - Neurological Exam Neurological exam: Present: alert, oriented X3 - Psychiatric Psychiatric exam: Present: normal affect, normal mood Internal Medicine: Result - Labs CBC & Chem 7: 08/07/17 06:08 08/07/17 06:08 Labs: Short CBC 08/07/17 Range/Units 06:08 WBC 4.0 L (4.3-11.1) K/mcL Hgb 10.0 L (12.9-16.9) g/dL Hct 31.7 L (37.5-50.1) % Plt Count 186 (140-400) K/mcL Neutrophils # 2.5 (1.6-8.9) K/mcL BMP 08/07/17 06:08 Sodium 136 Potassium 4.3 Chloride 106 Carbon Dioxide 22 BUN 79 H Creatinine 2.49 H Glucose 87 Calcium 9.1 - ABG Interpretation ABG results: PT/INR, D-dimer PT 28.0 Seconds (9.4-12.1) H 08/07/17 06:08 - Impressions Impressions Abdomen Ultrasound 08/06/17 19:00 IMPRESSION: Moderate amount of ascites. D/ / Eduar Kenney MD / Eduar Kenney MD Interpreting Provider: Eduar Kenney MD Consult Discharge Plan - Plan Referrals: Daniel Garcia MD [Primary Care Provider] -
--- NOTE | 2017-08-07 14:53 | General Surgery Progress Note ---
<Carolyn Arce - Last Filed: 08/07/17 14:46> Date of Encounter: 08/07/17 Time of Encounter: 13:45 - Assessment and Plan (1) Nonhealing surgical wound Current Visit: Yes Status: Chronic Continue antibiotics- currently on Zosyn and doxycycline Dr. Espinoza discussed options of IV antibiotics vs. amputation for treatment of the left knee at length. He ultimately feels that IV antibiotics are a short term solution and that the patient will continue to have recurrent infection. The patient and his verbalized understanding and would like to continue with conservative therapy at this time. May consider AKA only if patient fails with IV antibiotic treatment. Continue wound vac therapy- changed today (wound measures 3 X 5 X 0.2cm) Arterial studies of LLE complete and reviewed per Dr. Espinoza Supportive care May follow-up in wound care with Dr. Espinoza in 1-2 weeks Surgery will sign off at this time. Please call with any further questions/ concerns. Subjective Patient reports: no new complaints, afebrile Objective Vital Signs - Last 8 Hours Temp Pulse Resp BP Pulse Ox 08/07/17 11:21 97.6 F 84 16 106/69 99 08/07/17 07:40 98.2 F 74 18 108/70 95 Intake and Output 08/06/17 08/07/17 08/07/17 23:59 07:59 15:59 Intake Total 440 / 440 0 / 0 460 / 460 Output Total 625 / 625 230 / 230 0 / 0 Balance -185 / -185 -230 / -230 460 / 460 Intake: IV Fluids 200 / 200 100 / 100 Zosyn 3.375 GM In 200 / 200 100 / 100 Dextrose 5% (Minibag+) 100 ML 100 ML @ 25 mls/hr IVPB Q8H [facility] Rx#: [id number] Oral 240 / 240 0 / 0 360 / 360 Output: Urine 625 / 625 225 / 225 0 / 0 Wound Drainage 5 / 5 Left Knee 5 / 5 Other: Meal Dinner Lunch Percent of Meal Consumed 75% 50% Stool Size Moderate Stool Consistency loose soft Stool Color Brown # Voids 1 1 # Bowel Movements 0 1 Weight 103.9 kg Patient Weight 08/07/17 23:59 Weight 103.9 kg - General physical appearance well developed, well nourished, no distress, chronically ill - Eyes normal ocular movement - ENT normal mucosa, atraumatic, normocephalic - Neck Neck exam: trachea midline - Respiratory normal respiratory effort, clear to auscultation - Cardiovascular Cardiovascular exam: Present: RRR - Abdomen Abdomen: Present: soft, non tender - Incision Incision: Present: open (left knee with wound vac intact- plan to change today, small amount of serous drainage noted) - Neurologic CN 2-12 grossly intact - Musculoskeletal other (deconditioning noted) - Psychiatric oriented to time, oriented to person, oriented to place, speech is normal, memory intact - Labs 08/07/17 06:08 08/07/17 06:08 Diabetes panel 08/07/17 Range/Units 06:08 Sodium 136 (136-145) mEq/L Potassium 4.3 (3.5-4.5) mEq/L Chloride 106 (98-109) mEq/L Carbon Dioxide 22 (19-29) mEq/L BUN 79 H (8-26) mg/dL Creatinine 2.49 H (0.72-1.25) mg/dL Glucose 87 (70-99) mg/dL Calcium 9.1 (8.6-10.8) mg/dL Calcium panel 08/07/17 Range/Units 06:08 Calcium 9.1 (8.6-10.8) mg/dL Phosphorus 3.8 (2.3-4.7) mg/dL Pituitary panel 08/07/17 Range/Units 06:08 Sodium 136 (136-145) mEq/L Potassium 4.3 (3.5-4.5) mEq/L Chloride 106 (98-109) mEq/L Carbon Dioxide 22 (19-29) mEq/L BUN 79 H (8-26) mg/dL Creatinine 2.49 H (0.72-1.25) mg/dL Glucose 87 (70-99) mg/dL Calcium 9.1 (8.6-10.8) mg/dL Adrenal panel 08/07/17 Range/Units 06:08 Sodium 136 (136-145) mEq/L Potassium 4.3 (3.5-4.5) mEq/L Chloride 106 (98-109) mEq/L Carbon Dioxide 22 (19-29) mEq/L BUN 79 H (8-26) mg/dL Creatinine 2.49 H (0.72-1.25) mg/dL Glucose 87 (70-99) mg/dL Calcium 9.1 (8.6-10.8) mg/dL Consult Discharge Plan - Plan Referrals: Daniel Garcia MD [Primary Care Provider] - Deuce Espinoza MD [Partnered Physician] - 08/19/17 10:15 am ([facility] ) <Deuce Espinoza - Last Filed: 08/08/17 09:15> Date of Encounter: 08/08/17 Objective Vital Signs - Last 8 Hours Temp Pulse Resp BP Pulse Ox 08/08/17 08:04 98.0 F 83 16 116/66 94 08/08/17 03:58 98.2 F 82 18 100/67 92 Intake and Output 08/07/17 08/08/17 08/08/17 23:59 07:59 15:59 Intake Total 500 / 500 60 / 60 Output Total 700 / 700 500 / 500 Balance -200 / -200 -440 / -440 Intake: IV Fluids 200 / 200 Zosyn 3.375 GM In 200 / 200 Dextrose 5% (Minibag+) 100 ML 100 ML @ 25 mls/hr IVPB Q8H [facility] Rx#: [id number] Oral 300 / 300 60 / 60 Output: Urine 700 / 700 500 / 500 Other: Meal Dinner Percent of Meal Consumed 50% Weight 102.2 kg Patient Weight 08/08/17 23:59 Weight 102.2 kg - Labs 08/08/17 04:55 08/08/17 08:04 Diabetes panel 08/08/17 Range/Units 08:04 Sodium 137 (136-145) mEq/L Potassium 4.1 (3.5-4.5) mEq/L Chloride 106 (98-109) mEq/L Carbon Dioxide 22 (19-29) mEq/L BUN 78 H (8-26) mg/dL Creatinine 2.42 H (0.72-1.25) mg/dL Glucose 84 (70-99) mg/dL Calcium 9.1 (8.6-10.8) mg/dL Calcium panel 08/08/17 Range/Units 08:04 Calcium 9.1 (8.6-10.8) mg/dL Phosphorus 4.0 (2.3-4.7) mg/dL Pituitary panel 08/08/17 Range/Units 08:04 Sodium 137 (136-145) mEq/L Potassium 4.1 (3.5-4.5) mEq/L Chloride 106 (98-109) mEq/L Carbon Dioxide 22 (19-29) mEq/L BUN 78 H (8-26) mg/dL Creatinine 2.42 H (0.72-1.25) mg/dL Glucose 84 (70-99) mg/dL Calcium 9.1 (8.6-10.8) mg/dL Adrenal panel 08/08/17 Range/Units 08:04 Sodium 137 (136-145) mEq/L Potassium 4.1 (3.5-4.5) mEq/L Chloride 106 (98-109) mEq/L Carbon Dioxide 22 (19-29) mEq/L BUN 78 H (8-26) mg/dL Creatinine 2.42 H (0.72-1.25) mg/dL Glucose 84 (70-99) mg/dL Calcium 9.1 (8.6-10.8) mg/dL - Attending Attestation have personally performed a face to face evaluation on this patient. I have reviewed and agree with the care plan. History and Exam by me shows: I evaluated the patient performed physical examination and a long discussion with the patient and his family. He has had multiple problems with infected total knee prosthesis he now has a large open wound with exposed capsule. He has had multiple courses of antibiotic. He has had hardware removed. Orthopedic surgery does not feel that any further surgery is indicated due to loss of soft tissue. After reviewing all the records, there are 2 possible course of action. One is a pale at his course of antibiotics to suppress the chronic infection in the right knee this approach cannot be considered curative but palliative. This allowed the patient to go home and go about his usual activities until a complication from the antibiotics occurs the other option is above-knee amputation. The patient family asked appropriate questions and were upset by the degree of disfigurement that this would result in. This is understandable. We will continue to offer this is an option for the patient. Certainly we will respect their decision as to whether the tissues palliative antibiotics were above-knee amputation. I also offered him transferred to [facility] for another opinion.
[2017-08-07] MEDS ORDERED: *HR* Warfarin 3 MG TABLET PO ONE (18:00)
[2017-08-07] MEDS: Mirtazapine 15 MG TABLET PO SCH (21:13)
[2017-08-07] MEDS: Lactobacillus 1 EACH CAP.SPRINK PO SCH (21:13)
[2017-08-08] MEDS: Piperacillin/Tazobactam 3.375 GM in D5% in Water (Mini-Bag+) 100 ML IVPB SCH ×3 (03:21→20:55)
[2017-08-08 07:26] LABS: INR 2.2; Prothrombin Time 23.7 Seconds (9.4-12.1)
[2017-08-08 08:06] LABS: Basophils % 0.7 %; Eosinophils # 0.2 K/mcL (0.0-0.6); Eosinophils % 5.9 %; Hematocrit 30.4 % (37.5-50.1); Hemoglobin 9.6 g/dL (12.9-16.9); Immature Granulocytes % 0.7 % (0-4); Lymphocytes # 0.8 K/mcL (0.6-4.6); Lymphocytes % 19.8 %; Mean Corpuscular HGB Conc 31.6 g/dL (31.6-35.5); Mean Corpuscular Hemoglobin 29.1 pg (28.0-33.3); Mean Corpuscular Volume 92.1 fL (83.0-100.0); Mean Platelet Volume 10.1 fL (9.4-12.4); Monocytes # 0.4 K/mcL (0.0-1.3); Monocytes % 10.1 %; Neutrophils # 2.5 K/mcL (1.6-8.9); Platelet Count 200 K/mcL (140-400); Red Cell Distribution Width 14.3 % (11.5-14.5); Segmented Neutrophils % 62.8 %
--- NOTE | 2017-08-08 08:39 | Palliative Progress Note ---
Date of Encounter: 08/08/17 Time of Encounter: 07:25 - Assessment and plan (1) Sepsis Current Visit: No Status: Acute Assessment and plan: Blood cultures are negative, patient is afebrile, white blood cell count is not elevated. CT report, is suggestive of an abscess in the knee. Patient has been seen by infectious disease as well as general surgery. It is felt that the source of the inflammatory response is from the left knee. Options discussed with the family have included continued IV antibiotics versus above the left knee amputation. At this time patient and family wish to complete antibiotic therapy and then consider amputation if that fails. He prevailing medical opinion in the medical record appears to be that there is little chance of the IV antibiotics will prevail and the amputation will end up being necessary. he does understand that, and wishes to proceed with the plan of antibiotics first and then amputation if needed. Qualifiers: Sepsis type: sepsis due to unspecified organism Qualified Code(s): A41.9 - Sepsis, unspecified organism (2) Amyloidosis Current Visit: No Status: Chronic Assessment and plan: Chronic, and diagnosed back in December of this year. Definitely life limiting , however the patient may have several years left to live. The patient is being followed by [facility] for this, and I do not know what expectations they have given he and his family regarding long-term prognosis. Qualifiers: Amyloidosis type: unspecified amyloidosis Qualified Code(s): E85.9 - Amyloidosis, unspecified (3) Nonhealing surgical wound Current Visit: Yes Status: Chronic Assessment and plan: Seen by surgery, they believe that IV antibiotics will hold things at bay for a short period of time but that the infection will recur, requiring amputation. Patient does understand that prevailing medical opinion is that the antibiotics will not end up working an amputation will be required. Qualifiers: Encounter type: subsequent encounter Qualified Code(s): T81.89XD - Other complications of procedures, not elsewhere classified, subsequent encounter (4) Goals of care, counseling/discussion Current Visit: Yes Status: Acute Assessment and plan: Patient is DNR CCA, okay with short-term intubation. He does want to continue with IV antibiotics for his knee, he does understand that the prevailing opinion is that the antibiotics are not going to work overall. - Time Spent With Patient Total time spent is greater than 50% in coordination of care (as documented) at patient's floor/unit and/or counseling patient: - Subjective Interval history: The patient has no complaints of this morning. He admits that he was disappointed in the opinions given to him yesterday. At this time he does wish to continue the antibiotic therapy and consider amputation if this fails. He does understand that the prevailing opinion is that it will. - Constitutional Vitals: Abnormal lab results WBC 4.1 K/mcL (4.3-11.1) L 08/08/17 04:55 RBC 3.30 M/mcL (4.19-5.50) L 08/08/17 04:55 Hgb 9.6 g/dL (12.9-16.9) L 08/08/17 04:55 Hct 30.4 % (37.5-50.1) L 08/08/17 04:55 ESR 66 mm/hr (0-10) H 08/04/17 00:45 PT 23.7 Seconds (9.4-12.1) H 08/08/17 04:55 BUN 79 mg/dL (8-26) H 08/07/17 06:08 Creatinine 2.49 mg/dL (0.72-1.25) H 08/07/17 06:08 Est GFR ( Amer) 30 (> 60) L 08/07/17 06:08 Est GFR (Non-Af Amer) 25 (> 60) L 08/07/17 06:08 BUN/Creatinine Ratio 32 (6-26) H 08/07/17 06:08 Calculated Osmolality 305 (280-300) H 08/07/17 06:08 Direct Bilirubin 0.7 mg/dL (0.0-0.5) H 08/05/17 03:23 C-Reactive Protein 89 mg/L (Less than 5) H 08/04/17 00:45 Albumin 2.6 g/dL (3.5-5.0) L 08/05/17 03:23 Globulin 4.2 g/dL (2.4-3.5) H 08/05/17 03:23 Albumin/Globulin Ratio 0.6 (1.1-2.2) L 08/05/17 03:23 General appearance: Present: no acute distress - Head Head exam: Present: atraumatic, normal inspection - Eye Eye exam: Present: normal appearance - ENT ENT exam: Present: mucous membranes moist - Neck Neck exam: Present: normal inspection - Respiratory Respiratory exam: Present: CTAB - Cardiovascular Cardiovascular exam: Present: RRR - GI/Abdominal GI/Abdominal exam: Present: normal bowel sounds, soft. Absent: tenderness - Extremities Exam Extremities exam: Absent: normal inspection - Neurological Exam Neurological exam: Present: alert, oriented X3 - Psychiatric Psychiatric exam: Present: normal affect, normal mood. Absent: agitated, anxious - Skin Skin exam: Present: dry, warm Palliative Quality Palliative Quality: Screen for Code Status: Yes, Screen for Goals of Care: Yes, Screen for Pain: Yes, If Pain Regimen Started, Initiate Bowel Regimen: NA, Screen for Nausea/Vomitting: Yes Code Status: 08/03/17 03:29 Resuscitation Status: Active [RES] Routine Comment: short term intubation ok no thrach no peg Resuscitation Status: DNR-Comfort Care-Arrest - Labs CBC & Chem 7: 08/08/17 04:55 08/07/17 06:08 Labs: Laboratory Results - last 24 hr 08/08/17 08/08/17 08/08/17 04:55 04:55 04:55 WBC 4.1 L RBC 3.30 L Hgb 9.6 L Hct 30.4 L MCV 92.1 MCH 29.1 MCHC 31.6 RDW 14.3 Plt Count 200 MPV 10.1 Immature Gran % 0.7 Seg Neutrophils % 62.8 Lymphocytes % 19.8 Monocytes % 10.1 Eosinophils % 5.9 Basophils % 0.7 Neutrophils # 2.5 Lymphocytes # 0.8 Monocytes # 0.4 Eosinophils # 0.2 Basophils # 0.0 PT 23.7 H INR 2.2 Specimen Rejected Miscellaneous - ABG Interpretation ABG results: PT/INR, D-dimer PT 23.7 Seconds (9.4-12.1) H 08/08/17 04:55 Consult Discharge Plan - Plan Referrals: Deuce Espinoza MD [Partnered Physician] - 08/19/17 10:15 am ([facility] ) Daniel Garcia MD [Primary Care Provider] -
[2017-08-08 08:58] LABS: Calcium 9.1 mg/dL (8.6-10.8); Magnesium 1.8 mg/dL (1.6-2.6); Potassium 4.1 mEq/L (3.5-4.5)
[2017-08-08] MEDS: Lactobacillus 1 EACH CAP.SPRINK PO SCH ×2 (09:00→20:55)
[2017-08-08] MEDS: Doxycycline 100 MG CAPSULE PO SCH (09:00)
[2017-08-08] MEDS: Famotidine 20 MG TABLET PO SCH (09:00)
[2017-08-08] MEDS: Bumetanide 1 MG TABLET PO SCH ×2 (09:00→17:47)
[2017-08-08] MEDS: Cholecalciferol (D-3) 1,000 UNIT TABLET PO SCH (09:00)
--- NOTE | 2017-08-08 13:52 | Gastroenterology Consult Note ---
<KhariKaryn son - Last Filed: 08/08/17 18:22> Date of Encounter: 08/08/17 Time of Encounter: 13:40 - Assessment and plan (1) Liver cirrhosis Current Visit: No Status: Chronic Assessment and plan: CT abdomen/pelvis on 07/20/17 shows cirrhosis with ascites, diverticulosis, left nephrolithiasis. Etiology likely secondary to Amyloidosis. patient denies history of alcoholism, IV drug use, recent travel, history of hepatitis. LFTs and bili within normal limits. Albumin 2.7. patient is not a liver transplant candidate due to multiple comorbidities. Plan: check AMA, TAMMY, ferritin levels. follow up outpatient with GI in 2-4 weeks. Follow up with nephrology outpatient, fluid status management per nephro after ABX course complete for septic joint, he needs cipro 250 q48H for SBP prophylaxis. patient would benefit from nutrition consult, can be done outpatient. if ascites gets worse, needs paracentesis. he needs screening EGD for varices- can be scheduled outpatient. patient needs abdominal ultrasound q6 months for hepatoma screening. Qualifiers: Hepatic cirrhosis type: unspecified hepatic cirrhosis Ascites presence: with ascites Qualified Code(s): K74.60 - Unspecified cirrhosis of liver (2) Ascites Current Visit: No Status: Chronic Assessment and plan: plan as above. Qualifiers: Ascites type: other type Qualified Code(s): R18.8 - Other ascites - Time Spent With Patient Total time spent is greater than 50% in coordination of care (as documented) at patient's floor/unit and/or counseling patient: GI History of Present Illness - Data of Consult Requesting Physician: Shraddha Morelos MD - Consult Narrative History of present illness: Mr. Rubio is a 77 year old male with PMHx of arthritis, Afib (on coumadin) , CHF, HLD, HTN, cardiac amyloidosis (on doxycycline, managed at [facility]), osteoporosis, renal disease, hypothyroidism. Patient arrived to [facility] on 08/03/17 with chief complaint of fever of 102.4, which he had at the senior living. patient was admitted with concern of sepsis secondary septic knee joint. Patient sees Dr. Casper for his septic joint and is on Keflex for this. He is currently being treated with antibiotics with possible Above the knee amputation if no improvement, as he has been having infected left knee joint since March of this year. Patient was recently diagnosed with ascites after paracentesis about two weeks ago during last hospital admission, when he was diagnosed with SBP and treated with cefotaxime and albumin. At that time, he had about 2.6 L fluid removed. GI was consulted at the request of the family. Patient states he had never been diagnosed with cirrhosis before, he denies history of hepatitis, alcoholism, history of IV drug use, recent travel. he currently denies abdominal pain, nausea, vomiting, diarrhea. he does admit to occasional fevers and chills. he denies chest pain, shortness of breath, blood in stool/dark tarry stools. he denies any hematemesis or vomiting in general. Past Med Surg Social Fam HX - Past Medical History Medical history: arthritis, atrial fibrillation, cirrhosis, CHF, hyperlipidemia , hypertension, osteoporosis, renal disease, thyroid disease, other (Cardiac amyloidosis) Psychiatric history: no psych history - Past Surgical History Surgical History: orthopedic, other (most recent removal of hardware on 04/08/17) , other - Social History Smoking Status: Former smoker Smokeless Tobacco Status: No Alcohol use: none Drug use: none - Family History Father History Unknown: Yes Adopted: Yes Living Status: Hx Family Cardiac Disorders: Yes Mother History Unknown: Yes Living Status: Hx Family Cardiac Disorders: Yes (heart disease) All systems PM: reviewed and no additional remarkable complaints except as stated - Constitutional Vitals: Temp Pulse Resp BP Pulse Ox 98.0 F 70 15 104/69 97 08/08/17 12:05 08/08/17 12:05 08/08/17 12:05 08/08/17 12:05 08/08/17 12:05 General appearance: Present: A&O X 3, pleasant, no acute distress, answers questions appropriately - Head Head exam: Present: atraumatic, normocephalic - Neck Neck exam general surgery: Present: supple, trachea midline - Respiratory Respiratory exam: Present: CTAB - Cardiovascular Cardiovascular exam: Present: RRR, +S1, +S2 - GI/Abdominal GI/Abdominal exam: Present: distended, firm, hypoactive bowel sounds, no peritoneal signs. Absent: tenderness Additional comments: firm abdomen with distention present. - Extremities Exam Additional comments: upper and lower extremity significant bruising present. left knee wound vac present. left knee is in a cast with significant swelling and pustular material seen below skin surface. - Other Additional findings: scrotum appears significantly swollen. Results - Labs CBC & Chem 7: 08/08/17 04:55 08/08/17 08:04 Labs: Last Result ESR 66 mm/hr (0-10) H 08/04/17 00:45 Calcium 9.1 mg/dL (8.6-10.8) 08/08/17 08:04 C-Reactive Protein 89 mg/L (Less than 5) H 08/04/17 00:45 Entire Visit Hgb 9.6 g/dL (12.9-16.9) L 08/08/17 04:55 Hct 30.4 % (37.5-50.1) L 08/08/17 04:55 PT 23.7 Seconds (9.4-12.1) H 08/08/17 04:55 Total Bilirubin 1.2 mg/dL (0.2-1.2) 08/05/17 03:23 AST 20 Units/L (5-34) 08/05/17 03:23 ALT < 6 Units/L (0-55) 08/05/17 03:23 - ABG ABG results: PT/INR, D-dimer PT 23.7 Seconds (9.4-12.1) H 08/08/17 04:55 Consult Discharge Plan - Plan Referrals: Deuce Espinoza MD [Partnered Physician] - 08/19/17 10:15 am ([facility] ) Britt Archer CNP [Advanced Practice Nurse] - 08/21/17 9:00 am Daniel Garcia MD [Primary Care Provider] - Prescriptions: Yjnibxznhwia-Mihq-Ujditcqh,Iso [Zosyn 4.5 gm/100 ml Galaxy Bag] 4.5 gm IV Q8H 42 Days <Gaston Lozoya - Last Filed: 08/08/17 18:33> Date of Encounter: 08/08/17 Time of Encounter: 18:00 - Time Spent With Patient Total time spent is greater than 50% in coordination of care (as documented) at patient's floor/unit and/or counseling patient: GI History of Present Illness - Data of Consult Requesting Physician: Shraddha Morelos MD - Consult Narrative History of present illness: Mr. Rubio is a 77 year old male - Constitutional Vitals: Temp Pulse Resp BP Pulse Ox 98.0 F 70 15 104/69 97 08/08/17 12:05 08/08/17 12:05 08/08/17 12:05 08/08/17 12:05 08/08/17 12:05 Results - Labs CBC & Chem 7: 08/08/17 04:55 08/08/17 08:04 Labs: Last Result ESR 66 mm/hr (0-10) H 08/04/17 00:45 Calcium 9.1 mg/dL (8.6-10.8) 08/08/17 08:04 C-Reactive Protein 89 mg/L (Less than 5) H 08/04/17 00:45 Entire Visit Hgb 9.6 g/dL (12.9-16.9) L 08/08/17 04:55 Hct 30.4 % (37.5-50.1) L 08/08/17 04:55 PT 23.7 Seconds (9.4-12.1) H 08/08/17 04:55 Total Bilirubin 1.2 mg/dL (0.2-1.2) 08/05/17 03:23 AST 20 Units/L (5-34) 08/05/17 03:23 ALT < 6 Units/L (0-55) 08/05/17 03:23 - ABG ABG results: PT/INR, D-dimer PT 23.7 Seconds (9.4-12.1) H 08/08/17 04:55 - Attending Attestation I examined this patient and my medical decision-making was reviewed with the Resident Physician. I agree with the documented findings, disposition and treatment plan as described except to the extent set forth below.
--- NOTE | 2017-08-08 14:01 | Infectious Disease Progress No ---
Date of Encounter: 08/08/17 Time of Encounter: 13:59 - Assessment and Plan (1) Sepsis Current Visit: No Status: Acute The patient had two SIRS criteria on admission. Likely secondary to left knee infection. Improved. The patient has been afebrile and tachycardia has resolved. His WBC remains at baseline. Blood cultures drawn 08/03/17 are negative x 2 sets. Qualifiers: Sepsis type: sepsis due to unspecified organism Qualified Code(s): A41.9 - Sepsis, unspecified organism (2) Cellulitis Current Visit: Yes Status: Acute Location: Left knee. Causative organism unclear. The patient has been afebrile and has responded well to IV Zosyn, so unlikely MRSA. Etiology unclear: new infection secondary to non-healing wound vs. recurrence of previous infection. ESR 67, CRP 88. CT scan of the left LE showed a soft tissue defect with phlegmonous changes and a possible small linear abscess, but the findings are limited due to the lack of IV contrast. Ortho consulted. Recommends left AKA, which the patient/his refuses at this time. The patient has failed IV antibiotic therapy followed by chronic oral suppressive therapy. Continue Zosyn 3.375 grams IV Q8H. The patient has done well on Zosyn, so I don't think we need to add Vanc at this time. Duration of treatment depends on the clinical picture, but likely 6 weeks of IV antibiotics. We will plan on sending him to rehab with Zosyn 4.5grams IV Q8H since they do 30 minute infusions vs. 4 hour infusions. Monitor renal function and dose-adjust antibiotics. Get weekly CBC, BUN/Cr, ESR, and CRP every Saturday for the duration of treatment. Weekly EPIV care for the duration of therapy. Follow up with ID 08/21/17 at 0900. Qualifiers: Site of cellulitis: extremity Site of cellulitis of extremity: lower extremity Laterality: left Qualified Code(s): L03.116 - Cellulitis of left lower limb (3) Nonhealing surgical wound Current Visit: Yes Status: Chronic Location: Left anterior knee. Follows with [facility]. Continue wound VAC per the wound care team recommendations. Qualifiers: Encounter type: subsequent encounter Qualified Code(s): T81.89XD - Other complications of procedures, not elsewhere classified, subsequent encounter (4) History of infection of total joint prosthesis of knee Current Visit: No Status: Acute Status post left total knee replacement in 2010 followed by post-op infection. Had recurrence of infection 03/2017 and underwent removal of infected knee hardware with placement of an articulating spacer and patellectomy 04/08/[address] Casper. The patient's post-op course has been long and complicated due to impaired wound healing. He was treated with six weeks of IV antibiotics before being transitioned to chronic oral suppressive therapy. Ortho consulted and following. (5) Ascites Current Visit: No Status: Chronic Likely secondary to liver cirrhosis. Abdominal UTS reveals moderate ascites. GI consulted. Await recommendations. Qualifiers: Ascites type: other type Qualified Code(s): R18.8 - Other ascites (6) CKD (chronic kidney disease) Current Visit: No Status: Chronic Qualifiers: Chronic kidney disease stage: stage 4 (severe) Qualified Code(s): N18.4 - Chronic kidney disease, stage 4 (severe) (7) Liver cirrhosis Current Visit: No Status: Chronic Qualifiers: Hepatic cirrhosis type: unspecified hepatic cirrhosis Ascites presence: with ascites Qualified Code(s): K74.60 - Unspecified cirrhosis of liver (8) Amyloidosis Current Visit: No Status: Chronic Follows with Dr. Gastelum at [facility]. Currently on doxycycline 100mg PO daily and Ursodiol. Qualifiers: Amyloidosis type: unspecified amyloidosis Qualified Code(s): E85.9 - Amyloidosis, unspecified (9) CHF (congestive heart failure) Current Visit: No Status: Chronic Qualifiers: Congestive heart failure type: diastolic Congestive heart failure chronicity: chronic Qualified Code(s): I50.32 - Chronic diastolic (congestive ) heart failure - Subjective Interval history: Patient seen and examined. No acute events noted overnight. Patient assisted to the bedside chair. Denies acute complaints. Denies fevers or chills or rigors. Denies chest pain, shortness of breath, or cough. Denies nausea, vomiting, or diarrhea. Denies abdominal pain and states he didn't eat much this morning. Denies urinary complaints. Denies oral thrush or skin lesions. Infect Dis PN-Objective Data - Labs CBC & Chem 7: 08/08/17 04:55 08/08/17 08:04 Labs: Laboratory Results - last 24 hr 08/08/17 08/08/17 08/08/17 04:55 04:55 04:55 WBC 4.1 L RBC 3.30 L Hgb 9.6 L Hct 30.4 L MCV 92.1 MCH 29.1 MCHC 31.6 RDW 14.3 Plt Count 200 MPV 10.1 Immature Gran % 0.7 Seg Neutrophils % 62.8 Lymphocytes % 19.8 Monocytes % 10.1 Eosinophils % 5.9 Basophils % 0.7 Neutrophils # 2.5 Lymphocytes # 0.8 Monocytes # 0.4 Eosinophils # 0.2 Basophils # 0.0 PT 23.7 H INR 2.2 Sodium Potassium Chloride Carbon Dioxide BUN Creatinine Est GFR ( Amer) Est GFR (Non-Af Amer) BUN/Creatinine Ratio Glucose Calculated Osmolality Calcium Phosphorus Magnesium Specimen Rejected Miscellaneous 08/08/17 08:04 WBC RBC Hgb Hct MCV MCH MCHC RDW Plt Count MPV Immature Gran % Seg Neutrophils % Lymphocytes % Monocytes % Eosinophils % Basophils % Neutrophils # Lymphocytes # Monocytes # Eosinophils # Basophils # PT INR Sodium 137 Potassium 4.1 Chloride 106 Carbon Dioxide 22 BUN 78 H Creatinine 2.42 H Est GFR ( Amer) 32 L Est GFR (Non-Af Amer) 26 L BUN/Creatinine Ratio 32 H Glucose 84 Calculated Osmolality 307 H Calcium 9.1 Phosphorus 4.0 Magnesium 1.8 Specimen Rejected Exam - Constitutional Vitals: Temp Pulse Resp BP Pulse Ox 98.0 F 70 15 104/69 97 08/08/17 12:05 08/08/17 12:05 08/08/17 12:05 08/08/17 12:05 08/08/17 12:05 General appearance: average body habitus, cooperative, no acute distress - Head Head exam: Present: atraumatic, normal inspection, normocephalic - Eye Eye exam: Present: EOMI, normal appearance, PERRL Pupils: Present: normal accommodation - ENT ENT exam: Present: mucous membranes moist - Neck Neck exam: Present: normal inspection - Respiratory Respiratory exam: Present: CTAB. Absent: rales, respiratory distress, rhonchi, wheezes - Cardiovascular Cardiovascular exam: Present: irregular rhythm. Absent: tachycardia - GI/Abdominal GI/Abdominal exam: Present: distended, normal bowel sounds, soft. Absent: tenderness - Extremities Exam Extremities exam: Present: pedal edema (1+ BLE). Absent: joint swelling, tenderness Additional comments: BLE venous stasis dermatitis. Left anterior knee wound with wound VAC dressing C/D/I and sponge well- compressed. No erythema, warmth, or tenderness noted. - Neurological Exam Neurological exam: Present: alert, oriented X3, no focal deficits - Psychiatric Psychiatric exam: Present: normal affect, normal mood - Skin Skin exam: Present: dry, intact, normal color, warm Consult Discharge Plan - Plan Referrals: Deuce Espinoza MD [Partnered Physician] - 08/19/17 10:15 am ([facility] ) Daniel Garcia MD [Primary Care Provider] - Britt Archer CNP [Advanced Practice Nurse] - 08/21/17 9:00 am Prescriptions: Yaofsejmnvcg-Pudg-Pwfdgueg,Iso [Zosyn 4.5 gm/100 ml Galaxy Bag] 4.5 gm IV Q8H 42 Days
--- NOTE | 2017-08-08 15:29 | Internal Med Progress Note ---
Date of Encounter: 08/08/17 Time of Encounter: 15:27 - Assessment and plan (1) Sepsis Current Visit: No Status: Acute Assessment and plan: Pt did meet sepsis criteria with Fever and source of inf as Left knee. elevated ESR and CRP His source of infection mostly from Left Knee Reviewed Dr. Casper's notes, suggesting of IV abx and Possible AKA Consulted surgery for further eval..Spoke to Dr. Cantrell.. Recommend CT of Left knee for further evaluation CT of Knee showing possible abscess.. Since he was growing Group B Strep agalactea in the past, will cont empirical abx Zosyn for now so far his blood cx x 2 negative At this time patient and family wish to try IV abx therapy and only use AKA as a last resort Infectious disease on board and consultation appreciated Pt to be discharged to ECF with IV abx in am Arterial doppler - normal and hemodynamically well maintained KEVIN 1.46 in each leg Palliative care team consultation appreciated Code status: [id number] Qualifiers: Sepsis type: sepsis due to unspecified organism Qualified Code(s): A41.9 - Sepsis, unspecified organism (2) Infection of prosthetic left knee joint Current Visit: No Status: Acute Assessment and plan: see above Ortho and Surgery on board Qualifiers: Encounter type: initial encounter Qualified Code(s): T84.54XA - Infection and inflammatory reaction due to internal left knee prosthesis, initial encounter (3) A-fib Current Visit: No Status: Acute Assessment and plan: Rate well controlled with low dose of metoprolol 12.5mg BID Cont Coumadin for anticoag Consulted Pharmacy for dosing monitor INR, goal INR: 2-3 Qualifiers: Atrial fibrillation type: chronic Qualified Code(s): I48.2 - Chronic atrial fibrillation (4) 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 continue prophylactic abx dose Doxycycline Qualifiers: Amyloidosis type: unspecified amyloidosis Qualified Code(s): E85.9 - Amyloidosis, unspecified (5) Ascites Current Visit: No Status: Chronic Assessment and plan: worsening ascites however clinically asymptomatic Abd US: moderate fluid, will closely monitor GI consultation requested for underlying cirrhosis of the liver Qualifiers: Ascites type: other type Qualified Code(s): R18.8 - Other ascites (6) CHF (congestive heart failure) Current Visit: No Status: Chronic Assessment and plan: not in acute exacerbation continue home meds Qualifiers: Congestive heart failure type: diastolic Congestive heart failure chronicity: chronic Qualified Code(s): I50.32 - Chronic diastolic (congestive ) heart failure (7) CKD (chronic kidney disease) Current Visit: No Status: Chronic Qualifiers: Chronic kidney disease stage: stage 4 (severe) Qualified Code(s): N18.4 - Chronic kidney disease, stage 4 (severe) (8) DVT prophylaxis Current Visit: No Status: Acute Assessment and plan: anticoagulated with Coumadin (9) Hypertension Current Visit: No Status: Chronic Assessment and plan: BP within acceptable range continue home meds Qualifiers: Hypertension type: essential hypertension Qualified Code(s): I10 - Essential (primary) hypertension (10) Liver cirrhosis Current Visit: No Status: Chronic Assessment and plan: mostly due to Amyloidosis Qualifiers: Hepatic cirrhosis type: unspecified hepatic cirrhosis Ascites presence: with ascites Qualified Code(s): K74.60 - Unspecified cirrhosis of liver (11) SBP (spontaneous bacterial peritonitis) Current Visit: No Status: Acute Assessment and plan: Fluid cx - did not grow any bacteria Was treated with full course of abx Currently no abdominal pain..no signs of peritonitis - Subjective Interval history: Mr. 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 Casper. He was recently admitted in the hospital for Severe sepsis possible due to Left knee infection and ?? SBP peritonitis. He was treated with Cefotaxime IV abx 10 days course. Now he was brought back to ER with fever t max 102and worsening swelling and erythema in Left knee. Patient seen and examined with present at bedside. Pt is sitting in chair and denies any discomfort at this time. - Constitutional Vitals: Temp Pulse Resp BP Pulse Ox 98.0 F 70 15 104/69 97 08/08/17 12:05 08/08/17 12:05 08/08/17 12:05 08/08/17 12:05 08/08/17 12:05 General appearance: Present: A&O X 3 (frail appearing elderly male), pleasant, no acute distress, answers questions appropriately - Head Head exam: Present: atraumatic, normocephalic - Eye Eye exam: Present: conjuntiva pink, sclera anicteric - Respiratory Respiratory exam: Present: CTAB. Absent: accessory muscle use, rales, rhonchi, wheezes - Cardiovascular Cardiovascular exam: Present: RRR, +S1, +S2. Absent: diastolic murmur, gallop, rubs, systolic murmur - GI/Abdominal GI/Abdominal exam: Present: distended (ascites), normal bowel sounds, soft, no peritoneal signs. Absent: rebound, tenderness - Extremities Exam Extremities exam: Present: warm, radial pulses palpable and symmetrical Additional comments: LLE wound vac intact - Neurological Exam Neurological exam: Present: alert, oriented X3 - Psychiatric Psychiatric exam: Present: normal affect, normal mood Internal Medicine: Result - Labs CBC & Chem 7: 08/08/17 04:55 08/08/17 08:04 Labs: Short CBC 08/08/17 Range/Units 04:55 WBC 4.1 L (4.3-11.1) K/mcL Hgb 9.6 L (12.9-16.9) g/dL Hct 30.4 L (37.5-50.1) % Plt Count 200 (140-400) K/mcL Neutrophils # 2.5 (1.6-8.9) K/mcL BMP 08/08/17 08:04 Sodium 137 Potassium 4.1 Chloride 106 Carbon Dioxide 22 BUN 78 H Creatinine 2.42 H Glucose 84 Calcium 9.1 - ABG Interpretation ABG results: PT/INR, D-dimer PT 23.7 Seconds (9.4-12.1) H 08/08/17 04:55 Consult Discharge Plan - Plan Referrals: Deuce Espinoza MD [Partnered Physician] - 08/19/17 10:15 am ([facility] ) Britt Archer CNP [Advanced Practice Nurse] - 08/21/17 9:00 am Daniel Garcia MD [Primary Care Provider] - Prescriptions: Rbjrmqpnupek-Slno-Eybzcwwe,Iso [Zosyn 4.5 gm/100 ml Galaxy Bag] 4.5 gm IV Q8H 42 Days
[2017-08-08] MEDS ORDERED: *HR* Warfarin 2 MG TABLET PO ONE (18:00)
[2017-08-08] MEDS: Mirtazapine 15 MG TABLET PO SCH (23:07)
[2017-08-09] MEDS: Piperacillin/Tazobactam 3.375 GM in D5% in Water (Mini-Bag+) 100 ML IVPB SCH ×2 (03:59→10:59)
[2017-08-09 05:26] LABS: Eosinophils # 0.2 K/mcL (0.0-0.6); Eosinophils % 5.7 %; Hematocrit 30.5 % (37.5-50.1); Hemoglobin 9.9 g/dL (12.9-16.9); Immature Granulocytes % 0.2 % (0-4); Lymphocytes # 0.8 K/mcL (0.6-4.6); Mean Corpuscular HGB Conc 32.5 g/dL (31.6-35.5); Mean Corpuscular Hemoglobin 29.7 pg (28.0-33.3); Mean Corpuscular Volume 91.6 fL (83.0-100.0); Mean Platelet Volume 9.9 fL (9.4-12.4); Monocytes # 0.4 K/mcL (0.0-1.3); Monocytes % 10.2 %; Neutrophils # 2.6 K/mcL (1.6-8.9); Platelet Count 200 K/mcL (140-400); Red Blood Count 3.33 M/mcL (4.19-5.50); Red Cell Distribution Width 14.4 % (11.5-14.5); Segmented Neutrophils % 62.9 %
[2017-08-09 05:33] LABS: INR 2.1; Prothrombin Time 23.2 Seconds (9.4-12.1)
[2017-08-09 05:40] LABS: Calcium 9.1 mg/dL (8.6-10.8); Magnesium 1.8 mg/dL (1.6-2.6); Phosphorous 4.2 mg/dL (2.3-4.7); Potassium 4.1 mEq/L (3.5-4.5)
[2017-08-09] MEDS: Doxycycline 100 MG CAPSULE PO SCH (07:39)
[2017-08-09] MEDS: Famotidine 20 MG TABLET PO SCH (07:39)
[2017-08-09] MEDS: Bumetanide 1 MG TABLET PO SCH ×2 (07:39→18:05)
[2017-08-09] MEDS: Cholecalciferol (D-3) 1,000 UNIT TABLET PO SCH (07:39)
[2017-08-09] MEDS: Lactobacillus 1 EACH CAP.SPRINK PO SCH (07:39)
--- NOTE | 2017-08-09 13:23 | Infectious Disease Progress No ---
Date of Encounter: 08/09/17 Time of Encounter: 13:21 - Assessment and Plan (1) Sepsis Current Visit: No Status: Acute The patient had two SIRS criteria on admission. Likely secondary to left knee infection. Improved. The patient has been afebrile and tachycardia has resolved. His WBC remains at baseline. Blood cultures drawn 08/03/17 are negative x 2 sets. Qualifiers: Sepsis type: sepsis due to unspecified organism Qualified Code(s): A41.9 - Sepsis, unspecified organism (2) Cellulitis Current Visit: Yes Status: Acute Location: Left knee. Causative organism unclear. The patient has been afebrile and has responded well to IV Zosyn, so unlikely MRSA. Etiology unclear: new infection secondary to non-healing wound vs. recurrence of previous infection. ESR 67, CRP 88. CT scan of the left LE showed a soft tissue defect with phlegmonous changes and a possible small linear abscess, but the findings are limited due to the lack of IV contrast. Ortho consulted. Recommends left AKA, which the patient/his refuses at this time. The patient has failed IV antibiotic therapy followed by chronic oral suppressive therapy. Continue Zosyn 3.375 grams IV Q8H. The patient has done well on Zosyn, so I don't think we need to add Vanc at this time. Duration of treatment depends on the clinical picture, but likely 6 weeks of IV antibiotics. We will plan on sending him to rehab with Zosyn 4.5grams IV Q8H since they do 30 minute infusions vs. 4 hour infusions. Monitor renal function and dose-adjust antibiotics. Get weekly CBC, BUN/Cr, ESR, and CRP every Saturday for the duration of treatment. Weekly EPIV care for the duration of therapy. Follow up with ID 08/21/17 at 0900. Qualifiers: Site of cellulitis: extremity Site of cellulitis of extremity: lower extremity Laterality: left Qualified Code(s): L03.116 - Cellulitis of left lower limb (3) Nonhealing surgical wound Current Visit: Yes Status: Chronic Location: Left anterior knee. Follows with [facility]. Continue wound VAC per the wound care team recommendations. Qualifiers: Encounter type: subsequent encounter Qualified Code(s): T81.89XD - Other complications of procedures, not elsewhere classified, subsequent encounter (4) History of infection of total joint prosthesis of knee Current Visit: No Status: Acute Status post left total knee replacement in 2010 followed by post-op infection. Had recurrence of infection 03/2017 and underwent removal of infected knee hardware with placement of an articulating spacer and patellectomy 04/08/[address] Casper. The patient's post-op course has been long and complicated due to impaired wound healing. He was treated with six weeks of IV antibiotics before being transitioned to chronic oral suppressive therapy. Ortho consulted and following. (5) Ascites Current Visit: No Status: Chronic Likely secondary to liver cirrhosis. Abdominal UTS reveals moderate ascites. GI consulted and following. Qualifiers: Ascites type: other type Qualified Code(s): R18.8 - Other ascites (6) CKD (chronic kidney disease) Current Visit: No Status: Chronic Qualifiers: Chronic kidney disease stage: stage 4 (severe) Qualified Code(s): N18.4 - Chronic kidney disease, stage 4 (severe) (7) Liver cirrhosis Current Visit: No Status: Chronic Likely secondary to amyloidosis. GI consulted. Qualifiers: Hepatic cirrhosis type: unspecified hepatic cirrhosis Ascites presence: with ascites Qualified Code(s): K74.60 - Unspecified cirrhosis of liver (8) Amyloidosis Current Visit: No Status: Chronic Follows with Dr. Gsatelum at [facility]. Currently on doxycycline 100mg PO daily and Ursodiol. Qualifiers: Amyloidosis type: unspecified amyloidosis Qualified Code(s): E85.9 - Amyloidosis, unspecified (9) CHF (congestive heart failure) Current Visit: No Status: Chronic Qualifiers: Congestive heart failure type: diastolic Congestive heart failure chronicity: chronic Qualified Code(s): I50.32 - Chronic diastolic (congestive ) heart failure - Subjective Interval history: Patient seen and examined. No acute events noted overnight. Patient sitting up in the bedside chair. Denies acute complaints. Denies fevers or chills or rigors. Denies chest pain, shortness of breath, or cough. Denies nausea, vomiting, or diarrhea. Denies abdominal pain and states he didn't eat much this morning. Denies urinary complaints. Denies oral thrush or skin lesions. Infect Dis PN-Objective Data - Labs CBC & Chem 7: 08/09/17 04:58 08/09/17 04:58 Labs: Laboratory Results - last 24 hr 09/08/09/17 08/09/17 04:58 04:58 04:58 WBC 4.2 L RBC 3.33 L Hgb 9.9 L Hct 30.5 L MCV 91.6 MCH 29.7 MCHC 32.5 RDW 14.4 Plt Count 200 MPV 9.9 Immature Gran % 0.2 Seg Neutrophils % 62.9 Lymphocytes % 20.0 Monocytes % 10.2 Eosinophils % 5.7 Basophils % 1.0 Neutrophils # 2.6 Lymphocytes # 0.8 Monocytes # 0.4 Eosinophils # 0.2 Basophils # 0.0 PT 23.2 H INR 2.1 Sodium 137 Potassium 4.1 Chloride 106 Carbon Dioxide 20 BUN 78 H Creatinine 2.45 H Est GFR ( Amer) 31 L Est GFR (Non-Af Amer) 26 L BUN/Creatinine Ratio 32 H Glucose 91 Calculated Osmolality 307 H Calcium 9.1 Phosphorus 4.2 Magnesium 1.8 Ferritin 176 Exam - Constitutional Vitals: Temp Pulse Resp BP Pulse Ox 98.6 F 73 16 103/67 91 08/09/17 11:38 08/09/17 11:38 08/09/17 11:38 08/09/17 11:38 08/09/17 11:38 General appearance: average body habitus, cooperative, no acute distress - Head Head exam: Present: atraumatic, normal inspection, normocephalic - Eye Eye exam: Present: EOMI, normal appearance, PERRL Pupils: Present: normal accommodation - ENT ENT exam: Present: mucous membranes moist - Neck Neck exam: Present: normal inspection - Respiratory Respiratory exam: Present: CTAB. Absent: rales, respiratory distress, rhonchi, wheezes - Cardiovascular Cardiovascular exam: Present: irregular rhythm. Absent: tachycardia - GI/Abdominal GI/Abdominal exam: Present: distended, normal bowel sounds, soft. Absent: tenderness - Extremities Exam Extremities exam: Present: joint swelling (Trace left knee), pedal edema (1+ BLE ). Absent: tenderness Additional comments: Non-healing surgical wound noted to the left anterior knee with wound VAC dressing intact and sponge well-compressed. No drainage noted. No erythema, warmth, or tenderness noted. - Neurological Exam Neurological exam: Present: alert, oriented X3, no focal deficits - Psychiatric Psychiatric exam: Present: normal affect, normal mood - Skin Skin exam: Present: dry, intact, normal color, warm Consult Discharge Plan - Plan Referrals: Deuce Espinoza MD [Partnered Physician] - 08/19/17 10:15 am ([facility] ) Britt Archer CNP [Advanced Practice Nurse] - 08/21/17 9:00 am Daniel Garcia MD [Primary Care Provider] - Prescriptions: Motflqbznfhb-Vugs-Dabhpbge,Iso [Zosyn 4.5 gm/100 ml Galaxy Bag] 4.5 gm IV Q8H 42 Days
[2017-08-09 15:08] VITALS: BP 100/71
--- NOTE | 2017-08-09 15:40 | Discharge Summary ---
Date of Encounter: 08/09/17 Time of Encounter: 15:34 - Discharge Diagnosis (1) Sepsis Priority: Primary Status: Resolved Qualifiers: Sepsis type: sepsis due to unspecified organism Qualified Code(s): A41.9 - Sepsis, unspecified organism (2) Infection of prosthetic left knee joint Priority: Primary Status: Acute Qualifiers: Encounter type: initial encounter Qualified Code(s): T84.54XA - Infection and inflammatory reaction due to internal left knee prosthesis, initial encounter (3) A-fib Priority: Secondary Status: Chronic Qualifiers: Atrial fibrillation type: chronic Qualified Code(s): I48.2 - Chronic atrial fibrillation (4) Amyloidosis Priority: Secondary Status: Chronic Qualifiers: Amyloidosis type: unspecified amyloidosis Qualified Code(s): E85.9 - Amyloidosis, unspecified (5) Ascites Priority: Secondary Status: Chronic Qualifiers: Ascites type: other type Qualified Code(s): R18.8 - Other ascites (6) CHF (congestive heart failure) Priority: Secondary Status: Chronic Qualifiers: Congestive heart failure type: diastolic Congestive heart failure chronicity: chronic Qualified Code(s): I50.32 - Chronic diastolic (congestive ) heart failure (7) CKD (chronic kidney disease) Priority: Secondary Status: Chronic Qualifiers: Chronic kidney disease stage: stage 4 (severe) Qualified Code(s): N18.4 - Chronic kidney disease, stage 4 (severe) (8) DVT prophylaxis Priority: Secondary Status: Acute (9) Hypertension Priority: Secondary Status: Chronic Qualifiers: Hypertension type: essential hypertension Qualified Code(s): I10 - Essential (primary) hypertension (10) Liver cirrhosis Priority: Secondary Status: Chronic Qualifiers: Hepatic cirrhosis type: unspecified hepatic cirrhosis Ascites presence: with ascites Qualified Code(s): K74.60 - Unspecified cirrhosis of liver (11) SBP (spontaneous bacterial peritonitis) Priority: Secondary Status: Acute - Discharge Medications Prescriptions: Ytmhhvmujhnp-Xntp-Psizwxna,Iso [Zosyn 4.5 gm/100 ml Galaxy Bag] 4.5 gm IV Q8H 42 Days RX: Zolpidem [Ambien] 10 mg PO HS PRN #10 tab PRN Reason: Insomnia Home Medications: Ergocalciferol (VITAMIN D2) [Vitamin D2] 2,000 unit PO DAILY 02/05/17 [History] Levothyroxine [Synthroid] 88 mcg PO DAILY 02/05/17 [History] Ursodiol 300 mg PO Q12H 04/08/17 [History] Famotidine [Pepcid] 20 mg PO DAILY tablet 04/13/17 [Rx] Lisinopril [Zestril] 5 mg PO DAILY 07/19/17 [History] Multivitamin [Multivitamins] 1 cap PO DAILY 07/19/17 [History] Bumetanide [Bumex] 0.5 mg PO BIDDIURETIC tab 07/28/17 [Rx] Doxycycline Monohydrate [Mondoxyne Nl] 100 mg PO DAILY 08/02/17 [History] Mirtazapine [Remeron] 15 mg PO DAILY 08/02/17 [History] Ccwkogfnkkol-Kfeq-Dieifuvk,Iso [Zosyn 4.5 gm/100 ml Galaxy Bag] 4.5 gm IV Q8H 42 Days 08/08/17 [Rx] Acetaminophen/Diphenhydramine [Acetaminophen Pm Caplet] 1 tab PO HS PRN #0 [Rx] Melatonin [Melatin] 3 mg PO HS PRN #0 08/09/17 [Rx] Warfarin [Coumadin] 2 mg PO DAILY #0 08/09/17 [Rx] Zolpidem [Ambien] 10 mg PO HS PRN #10 tab 08/09/17 [Rx] Allergies/Adverse Reactions: 3 Allergy/AdvReac Type Severity Reaction Status Date / Time No Known Allergies Allergy Verified 04/08/17 10:20 Procedures/tests Complete & Pending: Procedures Performed prior 72 hours Category Date Time Status US abdomen limited [US] Stat Exams 08/06/17 19:00 Completed Date of admission: 08/03/17 03:43 Primary care physician: Daniel Garcia MD Consults: 08/04/17 09:32 Consult to Palliative Care [CONS] Routine Comment: Consulting Provider: Palliative Care Glo Reason for Consult: Family requested Call Completed: No 08/05/17 10:57 Consult to Physical Therapy [CONS] Routine Comment: Evaluate, develop and implement POC Reason for Consult: physical deconditioning OT [Consult to Occupational Therapy] [CONS] Routine Comment: Evaluate, develop and implement POC Reason for Consult: physical deconditioning 08/06/17 08:54 Consult to Infectious Diseases [CONS] Stat Consulting Provider: Infectious Disease Glo Reason for Consult: infected wound-needs fdc abx Call Completed: Yes 08/07/17 14:20 Consult to Gastroenterology [CONS] Routine Consulting Provider: Gastroenterology Glo Reason for Consult: liver cirrhosis Call Completed: Yes Discharging clinician: Shraddha Morelos Anticipated date of discharge: 08/09/17 - Patient Status Disposition: Transfer SNF Condition: Good Functional capacity at discharge: uses cane/walker Overall status at discharge: patient is progressing back to baseline - Discharge Instructions Follow Up With: Deuce Espinoza MD [Partnered Physician] - 08/19/17 10:15 am ([facility] ) Britt Archer CNP [Advanced Practice Nurse] - 08/21/17 9:00 am Daniel Garcia MD [Primary Care Provider] - Additional Instructions: Please follow up with surgery, Infectious disease specialist as per the listed appointments above. Please follow up with GI within two weeks after your discharge from the hospital. Your home dose of Coumadin has been lowered to 2mg once a day, please closely monitor your INR. Goal INR: 2-3 Please obtain the prescribed lab work prior to your appointment with infectious disease specialist. Please continue IV abx as prescribed. Please resume all your other home medications as prescribed by your primary care physician. - Diet and Activity Activity: as per physical therapy Diet: low salt diet Hospital course: Mr. Rubio is a 77 year old male with PMH of HTN, HLD, CKD, hypothyroidism, Afib on coumadin, amyloidosis, cirrhosis who was admitted for sepsis secondary to infected knee joint. He was followed by surgery and orthopedic surgery. AKA was recommended given the severity of patient's disease, however patient and family opted for a trial of IV abx. 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 Pt was also seen by GI for newly diagnosed cirrhosis. Further outpatient follow up is recommended. At this time, patient is hemodynamically stable, and will be discharged to the [facility] with IV abx for six weeks. Pt is to follow up with ID, GI, and surgery after discharge. Pt and demonstrate understanding of his diagnosis and agree with the discharge care and plan. - Time Spent with Patient Total time spent providing and/or coordinating discharge services: Greater than 30 minutes - Constitutional Vitals: Temp Pulse Resp BP Pulse Ox 98.5 F 80 15 100/71 97 08/09/17 15:07 08/09/17 15:07 08/09/17 15:07 08/09/17 15:07 08/09/17 15:07 General appearance: Present: A&O X 3 (frail appearing elderly male), pleasant, no acute distress, answers questions appropriately - Head Head exam: Present: atraumatic, normocephalic - Eye Eye exam: Present: conjuntiva pink, sclera anicteric - Respiratory Respiratory exam: Present: CTAB. Absent: respiratory distress, wheezes - Cardiovascular Cardiovascular exam: Present: RRR, +S1, +S2. Absent: diastolic murmur, gallop, rubs, systolic murmur - GI/Abdominal GI/Abdominal exam: Present: distended (ascites), normal bowel sounds, soft, no peritoneal signs. Absent: tenderness - Extremities Exam Extremities exam: Present: warm, radial pulses palpable and symmetrical. Absent : calf tenderness (left knee wound vac intact) - Neurological Exam Neurological exam: Present: alert, oriented X3 - Psychiatric Psychiatric exam: Present: normal affect, normal mood
--- NOTE | 2017-08-09 15:51 | Physician Discharge Referral ---
ExtendedCare Referral Info Transfer To: ECF Provider in Charge after Transfer: PCP - Diagnosis (1) Sepsis Priority: Primary Status: Resolved (2) Infection of prosthetic left knee joint Priority: Primary Status: Acute (3) A-fib Priority: Secondary Status: Chronic (4) Amyloidosis Priority: Secondary Status: Chronic (5) Ascites Priority: Secondary Status: Chronic (6) CHF (congestive heart failure) Priority: Secondary Status: Chronic (7) CKD (chronic kidney disease) Priority: Secondary Status: Chronic (8) DVT prophylaxis Priority: Secondary Status: Acute (9) Hypertension Priority: Secondary Status: Chronic (10) Liver cirrhosis Priority: Secondary Status: Chronic (11) SBP (spontaneous bacterial peritonitis) Priority: Secondary Status: Acute - Transfer Medications Prescriptions: Chusawqfppmy-Rsdy-Erqcqrfz,Iso [Zosyn 4.5 gm/100 ml Galaxy Bag] 4.5 gm IV Q8H 42 Days Zolpidem [Ambien] 10 mg PO HS PRN #10 tab PRN Reason: Insomnia Home Medications: Ergocalciferol (VITAMIN D2) [Vitamin D2] 2,000 unit PO DAILY 02/05/17 [History] Levothyroxine [Synthroid] 88 mcg PO DAILY 02/05/17 [History] Ursodiol 300 mg PO Q12H 04/08/17 [History] Famotidine [Pepcid] 20 mg PO DAILY tablet 04/13/17 [Rx] Lisinopril [Zestril] 5 mg PO DAILY 07/19/17 [History] Multivitamin [Multivitamins] 1 cap PO DAILY 07/19/17 [History] Bumetanide [Bumex] 0.5 mg PO BIDDIURETIC tab 07/28/17 [Rx] Doxycycline Monohydrate [Mondoxyne Nl] 100 mg PO DAILY 08/02/17 [History] Mirtazapine [Remeron] 15 mg PO DAILY 08/02/17 [History] Batjsagkppqg-Fvzh-Ikmljzxu,Iso [Zosyn 4.5 gm/100 ml Galaxy Bag] 4.5 gm IV Q8H 42 Days 08/08/17 [Rx] Acetaminophen/Diphenhydramine [Acetaminophen Pm Caplet] 1 tab PO HS PRN #0 [Rx] Melatonin [Melatin] 3 mg PO HS PRN #0 08/09/17 [Rx] Warfarin [Coumadin] 2 mg PO DAILY #0 08/09/17 [Rx] Zolpidem [Ambien] 10 mg PO HS PRN #10 tab 08/09/17 [Rx] Allergies/Adverse Reactions: 3 Allergy/AdvReac Type Severity Reaction Status Date / Time No Known Allergies Allergy Verified 04/08/17 10:20 - Respiratory Orders Smoking Cessation: Smoking cessation has been advised. For more information, call the [facility] Quit Line at 7-872-WGXA-NOW. - Rehabiliation Orders Other: Please follow up with surgery, Infectious disease specialist as per the listed appointments above. Please follow up with GI within two weeks after your discharge from the hospital. Your home dose of Coumadin has been lowered to 2mg once a day, please closely monitor your INR. Goal INR: 2-3 Please obtain the prescribed lab work prior to your appointment with infectious disease specialist. Please continue IV abx as prescribed. Please resume all your other home medications as prescribed by your primary care physician. CERTIFICATION: I certify that the transfer of the above named patient to an Extended Care Facility is necessary for the continuing treatment of the diagnosis listed. The above information is true and accurate reflection of patient's current condition. Confidential - Redisclosure prohibited without a patient's written consent.
[2017-08-09] MEDS ORDERED: *HR* Warfarin 2 MG TABLET PO ONE (18:00)
[2017-08-12 12:53] LABS: ANA IgG by ELISA NONE DETECTED (None Detected)
== END 2017-08-09 18:30 | DRG 949 ==
LOC: 3NENU 23:10 → EMEROO 23:10 → SUATTDRO 08-03 03:43 → 3NENU 08-03 04:42 → 3ANU 08-04 18:42
PROVIDERS: ADMIT Internal Medicine Hematology & Oncology; ATTEND Internal Medicine

== ENCOUNTER 2017-08-20 18:36 | Inpatient (IN) ==
[2017-08-20] MEDS ORDERED: *HR* Metoprolol 5 MG/5 ML VIAL IVP ONE (18:45)
[2017-08-20] MEDS ORDERED: 0.9 % Sodium Chloride 500 ML IVC ONE (18:46)
[2017-08-20] MEDS ORDERED: 0.9 % Sodium Chloride 1,000 ML IVC ONE (18:51)
[2017-08-20] MEDS ORDERED: Piperacillin/Tazobactam 3.375 GM in D5% in Water (Mini-Bag+) 100 ML IVPB ONE (18:52)
[2017-08-20] MEDS ORDERED: Vancomycin 1,000 MG in D5% in Water 250 ML IVPB ONE (18:52)
--- NOTE | 2017-08-20 19:27 | Emergency Department Note ---
Disposition Clinical Impression: Acute kidney injury superimposed on CKD Nonhealing surgical wound Qualifiers: Encounter type: subsequent encounter Qualified Code(s): T81.89XD - Other complications of procedures, not elsewhere classified, subsequent encounter Disposition: Admitted As Inpatient Condition: Fair Time of Disposition: 00:54 General Adult HPI - General Chief complaint: ED Recheck/Abnormal Lab/Rx Stated complaint: abnormal lab Time Seen by Provider: 08/20/17 18:37 Source: patient Limitations: no limitations Nursing Notes Reviewed: Yes Vital Signs Reviewed: Yes - History of Present Illness HPI Narrative: He will patient with a history of amyloidosis presenting to the emergency department complaining of increase in his creatinine level. He has no other complaints at this time. 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 Cellulitis to lower extremities. Is chronically on Zosyn for 6 weeks. Pain Scale: 0 - Related Data Home Medications Medication Instructions Recorded Confirmed Ergocalciferol (VITAMIN D2) 2,000 unit PO DAILY 02/05/17 08/20/17 [Vitamin D2] Levothyroxine [Synthroid] 88 mcg PO QAM 02/05/17 08/20/17 Ursodiol 300 mg PO Q12H 04/08/17 08/20/17 Multivitamin [Multivitamins] 1 cap PO DAILY 07/19/17 08/20/17 Bumetanide 0.5 mg PO BID 08/20/17 08/20/17 Doxycycline Hyclate [Morgidox] 100 mg PO DAILY 08/20/17 08/20/17 Lisinopril 2.5 mg PO DAILY 08/20/17 08/20/17 Mirtazapine [Remeron] 15 mg PO HS 08/20/17 08/20/17 Iksncrmhlqhe-Qpfn-Tmebzxia,Iso 4.5 gm IV Q12H 08/20/17 08/20/17 [Zosyn 4.5 gm/100 ml Galaxy Bag] Ranitidine HCl [Zantac] 150 mg PO DAILY 08/20/17 08/20/17 Warfarin [Coumadin] 2 mg PO 1800 08/20/17 08/20/17 Previous Rx's Medication Instructions Recorded Acetaminophen/Diphenhydramine 1 tab PO HS PRN #0 08/09/17 [Acetaminophen Pm Caplet] Melatonin [Melatin] 3 mg PO HS PRN #0 08/09/17 Zolpidem [Ambien] 10 mg PO HS PRN #10 tab 08/09/17 Allergies Allergy/AdvReac Type Severity Reaction Status Date / Time No Known Allergies Allergy Verified 08/20/17 18:42 All systems ED: reviewed and negative except as stated. Constitutional: Reports: chills. Denies: fever ENT ED: Denies: congestion Cardiovascular: Denies: chest pain, palpitations, syncope Respiratory: Reports: cough (dry hacking). Denies: dyspnea Gastrointestinal: Reports: other (abdominal distention). Denies: abdominal pain , nausea, vomiting, diarrhea Musculoskeletal: Denies: back pain, neck pain Integumentary: Reports: lesions (left knee) Neurological: Denies: headache, weakness, numbness Past Medical History - Past Medical History Attestation: Yes The following information was validated with the patient. Source: patient Medical history: Reports: arthritis, atrial fibrillation, cirrhosis, CHF, hyperlipidemia, hypertension, osteoporosis, renal disease, thyroid disease, other Surgical history: Reports: orthopedic, other, other Psychiatric history: Reports: no psych history - Social History Smoking Status: Former smoker Smokeless Tobacco Status: No Alcohol use: Reports: none Drug use: Reports: none Physical Exam - General Limitations: no limitations General appearance: alert, in no apparent distress - Head Head exam: atraumatic, normocephalic, normal inspection - Eye Eye exam: Present: normal appearance, PERRL, EOMI. Absent: scleral icterus - ENT ENT exam: normal exam, normal oropharynx, mucous membranes moist - Neck Neck exam: Present: normal inspection, full ROM, trachea midline. Absent: tenderness, meningismus, lymphadenopathy - Chest Chest inspection: Present: normal inspection, symmetric chest wall rise. Absent : tenderness, rash - Respiratory Respiratory exam: Present: normal lung sounds bilaterally. Absent: respiratory distress, wheezes, accessory muscle use - Cardiovascular Cardiovascular exam: Present: normal rhythm, tachycardia, normal heart sounds - Abdominal Exam Abdominal exam: Present: soft, Non-Tender, distention (taught, positive fluid wave), normal bowel sounds. Absent: tenderness - Expanded Upper Extremity Exam Shoulder exam: Present: normal inspection, full ROM Arm exam: Present: normal inspection, full ROM Elbow exam: Present: normal inspection, full ROM Forearm/Wrist exam: Present: normal inspection, full ROM Hand exam: Present: normal inspection, full ROM Vascular exam: Normal: capillary refill, radial pulse - Expanded Lower Extremity Exam Hip/Pelvis exam: Present: normal inspection, full ROM Upper leg exam: Present: normal inspection, full ROM Lower leg exam: Present: other (Open wound to anterior portion of left knee. Erythematous. Bilateral lower extremity edema. Weeping. Pitting.). Absent: normal inspection, full ROM Ankle exam: Present: normal inspection, full ROM Foot/toe exam: Present: normal inspection, full ROM Neurovascular/Tendon exam: Absent: motor deficit, sensory deficit, tendon deficit - Back Exam Back exam: Present: normal inspection, full ROM. Absent: tenderness - Neurological Exam Neurological exam: Present: alert, oriented X3 - Psychiatric Psychiatric exam: Present: normal affect, normal mood - Skin Skin exam: Present: warm, dry, intact, normal color, other (Cellulitis to bilateral lower extremities. Pitting. Open wound to anterior portion of left knee. Erythematous.) Course Course Narrative: Now patient presenting to the emergency department after having an elevated outpatient creatinine drawn. He does have a history of renal failure that is stage III. However patient states that his creatinine is worse than normal. He states he is making urine and is not on dialysis. He has a history of amyloidosis as well as a left knee prosthetic infection. He has had a left knee replacement and subsequent removal of this device. Patient states that he is on Zosyn chronically at this time for the leg infection. He has no complaints currently. He states that he has been feeling well. He does report that he has some chilling occasionally. Patient has bilateral pitting edema to his lower extremities. They are weeping. He does have an open wound to his left anterior knee. He states this is where the surgeries have been. He is insistent that he will not have any leg amputations and will only use antibiotics for this infection. Patient's creatinine is about what it normally is. His lung sounds are clear heart tones are normal. He states that his legs are no different than normal for him. He denies any shortness of breath or chest pain. He denies any abdominal pain nausea vomiting or diarrhea. He does have a distended abdomen with a positive fluid wave. He states he has ascites from cirrhosis due to the amyloidosis. He is currently tachycardic despite a 1500 mL fluid bolus. We will begin patient on a Cardizem drip. However we will be cautious with this due to his slight hypotension. I have spoken with Dr. Baldwin and made her aware that the patient is here. We will admit patient to the hospital for further treatment. He is agreeable to this. - Consultations Consultation #1: I spoke with Dr Baldwin. She is awar of the Pt and states she will see him tomorrow. Time: 20:47 Consultation #2: I spoke with the hospitalist. They accepted patient in stable condition. Time: 22:01 Vital Signs Temperature 98.5 F 08/20/17 18:48 Pulse Rate 136 08/20/17 18:48 Respiratory Rate 20 08/20/17 18:48 Blood Pressure 113/80 08/20/17 18:48 O2 Sat by Pulse Oximetry 96 08/20/17 18:48 Temperature 98.0 F 08/20/17 23:47 Pulse Rate 114 08/20/17 23:47 Respiratory Rate 17 08/20/17 23:47 Blood Pressure 92/65 08/20/17 23:47 O2 Sat by Pulse Oximetry 95 08/20/17 23:47 Oxygen Delivery Oxygen Delivery Room Air Medical Decision Making - Medical Records Medical records reviewed: Yes I reviewed the patient's medical records. - Lab Data Lab results reviewed: Yes I reviewed the patient's lab results. Result diagrams: 08/20/17 19:55 08/20/17 19:55 Lab Results 08/20/17 08/20/17 08/20/17 Range/Units 19:55 19:55 19:55 WBC 5.2 (4.3-11.1) K/mcL RBC 3.59 L (4.19-5.50) M/mcL Hgb 10.4 L (12.9-16.9) g/dL Hct 32.6 L (37.5-50.1) % MCV 90.8 (83.0-100.0) fL MCH 29.0 (28.0-33.3) pg MCHC 31.9 (31.6-35.5) g/dL RDW 15.0 H (11.5-14.5) % Plt Count 206 (140-400) K/mcL MPV 9.3 L (9.4-12.4) fL Immature Gran % 0.4 (0-4) % Seg Neutrophils % 72.1 % Lymphocytes % 11.4 % Monocytes % 8.7 % Eosinophils % 6.6 % Basophils % 0.8 % Neutrophils # 3.7 (1.6-8.9) K/mcL Lymphocytes # 0.6 (0.6-4.6) K/mcL Monocytes # 0.5 (0.0-1.3) K/mcL Eosinophils # 0.3 (0.0-0.6) K/mcL Basophils # 0.0 (0.0-0.2) K/mcL PT 33.2 H (9.4-12.1) Seconds INR 3.0 APTT 51.3 H (26.0-36.0) Seconds Sodium 137 (136-145) mEq/L Potassium 4.5 (3.5-4.5) mEq/L Chloride 103 (98-109) mEq/L Carbon Dioxide 19 (19-29) mEq/L BUN 99 H (8-26) mg/dL Creatinine 4.95 H (0.72-1.25) mg/dL Est GFR ( Amer) 14 L (> 60) Est GFR (Non-Af Amer) 11 L (> 60) BUN/Creatinine Ratio 20 (6-26) Glucose 111 H (70-99) mg/dL Calculated Osmolality 316 H (280-300) Lactic Acid (0.5-2.2) mmol/L Calcium 9.5 (8.6-10.8) mg/dL Phosphorus (2.3-4.7) mg/dL Magnesium (1.6-2.6) mg/dL Total Bilirubin (0.2-1.2) mg/dL Direct Bilirubin (0.0-0.5) mg/dL Indirect Bilirubin (0.0-1.2) mg/dL AST (5-34) Units/L ALT (0-55) Units/L Alkaline Phosphatase (38-126) Units/L Troponin I (0-0.03) ng/mL Serum Total Protein (6.0-8.3) g/dL Albumin (3.5-5.0) g/dL Globulin (2.4-3.5) g/dL Albumin/Globulin Ratio (1.1-2.2) Lipase (8-78) Units/L 08/20/17 08/20/17 08/20/17 Range/Units 19:55 19:55 19:55 WBC (4.3-11.1) K/mcL RBC (4.19-5.50) M/mcL Hgb (12.9-16.9) g/dL Hct (37.5-50.1) % MCV (83.0-100.0) fL MCH (28.0-33.3) pg MCHC (31.6-35.5) g/dL RDW (11.5-14.5) % Plt Count (140-400) K/mcL MPV (9.4-12.4) fL Immature Gran % (0-4) % Seg Neutrophils % % Lymphocytes % % Monocytes % % Eosinophils % % Basophils % % Neutrophils # (1.6-8.9) K/mcL Lymphocytes # (0.6-4.6) K/mcL Monocytes # (0.0-1.3) K/mcL Eosinophils # (0.0-0.6) K/mcL Basophils # (0.0-0.2) K/mcL PT (9.4-12.1) Seconds INR APTT (26.0-36.0) Seconds Sodium (136-145) mEq/L Potassium (3.5-4.5) mEq/L Chloride (98-109) mEq/L Carbon Dioxide (19-29) mEq/L BUN (8-26) mg/dL Creatinine (0.72-1.25) mg/dL Est GFR ( Amer) (> 60) Est GFR (Non-Af Amer) (> 60) BUN/Creatinine Ratio (6-26) Glucose (70-99) mg/dL Calculated Osmolality (280-300) Lactic Acid 1.2 (0.5-2.2) mmol/L Calcium (8.6-10.8) mg/dL Phosphorus 6.6 H (2.3-4.7) mg/dL Magnesium 1.9 (1.6-2.6) mg/dL Total Bilirubin (0.2-1.2) mg/dL Direct Bilirubin (0.0-0.5) mg/dL Indirect Bilirubin (0.0-1.2) mg/dL AST (5-34) Units/L ALT (0-55) Units/L Alkaline Phosphatase (38-126) Units/L Troponin I 0.20 H* (0-0.03) ng/mL Serum Total Protein (6.0-8.3) g/dL Albumin (3.5-5.0) g/dL Globulin (2.4-3.5) g/dL Albumin/Globulin Ratio (1.1-2.2) Lipase 75 (8-78) Units/L 08/20/17 Range/Units 19:55 WBC (4.3-11.1) K/mcL RBC (4.19-5.50) M/mcL Hgb (12.9-16.9) g/dL Hct (37.5-50.1) % MCV (83.0-100.0) fL MCH (28.0-33.3) pg MCHC (31.6-35.5) g/dL RDW (11.5-14.5) % Plt Count (140-400) K/mcL MPV (9.4-12.4) fL Immature Gran % (0-4) % Seg Neutrophils % % Lymphocytes % % Monocytes % % Eosinophils % % Basophils % % Neutrophils # (1.6-8.9) K/mcL Lymphocytes # (0.6-4.6) K/mcL Monocytes # (0.0-1.3) K/mcL Eosinophils # (0.0-0.6) K/mcL Basophils # (0.0-0.2) K/mcL PT (9.4-12.1) Seconds INR APTT (26.0-36.0) Seconds Sodium (136-145) mEq/L Potassium (3.5-4.5) mEq/L Chloride (98-109) mEq/L Carbon Dioxide (19-29) mEq/L BUN (8-26) mg/dL Creatinine (0.72-1.25) mg/dL Est GFR ( Amer) (> 60) Est GFR (Non-Af Amer) (> 60) BUN/Creatinine Ratio (6-26) Glucose (70-99) mg/dL Calculated Osmolality (280-300) Lactic Acid (0.5-2.2) mmol/L Calcium (8.6-10.8) mg/dL Phosphorus (2.3-4.7) mg/dL Magnesium (1.6-2.6) mg/dL Total Bilirubin 0.7 (0.2-1.2) mg/dL Direct Bilirubin 0.4 (0.0-0.5) mg/dL Indirect Bilirubin 0.3 (0.0-1.2) mg/dL AST 21 (5-34) Units/L ALT < 6 (0-55) Units/L Alkaline Phosphatase 105 (38-126) Units/L Troponin I (0-0.03) ng/mL Serum Total Protein 7.3 (6.0-8.3) g/dL Albumin 2.2 L (3.5-5.0) g/dL Globulin 5.1 H (2.4-3.5) g/dL Albumin/Globulin Ratio 0.4 L (1.1-2.2) Lipase (8-78) Units/L - Radiology Data Radiology results reviewed: Yes I reviewed the patient's radiology results. Chest X-Ray 08/20/17 18:45 IMPRESSION: 1. Cardiomegaly. No x-ray evidence of failure. 2. Notable change involving the left shoulder D/ / Alonzo May / Alonzo May Interpreting Provider: Alonzo May Critical Care Time Critical Care Time: Yes Total Critical Care Time: 40 Attestation: Critical care performed: Time is exclusive of separately billable procedures. Time includes: direct patient care, patient reassessment, coordination of patient care, interpretation of data (laboratory data, radiology data, and respiratory data), review of patient's medical records, medical consultation and documentation of patient care. Procedures included in critical care time: Procedures excluded from critical care time: Attestation Statement - Attestation Attestation: I, Antony Crocker MD, personally evaluated this patient and discussed their management with the resident physician. I reviewed the resident's note and agree with the documented findings, medical decision making, and plan of care. 77-year-old male referred here from a local long-term because of abnormal lab results. Patient has a history of chronic kidney disease and had lab work this morning which showed a significant increase in his creatinine level. He was referred here for this. Patient has a history of a postop left knee infection and is currently on IV antibiotics at the long-term. He refuses amputation. He denies any fever or chest pain or increased shortness of breath. He is in atrial fibrillation with RVR here. He has a history of chronic atrial fibrillation and is on Coumadin. Patient has no specific complaints. He is alert and oriented. On examination patient is a well-developed well-nourished chronically ill- appearing elderly male in no acute distress. He is alert and oriented 3. There is no cyanosis or diaphoresis. Breath sounds are clear and equal bilaterally. Heart is irregularly irregular with a rapid rate. Heart rate around 120 at time of my examination. Abdomen is soft and nontender with normal bowel sounds. 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 He also has an open wound over the left knee with erythema extending up above the knee. Labs reviewed. EKG shows atrial fibrillation with RVR. Chest x-ray shows cardiomegaly with no acute failure. Dr. Walden discussed with patient's environmental field office manager, Dr. Baldwin, and she recommended admission and will consult on the patient in the hospital. The hospitalist, Dr. Currie, was consulted and accepted admission of the patient.
[2017-08-20 20:07] LABS: Basophils % 0.8 %; Eosinophils # 0.3 K/mcL (0.0-0.6); Eosinophils % 6.6 %; Hematocrit 32.6 % (37.5-50.1); Hemoglobin 10.4 g/dL (12.9-16.9); Immature Granulocytes % 0.4 % (0-4); Lymphocytes # 0.6 K/mcL (0.6-4.6); Lymphocytes % 11.4 %; Mean Corpuscular HGB Conc 31.9 g/dL (31.6-35.5); Mean Corpuscular Volume 90.8 fL (83.0-100.0); Mean Platelet Volume 9.3 fL (9.4-12.4); Monocytes # 0.5 K/mcL (0.0-1.3); Monocytes % 8.7 %; Neutrophils # 3.7 K/mcL (1.6-8.9); Platelet Count 206 K/mcL (140-400); Red Blood Count 3.59 M/mcL (4.19-5.50); Segmented Neutrophils % 72.1 %
[2017-08-20 20:13] LABS: Prothrombin Time 33.2 Seconds (9.4-12.1)
[2017-08-20 20:16] LABS: Activated Partial Thrombo Time 51.3 Seconds (26.0-36.0)
[2017-08-20 20:19] LABS: Calcium 9.5 mg/dL (8.6-10.8); Potassium 4.5 mEq/L (3.5-4.5)
[2017-08-20 20:20] LABS: Magnesium 1.9 mg/dL (1.6-2.6); Phosphorous 6.6 mg/dL (2.3-4.7)
[2017-08-20 20:21] LABS: Albumin 2.2 g/dL (3.5-5.0); Albumin/Globulin Ratio 0.4 (1.1-2.2); Alkaline Phosphatase 105 Units/L (38-126); Aspartate Amino Transferase 21 Units/L (5-34); Bilirubin,Direct 0.4 mg/dL (0.0-0.5); Bilirubin,Indirect 0.3 mg/dL (0.0-1.2); Bilirubin,Total 0.7 mg/dL (0.2-1.2); Globulin 5.1 g/dL (2.4-3.5); Total Protein 7.3 g/dL (6.0-8.3)
[2017-08-20 20:22] LABS: Alanine Aminotransferase < 6 Units/L (0-55)
[2017-08-20] MEDS ORDERED: 0.9 % Sodium Chloride 250 ML ONE (21:11)
[2017-08-20] MEDS ORDERED: 0.9 % Sodium Chloride 250 ML IVC SCH ×2 (21:15→22:20)
[2017-08-20] MEDS ORDERED: ACETAMINOPHEN PM PO PRN (22:11)
[2017-08-20] MEDS ORDERED: Melatonin 3 MG TABLET PO PRN (22:11)
[2017-08-20] MEDS ORDERED: Naloxone 0.4 MG/ML INJ IVP PRN (22:12)
--- NOTE | 2017-08-20 22:25 | Internal Med History&Physical ---
Date of Encounter: 08/20/17 Time of Encounter: 22:21 Assessment and Plan (1) Acute kidney injury superimposed on CKD Current visit: No Status: Acute Uncertain etiology. Has amyloidosis. Consult nephrology as discussed with ER. Cook placement for accurate I's and O's, Sent preliminary urine studies, check renal ultrasound although low suspicion for renal obstruction (2) Infection of prosthetic left knee joint Current visit: No Status: Acute Continue IV Zosyn for now until nephrology evaluation, renally dose given acute on EKG Qualifiers: Encounter type: initial encounter Qualified Code(s): T84.54XA - Infection and inflammatory reaction due to internal left knee prosthesis, initial encounter (3) A-fib Current visit: No Status: Chronic Fast A. fib but does not appear symptomatic. Continue Cardizem drip in the ER overnight On Coumadin anticoagulation, Trend INR Qualifiers: Atrial fibrillation type: chronic Qualified Code(s): I48.2 - Chronic atrial fibrillation (4) Amyloidosis Current visit: No Status: Chronic Continue doxycycline for amyloidosis. Supportive care Qualifiers: Amyloidosis type: unspecified amyloidosis Qualified Code(s): E85.9 - Amyloidosis, unspecified Internal Medicine - H&P: HPI Chief complaint: Elevated Cr History of present illness: Mr. Rubio is a 77 year old male with a complicated past medical history to include systemic amyloidosis under the care of Dr. Small at [facility], CKD under the care of Dr Baldwin, complicate left prosthetic knee infection status post partial hardware removal currently undergoing 6 weeks of IV Zosyn therapy who presents from an F with acute on chronic renal failure. In the ED he was found to have moderate A. fib RVR but does not appear symptomatic. He had a blood work done at her [facility] today with creatinine measured at 5.0 more than double his baseline. He was therefore admitted for further evaluation. On interview he denies any active symptoms no chest pain, no palpitations, has been urinating normally and if not for his abnormal blood work he would not have known that he had been unwell with his baseline chronic medical issues. For his knee infection he receive approximately 2-3 out of 6 weeks of IV Zosyn per patient report EKG personally reviewed revealed rate 135, A. fib RVR. In the ED he was started on a Cardizem drip EXAMINATION: SINGLE VIEW OF THE CHEST 08/20/2017 6:20 pm COMPARISON: 08/03/2017 HISTORY: ORDERING SYSTEM PROVIDED HISTORY: palpitations Additional tech notes: 5... FINDINGS: Lungs: Clear Mediastinum: Cardiomegaly. Pleura: No pleural effusion or pneumothorax Other: Degenerative change the left shoulder is notable. Central venous catheter terminating in the left axillary vein is noted XR/XR chest 1V portable IMPRESSION: 1. Cardiomegaly. No x-ray evidence of failure. 2. Notable change involving the left shoulder Past Med Surg Social Fam HX - Past Medical History Medical history: arthritis, atrial fibrillation, cirrhosis, CHF, hyperlipidemia , hypertension, osteoporosis, renal disease, thyroid disease, other Psychiatric history: no psych history - Past Surgical History Surgical History: orthopedic, other, other - Social History Smoking Status: Former smoker Smokeless Tobacco Status: No Alcohol use: none Drug use: none - Family History Father Adopted: Yes Living Status: Hx Family Cardiac Disorders: Yes Mother Living Status: Hx Family Cardiac Disorders: Yes (heart disease) Internal Medicine - H&P: Meds Ergocalciferol (VITAMIN D2) [Vitamin D2] 2,000 unit PO DAILY 02/05/17 [History] Levothyroxine [Synthroid] 88 mcg PO QAM 02/05/17 [History] Ursodiol 300 mg PO Q12H 04/08/17 [History] Multivitamin [Multivitamins] 1 cap PO DAILY 07/19/17 [History] Acetaminophen/Diphenhydramine [Acetaminophen Pm Caplet] 1 tab PO HS PRN #0 08/09 [Rx] Melatonin [Melatin] 3 mg PO HS PRN #0 08/09/17 [Rx] Zolpidem [Ambien] 10 mg PO HS PRN #10 tab 08/09/17 [Rx] Bumetanide 0.5 mg PO BID 08/20/17 [History] Doxycycline Hyclate [Morgidox] 100 mg PO DAILY 08/20/17 [History] Lisinopril 2.5 mg PO DAILY 08/20/17 [History] Mirtazapine [Remeron] 15 mg PO HS 08/20/17 [History] Ojvmwcrtmzni-Gqdl-Dcwnjkqs,Iso [Zosyn 4.5 gm/100 ml Galaxy Bag] 4.5 gm IV Q12H 08/20/17 [History] Ranitidine HCl [Zantac] 150 mg PO DAILY 08/20/17 [History] Warfarin [Coumadin] 2 mg PO 1800 08/20/17 [History] 3 Allergy/AdvReac Type Severity Reaction Status Date / Time No Known Allergies Allergy Verified 08/20/17 18:42 All Systems PM: A 10-system review of systems was performed and is negative for pertinent findings except as documented above in the HPI. Review of systems: ROS 14 point review of systems reviewed as best as possible given presentation. Pertinent positive or negative as per HPI or otherwise reviewed as negative - Constitutional Vitals: Temp Pulse Resp BP Pulse Ox 98.3 F 124 18 98/75 95 08/20/17 21:53 08/20/17 22:11 08/20/17 22:11 08/20/17 22:11 08/20/17 22:11 Exam: General - AAO x 3 Psych - Appropriate affect/speech. No agitation Eyes - KATH. Eye lids intact. No scleral icterus Neuro - No gross peripheral or central neuro deficits on inspection Heart -irregularly irregular. S1 and S2 present. No added HS/murmurs appreciated. No elevated JVD appreciated. Lung - Adequate air entry b/l, No crackles/wheezes appreciated GI - Soft, non-tender. No hepatosplenomegaly/ascites. BS+ - No CVA/suprapubic tenderness or palpable bladder distension Skin - redness of bilateral lower extremity. Healing wound on the left knee. + 1-2 lower extremity edema Internal Med - H&P Results - Labs CBC & Chem 7: 08/20/17 19:55 08/20/17 19:55 Labs: Short CBC 08/20/17 Range/Units 19:55 WBC 5.2 (4.3-11.1) K/mcL Hgb 10.4 L (12.9-16.9) g/dL Hct 32.6 L (37.5-50.1) % Plt Count 206 (140-400) K/mcL Neutrophils # 3.7 (1.6-8.9) K/mcL BMP 08/20/17 19:55 Sodium 137 Potassium 4.5 Chloride 103 Carbon Dioxide 19 BUN 99 H Creatinine 4.95 H Glucose 111 H Calcium 9.5 Cardiac Enzymes 08/20/17 Range/Units 19:55 Troponin I 0.20 H* (0-0.03) ng/mL Liver Function 08/20/17 Range/Units 19:55 Total Bilirubin 0.7 (0.2-1.2) mg/dL Direct Bilirubin 0.4 (0.0-0.5) mg/dL AST 21 (5-34) Units/L ALT < 6 (0-55) Units/L Alkaline Phosphatase 105 (38-126) Units/L Albumin 2.2 L (3.5-5.0) g/dL - Impressions ITS Impressions Chest X-Ray 08/20/17 18:45 IMPRESSION: 1. Cardiomegaly. No x-ray evidence of failure. 2. Notable change involving the left shoulder D/ / Alonzo May / Alonzo May Interpreting Provider: Alonzo May
[2017-08-21] MEDS: 0.9 % Sodium Chloride 1,000 ML IV SCH ×2 (01:36→17:41)
[2017-08-21] MEDS: Mirtazapine 15 MG TABLET PO SCH ×2 (01:36→21:23)
[2017-08-21 04:03] LABS: Basophils % 0.8 %; Eosinophils # 0.3 K/mcL (0.0-0.6); Eosinophils % 6.6 %; Hematocrit 29.6 % (37.5-50.1); Hemoglobin 9.6 g/dL (12.9-16.9); Immature Granulocytes % 0.4 % (0-4); Lymphocytes # 0.7 K/mcL (0.6-4.6); Lymphocytes % 15.3 %; Mean Corpuscular HGB Conc 32.4 g/dL (31.6-35.5); Mean Corpuscular Hemoglobin 29.3 pg (28.0-33.3); Mean Corpuscular Volume 90.2 fL (83.0-100.0); Monocytes # 0.5 K/mcL (0.0-1.3); Monocytes % 9.7 %; Neutrophils # 3.2 K/mcL (1.6-8.9); Platelet Count 181 K/mcL (140-400); Red Blood Count 3.28 M/mcL (4.19-5.50); Segmented Neutrophils % 67.2 %
[2017-08-21 04:10] LABS: INR 3.2; Prothrombin Time 35.7 Seconds (9.4-12.1)
[2017-08-21 04:19] LABS: Calcium 9.4 mg/dL (8.6-10.8); Magnesium 1.8 mg/dL (1.6-2.6); Potassium 4.5 mEq/L (3.5-4.5)
[2017-08-21] MEDS: Cholecalciferol (D-3) 1,000 UNIT TABLET PO SCH (09:11)
[2017-08-21] MEDS: Doxycycline 100 MG CAPSULE PO SCH (09:11)
[2017-08-21] MEDS: Famotidine 20 MG TABLET PO SCH (09:11)
[2017-08-21] MEDS: Piperacillin/Tazobactam 3.375 GM in D5% in Water (Mini-Bag+) 100 ML IVPB SCH ×2 (09:11→21:24)
[2017-08-21 13:52] LABS: Thyroid Stimulating Hormone 12.653 mcIU/mL (0.350-4.840)
--- NOTE | 2017-08-21 17:29 | Nephrology Consult Note ---
Date of Encounter: 08/21/17 Time of Encounter: 12:30 Assessment and Plan (1) Acute kidney injury superimposed on CKD Current Visit: Yes Status: Acute Elevated SCr in the setting of sepsis, amyloidosis and diuretics Agree with holding lisinopril and diuretics and giving gentlr fluids for now Discussed at great lengths goal of care. At this time, patient is not interested in usp renal replacement therapy but may consider as a temporary measure if needed. Not indicated yet as SCr slowly improving. Will check uric acid and cpk levels Await urine sodium and creatinine along with proteinuria Await US of kidney Renally dose zosyn for current renal dysfunction (2) CKD (chronic kidney disease) stage 3, GFR 30-59 ml/min Current Visit: Yes Status: Acute Baseline GFR around 30 prior to amyloid diagnosis but in the 20s lately Will start nepro for nutritional supplements History of Present Illness - Reason for Consult Consult date: 08/21/17 Acute Kidney Injury, Chronic Kidney Disease Requesting physician: Candace Walden - History of Present Illness 77 y o male with PMH of Amyloidosis with cardiac involvement, HTN, TR, MR, Afib/ flutter and stage 3 CKD admitted with abnormal labs with SCr noted at 5. Baseline Scr typically around 2.0. Per patient and , he has been quite sick in the past 4 weeks since I saw him in the office. He has been in and out of the hospital and rehab for continued infection of his knee despite hardware removal. He is currently residing at [facility] where he has been receiving zosyn q8 along with bumex 0.5mg bid. He denies any NSAIDs use. No N/V/D. No urinary sxs. Appetite has not been great. now reports liver involvement with his amylodosis Past Med Surg Social Fam HX - Past Medical History Medical history: arthritis, atrial fibrillation, cirrhosis, CHF, hyperlipidemia , hypertension, osteoporosis, renal disease, thyroid disease, other Psychiatric history: no psych history - Past Surgical History Surgical History: orthopedic, other, other - Social History Smoking Status: Former smoker Smokeless Tobacco Status: No Alcohol use: none Drug use: none - Family History Father Adopted: Yes Living Status: Hx Family Cardiac Disorders: Yes Mother Living Status: Hx Family Cardiac Disorders: Yes (heart disease) Medications and Allergies Ergocalciferol (VITAMIN D2) [Vitamin D2] 2,000 unit PO DAILY 02/05/17 [History] Levothyroxine [Synthroid] 88 mcg PO QAM 02/05/17 [History] Ursodiol 300 mg PO Q12H 04/08/17 [History] Multivitamin [Multivitamins] 1 cap PO DAILY 07/19/17 [History] Acetaminophen/Diphenhydramine [Acetaminophen Pm Caplet] 1 tab PO HS PRN #0 08/09 [Rx] Melatonin [Melatin] 3 mg PO HS PRN #0 08/09/17 [Rx] Zolpidem [Ambien] 10 mg PO HS PRN #10 tab 08/09/17 [Rx] Bumetanide 0.5 mg PO BID 08/20/17 [History] Doxycycline Hyclate [Morgidox] 100 mg PO DAILY 08/20/17 [History] Lisinopril 2.5 mg PO DAILY 08/20/17 [History] Mirtazapine [Remeron] 15 mg PO HS 08/20/17 [History] Lpwxurecmzbw-Vrzn-Kvgqasme,Iso [Zosyn 4.5 gm/100 ml Galaxy Bag] 4.5 gm IV Q12H 08/20/17 [History] Ranitidine HCl [Zantac] 150 mg PO DAILY 08/20/17 [History] Warfarin [Coumadin] 2 mg PO 1800 08/20/17 [History] 3 Allergy/AdvReac Type Severity Reaction Status Date / Time No Known Allergies Allergy Verified 08/20/17 18:42 Review of Systems All Systems: reviewed and no additional remarkable complaints except as stated ( as noted in HPI, 10 systems reviewed) Exam - Vital Signs Vital signs: Initial Vital Signs Temp Pulse Resp BP Pulse Ox 98.5 F 136 20 113/80 96 08/20/17 18:48 08/20/17 18:48 08/20/17 18:48 08/20/17 18:48 08/20/17 18:48 Vital Signs - Last 8 Hours Temp Pulse Resp BP Pulse Ox 08/21/17 15:38 97.7 F 76 16 101/65 98 08/21/17 12:09 97.7 F 92 16 105/72 96 Intake and Output 08/21/17 08/21/17 08/21/17 07:59 15:59 23:59 Intake Total 480 / 480 Output Total 200 / 200 650 / 650 Balance -200 / -200 -170 / -170 Intake: Oral 480 / 480 Output: Urine 200 / 200 Urethral (Cook) 200 / 200 Catheter 650 / 650 Other: Meal Lunch Percent of Meal Consumed 95% - General Appearance General appearance: chronically ill (NAD) EENT: ATNC, mucous membranes moist Neck: no JVD, supple Additional Comments: good areation ant bilat Cardiology: edema (LE bilat), normal S1, normal S2 Gastrointestinal: no tenderness, no guarding Integumentary: hyperpigmentation, chronic venous stasis (L knee with brace) Neurologic: no focal deficit Musculoskeletal: no deformities Psychiatric: mood/affect appropriate, cooperative Results - Lab Results 08/21/17 03:49 08/21/17 03:49 Most recent lab results Calcium 9.4 mg/dL (8.6-10.8) 08/21/17 03:49 Phosphorus 6.6 mg/dL (2.3-4.7) H 08/20/17 19:55 Magnesium 1.8 mg/dL (1.6-2.6) 08/21/17 03:49 Consult Discharge Plan - Plan Additional Instructions: pcp requested Referrals: Daniel Garcia MD [Primary Care Provider] -
[2017-08-21] MEDS ORDERED: *HR* Warfarin 2 MG TABLET PO SCH (18:00)
[2017-08-21 18:22] LABS: Uric Acid 8.7 mg/dL (3.5-7.2)
--- NOTE | 2017-08-21 18:53 | Electrocardiograph Report ---
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
--- NOTE | 2017-08-21 19:49 | Internal Med Progress Note ---
<Yancy Gonzales - Last Filed: 08/21/17 19:47> Date of Encounter: 08/21/17 Time of Encounter: 10:00 - Assessment and plan (1) Acute kidney injury superimposed on CKD Current Visit: Yes Status: Acute Assessment and plan: Creatinine has improved since admission Nephrology consultation, appreciate recommendations Continue to monitor daily labs Renally dose Zosyn Avoid nephrotoxins as much as possible (2) Infection of prosthetic left knee joint Current Visit: No Status: Chronic Assessment and plan: Patient started 6 weeks of IV antibiotic (Zosyn) on August 02 Renally dose Zosyn for current renal function Qualifiers: Encounter type: initial encounter Qualified Code(s): T84.54XA - Infection and inflammatory reaction due to internal left knee prosthesis, initial encounter (3) A-fib Current Visit: No Status: Chronic Assessment and plan: Rate controlled on Cardizem Anticoagulated with Coumadin Qualifiers: Atrial fibrillation type: chronic Qualified Code(s): I48.2 - Chronic atrial fibrillation (4) Liver cirrhosis Current Visit: No Status: Chronic Assessment and plan: Positive fluid wave on abdominal exam Patient had 2-1/2 L removed from his abdomen on July 22 - he was in the ICU at that point in time Possible paracentesis for symptom relief Qualifiers: Hepatic cirrhosis type: unspecified hepatic cirrhosis Ascites presence: with ascites Qualified Code(s): K74.60 - Unspecified cirrhosis of liver (5) Amyloidosis Current Visit: No Status: Chronic Qualifiers: Amyloidosis type: unspecified amyloidosis Qualified Code(s): E85.9 - Amyloidosis, unspecified - Subjective Interval history: Denies complaints at this time. Admitted due to doubling of creatinine. No decrease in urine volume, dysuria. He does have some discomfort from fluid build -up in his abdomen due to his cirrhosis. - Constitutional Vitals: Temp Pulse Resp BP Pulse Ox 97.7 F 76 16 101/65 98 08/21/17 15:38 08/21/17 15:38 08/21/17 15:38 08/21/17 15:38 08/21/17 15:38 General appearance: Present: A&O X 3, no acute distress - Head Head exam: Present: atraumatic, normocephalic - Eye Eye exam: Present: PERRL, conjuntiva pink, sclera anicteric Pupils: Present: PERRL - Neck Neck exam general surgery: Present: supple, trachea midline - Respiratory Respiratory exam: Present: CTAB. Absent: accessory muscle use, rales, rhonchi, wheezes - Cardiovascular Cardiovascular exam: Present: irregular rhythm, +S1, +S2 - GI/Abdominal GI/Abdominal exam: Present: distended, soft Additional comments: fluid wave - Extremities Exam Extremities exam: Present: warm. Absent: pedal edema Additional comments: L knee wrapped with immobilizer in place Internal Medicine: Result - Labs CBC & Chem 7: 08/21/17 03:49 08/21/17 03:49 Labs: Short CBC 08/21/17 Range/Units 03:49 WBC 4.7 (4.3-11.1) K/mcL Hgb 9.6 L (12.9-16.9) g/dL Hct 29.6 L (37.5-50.1) % Plt Count 181 (140-400) K/mcL Neutrophils # 3.2 (1.6-8.9) K/mcL BMP 08/21/17 03:49 Sodium 139 Potassium 4.5 Chloride 107 Carbon Dioxide 18 L BUN 97 H Creatinine 4.83 H Glucose 88 Calcium 9.4 - ABG Interpretation ABG results: PT/INR, D-dimer PT 35.7 Seconds (9.4-12.1) H 08/21/17 03:49 Consult Discharge Plan - Plan Additional Instructions: pcp requested Referrals: Daniel Garcia MD [Primary Care Provider] - <Stanley Bentley - Last Filed: 08/21/17 21:42> Date of Encounter: 08/21/17 - Assessment and plan (1) Acute kidney injury superimposed on CKD Current Visit: Yes Status: Acute (2) CKD (chronic kidney disease) stage 3, GFR 30-59 ml/min Current Visit: Yes Status: Acute (3) History of infection of total joint prosthesis of knee Current Visit: No Status: Acute (4) Amyloidosis Current Visit: No Status: Chronic Qualifiers: Amyloidosis type: unspecified amyloidosis Qualified Code(s): E85.9 - Amyloidosis, unspecified (5) A-fib Current Visit: No Status: Chronic Qualifiers: Atrial fibrillation type: chronic Qualified Code(s): I48.2 - Chronic atrial fibrillation - Constitutional Vitals: Temp Pulse Resp BP Pulse Ox 97.7 F 97 24 105/67 95 08/21/17 15:38 08/21/17 20:44 08/21/17 20:44 08/21/17 20:44 08/21/17 20:44 Internal Medicine: Result - Labs CBC & Chem 7: 08/21/17 03:49 08/21/17 03:49 Labs: Short CBC 08/21/17 Range/Units 03:49 WBC 4.7 (4.3-11.1) K/mcL Hgb 9.6 L (12.9-16.9) g/dL Hct 29.6 L (37.5-50.1) % Plt Count 181 (140-400) K/mcL Neutrophils # 3.2 (1.6-8.9) K/mcL BMP 08/21/17 03:49 Sodium 139 Potassium 4.5 Chloride 107 Carbon Dioxide 18 L BUN 97 H Creatinine 4.83 H Glucose 88 Calcium 9.4 - ABG Interpretation ABG results: PT/INR, D-dimer PT 35.7 Seconds (9.4-12.1) H 08/21/17 03:49 - Attending Attestation I examined this patient and my medical decision-making was reviewed with the Resident Physician on 08/21/17. I agree with the documented findings, disposition and treatment plan as described except to the extent set forth below. Mr Rubio is currently admitted for acute on chronic renal failure. He remains moderate risk due to potential for worsening renal failure. Mr Rubio feels OK. He is very edematous. No CP or SOB. No fever or chills. Abx continue. Exam Alert. Comfortable Heart irreg No wheeze Edema throughout. I/P 1. LURDES on CKD 2. Anasarca 3. Infected knee Further diagnoses and plan as above.
[2017-08-22 04:30] LABS: Basophils % 0.8 %; Eosinophils # 0.3 K/mcL (0.0-0.6); Eosinophils % 6.3 %; Hematocrit 29.8 % (37.5-50.1); Hemoglobin 9.7 g/dL (12.9-16.9); Immature Granulocytes % 0.4 % (0-4); Lymphocytes # 0.7 K/mcL (0.6-4.6); Lymphocytes % 15.4 %; Mean Corpuscular HGB Conc 32.6 g/dL (31.6-35.5); Mean Corpuscular Hemoglobin 29.4 pg (28.0-33.3); Mean Corpuscular Volume 90.3 fL (83.0-100.0); Mean Platelet Volume 9.3 fL (9.4-12.4); Monocytes # 0.4 K/mcL (0.0-1.3); Monocytes % 9.1 %; Neutrophils # 3.2 K/mcL (1.6-8.9); Platelet Count 188 K/mcL (140-400); Red Cell Distribution Width 15.2 % (11.5-14.5)
[2017-08-22 04:35] LABS: INR 3.2; Prothrombin Time 35.1 Seconds (9.4-12.1)
[2017-08-22 04:46] LABS: Calcium 9.3 mg/dL (8.6-10.8); Magnesium 1.8 mg/dL (1.6-2.6); Potassium 4.6 mEq/L (3.5-4.5)
[2017-08-22 05:09] LABS: Platelet Estimate Normal (Normal)
[2017-08-22] MEDS: Famotidine 20 MG TABLET PO SCH (07:56)
[2017-08-22] MEDS: Cholecalciferol (D-3) 1,000 UNIT TABLET PO SCH (07:56)
[2017-08-22] MEDS: Doxycycline 100 MG CAPSULE PO SCH (07:57)
[2017-08-22] MEDS: Piperacillin/Tazobactam 3.375 GM in D5% in Water (Mini-Bag+) 100 ML IVPB SCH ×2 (08:01→19:58)
--- NOTE | 2017-08-22 09:32 | Internal Med Progress Note ---
<Yancy Gonzales - Last Filed: 08/22/17 09:30> Date of Encounter: 08/22/17 Time of Encounter: 09:30 - Assessment and plan (1) Acute kidney injury superimposed on CKD Current Visit: Yes Status: Acute Assessment and plan: Creatinine continues to improve daily Nephrology consultation, appreciate recommendations Continue to monitor daily labs Renally dose Zosyn and Coumadin Avoid nephrotoxins as much as possible (2) Infection of prosthetic left knee joint Current Visit: No Status: Chronic Assessment and plan: Patient started 6 weeks of IV antibiotic (Zosyn) on August 02 Renally dose Zosyn for current renal function Qualifiers: Encounter type: initial encounter Qualified Code(s): T84.54XA - Infection and inflammatory reaction due to internal left knee prosthesis, initial encounter (3) A-fib Current Visit: No Status: Chronic Assessment and plan: Rate controlled on Cardizem Anticoagulated with Coumadin - dosed per pharmacy based on INR Qualifiers: Atrial fibrillation type: chronic Qualified Code(s): I48.2 - Chronic atrial fibrillation (4) Liver cirrhosis Current Visit: No Status: Chronic Assessment and plan: Positive fluid wave on abdominal exam Patient had 2-1/2 L removed from his abdomen on July 22 - he was in the ICU at that point in time Plan for paracentesis today Qualifiers: Hepatic cirrhosis type: unspecified hepatic cirrhosis Ascites presence: with ascites Qualified Code(s): K74.60 - Unspecified cirrhosis of liver (5) Amyloidosis Current Visit: No Status: Chronic Qualifiers: Amyloidosis type: unspecified amyloidosis Qualified Code(s): E85.9 - Amyloidosis, unspecified - Subjective Interval history: Denies complaints at this time. He would like paracentesis today. - Constitutional Vitals: Temp Pulse Resp BP Pulse Ox 98.3 F 74 16 97/66 94 08/22/17 07:01 08/22/17 08:02 08/22/17 08:02 08/22/17 08:02 08/22/17 08:02 General appearance: Present: A&O X 3, no acute distress - Head Head exam: Present: atraumatic, normocephalic - Eye Eye exam: Present: PERRL, conjuntiva pink, sclera anicteric Pupils: Present: PERRL - Neck Neck exam general surgery: Present: supple, trachea midline - Respiratory Respiratory exam: Present: CTAB. Absent: accessory muscle use, rales, rhonchi, wheezes - Cardiovascular Cardiovascular exam: Present: RRR, +S1, +S2. Absent: diastolic murmur, gallop, rubs, systolic murmur - GI/Abdominal GI/Abdominal exam: Present: distended (with fluid wave), normal bowel sounds, soft - Extremities Exam Extremities exam: Present: pedal edema (1+), warm. Absent: tenderness Additional comments: Evidence of chronic venous stasis Left knee wrapped with knee immobilizer brace in place - Neurological Exam Neurological exam: Present: CN II-XII intact, oriented X3, no focal deficits. Absent: pronater drift, facial droop, speech deficit - Skin Skin exam: Present: dry, intact, warm Internal Medicine: Result - Labs CBC & Chem 7: 08/22/17 04:00 08/22/17 04:00 Labs: Short CBC 08/22/17 Range/Units 04:00 WBC 4.7 (4.3-11.1) K/mcL Hgb 9.7 L (12.9-16.9) g/dL Hct 29.8 L (37.5-50.1) % Plt Count 188 (140-400) K/mcL Neutrophils # 3.2 (1.6-8.9) K/mcL BMP 08/22/17 04:00 Sodium 137 Potassium 4.6 H Chloride 105 Carbon Dioxide 16 L BUN 95 H Creatinine 4.72 H Glucose 87 Calcium 9.3 - ABG Interpretation ABG results: PT/INR, D-dimer PT 35.1 Seconds (9.4-12.1) H 08/22/17 04:00 - Impressions Impressions Retroperitoneum Ultrasound 08/21/17 17:40 IMPRESSION: *Unremarkable sonographic appearance of the kidneys. *Bilateral pleural effusions, moderate ascites and mild splenomegaly. D/ / Zayda Villegas MD / Zayda Villegas MD Interpreting Provider: Zayda Villegas MD Consult Discharge Plan - Plan Additional Instructions: pcp requested Referrals: Daniel Garcia MD [Primary Care Provider] - 08/27/17 3:30 pm <Stanley Bentley - Last Filed: 08/22/17 17:55> Date of Encounter: 08/22/17 - Assessment and plan (1) Acute renal failure Current Visit: Yes Status: Acute Assessment and plan: Related to decline of overall kidney status. Qualifiers: Acute renal failure type: with other specified pathological lesion Qualified Code(s): N17.8 - Other acute kidney failure (2) CKD (chronic kidney disease) stage 5, GFR less than 15 ml/min Current Visit: Yes Status: Chronic (3) Anasarca Current Visit: Yes Status: Acute (4) History of infection of total joint prosthesis of knee Current Visit: No Status: Chronic (5) Amyloidosis Current Visit: No Status: Chronic Qualifiers: Amyloidosis type: organ-limited Qualified Code(s): E85.4 - Organ-limited amyloidosis (6) A-fib Current Visit: No Status: Chronic Qualifiers: Atrial fibrillation type: chronic Qualified Code(s): I48.2 - Chronic atrial fibrillation - Constitutional Vitals: Temp Pulse Resp BP Pulse Ox 98.3 F 78 18 100/63 96 08/22/17 07:01 08/22/17 15:00 08/22/17 15:54 08/22/17 15:00 08/22/17 15:54 Internal Medicine: Result - Labs CBC & Chem 7: 08/22/17 04:00 08/22/17 04:00 Labs: Short CBC 08/22/17 Range/Units 04:00 WBC 4.7 (4.3-11.1) K/mcL Hgb 9.7 L (12.9-16.9) g/dL Hct 29.8 L (37.5-50.1) % Plt Count 188 (140-400) K/mcL Neutrophils # 3.2 (1.6-8.9) K/mcL BMP 08/22/17 04:00 Sodium 137 Potassium 4.6 H Chloride 105 Carbon Dioxide 16 L BUN 95 H Creatinine 4.72 H Glucose 87 Calcium 9.3 - ABG Interpretation ABG results: PT/INR, D-dimer PT 35.1 Seconds (9.4-12.1) H 08/22/17 04:00 - Impressions Impressions Retroperitoneum Ultrasound 08/21/17 17:40 IMPRESSION: *Unremarkable sonographic appearance of the kidneys. *Bilateral pleural effusions, moderate ascites and mild splenomegaly. D/ / Zayda Villegas MD / Zayda Villegas MD Interpreting Provider: Zayda Villegas MD - Attending Attestation I examined this patient and my medical decision-making was reviewed with the Resident Physician on 08/21/17. I agree with the documented findings, disposition and treatment plan as described except to the extent set forth below. Mr Rubio is currently admitted for acute on chronic renal failure. He remains moderate to high risk due to potential worsening respiratory and renal complications. Mr Rubio is up in chair. He feels OK at this time. No fever or chills. No GI issues. Remains markedly swollen. Does not want half-way dialysis and is considering only comfort measures. Exam alert. Comfortable Heart distant Lungs diminished Abd soft Anasarca present. I/P 1. Anasarca 2. Renal failure Further diagnoses and plan as above.
--- NOTE | 2017-08-22 10:49 | Nephrology Progress Note ---
Date of Encounter: 08/23/17 Time of Encounter: 10:36 - Assessment and Plan (1) Acute kidney injury superimposed on CKD Current Visit: Yes Status: Acute Mr. Rubio 77M admitted with elevated serum creatinine and diminished GFR in the setting of sepsis, amyloidosis, diuretics and IV Zosyn. - Continue holding lisinopril and diuretics. - Tolerating gentle rehydration without much improvement in renal function - Renal ultrasound completed demonstrating normal size kidneys which is less concerning for amyloid deposits. Supporting labs: Creatinine kinase 17, urine osmolality 363, urine total volume 0.62 L, urine creatinine 106, urine 24 hour creatinine 0.66, urine total protein 24-hour 440, protein creatinine ratio is 0.67, urine sodium is 36, urine total protein is 71. - Discussion with patient and his regarding if renal function does not improve if he would want renal replacement therapy. He was unsure and says he may likely not want dialysis. Plan: - Continue gentle rehydration with normal saline at 50 ML's per hour - 50 mg albumin every 6 hours to increase intravascular volume and perfusion of kidneys. - Continue renally dosing Zosyn - Palliative care consult recommended to discuss goals of care and palliative care. (2) CKD (chronic kidney disease) stage 3, GFR 30-59 ml/min Current Visit: Yes Status: Acute Baseline GFR around 30 prior to patient's amyloid diagnosis is been in the 20s recently. Since presenting with acute on chronic kidney disease his GFR has been around 12 without much or any change. His creatinine is not improving despite interventions. - Would recommend dialysis if the above interventions do not improve. Subjective Principal diagnosis: hannah on CKD Interval history: Mr. Rubio 77-year-old male is seen at bedside this morning. He denies any acute concerns or changes overnight. He does mention that the swelling in his extremities has been increasing over the last couple of weeks mainly in his bilateral upper extremities. He says that the abdominal ascites is new and he has never had this prior. He believes that this is all due to his amyloidosis. He denies any fevers, chills, sweating, chest pain or palpitations but has had some shortness of breath which has been progressive with his abdominal swelling. He denies any nausea or vomiting or diarrhea. Regarding his left lower extremity he says that it is actually not painful just more cumbersome with the wraps, brace and antibiotics. Objective - Vital Signs Vital signs: Vital Signs Temp Pulse Resp BP Pulse Ox 08/22/17 08:02 74 16 97/66 94 08/22/17 07:01 98.3 F 79 19 91/59 92 08/22/17 04:21 98.0 F 85 18 96/68 94 08/21/17 23:13 97.8 F 97 20 104/73 95 08/21/17 20:44 97 24 105/67 95 08/21/17 15:38 97.7 F 76 16 101/65 98 08/21/17 12:09 97.7 F 92 16 105/72 96 Intake and Output 08/21/17 08/22/17 08/22/17 23:59 07:59 15:59 Intake Total 970 / 970 100 / 100 200 / 200 Output Total 250 / 250 Balance 720 / 720 100 / 100 200 / 200 Intake: IV Fluids 850 / 850 100 / 100 0.9 % Sodium Chloride 1,000 ML 850 / 850 @ 50 mls/hr IV .Q20H JOEY Rx#: [id number] Zosyn 3.375 GM In Dextrose 5% ( 100 / 100 Minibag+) 100 ML 100 ML @ 25 mls/hr IVPB Q12H JOEY Rx#: [id number] Oral 120 / 120 0 / 0 200 / 200 Output: Catheter 250 / 250 Other: Meal Breakfast Percent of Meal Consumed 60% Stool Size Smear Stool Consistency soft formed Stool Color Green # Bowel Movements 1 Weight 104.5 kg Patient Weight 08/22/17 23:59 Weight 104.5 kg - General Appearance Exam: General: Patient alert, awake, oriented 3, interactive, in no acute distress HEENT: Normocephalic, atraumatic, pupils equal reactive to light, nasal cavity patent and open septum median position, oral mucosa moist, uvula midline, neck supple trachea midline no palpable lymphadenopathy, no thyromegaly. Chest: Symmetric bilateral correlating with respiratory effort, effort nonlabored. Cardiac: Regular rate and rhythm, positive S1 and S2. no bruits appreciated bilateral carotids, Radial pulses 2+ bilateral, posterior tibial and dorsal pedal pulses 2+ bilateral. Respiratory: Clear to auscultation all lung goldberg Abdomen: Distended, positive fluid wave, positive bowel sounds, nontender to palpation Extremities: Bilateral upper and lower extremities with 1+ pitting edema, bilateral lower extremities demonstrating chronic skin changes associated with venous stasis. Left knee is wrapped with a brace secondary to left knee replacement. Nontender to palpation, patient is able to wiggle both of his feet and lift his right leg without any discomfort. Neurologic: No focal deficits appreciated on examination. Face symmetric, muscle strength symmetric bilateral upper and lower extremities. - Lab 08/23/17 06:23 08/23/17 06:23 Most recent lab results Calcium 9.3 mg/dL (8.6-10.8) 08/22/17 04:00 Phosphorus 6.6 mg/dL (2.3-4.7) H 08/20/17 19:55 Magnesium 1.8 mg/dL (1.6-2.6) 08/22/17 04:00 Urine Sodium 36.0 mEq/L 08/22/17 10:00 Consult Discharge Plan - Plan Additional Instructions: pcp requested Referrals: Daniel Garcia MD [Primary Care Provider] - 08/27/17 3:30 pm
[2017-08-22 11:10] LABS: Total Volume 24 Hour,Urine 0.62 Liters (0.80-1.80)
[2017-08-22 11:51] LABS: Creatinine 24 Hour,Urine 0.66 g/day (0.71-1.65); Protein/Creatinine Ratio,Urine 0.67 mg/mg (0-0.20)
[2017-08-22] MEDS: 0.9 % Sodium Chloride 1,000 ML IV SCH (15:16)
[2017-08-22] MEDS ORDERED: Ipratropium/Albuterol Neb 3 ML IH PRN (15:37)
[2017-08-22] MEDS: Albumin 25% 25gram/100mL 25 GM/100 ML IV.SOLN IVPB SCH (18:00)
[2017-08-22] MEDS ORDERED: *HR* Warfarin 1 MG TABLET PO SCH (18:00)
[2017-08-22] MEDS ORDERED: Warfarin perPT PO PRN (18:00)
[2017-08-22] MEDS: Mirtazapine 15 MG TABLET PO SCH (22:20)
[2017-08-23] MEDS: Albumin 25% 25gram/100mL 25 GM/100 ML IV.SOLN IVPB SCH ×2 (01:29→13:59)
[2017-08-23 06:36] LABS: INR 3.3
[2017-08-23 06:46] LABS: Calcium 9.3 mg/dL (8.6-10.8); Magnesium 1.8 mg/dL (1.6-2.6); Potassium 4.4 mEq/L (3.5-4.5)
[2017-08-23 07:15] LABS: Basophils % 0.9 %; Eosinophils # 0.3 K/mcL (0.0-0.6); Eosinophils % 6.7 %; Hematocrit 28.8 % (37.5-50.1); Hemoglobin 9.4 g/dL (12.9-16.9); Immature Granulocytes % 0.2 % (0-4); Lymphocytes # 0.7 K/mcL (0.6-4.6); Lymphocytes % 14.8 %; Mean Corpuscular HGB Conc 32.6 g/dL (31.6-35.5); Mean Corpuscular Hemoglobin 29.7 pg (28.0-33.3); Mean Corpuscular Volume 91.1 fL (83.0-100.0); Mean Platelet Volume 10.2 fL (9.4-12.4); Monocytes # 0.4 K/mcL (0.0-1.3); Monocytes % 8.9 %; Neutrophils # 3.1 K/mcL (1.6-8.9); Platelet Count 180 K/mcL (140-400); Red Blood Count 3.16 M/mcL (4.19-5.50); Red Cell Distribution Width 15.5 % (11.5-14.5); Segmented Neutrophils % 68.5 %
[2017-08-23 07:20] VITALS: BP 98/67
[2017-08-23 07:39] LABS: Immunoglobulin A 362 mg/dL (68-408); Immunoglobulin G 1840 mg/dL (768-1632); Immunoglobulin M 162 mg/dL (35-263)
[2017-08-23] MEDS: Famotidine 20 MG TABLET PO SCH (11:04)
[2017-08-23] MEDS: Doxycycline 100 MG CAPSULE PO SCH (11:04)
[2017-08-23] MEDS: Cholecalciferol (D-3) 1,000 UNIT TABLET PO SCH (11:04)
[2017-08-23] MEDS: Piperacillin/Tazobactam 3.375 GM in D5% in Water (Mini-Bag+) 100 ML IVPB SCH (11:05)
--- NOTE | 2017-08-23 11:23 | Palliative - Consult Note ---
Date of Encounter: 08/23/17 Time of Encounter: 09:30 - Assessment and Plan (1) Acute kidney injury superimposed on CKD Current Visit: Yes Status: Acute Assessment and plan: Kidney function staying flat, not improving she does not wish to have dialysis ultimately urology is following. Plan per hospitalist team and nephrology. (2) Goals of care, counseling/discussion Current Visit: No Status: Acute Assessment and plan: CODE STATUS established during last hospitalization DNR CCA DNI. Over with patient in great depth and detail his options. As there are still [facility] available to him at the [facility], he would like to avail himself of that and after those are used up will consider hospice. Louis for discharge to the [facility] for skilled rehabilitation and antibiotics and then family will discuss hospice (3) Infection of total right knee replacement Current Visit: No Status: Acute Assessment and plan: Patient is still on antibiotics for this. The plan will be for him to finish out the antibiotics to participate in rehabilitation to whatever degree that he can then consider hospice. Qualifiers: Encounter type: initial encounter Qualified Code(s): T84.53XA - Infection and inflammatory reaction due to internal right knee prosthesis, initial encounter; Z96.651 - Presence of right artificial knee joint Palliative-CN HPI - Data of Consult Patient: known to practice within the last 3 years Requesting Physician: Stanley Bentley DO Primary Care Provider: Daniel Garcia MD - Consult Narrative Palliative Care/Comfort Measures: Palliative care History of present illness: Mr. Rubio is a 77 year old male Well known to me from previous hospitalization with a history of nonhealing wound left knee status post replacement then having to have the hardware removed. In the last hospitalization it was recommended to the patient by infectious disease, general surgery and orthopedics that he have a above the knee amputation. At that time he refused, wanted to give antibiotics a full chance to work and then revisit the amputation question. Patient also has a history of amyloidosis which is affecting his liver his heart and his kidneys. At this time he comes in with acute on chronic renal failure and worsening edema. Overall the patient's kidneys are not responding as hoped. And it has been suggested to him that he might well need dialysis to get the fluid off. He does not wish to have dialysis. Therefore palliative care was consulted. He has no complaints of pain at this time no complaints of shortness of breath. CC: Stanley Bentley, DO Renal failure Past Med Surg Social Fam HX - Past Medical History Medical history: arthritis, atrial fibrillation, cirrhosis, CHF, hyperlipidemia , hypertension, osteoporosis, renal disease, thyroid disease, other Psychiatric history: no psych history - Past Surgical History Surgical History: orthopedic, other, other - Social History Smoking Status: Former smoker Smokeless Tobacco Status: No Alcohol use: none Drug use: none - Family History Father Adopted: Yes Living Status: Hx Family Cardiac Disorders: Yes Mother Living Status: Hx Family Cardiac Disorders: Yes (heart disease) Medications and Allergies Ergocalciferol (VITAMIN D2) [Vitamin D2] 2,000 unit PO DAILY 02/05/17 [History] Levothyroxine [Synthroid] 88 mcg PO QAM 02/05/17 [History] Ursodiol 300 mg PO Q12H 04/08/17 [History] Multivitamin [Multivitamins] 1 cap PO DAILY 07/19/17 [History] Acetaminophen/Diphenhydramine [Acetaminophen Pm Caplet] 1 tab PO HS PRN #0 08/09 [Rx] Melatonin [Melatin] 3 mg PO HS PRN #0 08/09/17 [Rx] Zolpidem [Ambien] 10 mg PO HS PRN #10 tab 08/09/17 [Rx] Bumetanide 0.5 mg PO BID 08/20/17 [History] Doxycycline Hyclate [Morgidox] 100 mg PO DAILY 08/20/17 [History] Lisinopril 2.5 mg PO DAILY 08/20/17 [History] Mirtazapine [Remeron] 15 mg PO HS 08/20/17 [History] Wjnaxepkhqkd-Wkga-Bzpmyrwa,Iso [Zosyn 4.5 gm/100 ml Galaxy Bag] 4.5 gm IV Q12H 08/20/17 [History] Ranitidine HCl [Zantac] 150 mg PO DAILY 08/20/17 [History] Warfarin [Coumadin] 2 mg PO 1800 08/20/17 [History] 3 Allergy/AdvReac Type Severity Reaction Status Date / Time No Known Allergies Allergy Verified 08/20/17 18:42 - Constitutional Constitutional ROS PAL: decreased appetite, anorexia, no chills, no fatigue - EENT Eyes: no discharge, no pain Ears: no ear discharge, no ear pain Ears, nose, mouth, throat: no facial pain, no hoarseness, no lip swelling, no mouth pain - Cardiovascular Cardiovascular ROS: edema, irregular heart rhythm, no chest pain, no chest pain at rest, no chest pain with activity - Respiratory Respiratory: no cough, no dyspnea, no hemoptysis - Gastrointestinal Gastrointestinal: no constipation, no diarrhea, no nausea, no vomiting - Genitourinary Genitourinary ROS male: no urinary frequency, no urinary hesitancy, no urinary incontinence - Musculoskeletal Musculoskeletal ROS IM: joint swelling, no muscle weakness, no myalgias - Integumentary ROS Integumentary: skin ulcer (Left knee has a very slowly healing wound) - Neurological Neurological ROS: no confusion, no convulsions, no disequilibrium - Psychiatric Psychiatric general PM: change in appetite, depression (Mostly situational due to the overall health condition. Site RHI. ), no anxiety, no confusion, no homicidal ideation, no hopelessness, no irritability, no suicidal ideation - Endocrine Endocrine IM: other (No diabetes or thyroid ) Palliative Care-Exam - Constitutional Vitals: Temp Pulse Resp BP Pulse Ox 98.9 F 81 19 98/67 91 08/23/17 05:12 08/23/17 07:00 08/23/17 07:00 08/23/17 07:00 08/23/17 07:00 General appearance: Present: cooperative, no acute distress. Absent: febrile, disheveled - Head Head Exam: Present: atraumatic, normal inspection - Eye Eye exam: Present: EOMI, normal appearance - ENT ENT exam: Present: mucous membranes moist - Neck Neck exam: Present: normal inspection - Respiratory Respiratory exam: Present: CTAB - Cardiovascular Cardiovascular exam: Present: RRR - GI/Abdominal Exam GI/Abdominal exam: Present: distended, normal bowel sounds. Absent: tenderness - Extremities Exam Extremities exam: Present: pedal edema. Absent: normal inspection, tenderness - Neurological Exam Neurological exam: Present: alert, oriented X3 - Psychiatric Psychiatric exam: Present: normal affect, normal mood. Absent: agitated, anxious, depressed (No real depression I believe this is all situational ), flat affect - Skin Skin exam: Present: dry, warm Internal Medicine - CN: Reslt - Labs CBC & Chem 7: 08/23/17 06:23 08/23/17 06:23 Labs: Short CBC 08/23/17 Range/Units 06:23 WBC 4.5 (4.3-11.1) K/mcL Hgb 9.4 L (12.9-16.9) g/dL Hct 28.8 L (37.5-50.1) % Plt Count 180 (140-400) K/mcL Neutrophils # 3.1 (1.6-8.9) K/mcL BMP 08/23/17 06:23 Sodium 134 L Potassium 4.4 Chloride 104 Carbon Dioxide 16 L BUN 94 H Creatinine 4.89 H Glucose 86 Calcium 9.3 - ABG Interpretation ABG results: PT/INR, D-dimer PT 36.0 Seconds (9.4-12.1) H 08/23/17 06:23 Consult Discharge Plan - Plan Additional Instructions: pcp requested Referrals: Daniel Garcia MD [Primary Care Provider] - 08/27/17 3:30 pm Palliative Quality Palliative Quality: Screen for Code Status: Yes, Screen for Goals of Care: Yes, Screen for Pain: Yes, If Pain Regimen Started, Initiate Bowel Regimen: Yes, Screen for Nausea/Vomitting: Yes
--- NOTE | 2017-08-23 11:25 | Discharge Summary ---
<Yancy Gonzales - Last Filed: 08/23/17 15:29> Date of Encounter: 08/23/17 Time of Encounter: 11:06 - Discharge Diagnosis (1) Acute kidney injury superimposed on CKD Priority: Primary Status: Acute (2) Infection of prosthetic left knee joint Priority: Secondary Status: Chronic Qualifiers: Encounter type: initial encounter Qualified Code(s): T84.54XA - Infection and inflammatory reaction due to internal left knee prosthesis, initial encounter (3) A-fib Priority: Secondary Status: Chronic Qualifiers: Atrial fibrillation type: chronic Qualified Code(s): I48.2 - Chronic atrial fibrillation (4) Liver cirrhosis Priority: Secondary Status: Chronic Qualifiers: Hepatic cirrhosis type: unspecified hepatic cirrhosis Ascites presence: with ascites Qualified Code(s): K74.60 - Unspecified cirrhosis of liver (5) Amyloidosis Priority: Secondary Status: Chronic Qualifiers: Amyloidosis type: organ-limited Qualified Code(s): E85.4 - Organ-limited amyloidosis - Discharge Medications Prescriptions: Diltiazem HCl [Cardizem LA] 120 mg PO DAILY #30 tab.er.24h Home Medications: Ergocalciferol (VITAMIN D2) [Vitamin D2] 2,000 unit PO DAILY 02/05/17 [History] Levothyroxine [Synthroid] 88 mcg PO QAM 02/05/17 [History] Ursodiol 300 mg PO Q12H 04/08/17 [History] Multivitamin [Multivitamins] 1 cap PO DAILY 07/19/17 [History] Acetaminophen/Diphenhydramine [Acetaminophen Pm Caplet] 1 tab PO HS PRN #0 08/09 [Rx] Melatonin [Melatin] 3 mg PO HS PRN #0 08/09/17 [Rx] Zolpidem [Ambien] 10 mg PO HS PRN #10 tab 08/09/17 [Rx] Bumetanide 0.5 mg PO BID 08/20/17 [History] Doxycycline Hyclate [Morgidox] 100 mg PO DAILY 08/20/17 [History] Mirtazapine [Remeron] 15 mg PO HS 08/20/17 [History] Kppngiwxvrsy-Bqyx-Bmlpmybr,Iso [Zosyn 4.5 gm/100 ml Galaxy Bag] 4.5 gm IV Q12H 08/20/17 [History] Ranitidine HCl [Zantac] 150 mg PO DAILY 08/20/17 [History] Diltiazem HCl [Cardizem LA] 120 mg PO DAILY #30 tab.er.24h 08/23/17 [Rx] Warfarin [Coumadin] 2 mg PO 1800 #0 08/23/17 [Rx] Allergies/Adverse Reactions: 3 Allergy/AdvReac Type Severity Reaction Status Date / Time No Known Allergies Allergy Verified 08/20/17 18:42 Procedures/tests Complete & Pending: Procedures Performed prior 72 hours Category Date Time Status US retroperitoneal comp [US] Routine Exams 08/21/17 17:40 Completed Date of admission: 08/20/17 22:23 Primary care physician: Daniel Garcia MD Consults: 08/21/17 01:58 Consult to Wound Care [CONS] Routine Reason for Consult: right knee wound Call Completed: No 08/21/17 09:33 PT [Consult to Physical Therapy] [CONS] Routine Comment: Evaluate, develop and implement POC Reason for Consult: patient deconditioning 08/21/17 09:34 OT [Consult to Occupational Therapy] [CONS] Routine Comment: Evaluate, develop and implement POC Reason for Consult: patient deconditioning 08/21/17 09:46 Consult to Transplant Surgeon [CONS] Routine Reason for SW Consult: from [facility] 08/23/17 09:30 Consult to Palliative Care [CONS] Routine Comment: Consulting Provider: Palliative Care [facility] Reason for Consult: comfort care, goals of care, ESRD not interested in dialysis Time Notified: 09:00 Call Completed: Yes Discharging clinician: Yancy Gonzales Anticipated date of discharge: 08/23/17 - Patient Status Disposition: Transfer SNF Condition: Fair Functional capacity at discharge: uses cane/walker Overall status at discharge: patient is not back to baseline - Ambulatory Orders Ambulatory Orders: Prothrombin Time INR [COAG] Time Frame: 08/26/17, Location: N/A - Discharge Instructions Follow Up With: Daniel Garcia MD [Primary Care Provider] - 08/27/17 3:30 pm Additional Instructions: pcp requested - Diet and Activity Activity: ambulate only with your walker Diet: low salt diet Interval History: Patient is more swollen today (entire body), his skin is seeping. Hospital course: Mr. Rubio is a 77 year old male admitted to the hospital for doubling of creatinine. His kidney function has not improved while he has been inpatient and he has chosen that he does not want renal replacement therapy. He would like to be discharged back to [facility] to complete his 6 weeks of IV antibiotic therapy for his left knee infection. - Time Spent with Patient Total time spent providing and/or coordinating discharge services: - Constitutional Vitals: Temp Pulse Resp BP Pulse Ox 98.9 F 81 19 98/67 91 08/23/17 05:12 08/23/17 07:00 08/23/17 07:00 08/23/17 07:00 08/23/17 07:00 General appearance: Present: A&O X 3, no acute distress - Head Head exam: Present: atraumatic, normocephalic - Eye Eye exam: Present: PERRL, conjuntiva pink, sclera anicteric Pupils: Present: PERRL - Neck Neck exam general surgery: Present: supple, trachea midline - Respiratory Respiratory exam: Present: CTAB. Absent: wheezes - Cardiovascular Cardiovascular exam: Present: RRR, +S1, +S2 - GI/Abdominal GI/Abdominal exam: Present: distended (anasarca), normal bowel sounds, soft - Extremities Exam Extremities exam: Present: pedal edema (2-3+ ), warm - Neurological Exam Neurological exam: Present: CN II-XII intact, oriented X3, no focal deficits. Absent: pronater drift, facial droop, speech deficit - Skin Additional comments: anasarce; skin is seeping <Stanley Bentley - Last Filed: 08/23/17 17:12> Date of Encounter: 08/23/17 - Discharge Diagnosis (1) Acute renal failure Status: Acute Qualifiers: Acute renal failure type: with other specified pathological lesion Qualified Code(s): N17.8 - Other acute kidney failure (2) CKD (chronic kidney disease) stage 5, GFR less than 15 ml/min Priority: Secondary Status: Chronic (3) Anasarca Priority: Secondary Status: Chronic (4) History of infection of total joint prosthesis of knee Priority: Secondary Status: Chronic (5) Amyloidosis Status: Chronic Qualifiers: Amyloidosis type: organ-limited Qualified Code(s): E85.4 - Organ-limited amyloidosis (6) A-fib Status: Chronic Qualifiers: Atrial fibrillation type: chronic Qualified Code(s): I48.2 - Chronic atrial fibrillation (7) Hypertension Priority: Secondary Status: Chronic Qualifiers: Hypertension type: essential hypertension Qualified Code(s): I10 - Essential (primary) hypertension (8) Hypothyroidism Status: Chronic Qualifiers: Hypothyroidism type: acquired Qualified Code(s): E03.9 - Hypothyroidism, unspecified Procedures/tests Complete & Pending: Procedures Performed prior 72 hours Category Date Time Status US retroperitoneal comp [US] Routine Exams 08/21/17 17:40 Completed Date of admission: 08/20/17 22:23 Primary care physician: Daniel Garcia MD Consults: 08/21/17 01:58 Consult to Wound Care [CONS] Routine Reason for Consult: right knee wound Call Completed: No 08/21/17 09:33 PT [Consult to Physical Therapy] [CONS] Routine Comment: Evaluate, develop and implement POC Reason for Consult: patient deconditioning 08/21/17 09:34 OT [Consult to Occupational Therapy] [CONS] Routine Comment: Evaluate, develop and implement POC Reason for Consult: patient deconditioning 08/21/17 09:46 Consult to Transplant Surgeon [CONS] Routine Reason for SW Consult: from [facility] 08/23/17 09:30 Consult to Palliative Care [CONS] Routine Comment: Consulting Provider: Palliative Care [facility] Reason for Consult: comfort care, goals of care, ESRD not interested in dialysis Time Notified: 09:00 Call Completed: Yes Hospital course: Mr. Rubio is a 77 year old male - Time Spent with Patient Total time spent providing and/or coordinating discharge services: 37min - Constitutional Vitals: Temp Pulse Resp BP Pulse Ox 98.9 F 81 19 98/67 91 08/23/17 05:12 08/23/17 07:00 08/23/17 07:00 08/23/17 07:00 08/23/17 07:00 - Attending Attestation I examined this patient and my medical decision-making was reviewed with the Resident Physician on 08/23/17. I agree with the documented findings, disposition and treatment plan as described except to the extent set forth below. Mr. Rubio has been admitted for worsening renal function. He has been seen by renal and is not improving much. He continues on IV abx for knee infection. He has been seen by palliative care as well. He is afebrile with stable vitals and will return to SNF to complete abx. He will be considering transition to hospice in the future. Exam Alert. Comfortable Edematous Heart reg Lungs diminished Plan D/C to SNF today.
--- NOTE | 2017-08-23 11:28 | Physician Discharge Referral ---
ExtendedCare Referral Info Transfer To: [facility] Provider in Charge: Dr. Stanley Bentley Provider in Charge after Transfer: Other Institutional Level of Care: Skilled - Diagnosis (1) Acute kidney injury superimposed on CKD Priority: Primary Status: Acute (2) Infection of prosthetic left knee joint Priority: Primary Status: Chronic (3) A-fib Priority: Secondary Status: Chronic (4) Liver cirrhosis Priority: Secondary Status: Chronic (5) Amyloidosis Priority: Secondary Status: Chronic Prognosis: Fair Aware of Diagnosis: Patient, Family Aware of Prognosis: Patient, Family - Transfer Medications Prescriptions: Diltiazem HCl [Cardizem LA] 120 mg PO DAILY #30 tab.er.24h Home Medications: Ergocalciferol (VITAMIN D2) [Vitamin D2] 2,000 unit PO DAILY 02/05/17 [History] Levothyroxine [Synthroid] 88 mcg PO QAM 02/05/17 [History] Ursodiol 300 mg PO Q12H 04/08/17 [History] Multivitamin [Multivitamins] 1 cap PO DAILY 07/19/17 [History] Acetaminophen/Diphenhydramine [Acetaminophen Pm Caplet] 1 tab PO HS PRN #0 08/09 [Rx] Melatonin [Melatin] 3 mg PO HS PRN #0 08/09/17 [Rx] Zolpidem [Ambien] 10 mg PO HS PRN #10 tab 08/09/17 [Rx] Bumetanide 0.5 mg PO BID 08/20/17 [History] Doxycycline Hyclate [Morgidox] 100 mg PO DAILY 08/20/17 [History] Mirtazapine [Remeron] 15 mg PO HS 08/20/17 [History] Sakomeezlwvc-Kury-Szbmmyzu,Iso [Zosyn 4.5 gm/100 ml Galaxy Bag] 4.5 gm IV Q12H 08/20/17 [History] Ranitidine HCl [Zantac] 150 mg PO DAILY 08/20/17 [History] Diltiazem HCl [Cardizem LA] 120 mg PO DAILY #30 tab.er.24h 08/23/17 [Rx] Warfarin [Coumadin] 2 mg PO 1800 #0 08/23/17 [Rx] Allergies/Adverse Reactions: 3 Allergy/AdvReac Type Severity Reaction Status Date / Time No Known Allergies Allergy Verified 08/20/17 18:42 - Respiratory Orders Smoking Cessation: Smoking cessation has been advised. For more information, call the [place] Tobacco Quit Line at 2-850-AFPC-NOW. - Lab Orders Lab Orders: Other (include drug levels w/frequency) (INR 08/26/2017) - Advance Directives Code Status: DNR-Arrest/Don't Intubate - Mobility Orders Ambulate (with walker) - Rehabiliation Orders Rehab Potential: Fair Rehab Orders: Evaluation for Physical Therapy - Diet Orders Renal CERTIFICATION: I certify that the transfer of the above named patient to an Extended Care Facility is necessary for the continuing treatment of the diagnosis listed. The above information is true and accurate reflection of patient's current condition. Confidential - Redisclosure prohibited without a patient's written consent.
--- NOTE | 2017-08-23 14:04 | Nephrology Progress Note ---
Date of Encounter: 08/23/17 Time of Encounter: 11:00 - Assessment and Plan (1) Acute kidney injury superimposed on CKD Current Visit: Yes Status: Acute Mr. Rubio 77M admitted with elevated serum creatinine and diminished GFR in the setting of sepsis, amyloidosis, diuretics and IV Zosyn. - Continue holding lisinopril and diuretics. - Tolerating gentle rehydration without much improvement in renal function - Renal ultrasound completed demonstrating normal size kidneys which is less concerning for amyloid deposits. Supporting labs: Creatinine kinase 17, urine osmolality 363, urine total volume 0.62 L, urine creatinine 106, urine 24 hour creatinine 0.66, urine total protein 24-hour 440, protein creatinine ratio is 0.67, urine sodium is 36, urine total protein is 71. - Discussion with patient and his regarding if renal function does not improve if he would want renal replacement therapy. He was unsure and says he may likely not want dialysis. 08/23: Renal function not improving despite current interventions, palliative care discussion today. Patient leaning away from dialysis. - After the patient met with palliative care today he is decided against dialysis and would like to be discharged to complete antibiotic therapy and palliative care. 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 Plan: - Continue renally dosing Zosyn - Continue palliative care measures. (2) CKD (chronic kidney disease) stage 3, GFR 30-59 ml/min Current Visit: Yes Status: Acute Baseline GFR around 30 prior to patient's amyloid diagnosis is been in the 20s recently. Since presenting with acute on chronic kidney disease his GFR has been around 12 without much or any change. His creatinine is not improving despite interventions. - Would recommend dialysis if patient is agreeable and the above interventions do not improve. Subjective Principal diagnosis: hannah on CKD Interval history: Mr. Rubio 77-year-old male is seen at bedside this morning. He denies any acute concerns or changes overnight. He is tolerating oral intake, antibiotics and denies any pain. After discussion he understands that he will be seeing palliative care today to discuss goals of care and what palliative care and offer. At this time he has no further concerns.. Objective - Vital Signs Vital signs: Vital Signs Temp Pulse Resp BP Pulse Ox 08/23/17 07:00 81 19 98/67 91 08/23/17 05:12 98.9 F 84 19 91/59 91 08/22/17 23:48 99.0 F 96 22 112/72 92 08/22/17 20:35 98.3 F 84 14 103/66 96 08/22/17 15:54 18 96 08/22/17 15:00 78 18 100/63 96 Intake and Output 08/22/17 08/23/17 08/23/17 23:59 07:59 15:59 Intake Total 100 / 100 100 / 100 Output Total 400 / 400 Balance 100 / 100 100 / 100 -400 / -400 Intake: IV Fluids 100 / 100 100 / 100 Flexbumin 25 gm In 100 ml @ 60 100 / 100 mls/hr IVPB Q8HR JOEY Rx#: [id number] Zosyn 3.375 GM In Dextrose 5% ( 100 / 100 Minibag+) 100 ML 100 ML @ 25 mls/hr IVPB Q12H JOEY Rx#: [id number] Output: Urine 400 / 400 Other: Stool Size Large # Bowel Movements 1 Weight 108.9 kg Patient Weight 08/23/17 23:59 Weight 108.9 kg - General Appearance Exam: General: Patient alert, awake, oriented 3, interactive, in no acute distress HEENT: Normocephalic, atraumatic, pupils equal reactive to light,, oral mucosa moist, uvula midline, neck supple trachea midline no palpable lymphadenopathy, no thyromegaly. Chest: Symmetric bilateral correlating with respiratory effort, effort nonlabored. Cardiac: Regular rate and rhythm, positive S1 and S2. no bruits appreciated bilateral carotids, Radial pulses 2+ bilateral, posterior tibial and dorsal pedal pulses 2+ bilateral. Respiratory: Clear to auscultation all lung goldberg Abdomen: Distended, positive fluid wave, positive bowel sounds, nontender to palpation Extremities: Bilateral upper and lower extremities with 1+ pitting edema, bilateral lower extremities demonstrating chronic skin changes associated with venous stasis. Left knee is wrapped with a brace secondary to left knee replacement. Nontender to palpation, patient is able to wiggle both of his feet and lift his right leg without any discomfort. Neurologic: No focal deficits appreciated on examination. Face symmetric, muscle strength symmetric bilateral upper and lower extremities. - Lab 08/23/17 06:23 08/23/17 06:23 Most recent lab results Calcium 9.3 mg/dL (8.6-10.8) 08/23/17 06:23 Phosphorus 6.6 mg/dL (2.3-4.7) H 08/20/17 19:55 Magnesium 1.8 mg/dL (1.6-2.6) 08/23/17 06:23 Urine Creatinine 106 mg/dL 08/22/17 01:05 Ur Total Protein 24 Hr 440 mg/day (0-299) H 08/22/17 01:05 Urine Sodium 36.0 mEq/L 08/22/17 10:00 Urine Total Protein 71 mg/dL (1-14) H 08/22/17 01:05 Consult Discharge Plan - Plan Additional Instructions: pcp requested Referrals: Daniel Garcia MD [Primary Care Provider] - 08/27/17 3:30 pm
--- NOTE | 2017-08-23 18:08 | Event Note ---
Date of Encounter: 08/23/17 Time of Encounter: 13:30 Nephrology Note. Attempted to sign my resident's note, but the [facility] system issued an error. I reviewed the notes from my colleague, from [facility], meds, labs, vitals, imaging and met the pt and his children. Since the pt has now decided upon selecting hospice without hemodialysis, I will sign-off. No charge or billing from me today. Thank you.
[2017-08-23 20:18] LABS: Alpha 2 Globulin (PEP) 0.74 g/dL (0.48-1.05); Beta Globulin (PEP) 0.71 g/dL (0.48-1.10)
[2017-08-24] MEDS ORDERED: Famotidine 20 MG TABLET PO SCH (09:00)
[2017-08-24 21:53] LABS: Urine Collection Duration 24 hr; Urine Collection Volume 618 mL
[2017-08-26 07:43] LABS: IFE Reflexed NOT DONE
--- NOTE | 2017-08-29 16:02 | Procedure Note ---
Date of procedure: 08/22/17 (Inadequate volume of fluid for)
== END 2017-08-23 17:44 | DRG 872 ==
LOC: 2NENU 18:36 → EMEROO 18:36 → 2NENU 23:10
PROVIDERS: ADMIT Hospitalist; ATTEND Internal Medicine